=== PATIENT | female | born 1970 | race Caucasian/White ===

== ENCOUNTER → 2019-11-14 14:52 | Outpatient (BNVA) | payer MEDICARE, MEDICAID, SELFPAY | PROVIDERS: Family Provider Family Medicine; PCP Family Medicine; Visit Provider Nurse Practitioner | DX: F43.12 Post-traumatic stress disorder, chronic (principal); R41.83 Borderline intellectual functioning | CPT/HCPCS: 99213 ==

== ENCOUNTER 2019-12-07 00:59 | Emergency (ER) | payer MEDICARE, MEDICAID, SELFPAY ==
[2019-12-07] VITALS (7 sets, daily range): BP systolic 150–168; BP diastolic 97–118; PULSE 77–88; RESP 16–18; TEMP 37; O2SAT 96; BMI 28.5
--- NOTE | 2019-12-07 01:33 | ED_ITS ---
Entered by Shireen Hebert, acting as scribe for Michael Begum DO Dec 07, 2019 00:59 HPI - Neck Pain/Injury General: Chief Complaint: Neck Pain/Injury Stated Complaint: HEAD/SHOULDER PAIN Time Seen by Provider: 12/07/19 01:26 Source: patient Mode of arrival: ambulatory Limitations: no limitations History of Present Illness: HPI Narrative: 49 yo f came to the er pov for neck pain. Pt states that she has pain between her shoulder blades. Pt states that she lifted a box of meat and started to have pain a few days later. Pt states that the pain started last sunday. Pt states that she has pain on her left side due to lifting. MD complaint: neck pain Place: other Severity: mild Relieving factors: none Exacerbating factors: none Associated symptoms: Reports headache(s); Denies dizziness or nausea Review of Systems Const: Denies: fever or chills Eyes: Denies: change in vision or blurry vision ENMT: Denies: painful swallowing, swelling of lips/tongue, Change in hearing, nose bleeds or post nasal drip Card: Denies: chest pain, palpitations, irregular heart rhythm, edema, swelling of feet/ankles, shortness of breath on exertion or shortness of breath when lying down Resp: Denies: shortness of breath, productive cough, non-productive cough or wheezing GI: Denies: abdominal pain, nausea, vomiting, rectal pain, blood in stool or black tarry stool : Denies: blood in urine Musc: Reports: neck pain and back pain; Denies: redness or joint warmth Skin/Breast: Denies: rash, itching or redness Neuro: Reports: headache; Denies: dizziness, vertigo, confusion or seizure-like activity Psych: Denies: anxiety, visual hallucinations or auditory hallucinations PFSH ED PFSH: Statuses (acute, chronic, etc) shown below reflect problem list status as previously entered and may not be historically accurate Medical History Borderline intellectual functioning (Acute) Post-traumatic stress disorder, chronic (Acute) Social History Smoking and tobacco status: current every day smoker Physical Exam Const: GENERAL APPEARANCE: well developed ORIENTATION/CONSCIOUSNESS: Yes oriented to person, Yes oriented to place and Yes oriented to time HENMT: COMMON NORMALS: normocephalic, external ears normal and external nose normal HEAD & SCALP: normocephalic; no scalp tenderness FACE & SINUS: normal facial exam NOSE: external nose normal and no nasal discharge EXTERNAL EAR: Yes external ears normal MOUTH: tongue normal Eye: COMMON NORMALS: PERRL, EOMs intact bilaterally and conjunctivae normal EYELID: eyelids normal CONJUNCTIVA: Yes conjunctivae normal PUPIL: Yes PERRL Neck/C-Spine: COMMON NORMALS: full ROM GENERAL: No tracheal deviation CERVICAL SPINE: Yes normal cervical lordosis, Yes cervical spine tenderness, No step off deformity, Yes paracervical muscle tenderness, No paracervical muscle spasm and Yes trapezius muscle tenderness Chest: COMMONS NORMALS: inspection of chest normal CHEST: No tenderness Resp: COMMON NORMALS: clear to auscultation bilaterally EFFORT & INSPECTION: No tachypneic, No respiratory distress, No retractions, No uses accessory muscles and No tracheal deviation AUSCULTATION: clear to auscultation bilaterally, no rhonchi, no wheezes and lung sounds not diminished Cardio: COMMON NORMALS: regular rate and regular rhythm RATE: regular rate RHYTHM: regular rhythm HEART SOUNDS: no murmurs PERIPHERAL PULSES: radial pulses present GI: INSPECTION: No abdominal distension AUSCULTATION: No hyperactive bowel sounds and No hypoactive bowel sounds PALPATION: No guarding and No rigid PERCUSSION: no dullness to percussion and no tympanic to percussion : COMMON NORMALS: Yes no CVA tenderness BLADDER/KIDNEY EXAM: Yes no CVA tenderness Back/Pelvis: COMMON NORMALS: no CVA tenderness Neuro: SENSORIUM/ORIENTATION: Yes oriented to person, Yes oriented to place and Yes oriented to time Psych: COMMON NORMALS: mental status grossly normal Skin: COMMON NORMALS: no rashes or lesions noted GENERAL SKIN EXAM: no rashes or lesions noted Course Vital Signs: Vital signs: Vital Signs Temperature 98.6 F 12/07/19 01:23 Pulse Rate 77 12/07/19 03:22 Respiratory Rate 16 12/07/19 03:22 Blood Pressure 158/106 12/07/19 03:22 Pulse Oximetry 96 12/07/19 03:22 Discharge Plan Discharge Patient Disposition: Home, Self-Care Clinical Impression: Cervical spondylosis Condition: Stable Prescriptions: New Medrol (Kemar) 4 mg tablets,dose pack See Rx Instructions .ROUTE .COMPLEX Qty: 21 RF: 0 No Action venlafaxine [Effexor XR] 150 mg capsule,extended release 24hr 150 mg PO QAM Qty: 30 RF: 2 topiramate [Topamax] 100 mg tablet 100 mg PO DAILY Qty: 30 RF: 2 gabapentin 400 mg capsule 400 mg PO BID RF: 0 atenolol 50 mg tablet 50 mg PO DAILY RF: 0 Symbicort 160-4.5 mcg/actuation HFA aerosol inhaler 2 puff INHALATION BID RF: 0 pantoprazole 40 mg tablet,delayed release (DR/EC) 40 mg PO QAM RF: 0 metformin 500 mg tablet 500 mg PO DAILY RF: 0 cyclobenzaprine 10 mg tablet 10 mg PO TID RF: 0 cholecalciferol (vitamin D3) 50,000 unit capsule 50,000 unit PO .weekly RF: 0 Discharge Orders: Discharge Order (Routine); Ordered 12/07/19 Ordered By: Michael Begum Referrals: Eric Mandel MD [Primary Care Provider] - Discharge Diet: Usual diet Discharge Activity: Increase activity as tolerated Patient Instructions: Cervical Sprain (ED) Discharge Date/Time: 12/07/19 03:22 Coding Level of Care Code ED [employer] Supervisor for Stephen Taylor The documentation recorded by the Anup valente Stephanie Lyn, accurately reflects the service I personally performed and the decisions made by Kel guerrero Jeremy John, DO Dec 07, 2019 00:59
[2019-12-07] MEDS: oxyCODONE-APAP 5-325 mg Tablet 2 TAB PO (03:04)
== END 2019-12-07 03:22 | disposition home or self-care (01) ==
PROVIDERS: Emergency Provider Emergency Medicine; Family Provider Family Medicine; PCP Family Medicine
DX: M47.812 Spondylosis without myelopathy or radiculopathy, cervical region (principal); Z79.84 Long term (current) use of oral hypoglycemic drugs; F17.210 Nicotine dependence, cigarettes, uncomplicated
CPT/HCPCS: 99281

== ENCOUNTER 2020-01-19 15:00 | Outpatient (CLI) | payer MEDICARE, MEDICAID, SELFPAY ==
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
== END 2020-01-19 15:01 | disposition home or self-care (01) ==
LOC: RADOUTREAD 01-20 07:42
PROVIDERS: Family Provider Family Medicine; PCP Family Medicine; Visit Provider Family Medicine
DX: Z01.89 Encounter for other specified special examinations (principal)

== ENCOUNTER → 2020-02-13 07:44 | Outpatient (BNVA) | payer MEDICARE, MEDICAID, SELFPAY | PROVIDERS: Family Provider Family Medicine; PCP Family Medicine; Visit Provider Nurse Practitioner | DX: R41.83 Borderline intellectual functioning (principal); F43.12 Post-traumatic stress disorder, chronic | CPT/HCPCS: 99213 ==

== ENCOUNTER 2020-05-20 23:16 | Emergency (ER) | payer MEDICARE, MEDICAID, SELFPAY ==
[2020-05-20 23:21] VITALS: BP 161/91; PULSE 72; RESP 18; TEMP 36.6; O2SAT 99; BMI 27.3
[2020-05-21 00:18] LABS: Basophils # 0.1 10^3/uL (0.0-0.1); Basophils % 0.9 %; Eosinophils # 0.2 10^3/uL (0.0-0.8); Eosinophils % 3.2 %; Hematocrit 38.6 % (37.0-47.0); Hemoglobin 12.2 g/dL (11.5-15.3); Lymphocytes # 2.1 10^3/uL (0.8-4.8); Lymphocytes % 32.3 %; Mean Corpuscular HGB Conc 31.6 g/dL (30.0-36.0); Mean Corpuscular Hemoglobin 29.7 pg (28.0-34.0); Mean Corpuscular Volume 93.9 fL (81-99); Mean Platelet Volume 10.8 fL (7.4-10.4); Monocytes # 0.6 10^3/uL (0.2-0.9); Monocytes % 8.8 %; Neutrophils # 3.58 10^3/uL (1.8-7.7); Neutrophils % 54.6 %; Nucleated Red Blood Cells % 0 %; Platelet Count 309 10^3/cmm (130-400); Red Blood Count 4.11 10^6/uL (4.1-5.3); Red Cell Distribution Width 15.2 % (12.1-15.1); White Blood Count 6.6 10^3/uL (4.0-10.0)
[2020-05-21 00:40] LABS: Alanine Aminotransferase 12 U/L (0-33); Albumin Level 4.7 g/dL (3.5-5.2); Alkaline Phosphatase 64 IU/L (35-105); Anion Gap 12.8 (5-19); Aspartate Amino Transferase 17 U/L (0-32); Blood Urea Nitrogen 7 mg/dL (6-20); Calcium 10.6 mg/dL (8.5-10.5); Carbon Dioxide 24 mmol/L (22-29); Chloride 106 mmol/L (98-107); Globulin 2.4 g/dL (1.3-4.6); Glomerular Filtration Rate 88.9 mL/min (90-130); Glucose 90 mg/dL (65-115); Lipase 33 U/L (13-60); Osmolality Calculated 283 mOsm/kg (285-295); Potassium 3.8 mmol/L (3.5-5.1); Sodium 139 mmol/L (136-145); Total Bilirubin 0.2 mg/dL (0.15-1.2); Total Protein 7.1 g/dL (6.6-8.7)
--- NOTE | 2020-05-21 01:29 | ED_ITS ---
HPI - Abdominal Pain General: Chief Complaint: Abdominal Pain Stated Complaint: lower abd pain and back pain Time Seen by Provider: 05/21/20 01:29 History of Present Illness: HPI narrative: Patient is a 49-year-old female comes to the ED with left lower quadrant abdominal pain and some back pain. Both symptoms started approximately 4 to 5 days ago. Left lower quadrant abdominal pain is described as sharp pain. Patient states that she does have some problems with constipation and says that her last bowel movement yesterday, she had to strain and only a little bit of hard stool came out. She says that is how her bowel movements have been recently. She rates both back and abdominal pain 10 out of 10. The back pain is located in the right lower lumbar region closer to right hip. She does not have any pain radiating down the leg, numbness or tingling or weakness to lower extremities. No bladder or bowel incontinence. She denies any recent accident, injury or trauma to cause back pain. Patient denies any fever, shortness of breath, chest pain, nausea, vomiting, diarrhea, blood in the stool, hematuria or dysuria. Associated Symptoms: Reports constipation; Denies chills, diarrhea, dysuria, fever(s), hematochezia, hematuria, fecal incontinence, nausea and vomiting Review of Systems Const: Denies: fever(s), chills or fatigue Eyes: Denies: change in vision or eye discomfort ENMT: Denies: throat pain, odynophagia, nasal discharge or nasal congestion Card: Denies: chest pain, palpitations, edema, swelling of feet/ankles, dyspnea on exertion or orthopnea Resp: Denies: dyspnea, productive cough or non-productive cough GI: Reports: abdominal pain and constipation; Denies: nausea, vomiting, diarrhea, fecal incontinence or hematochezia : Denies: flank pain, dysuria, urinary incontinence or hematuria Musc: Reports: back pain; Denies: neck pain or extremity swelling Skin/Breast: Denies: rash or new lesions Neuro: Denies: headache(s), numbness in extremities or weakness in extremities PFS ED PFSH: Medical History Borderline intellectual functioning Post-traumatic stress disorder, chronic Social History Smoking and tobacco status: current every day smoker Physical Exam Const: COMMON NORMALS: no acute distress, patient oriented x3 and alert GENERAL APPEARANCE: cooperative and comfortable HENMT: COMMON NORMALS: normocephalic HEAD & SCALP: normocephalic MOUTH: Normal oral and palatal mucosa present THROAT: posterior oropharynx normal and uvula midline Eye: COMMON NORMALS: Equal, round and reactive pupils present PUPIL: Yes Equal, round and reactive pupils present Neck/C-Spine: COMMON NORMALS: supple GENERAL: Yes normal visual inspection Resp: COMMON NORMALS: normal respiratory effort, No retractions, No use of accessory muscles and clear to auscultation bilaterally AUSCULTATION: clear to auscultation bilaterally Cardio: COMMON NORMALS: regular rate, regular rhythm, S1 normal heart sound present, S2 normal heart sound present, No gallops present (Cardio), No clicks present (Cardio), No murmurs present (Cardio) and Peripheral pulses 2+ throughout RATE: regular rate RHYTHM: regular rhythm HEART SOUNDS: S1 normal heart sound present and S2 normal heart sound present PERIPHERAL PULSES: Peripheral pulses 2+ throughout GI: COMMON NORMALS: Normal to inspection, nondistended, normoactive bowel sounds present, Soft to palpation and no masses PALPATION: Yes Soft to palpation and Yes Tenderness to palpation present (GI) Details: LLQ (Mild tenderness upon deep palpation ) : COMMON NORMALS: Yes no CVA tenderness BLADDER/KIDNEY EXAM: Yes no CVA tenderness Back/Pelvis: COMMON NORMALS: no CVA tenderness Extremity: COMMON NORMALS: normal to inspection and no pedal edema Neuro: COMMON NORMALS: patient oriented x3 SENSORIUM/ORIENTATION: Yes alert GAIT: Yes Normal gait present Skin: COMMON NORMALS: no rashes or lesions noted GENERAL SKIN EXAM: no rashes or lesions noted and dry skin Course Vital Signs: Vital signs: Vital Signs Temperature 97.9 F 05/20/20 23:21 Pulse Rate 62 05/21/20 03:41 Respiratory Rate 18 05/21/20 03:41 Blood Pressure 159/93 05/21/20 03:41 Pulse Oximetry 97 05/21/20 03:41 MDM - Abdominal Pain MDM Narrative: Medical decision making narrative: Patient is a 49-year-old female who comes to the ED with constipation and abdominal pain. Patient says she has been straining a lot and getting minimal hard stool out during bowel movements. Denies any blood in the stool. Patient had some tenderness upon palpation of the left lower quadrant. CBC, CMP and UA were unremarkable. KUB was performed and showed some moderate amount of stool in the ascending and proximal transverse colon. No other acute findings seen. Patient diagnosed with constipation and discharged with a prescription for MiraLAX. Patient told to follow-up with PCP in 7 to 10 days for reevaluation. Patient understood and agreed with plan. Lab Data: Attestation: I reviewed the patient's lab results. Labs: Lab Results 05/20/20 05/20/20 05/21/20 Range/Units 23:55 23:55 02:00 WBC 6.6 (4.0-10.0) 10^3/ uL RBC 4.11 (4.1-5.3) 10^6/u L Hgb 12.2 (11.5-15.3) g/dL Hct 38.6 (37.0-47.0) % MCV 93.9 (81-99) fL MCH 29.7 (28.0-34.0) pg MCHC 31.6 (30.0-36.0) g/dL RDW 15.2 H (12.1-15.1) % Plt Count 309 (130-400) 10^3/c mm MPV 10.8 H (7.4-10.4) fL Neut % (Auto) 54.6 % Lymph % (Auto) 32.3 % [place]lette % (Auto) 8.8 % Eos % (Auto) 3.2 % Baso % (Auto) 0.9 % Neut # (Auto) 3.58 (1.8-7.7) 10^3/u L Lymph # (Auto) 2.1 (0.8-4.8) 10^3/u L [place] # (Auto) 0.6 (0.2-0.9) 10^3/u L Eos # (Auto) 0.2 (0.0-0.8) 10^3/u L Baso # (Auto) 0.1 (0.0-0.1) 10^3/u L Nucleated RBC % (a uto) 0 % Nucleated RBCs # 0.0 /100WBC Sodium 139 (136-145) mmol/L Potassium 3.8 (3.5-5.1) mmol/L Chloride 106 (98-107) mmol/L Carbon Dioxide 24 (22-29) mmol/L Anion Gap 12.8 (5-19) BUN 7 (6-20) mg/dL Creatinine 0.7 (0.5-0.9) mg/dL GFR Calculation 88.9 L (90-130) mL/min Glucose 90 (65-115) mg/dL Calculated Osmolal ity 283 L (285-295) mOsm/k g Calcium 10.6 H (8.5-10.5) mg/dL Total Bilirubin 0.2 (0.15-1.2) mg/dL AST 17 (0-32) U/L ALT 12 (0-33) U/L Alkaline Phosphata se 64 (35-105) IU/L Total Protein 7.1 (6.6-8.7) g/dL Albumin 4.7 (3.5-5.2) g/dL Globulin 2.4 (1.3-4.6) g/dL Lipase 33 (13-60) U/L Urine Color Yellow (Yellow) Urine Appearance Clear (CLEAR) Urine pH 6 (5-7) Ur Specific Gravit y 1.020 (1.005-1.030) Urine Protein Neg (Negative) Urine Glucose (UA) Norm (Normal) Urine Ketones Negative (Negative) Urine Blood Neg (Negative) Urine Nitrate Negative (Negative) Urine Bilirubin Neg (NEGATIVE) Urine Urobilinogen Norm (Negative) mg/dL Ur Leukocyte Kelsie ase Negative (Negative) Urine RBC None (0-2) /hpf Urine WBC None (0-5) /hpf Ur Squamous Epith Cells None (0-5) Urine Bacteria None (NONE) Imaging Data ^: KUB: Attestation: I personally reviewed and interpreted this imaging study as follows: My impression: Stool seen in the ascending proximal and transverse colon. No other acute findings. Radiologist's impression: [address] [place] [address] XRay Report Signed Patient: Caty Perdomo Unit #: [id number] : 1970 Age/Sex: 49 / F ADM Date: 05/20/20 Loc: ER Room/Bed: Attending Dr: Ordering Provider/Ordering MD: Sergio Birch Date of Service: 05/21/20 Procedure(s): XR KUB portable [id number] Accession Number(s): [id number] Report Number: [id number] PROCEDURE INFORMATION: Exam: XR Abdomen, 1 View Exam date and time: 05/21/2020 2:27 AM Age: 49 years old Clinical indication: Abdominal pain; Generalized; Prior surgery; Surgery type: Gb, appy, btl; Additional info: Llq pain TECHNIQUE: Imaging protocol: XR of the abdomen. Views: Frontal supine view of the abdomen. 1 View. COMPARISON: CR Abdomen Series Acute [id number] 10/12/2019 12:12 AM FINDINGS: Gastrointestinal tract: The moderate stool is seen within the ascending and proximal transverse colon. Bones/joints: Unremarkable. XR/XR KUB portable [id number] IMPRESSION: There are no acute abdominal findings. Dictated By: Jose L Gibson MD Signed By: Jose L Gibson MD Signed Date/Time: 05/21/20351 DD/ 0 Discharge Plan Discharge Patient Disposition: Home, Self-Care Clinical Impression: Constipation Qualifiers: Constipation type: slow transit constipation Qualified Code(s): K59.01 - Slow transit constipation Condition: Stable Prescriptions: New Miralax 17 gram/dose powder 17 gm PO DAILY PRN (Reason: constipation) Qty: 119 RF: 0 No Action gabapentin 400 mg capsule 400 mg PO BID RF: 0 atenolol 50 mg tablet 50 mg PO DAILY RF: 0 Symbicort 160-4.5 mcg/actuation HFA aerosol inhaler 2 puff INHALATION BID RF: 0 pantoprazole 40 mg tablet,delayed release (DR/EC) 40 mg PO QAM RF: 0 metformin 500 mg tablet 500 mg PO DAILY RF: 0 cyclobenzaprine 10 mg tablet 10 mg PO TID RF: 0 cholecalciferol (vitamin D3) 50,000 unit capsule 50,000 unit PO .weekly RF: 0 venlafaxine [Effexor XR] 150 mg capsule,extended release 24hr 150 mg PO QAM Qty: 30 RF: 2 topiramate [Topamax] 100 mg tablet 100 mg PO DAILY Qty: 30 RF: 2 Medrol (Kemar) 4 mg tablets,dose pack See Rx Instructions .ROUTE .COMPLEX Qty: 21 RF: 0 Discharge Orders: Discharge Order (Routine); Ordered 05/21/20 Ordered By: Sergio Birch Referrals: Eric Mandel MD [Primary Care Provider] - Discharge Diet: Regular Discharge Activity: Resume usual activity Patient Instructions: Constipation - Adult, High Fiber Diet (ED) Activity Restrictions/Additional Instructions: Follow-up with medical provider as directed in 7-10 days. Take MiraLAX as prescribed to help soften and normalize bowel movements, drink plenty of fluids and stay hydrated. Eat a high-fiber diet including fruits and vegetables. Return to the ER or your medical provider if condition worsens. Please read and understand discharge instructions. If any questions, please ask. Discharge Date/Time: 05/21/20 03:44 Coding Level of Care Code ED Sammying Machine Operator for Marryg Fwd Exam Comprehensive
--- NOTE | 2020-05-21 01:40 | XRR_ITS ---
PROCEDURE INFORMATION: Exam: XR Abdomen, 1 View Exam date and time: 05/21/2020 2:27 AM Age: 49 years old Clinical indication: Abdominal pain; Generalized; Prior surgery; Surgery type: Gb, appy, btl; Additional info: Llq pain TECHNIQUE: Imaging protocol: XR of the abdomen. Views: Frontal supine view of the abdomen. 1 View. COMPARISON: CR Abdomen Series Acute [id number] 10/12/2019 12:12 AM FINDINGS: Gastrointestinal tract: The moderate stool is seen within the ascending and proximal transverse colon. Bones/joints: Unremarkable. XR/XR KUB portable [id number] IMPRESSION: There are no acute abdominal findings.
[2020-05-21 01:51] VITALS: BP 143/103; PULSE 61; RESP 18; O2SAT 98
[2020-05-21 02:30] LABS: Bilirubin Urine Neg (NEGATIVE); Blood Urine Neg (Negative); Glucose Urine UA Norm (Normal); Ketones Urine Negative (Negative); Leukocyte Esterase Urine Negative (Negative); Nitrate Urine Negative (Negative); Protein Urine Neg (Negative); Urine Appearance Clear (CLEAR); Urine Color Yellow (Yellow); Urobilinogen Urine Norm (Negative); pH Urine 6 (5-7)
[2020-05-21] MEDS: acetaminophen 325 mg Tablet 650 MG PO (03:16)
[2020-05-21 03:18] VITALS: BP 158/103; PULSE 64; RESP 16; O2SAT 96
[2020-05-21 03:41] VITALS: BP 159/93; PULSE 62; RESP 18; O2SAT 97
== END 2020-05-21 03:44 | disposition home or self-care (01) ==
PROVIDERS: Emergency Provider Physician Assistant; PCP Family Medicine
DX: K59.01 Slow transit constipation (principal); F17.210 Nicotine dependence, cigarettes, uncomplicated
CPT/HCPCS: 12345; 74018; 80053; 81001; 83690; 85025; 99283

== ENCOUNTER → 2020-06-10 07:35 | Outpatient (BNVA) | payer MEDICARE, MEDICAID, SELFPAY | PROVIDERS: PCP Family Medicine; Visit Provider Nurse Practitioner | DX: R41.83 Borderline intellectual functioning (principal); F43.12 Post-traumatic stress disorder, chronic | CPT/HCPCS: 99213 ==

== ENCOUNTER 2020-10-04 13:14 | Outpatient (CLI) | payer MEDICARE, MEDICAID, SELFPAY ==
--- NOTE | 2020-10-04 13:21 | MM_ITS ---
WS: [id number] SCREENING DIGITAL MAMMOGRAM WITH CAD HISTORY: SCREENING COMPARISON: 10/01/2019 and 02/06/2017 Bilateral CC and MLO views submitted. Computer aided detection analyzed. Breast composition: There are scattered areas of fibroglandular density. No suspicious masses, microc alcifications or architectural distortion. MM/[place] [id number] IMPRESSION: BI-RADS: 1-Negative FOLLOW UP: 1 Year Follow-up
== END 2020-10-04 13:15 | disposition home or self-care (01) ==
LOC: RADSHAW 13:17
PROVIDERS: PCP Family Medicine; Visit Provider Family Medicine
DX: Z12.31 Encounter for screening mammogram for malignant neoplasm of breast (principal)
CPT/HCPCS: 77067

== ENCOUNTER 2020-11-16 00:40 | Emergency (ER) | payer MEDICARE, MEDICAID, SELFPAY ==
[2020-11-16 00:56] VITALS: BP 144/90; PULSE 68; RESP 16; TEMP 36.6; O2SAT 100; BMI 28.0
[2020-11-16 01:02] VITALS: BP 131/91; PULSE 64; RESP 18; O2SAT 97
--- NOTE | 2020-11-16 01:15 | W.ED.FEMALGU ---
HPI - Female Genitourinary General: Chief complaint: Urogenital-Female Stated complaint: uti for 5 days Time Seen by Provider: 11/16/20 01:09 Source: patient Mode of arrival: ambulatory Limitations: no limitations History of Present Illness: HPI Narrative: 50-year-old female states over the last 5 days she has had difficulty urinating along with pain with urination. She states she has a hesitancy with a slight dribble and extreme pain. She states she had multiple urinary tract infections in the past and this feels the same. She denies any worsening improving factors. Denies any vomiting or fever. Denies any pain while at rest only with urination Associated symptoms: Deny abdominal pain, headache(s) or nausea Review of Systems Const: Denies: fever(s), chills, body aches or change in appetite Eyes: Denies: blurry vision or eye discomfort ENMT: Denies: throat pain or dental pain Card: Denies: chest pain Resp: Denies: dyspnea GI: Denies: abdominal pain, nausea, vomiting or diarrhea : Reports: difficulty voiding, dysuria and urinary frequency Musc: Denies: neck pain or back pain Skin/Breast: Denies: rash Neuro: Denies: headache(s) Psych: Denies: depression Jaiden/Lymph: Denies: easy bruising All/Imm: Denies: urticaria PFS ED PFSH: Medical History (Updated 11/16/20 @ 01:48 by Le Salas MD) Borderline intellectual functioning Post-traumatic stress disorder, chronic Social History Smoking and tobacco status: current every day smoker Physical Exam Const: COMMON NORMALS: no acute distress, patient oriented x3 and healthy appearing HENMT: COMMON NORMALS: normocephalic and atraumatic HEAD & SCALP: normocephalic and atraumatic Eye: COMMON NORMALS: Equal, round and reactive pupils present and EOMs intact bilaterally PUPIL: Yes Equal, round and reactive pupils present Neck/C-Spine: COMMON NORMALS: full ROM and supple Chest: COMMONS NORMALS: normal inspection of the chest and normal palpation of entire chest wall Resp: COMMON NORMALS: normal respiratory effort, No retractions, No use of accessory muscles and clear to auscultation bilaterally AUSCULTATION: clear to auscultation bilaterally Cardio: COMMON NORMALS: regular rate, regular rhythm and No murmurs present (Cardio) RATE: regular rate RHYTHM: regular rhythm GI: COMMON NORMALS: Normal to inspection, nondistended, normoactive bowel sounds present, Soft to palpation, non-tender and no masses PALPATION: Yes Soft to palpation Extremity: COMMON NORMALS: normal to inspection and full ROM Neuro: COMMON NORMALS: patient oriented x3, moves all extremities and no focal motor deficits Psych: COMMON NORMALS: mental status grossly normal, Normal thought process present and cooperative THOUGHT PROCESS: Normal thought process present Skin: COMMON NORMALS: no rashes or lesions noted and no wounds GENERAL SKIN EXAM: no rashes or lesions noted Course Vital Signs: Vital signs: Vital Signs Temperature 97.9 F 11/16/20 00:56 Pulse Rate 64 11/16/20 01:02 Respiratory Rate 18 11/16/20 01:02 Blood Pressure 131/91 11/16/20 01:02 Pulse Oximetry 97 11/16/20 01:02 MDM - Female MDM Narrative: Medical decision making narrative: Patient presents here with dysuria and likely UTI. Her abdominal exam is benign with no signs of appendicitis. We will place her on Keflex. She is to follow-up with PCP in 2 to 4 days return to ER if any worsening. She understands and agrees to plan. Lab Data: Labs: Lab Results 11/16/20 Range/Units 01:03 Urine Color Yellow (Yellow) Urine Appearance Sl cloudy A (CLEAR) Urine pH 5.0 (5-7) Ur Specific Gravit y 1.025 (1.005-1.030) Urine Protein Neg (Negative) Urine Glucose (UA) Norm (Normal) Urine Ketones 1+ H (Negative) Urine Blood Neg (Negative) Urine Nitrate Negative (Negative) Urine Bilirubin Neg (Negative) Urine Urobilinogen 1 H (Negative) mg/dL Ur Leukocyte Kelsie ase 1+ H (Negative) Urine RBC None (0-2) /hpf Urine WBC 0-4 H (0-5) /hpf Ur Squamous Epith Cells 15-25 H (0-5) /hpf Calcium Oxalate Cr ystal 25-40 H /hpf Amorphous Sediment Not Reportable Urine Bacteria 1+ H (NONE) /hpf Urine Mucus 3+ /hpf Discharge Plan Discharge Patient Disposition: Home Clinical Impression: Cystitis Condition: Stable Prescriptions: New Keflex 500 mg capsule 500 mg PO Q6H 7 Days Qty: 28 RF: 0 No Action venlafaxine [Effexor XR] 150 mg capsule,extended release 24hr 150 mg PO QAM Qty: 30 RF: 2 topiramate [Topamax] 100 mg tablet 100 mg PO DAILY Qty: 30 RF: 2 gabapentin 400 mg capsule 400 mg PO BID RF: 0 atenolol 50 mg tablet 50 mg PO DAILY RF: 0 Symbicort 160-4.5 mcg/actuation HFA aerosol inhaler 2 puff INHALATION BID RF: 0 pantoprazole 40 mg tablet,delayed release (DR/EC) 40 mg PO QAM RF: 0 metformin 500 mg tablet 500 mg PO DAILY RF: 0 cyclobenzaprine 10 mg tablet 10 mg PO TID RF: 0 cholecalciferol (vitamin D3) 50,000 unit capsule 50,000 unit PO .weekly RF: 0 Medrol (Kemar) 4 mg tablets,dose pack See Rx Instructions .ROUTE .COMPLEX Qty: 21 RF: 0 Miralax 17 gram/dose powder 17 gm PO DAILY PRN (Reason: constipation) Qty: 119 RF: 0 Discharge Orders: Discharge ED (Routine); Ordered 11/16/20 Ordered By: Le Salas Referrals: Eric Mandel MD [Primary Care Provider] - 1-3 days Discharge Diet: Advance as tolerated Discharge Activity: Resume usual activity Patient Instructions: Urinary Tract Infection in Women (ED) Coding Level of Care Code ED Citrus Fruit Colorer for Stephen Fwd Exam Comprehensive
[2020-11-16 01:43] LABS: Specific Gravity, Urine 1.025 (1.005-1.030); Urine Color Yellow (Yellow)
[2020-11-16 01:44] LABS: Add Urine Microscopic? YES; Bacteria Urine 1+ /hpf; Bilirubin Urine Neg (Negative); Blood Urine Neg (Negative); Glucose Urine UA Norm (Normal); Ketones Urine 1+ (Negative); Leukocyte Esterase Urine 1+ (Negative); Mucus Urine 3+ /hpf; Nitrate Urine Negative (Negative); Protein Urine Neg (Negative); Squamous Epithelial Cell Urine 15-25 /hpf (0-5); Urobilinogen Urine 1 mg/dL (Negative); WBC Urine 0-4 /hpf (0-5)
[2020-11-16 01:45] LABS: Add Urine Culture? No; Calcium Oxalate Crystals Urine 25-40 /hpf
[2020-11-16] MEDS: cephALEXin 500 mg Capsule PO (02:00)
[2020-11-16 02:07] VITALS: BP 148/88; PULSE 64; RESP 16; O2SAT 100
== END 2020-11-16 02:09 | disposition home or self-care (01) ==
PROVIDERS: Emergency Provider Emergency Medicine; PCP Family Medicine
DX: N30.90 Cystitis, unspecified without hematuria (principal); F17.210 Nicotine dependence, cigarettes, uncomplicated
CPT/HCPCS: 12345; 81001; 99281; 99283

== ENCOUNTER 2020-12-18 22:17 | Emergency (ER) | payer MEDICARE, MEDICAID, SELFPAY ==
[2020-12-18 22:19] VITALS: BP 156/103; PULSE 79; RESP 18; TEMP 36.7; O2SAT 99; BMI 26.6
--- NOTE | 2020-12-18 22:25 | XRR_ITS ---
PROCEDURE INFORMATION: Exam: XR Chest, 1 View Exam date and time: 12/18/2020 10:28 PM Age: 50 years old Clinical indication: Other: Syncope TECHNIQUE: Imaging protocol: XR of the chest Views: 1 view. COMPARISON: CR XR chest 2V* [id number] 10/08/2020 9:46 AM FINDINGS: Lungs: Unremarkable. No consolidation. Pleural spaces: Unremarkable. No pleural effusion. No pneumothorax. Heart/Mediastinum: Unremarkable. No cardiomegaly. Bones/joints: Unremarkable. XR/XR chest 1V portable [id number] IMPRESSION: No acute findings.
--- NOTE | 2020-12-18 22:25 | ECG_ITS ---
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1970 Requested By: Michael Hill Order Number: [id number] Isidra MD: CHELSEY CELESTIN Measurements Intervals [place] Rate: 75 P: 34 SC: 169 QRS: -14 QRSD: 89 T: 33 QT: 375 QTc: 420 Interpretive Statements SINUS RHYTHM VOLTAGE CRITERIA FOR LVH [MEETS CRITERIA IN ONE OF: R(aVL), S(V1), R(V5), R(V5/V6)+S(V1)] POSSIBLE ANTERIOR MYOCARDIAL INFARCTION , PROBABLY OLD [30 ms Q WAVE IN V3/V4, OR R < 0.2 mV IN V4] Compared to ECG 03/26/2019 11:59:49 Myocardial infarct finding now present Electronically Signed On 12-19-2020 21:18:30 GEOGRAPHIC INFORMATION SYSTEM ANALYST by CHELSEY CELESTIN [email or web address]
[2020-12-18] MEDS: sodium chloride 0.9% 1,000 ML 999 ML IV (22:36)
--- NOTE | 2020-12-18 22:36 | CTR_ITS ---
PROCEDURE INFORMATION: Exam: CT Head Without Contrast Exam date and time: 12/18/2020 10:37 PM Age: 50 years old Clinical indication: Syncope and collapse; Patient HX: Syncope episode while seated TECHNIQUE: Imaging protocol: Computed tomography of the head without contrast. Radiation optimization: All CT scans at this facility use at least one of these dose optimization techniques: automated exposure control; mA and/or kV adjustment per patient size (includes targeted exams where dose is matched to clinical indication); or iterative reconstruction. COMPARISON: CT head wo con* [id number] 08/21/2018 11:50 PM RADIATION DOSE METRICS: Total DLP (mGy-cm): 787.51 FINDINGS: Brain: Benign globus pallidus calcifications are present. Cerebral ventricles: No ventriculomegaly. Bones/joints: Unremarkable. No acute fracture. Paranasal sinuses: Visualized sinuses are unremarkable. No fluid levels. Mastoid air cells: Visualized mastoid air cells are well aerated. Soft tissues: Unremarkable. CT/CT head wo con* [id number] IMPRESSION: No acute findings.Non acute findings as described above. Radiation Dose CTDIVOL = (mGy): DLP = 787.51 (mGy-cm)
[2020-12-18 22:55] LABS: Add Urine Microscopic? NO
[2020-12-18 22:58] LABS: Basophils % 0.4 %; Eosinophils # 0.2 10^3/uL (0.0-0.8); Eosinophils % 2.6 %; Hemoglobin 12.7 g/dL (11.5-15.3); Lymphocytes % 25.6 %; Mean Corpuscular HGB Conc 31.8 g/dL (30.0-36.0); Mean Corpuscular Hemoglobin 29.7 pg (28.0-34.0); Mean Corpuscular Volume 93.7 fL (81-99); Monocytes # 0.8 10^3/uL (0.2-0.9); Monocytes % 10.4 %; Neutrophils # 4.69 10^3/uL (1.8-7.7); Neutrophils % 60.7 %; Nucleated Red Blood Cells % 0 %; Platelet Count 305 10^3/cmm (130-400); Red Blood Count 4.27 10^6/uL (4.1-5.3); Red Cell Distribution Width 15.1 % (12.1-15.1); White Blood Count 7.7 10^3/uL (4.0-10.0)
[2020-12-18 23:04] LABS: Bilirubin Urine Neg (Negative); Blood Urine Neg (Negative); Glucose Urine UA Norm (Normal); Ketones Urine Negative (Negative); Leukocyte Esterase Urine Negative (Negative); Nitrate Urine Negative (Negative); Protein Urine Neg (Negative); Specific Gravity, Urine 1.005 (1.005-1.030); Urine Appearance Clear (CLEAR); Urine Color Straw (Yellow); Urobilinogen Urine Norm (Negative); pH Urine 7 (5-7)
--- NOTE | 2020-12-18 23:16 | ED_ITS ---
HPI - Syncope General: Chief Complaint: Syncope Stated Complaint: POSS SYNCOPE Time Seen by Provider: 12/18/20 22:19 History of Present Illness: HPI narrative: 50-year-old female with a history of diabetes and hypertension. She presents with what sounds like a syncopal episode lasting somewhere between 2 and 5 minutes. It was witnessed by her coworkers she notes that she had had a bad headache prior, and then began to feel faint. She did not fall. She sat. She was out for 2 to 5 minutes. She states that her eyes were open she believes when she came to, but she could not see, and was having trouble hearing as well. This cleared. She had some mild confusion following that did not last long. There is no evidence of seizure- like or tonic-clonic movements according to bystanders. MD complaint: felt faint and collapsed Onset (ago): hour(s) (2) Duration of episode: 5 -: minutes(s) Description of event: post-event confusion Prodromal symptoms: headache Witnessed: Yes - by Bystander Context: at rest Associated symptoms: Reports chest pain (Afterward), headache(s) and nausea; Deny abdominal pain, fever(s) or vertigo History: seizure disorder (She evidently has a history of 1 seizure a year ago) Review of Systems Const: Denies: fever(s) or chills Eyes: Denies: change in vision or blurry vision ENMT: Denies: odynophagia or sinus pain Card: Reports: chest pain (Afterward) Resp: Denies: dyspnea, productive cough, non-productive cough or wheezing GI: Reports: nausea; Denies: abdominal pain or vomiting : Denies: dysuria or hematuria Musc: Denies: neck pain or back pain Skin/Breast: Denies: rash or erythema Neuro: Reports: headache(s), dizziness and confusion; Denies: vertigo or seizure-like activity Psych: Denies: anxiety PFSH ED PFSH: Medical History (Updated 12/19/20 @ 01:39 by Michael Begum DO) Borderline intellectual functioning Post-traumatic stress disorder, chronic Social History Smoking and tobacco status: current every day smoker Physical Exam Const: GENERAL APPEARANCE: well developed ORIENTATION/CONSCIOUSNESS: Yes oriented to person, Yes oriented to place and Yes oriented to time HENMT: COMMON NORMALS: normocephalic, external ears normal and Normal external nose present HEAD & SCALP: normocephalic FACE & SINUS: normal facial exam NOSE: Normal external nose present and No nasal discharge present EXTERNAL EAR: Yes external ears normal Eye: COMMON NORMALS: Equal, round and reactive pupils present, EOMs intact bilaterally and conjunctivae normal EYELID: eyelids normal CONJUNCTIVA: Yes conjunctivae normal PUPIL: Yes Equal, round and reactive pupils present Neck/C-Spine: GENERAL: No tracheal deviation Chest: COMMONS NORMALS: normal inspection of the chest CHEST: No tenderness Resp: COMMON NORMALS: clear to auscultation bilaterally EFFORT & INSPECTION: No tachypneic, No respiratory distress, No retractions, No uses a ccessory muscles and No tracheal deviation AUSCULTATION: clear to auscultation bilaterally, no rhonchi, no wheezes and lung sounds not diminished Cardio: COMMON NORMALS: regular rate and regular rhythm RATE: regular rate RHYTHM: regular rhythm HEART SOUNDS: no murmurs PERIPHERAL PULSES: radial pulses present GI: INSPECTION: No abdominal distension AUSCULTATION: No Hyperactive bowel sounds present and No Hypoactive bowel sounds present PALPATION: No Guarding due to palpation present (GI) and No Rigid due to palpation PERCUSSION: no dullness to percussion and no tympanic to percussion Neuro: SENSORIUM/ORIENTATION: Yes oriented to person, Yes oriented to place and Yes oriented to time CRANIAL NERVES: Yes CN normal except as noted TOLL LINE INSPECTOR RDINATION/BALANCE: [id number] test normal SPEECH: speech normal GAIT: Yes Unable to assess gait MOTOR EXAM: Pronator motor function not present, Motor fasciculations not present and Tremors during motor activity present (slight) resting tremor COORDINATION: [id number] test normal Psych: COMMON NORMALS: mental status grossly normal Skin: COMMON NORMALS: no rashes or lesions noted GENERAL SKIN EXAM: no rashes or lesions noted Course Vital Signs: Vital signs: Vital Signs Temperature 98.0 F 12/18/20 22:19 Pulse Rate 78 12/18/20 23:57 Respiratory Rate 12 12/18/20 23:57 Blood Pressure 157/98 12/18/20 23:57 Pulse Oximetry 100 12/18/20 23:57 MDM - Syncope MDM Narrative: Medical decision making narrative: Head CT is negative. Chest x-ray is negative. Labs are benign. Troponin did not change at 2 hours. EKG shows a sinus rhythm with a normal axis. There is no acute ST change. This is x2. Her headache is improved. She will be allowed discharge Lab Data: Labs: Lab Results 12/18/20 12/18/20 12/18/20 Range/Units 22:26 22:26 22:26 WBC 7.7 (4.0-10.0) 10^3/ uL RBC 4.27 (4.1-5.3) 10^6/u L Hgb 12.7 (11.5-15.3) g/dL Hct 40.0 (37.0-47.0) % MCV 93.7 (81-99) fL MCH 29.7 (28.0-34.0) pg MCHC 31.8 (30.0-36.0) g/dL RDW 15.1 (12.1-15.1) % Plt Count 305 (130-400) 10^3/c mm MPV 11.0 H (7.4-10.4) fL Neut % (Auto) 60.7 % Lymph % (Auto) 25.6 % [place] % (Auto) 10.4 % Eos % (Auto) 2.6 % Baso % (Auto) 0.4 % Neut # (Auto) 4.69 (1.8-7.7) 10^3/u L Lymph # (Auto) 2.0 (0.8-4.8) 10^3/u L [place] # (Auto) 0.8 (0.2-0.9) 10^3/u L Eos # (Auto) 0.2 (0.0-0.8) 10^3/u L Baso # (Auto) 0.0 (0.0-0.1) 10^3/u L Nucleated RBC % (a uto) 0 % Nucleated RBCs # 0.0 /100WBC D-Dimer 0.33 (0-0.59) ug/mIFE U Sodium 136 (136-145) mmol/L Potassium 3.5 (3.5-5.1) mmol/L Chloride 103 (98-107) mmol/L Carbon Dioxide 22 (22-29) mmol/L Anion Gap 14.5 (5-19) BUN 5 L (6-20) mg/dL Creatinine 0.7 (0.5-0.9) mg/dL GFR Calculation 88.6 L (90-130) mL/min Glucose 95 (65-115) mg/dL Calculated Osmolal ity 279 L (285-295) mOsm/k g Calcium 10.3 (8.5-10.5) mg/dL Total Bilirubin 0.2 (0.15-1.2) mg/dL AST 18 (0-32) U/L ALT 14 (0-33) U/L Alkaline Phosphata se 72 (35-105) IU/L Creatine Kinase 133 (26-192) U/L Troponin T Baselin e (0-10) ng/L Troponin T 120 Min [place] (0-10) ng/L Delta Troponin T (0-10) ABS# NT-Pro-B Natriuret Pep 98 (0-125) pg/mL Total Protein 7.2 (6.6-8.7) g/dL Albumin 4.4 (3.5-5.2) g/dL Globulin 2.8 (1.3-4.6) g/dL Urine Color (Yellow) Urine Appearance (CLEAR) Urine pH (5-7) Ur Specific Gravit y (1.005-1.030) Urine Protein (Negative) Urine Glucose (UA) (Normal) Urine Ketones (Negative) Urine Blood (Negative) Urine Nitrate (Negative) Urine Bilirubin (Negative) Urine Urobilinogen (Negative) mg/dL Ur Leukocyte Kelsie ase (Negative) 12/18/20 12/18/20 12/19/20 Range/Units 22:26 22:26 00:25 WBC (4.0-10.0) 10^3/ uL RBC (4.1-5.3) 10^6/u L Hgb (11.5-15.3) g/dL Hct (37.0-47.0) % MCV (81-99) fL MCH (28.0-34.0) pg MCHC (30.0-36.0) g/dL RDW (12.1-15.1) % Plt Count (130-400) 10^3/c mm MPV (7.4-10.4) fL Neut % (Auto) % Lymph % (Auto) % [place] % (Auto) % Eos % (Auto) % Baso % (Auto) % Neut # (Auto) (1.8-7.7) 10^3/u L Lymph # (Auto) (0.8-4.8) 10^3/u L [place] # (Auto) (0.2-0.9) 10^3/u L Eos # (Auto) (0.0-0.8) 10^3/u L Baso # (Auto) (0.0-0.1) 10^3/u L Nucleated RBC % (a uto) % Nucleated RBCs # /100WBC D-Dimer (0-0.59) ug/mIFE U Sodium (136-145) mmol/L Potassium (3.5-5.1) mmol/L Chloride (98-107) mmol/L Carbon Dioxide (22-29) mmol/L Anion Gap (5-19) BUN (6-20) mg/dL Creatinine (0.5-0.9) mg/dL GFR Calculation (90-130) mL/min Glucose (65-115) mg/dL Calculated Osmolal ity (285-295) mOsm/k g Calcium (8.5-10.5) mg/dL Total Bilirubin (0.15-1.2) mg/dL AST (0-32) U/L ALT (0-33) U/L Alkaline Phosphata se (35-105) IU/L Creatine Kinase (26-192) U/L Troponin T Baselin e 6 (0-10) ng/L Troponin T 120 Min [place] 6.00 (0-10) ng/L Delta Troponin T 0 (0-10) ABS# NT-Pro-B Natriuret Pep (0-125) pg/mL Total Protein (6.6-8.7) g/dL Albumin (3.5-5.2) g/dL Globulin (1.3-4.6) g/dL Urine Color Straw (Yellow) Urine Appearance Clear (CLEAR) Urine pH 7 (5-7) Ur Specific Gravit y 1.005 (1.005-1.030) Urine Protein Neg (Negative) Urine Glucose (UA) Norm (Normal) Urine Ketones Negative (Negative) Urine Blood Neg (Negative) Urine Nitrate Negative (Negative) Urine Bilirubin Neg (Negative) Urine Urobilinogen Norm (Negative) mg/dL Ur Leukocyte Kelsie ase Negative (Negative) Discharge Plan Discharge Patient Disposition: Home Clinical Impression: Syncope Qualifiers: Syncope type: unspecified Qualified Code(s): R55 - Syncope and collapse Condition: Stable Prescriptions: No Action venlafaxine [Effexor XR] 150 mg capsule,extended release 24hr 150 mg PO QAM Qty: 30 RF: 2 topiramate [Topamax] 100 mg tablet 100 mg PO DAILY Qty: 30 RF: 2 gabapentin 400 mg capsule 400 mg PO BID RF: 0 atenolol 50 mg tablet 50 mg PO DAILY RF: 0 Symbicort 160-4.5 mcg/actuation HFA aerosol inhaler 2 puff INHALATION BID RF: 0 pantoprazole 40 mg tablet,delayed release (DR/EC) 40 mg PO QAM RF: 0 metformin 500 mg tablet 500 mg PO DAILY RF: 0 cyclobenzaprine 10 mg tablet 10 mg PO TID RF: 0 cholecalciferol (vitamin D3) 50,000 unit capsule 50,000 unit PO .weekly RF: 0 Medrol (Kemar) 4 mg tablets,dose pack See Rx Instructions .ROUTE .COMPLEX Qty: 21 RF: 0 Miralax 17 gram/dose powder 17 gm PO DAILY PRN (Reason: constipation) Qty: 119 RF: 0 Discharge Orders: Discharge ED (Routine); Ordered 12/19/20 Ordered By: Michael Begum Referrals: Eric Mandel MD [Primary Care Provider] - 4-7 days Discharge Diet: Advance as tolerated Discharge Activity: Increase activity as tolerated Patient Instructions: Syncope (ED) Activity Restrictions/Additional Instructions: Return for repeated episodes of syncope or passing out, mental status changes, continued or worsening chest discomfort, fever, shortness of breath, other concerning symptoms. Coding Level of Care Code ED Java Lead Architect for Chg Fwd Exam Comprehensive
[2020-12-18 23:19] LABS: D Dimer 0.33 ug/mIFEU (0-0.59); Troponin(5th) Baseline 6 ng/L (0-10)
[2020-12-18 23:29] LABS: Alanine Aminotransferase 14 U/L (0-33); Albumin Level 4.4 g/dL (3.5-5.2); Alkaline Phosphatase 72 IU/L (35-105); Anion Gap 14.5 (5-19); Aspartate Amino Transferase 18 U/L (0-32); Blood Urea Nitrogen 5 mg/dL (6-20); Calcium 10.3 mg/dL (8.5-10.5); Carbon Dioxide 22 mmol/L (22-29); Chloride 103 mmol/L (98-107); Creatine Phosphokinase 133 U/L (26-192); Globulin 2.8 g/dL (1.3-4.6); Glomerular Filtration Rate 88.6 mL/min (90-130); Glucose 95 mg/dL (65-115); NT Pro B Type Natriuretic Pept 98 pg/mL (0-125); Osmolality Calculated 279 mOsm/kg (285-295); Potassium 3.5 mmol/L (3.5-5.1); Sodium 136 mmol/L (136-145); Total Bilirubin 0.2 mg/dL (0.15-1.2); Total Protein 7.2 g/dL (6.6-8.7)
[2020-12-18 23:57] VITALS: BP 157/98; PULSE 78; RESP 12; O2SAT 100
[2020-12-18] MEDS: ondansetron 2 mg/ML SDV 2 mL 4 MG IVP (23:59)
[2020-12-18] MEDS: morphine 4 mg/mL SDV 1 mL IVP (23:59)
--- NOTE | 2020-12-19 00:20 | PC.NURSE ---
EKG done at 0015 and shown to ER doctor
--- NOTE | 2020-12-19 00:25 | ECG_ITS ---
[facility] Test Date: 2020-12-19 Pat Name: Caty Perdomo Department: Room: Gender: Female Billiard Table Assembler: : 1970 Requested By: Michael Hill Order Number: [id number] Reading MD: CHELSEY CELESTIN Measurements Intervals [place] Rate: 76 P: 52 ME: 166 QRS: -2 QRSD: 93 T: 32 QT: 399 QTc: 450 Interpretive Statements SINUS RHYTHM NONSPECIFIC T-WAVE ABNORMALITY Compared to ECG 12/18/2020 22:19:49 T-wave abnormality now present Left ventricular hypertrophy no longer present Myocardial infarct finding no longer present Electronically Signed On 12-19-2020 21:19:13 HUMAN MACHINE INTERFACE ENGINEER by CHELSEY CELESTIN [id number]
[2020-12-19 00:56] LABS: Troponin 5 2HR Delta 0 ABS# (0-10)
[2020-12-19 02:04] VITALS: BP 139/85; PULSE 82; RESP 19; O2SAT 98
== END 2020-12-19 02:04 | disposition home or self-care (01) ==
PROVIDERS: Emergency Provider Emergency Medicine; PCP Family Medicine
DX: R55 Syncope and collapse (principal); Z79.84 Long term (current) use of oral hypoglycemic drugs; F17.210 Nicotine dependence, cigarettes, uncomplicated
CPT/HCPCS: 12345; 70450; 71045; 80053; 81003; 82550; 83880; 84484; 85025; 85378; 93005; 96361; 96374; 96375; 99282; 99284; J2270; J2405; J7030

== ENCOUNTER 2021-01-11 00:01 | Emergency (ER) | payer MEDICARE, MEDICAID, SELFPAY ==
[2021-01-11] VITALS (7 sets, daily range): BP systolic 125–165; BP diastolic 74–97; PULSE 61–78; RESP 14–18; TEMP 36.3; O2SAT 95–100; BMI 26.6
--- NOTE | 2021-01-11 00:02 | ECG_ITS ---
[facility] Test Date: 2021-01-11 Pat Name: Caty Perdomo Department: Room: Gender: Female Composite Assembler: : 1970 Requested By: Le Salas Order Number: [id number] Reading MD: CHELSEY CELESTIN Measurements Intervals [place] Rate: 71 P: 42 LA: 173 QRS: -9 QRSD: 90 T: 39 QT: 392 QTc: 427 Interpretive Statements SINUS RHYTHM LOW QRS VOLTAGE IN PRECORDIAL LEADS [QRS DEFLECTION < 1.0 mV IN CHEST LEADS] MODERATE VOLTAGE CRITERIA FOR LVH, CONSIDER NORMAL VARIANT [MEETS CRITERIA IN ONE OF: R(aVL), S(V1), R(V5), R(V5/V6)+S(V1)] INTERPRETATION BASED ON A DEFAULT AGE OF 40 YEARS Compared to ECG 12/19/2020 00:17:00 Low QRS voltage now present T-wave abnormality no longer present Electronically Signed On 01-11-2021 19:59:35 SPECIAL PROCEDURES NURSE by CHELSEY CELESTIN [id number]
--- NOTE | 2021-01-11 00:02 | XRR_ITS ---
PROCEDURE INFORMATION: Exam: XR Chest Exam date and time: 01/11/2021 12:20 AM Age: 50 years old Clinical indication: Chest pain; Type not specified; Additional info: Cp TECHNIQUE: Imaging protocol: XR of the chest Views: 1 view. COMPARISON: CR (CHEST, ) 12/18/2020 10:41 PM FINDINGS: Lungs: Hyperinflation and mild interstitial prominence, without acute airspace disease. Pleural spaces: No pleural effusion. Heart/Mediastinum: No cardiomegaly. Bones/joints: Unremarkable. When correlating with the previous study, no significant interval changes are present. XR/XR chest 1V portable [id number] IMPRESSION: Hyperinflation, without acute airspace or pleural disease.
--- NOTE | 2021-01-11 00:16 | ED_ITS ---
HPI - Chest Pain General: Chief Complaint: Chest Pain Stated Complaint: cp/sob Time Seen by Provider: 01/11/21 00:02 Source: patient Mode of arrival: ambulatory Limitations: no limitations History of Present Illness: HPI narrative: 50-year-old female states she been having chest pain since 1. States been a sharp pain in the center of her chest that is worse with palpation. She denies any fever or cough. She denies any nausea. Does have a history of COPD and states she does have some dyspnea that is chronic in nature though and denies any worsening. She denies any radiation of her pain. MD complaint: chest pain Associated symptoms: Deny abdominal pain, dyspnea, fever(s), nausea or vomiting Review of Systems Const: Denies: fever(s), chills, body aches or change in appetite Eyes: Denies: blurry vision or eye discomfort ENMT: Denies: throat pain or dental pain Card: Reports: chest pain Resp: Denies: dyspnea GI: Denies: abdominal pain, nausea, vomiting or diarrhea : Denies: dysuria Musc: Denies: neck pain or back pain Skin/Breast: Denies: rash Neuro: Denies: headache(s) Psych: Denies: depression [place]/Lymph: Denies: easy bruising All/Imm: Denies: urticaria PFSH ED PFSH: Medical History (Updated 01/11/21 @ 01:50 by Le Salas MD) Borderline intellectual functioning Post-traumatic stress disorder, chronic Social History Smoking and tobacco status: current every day smoker Female Reproductive History: Date of last menstrual period: 12/27/20 Physical Exam Const: COMMON NORMALS: no acute distress, patient oriented x3 and healthy appearing HENMT: COMMON NORMALS: normocephalic and atraumatic HEAD & SCALP: normocephalic and atraumatic Eye: COMMON NORMALS: Equal, round and reactive pupils present and EOMs intact bilaterally PUPIL: Yes Equal, round and reactive pupils present Neck/C-Spine: COMMON NORMALS: full ROM and supple Chest: COMMONS NORMALS: normal inspection of the chest OTHER: Point tender in left chest reproduces pain Resp: COMMON NORMALS: normal respiratory effort, No retractions, No use of accessory muscles and clear to auscultation bilaterally AUSCULTATION: clear to auscultation bilaterally Cardio: COMMON NORMALS: regular rate, regular rhythm and No murmurs present (Cardio) RATE: regular rate RHYTHM: regular rhythm GI: COMMON NORMALS: Normal to inspection, nondistended, normoactive bowel sounds present, Soft to palpation, non-tender and no masses PALPATION: Yes Soft to palpation Extremity: COMMON NORMALS: normal to inspection and full ROM Neuro: COMMON NORMALS: patient oriented x3, moves all extremities and no focal motor deficits Psych: COMMON NORMALS: mental status grossly normal, Normal thought process present and cooperative THOUGHT PROCESS: Normal thought process present Skin: COMMON NORMALS: no rashes or lesions noted and no wounds GENERAL SKIN EXAM: no rashes or lesions noted Course Vital Signs: Vital signs: Vital Signs Temperature 97.3 F L 01/11/21 00:11 Pulse Rate 66 01/11/21 01:31 Respiratory Rate 18 01/11/21 01:31 Blood Pressure 132/85 01/11/21 01:31 Pulse Oximetry 100 01/11/21 01:31 MDM - Chest Pain MDM Narrative: Medical decision making narrative: Caty presents here with chest pain that is likely chest wall pain. She is point tender in her left chest that reproduces her pain. Her troponin and EKG here are normal. She has no signs of acute coronary syndrome. She has no signs of aortic dissection or pulmonary embolism. We will place her on Naprosyn and she is stable for discharge. She is to follow-up with PCP in 2 to 4 days return to the ER if worsening. Lab Data: Labs: Lab Results 01/11/21 01/11/21 01/11/21 Range/Units 00:18 00:18 00:18 WBC 4.6 (4.0-10.0) 10^3/ uL RBC 4.20 (4.1-5.3) 10^6/u L Hgb 12.4 (11.5-15.3) g/dL Hct 38.9 (37.0-47.0) % MCV 92.6 (81-99) fL MCH 29.5 (28.0-34.0) pg MCHC 31.9 (30.0-36.0) g/dL RDW 15.9 H (12.1-15.1) % Plt Count 286 (130-400) 10^3/c mm MPV 10.8 H (7.4-10.4) fL Neut % (Auto) 42.9 % Lymph % (Auto) 35.9 % [place] % (Auto) 10.8 % Eos % (Auto) 8.9 % Baso % (Auto) 1.3 % Neut # (Auto) 1.98 (1.8-7.7) 10^3/u L Lymph # (Auto) 1.7 (0.8-4.8) 10^3/u L [place] # (Auto) 0.5 (0.2-0.9) 10^3/u L Eos # (Auto) 0.4 (0.0-0.8) 10^3/u L Baso # (Auto) 0.1 (0.0-0.1) 10^3/u L Nucleated RBC % (a uto) 0 % Nucleated RBCs # 0.0 /100WBC PT 12.60 (12.1-14.9) SECO NDS INR 0.92 (0.8-1.2) Sodium 139 (136-145) mmol/L Potassium 3.5 (3.5-5.1) mmol/L Chloride 107 (98-107) mmol/L Carbon Dioxide 21 L (22-29) mmol/L Anion Gap 14.5 (5-19) BUN 5 L (6-20) mg/dL Creatinine 0.8 (0.5-0.9) mg/dL GFR Calculation 75.9 L (90-130) mL/min Glucose 86 (65-115) mg/dL Calculated Osmolal ity 285 (285-295) mOsm/k g Calcium 9.6 (8.5-10.5) mg/dL Total Bilirubin 0.2 (0.15-1.2) mg/dL AST 19 (0-32) U/L ALT 14 (0-33) U/L Alkaline Phosphata se 74 (35-105) IU/L Troponin T Baselin e NT-Pro-B Natriuret Pep 59 (0-125) pg/mL Total Protein 6.9 (6.6-8.7) g/dL Albumin 4.3 (3.5-5.2) g/dL Globulin 2.6 (1.3-4.6) g/dL 01/11/21 01/11/21 Range/Units 00:18 00:52 WBC (4.0-10.0) 10^3/ uL RBC (4.1-5.3) 10^6/u L Hgb (11.5-15.3) g/dL Hct (37.0-47.0) % MCV (81-99) fL MCH (28.0-34.0) pg MCHC (30.0-36.0) g/dL RDW (12.1-15.1) % Plt Count (130-400) 10^3/c mm MPV (7.4-10.4) fL Neut % (Auto) % Lymph % (Auto) % [place] % (Auto) % Eos % (Auto) % Baso % (Auto) % Neut # (Auto) (1.8-7.7) 10^3/u L Lymph # (Auto) (0.8-4.8) 10^3/u L [place] # (Auto) (0.2-0.9) 10^3/u L Eos # (Auto) (0.0-0.8) 10^3/u L Baso # (Auto) (0.0-0.1) 10^3/u L Nucleated RBC % (a uto) % Nucleated RBCs # /100WBC PT (12.1-14.9) SECO NDS INR (0.8-1.2) Sodium (136-145) mmol/L Potassium (3.5-5.1) mmol/L Chloride (98-107) mmol/L Carbon Dioxide (22-29) mmol/L Anion Gap (5-19) BUN (6-20) mg/dL Creatinine (0.5-0.9) mg/dL GFR Calculation (90-130) mL/min Glucose (65-115) mg/dL Calculated Osmolal ity (285-295) mOsm/k g Calcium (8.5-10.5) mg/dL Total Bilirubin (0.15-1.2) mg/dL AST (0-32) U/L ALT (0-33) U/L Alkaline Phosphata se (35-105) IU/L Troponin T Baselin e Cancelled 6 NT-Pro-B Natriuret Pep (0-125) pg/mL Total Protein (6.6-8.7) g/dL Albumin (3.5-5.2) g/dL Globulin (1.3-4.6) g/dL Imaging Data^: CXR: Attestation: I personally reviewed and interpreted this imaging study as follows: My impression: no acute abnormality EKG Data^: EKG 1: Attestation: I personally reviewed and interpreted this EKG as follows: EKG interpretation date: 01/11/21 EKG interpretation time: 00:11 Interpretation: nsr hr [address] or t wave abnormalities qrs 90 qtc 414 Discharge Plan Discharge Patient Disposition: Home Clinical Impression: Chest pain Qualifiers: Chest pain type: unspecified Qualified Code(s): R07.9 - Chest pain, unspecified Condition: Stable Prescriptions: New Naprosyn 500 mg tablet 500 mg PO BID PRN (Reason: pain) Qty: 20 RF: 0 No Action venlafaxine [Effexor XR] 150 mg capsule,extended release 24hr 150 mg PO QAM Qty: 30 RF: 2 topiramate [Topamax] 100 mg tablet 100 mg PO DAILY Qty: 30 RF: 2 gabapentin 400 mg capsule 400 mg PO BID RF: 0 atenolol 50 mg tablet 50 mg PO DAILY RF: 0 Symbicort 160-4.5 mcg/actuation HFA aerosol inhaler 2 puff INHALATION BID RF: 0 pantoprazole 40 mg tablet,delayed release (DR/EC) 40 mg PO QAM RF: 0 metformin 500 mg tablet 500 mg PO DAILY RF: 0 cyclobenzaprine 10 mg tablet 10 mg PO TID RF: 0 cholecalciferol (vitamin D3) 50,000 unit capsule 50,000 unit PO .weekly RF: 0 Medrol (Kemar) 4 mg tablets,dose pack See Rx Instructions .ROUTE .COMPLEX Qty: 21 RF: 0 Miralax 17 gram/dose powder 17 gm PO DAILY PRN (Reason: constipation) Qty: 119 RF: 0 Discharge Orders: Discharge ED (Routine); Ordered 01/11/21 Ordered By: Le Salas Referrals: Eric Mandel MD [Primary Care Provider] - 1-3 days Discharge Diet: Advance as tolerated Discharge Activity: Resume usual activity Patient Instructions: Chest Pain - Chest Wall Coding Level of Care Code ED Accounting Consultant for Chg Fwd Exam Comprehensive
[2021-01-11] MEDS: morphine 4 mg/mL SDV 1 mL IVP (00:25)
[2021-01-11 00:49] LABS: INR 0.92 (0.8-1.2)
[2021-01-11 00:52] LABS: Basophils # 0.1 10^3/uL (0.0-0.1); Basophils % 1.3 %; Eosinophils # 0.4 10^3/uL (0.0-0.8); Eosinophils % 8.9 %; Hematocrit 38.9 % (37.0-47.0); Hemoglobin 12.4 g/dL (11.5-15.3); Lymphocytes # 1.7 10^3/uL (0.8-4.8); Lymphocytes % 35.9 %; Mean Corpuscular HGB Conc 31.9 g/dL (30.0-36.0); Mean Corpuscular Hemoglobin 29.5 pg (28.0-34.0); Mean Corpuscular Volume 92.6 fL (81-99); Mean Platelet Volume 10.8 fL (7.4-10.4); Monocytes # 0.5 10^3/uL (0.2-0.9); Monocytes % 10.8 %; Neutrophils # 1.98 10^3/uL (1.8-7.7); Neutrophils % 42.9 %; Nucleated Red Blood Cells % 0 %; Platelet Count 286 10^3/cmm (130-400); Red Cell Distribution Width 15.9 % (12.1-15.1); White Blood Count 4.6 10^3/uL (4.0-10.0)
[2021-01-11 01:12] LABS: Alanine Aminotransferase 14 U/L (0-33); Albumin Level 4.3 g/dL (3.5-5.2); Alkaline Phosphatase 74 IU/L (35-105); Anion Gap 14.5 (5-19); Aspartate Amino Transferase 19 U/L (0-32); Blood Urea Nitrogen 5 mg/dL (6-20); Calcium 9.6 mg/dL (8.5-10.5); Carbon Dioxide 21 mmol/L (22-29); Chloride 107 mmol/L (98-107); Globulin 2.6 g/dL (1.3-4.6); Glomerular Filtration Rate 75.9 mL/min (90-130); Glucose 86 mg/dL (65-115); NT Pro B Type Natriuretic Pept 59 pg/mL (0-125); Osmolality Calculated 285 mOsm/kg (285-295); Potassium 3.5 mmol/L (3.5-5.1); Sodium 139 mmol/L (136-145); Total Bilirubin 0.2 mg/dL (0.15-1.2); Total Protein 6.9 g/dL (6.6-8.7)
[2021-01-11 01:47] LABS: Troponin(5th) Baseline 6 ng/L (0-10)
== END 2021-01-11 02:05 | disposition home or self-care (01) ==
PROVIDERS: Emergency Provider Emergency Medicine; PCP Family Medicine
DX: R07.9 Chest pain, unspecified (principal); Z79.84 Long term (current) use of oral hypoglycemic drugs; F17.210 Nicotine dependence, cigarettes, uncomplicated
CPT/HCPCS: 36415; 71045; 80053; 83880; 84484; 85025; 85610; 93005; 96374; 99283; J2270

== ENCOUNTER 2021-02-07 10:28 | Emergency (ER) | payer MEDICARE, MEDICAID, SELFPAY ==
[2021-02-07 10:30] VITALS: BP 137/93; PULSE 70; RESP 16; TEMP 36.8; O2SAT 99; BMI 27.6
--- NOTE | 2021-02-07 10:48 | W.ED.ANIMALB ---
HPI - Animal Bite General: Chief Complaint: Animal Bite Stated Complaint: Rabies Vacination Time Seen by Provider: 02/07/21 10:32 History of Present Illness: HPI narrative: 50-year-old female comes in for a rabies vaccination. States she is starting her series for this bite. She has previously several years ago had to go through rabies series as well. She states she is on an oral antibiotic at this time. She is also states she is up-to-date on her tetanus shot. she was at health department today and directed here. She was bitten by a feral cat 7 days ago. Associated symptoms: Deny chills or fever(s) Review of Systems Const: Denies: fever(s), chills, body aches, change in appetite, fatigue or malaise Card: Denies: chest pain, edema, dyspnea on exertion or orthopnea Resp: Denies: dyspnea, productive cough or non-productive cough [facility] ED PFSH: Medical History (Updated 02/07/21 @ 11:56 by Sandro Jacobs DO) Borderline intellectual functioning Post-traumatic stress disorder, chronic Social History Smoking and tobacco status: current every day smoker Female Reproductive History: Date of last menstrual period: 12/27/20 Physical Exam Const: COMMON NORMALS: no acute distress GENERAL APPEARANCE: cooperative and comfortable ORIENTATION/CONSCIOUSNESS: Yes awake, Yes oriented to person, Yes oriented to place and Yes oriented to time HENMT: COMMON NORMALS: normocephalic, atraumatic and hearing grossly normal bilaterally HEAD & SCALP: normocephalic and atraumatic Neck/C-Spine: COMMON NORMALS: no JVD Lymph: LYMPHATIC: no lymphadenopathy noted and no lymphedema noted Resp: COMMON NORMALS: normal respiratory effort, No retractions, No use of accessory muscles and clear to auscultation bilaterally AUSCULTATION: clear to auscultation bilaterally Cardio: COMMON NORMALS: no JVD, regular rate, regular rhythm and No murmurs present (Cardio) RATE: regular rate RHYTHM: regular rhythm Extremity: NARRATIVE EXTREMITY EXAM: Bite rylee on the dorsum of the hand at the base of the second metacarpal. There is a small pustular area but no red streaking no epitrochlear or axillary lymph nodes are noted. Neuro: SENSORIUM/ORIENTATION: Yes oriented to person, Yes oriented to place and Yes oriented to time Skin: COMMON NORMALS: no rashes or lesions noted GENERAL SKIN EXAM: no rashes or lesions noted Course Vital Signs: Vital signs: Vital Signs Temperature 98.2 F 02/07/21 10:30 Pulse Rate 62 02/07/21 12:06 Respiratory Rate 20 H 02/07/21 12:06 Blood Pressure 126/87 02/07/21 12:06 Pulse Oximetry 98 02/07/21 12:06 MDM - Animal Bite MDM Narrative: Medical decision making narrative: Patient was initially prescribed doxycycline and then it was changed to to clear on clindamycin. Unfortunately clindamycin does not have very good coverage for Pasteurella multocida. Recommend that she go back to the doxycycline another prescription given. Recommend that she return for her rabies vaccine course and her discharge packet she was given the information for the return days. She is also verbally reminded. Follow-up with her primary care doctor as needed return to the ER for the complete Discharge Plan Discharge Patient Disposition: Home Clinical Impression: Cat bite Condition: Stable Prescriptions: New doxycycline hyclate 100 mg capsule 100 mg PO BID 10 Days Qty: 20 RF: 0 No Action venlafaxine [Effexor XR] 150 mg capsule,extended release 24hr 150 mg PO QAM Qty: 30 RF: 2 topiramate [Topamax] 100 mg tablet 100 mg PO DAILY Qty: 30 RF: 2 gabapentin 400 mg capsule 400 mg PO BID RF: 0 atenolol 50 mg tablet 50 mg PO DAILY RF: 0 Symbicort 160-4.5 mcg/actuation HFA aerosol inhaler 2 puff INHALATION BID RF: 0 pantoprazole 40 mg tablet,delayed release (DR/EC) 40 mg PO QAM RF: 0 metformin 500 mg tablet 500 mg PO DAILY RF: 0 cyclobenzaprine 10 mg tablet 10 mg PO TID RF: 0 cholecalciferol (vitamin D3) 50,000 unit capsule 50,000 unit PO .weekly RF: 0 Medrol (Kemar) 4 mg tablets,dose pack See Rx Instructions .ROUTE .COMPLEX Qty: 21 RF: 0 Miralax 17 gram/dose powder 17 gm PO DAILY PRN (Reason: constipation) Qty: 119 RF: 0 Naprosyn 500 mg tablet 500 mg PO BID PRN (Reason: pain) Qty: 20 RF: 0 Discharge Orders: Discharge ED (Routine); Ordered 02/07/21 Ordered By: Sandro Jacobs Referrals: Eric Mandel MD [Primary Care Provider] - Discharge Diet: Usual diet Discharge Activity: Resume usual activity Patient Instructions: Rabies Vaccine (Injection), Rabies Immune Globulin (Injection), Rabies (ED), Opioid Safety Activity Restrictions/Additional Instructions: Stop the clindamycin and instead take the doxycycline. Return for scheduled rabies vaccinations. Coding Level of Care Code ED Senior [employer] Developer for Chg Fwd Exam Detailed
[2021-02-07] MEDS: rabies vaccine 2.5 unit SDV IM (11:47)
[2021-02-07 12:06] VITALS: BP 126/87; PULSE 62; RESP 20; O2SAT 98
== END 2021-02-07 12:10 | disposition home or self-care (01) ==
PROVIDERS: Emergency Provider Family Medicine; PCP Family Medicine
DX: Z29.14 Encounter for prophylactic rabies immune globulin (principal); Z20.3 Contact with and (suspected) exposure to rabies; S61.459A Open bite of unspecified hand, initial encounter; W55.01XA Bitten by cat, initial encounter
CPT/HCPCS: 90375; 90471; 90675; 96372; 99283

== ENCOUNTER 2021-02-10 13:42 | Emergency (ER) | payer MEDICARE, MEDICAID, SELFPAY ==
[2021-02-10 14:08] VITALS: BP 135/86; PULSE 72; RESP 18; TEMP 37; O2SAT 99; BMI 27.3
[2021-02-10] MEDS: rabies vaccine 2.5 unit SDV IM (14:28)
--- NOTE | 2021-02-10 14:41 | ED_ITS ---
HPI - Recheck/Abnormal Lab/Rx General: Chief Complaint: Recheck/Abnormal Lab/Rx Stated Complaint: here for 2nd round of rabies shots Time Seen by Provider: 02/10/21 13:55 History of Present Illness: HPI narrative: 50-year-old female patient presents to the emergency department for continued rabies vaccine. She was bit by a feral cat approximately 10 days ago. She reports cat bite to the right hand, she denies redness swelling or pain of the right hand, remains on antibiotics. She reports compliance with antimicrobial therapy. Denies fever chills or adverse reaction to rabies vaccine. complaint: wound re-check Initial visit for: animal bite Symptoms since prior visit: no new symptoms Context: planned re-check Associated symptoms: none Review of Systems General: Reports: 10 or more systems reviewed and unremarkable except in HPI and below Const: Denies: fever(s), chills or diaphoresis Eyes: Denies: blurry vision or eye redness ENMT: Denies: throat pain, dental pain or disequilibrium Card: Denies: chest pain, palpitations or irregular heart rhythm Resp: Denies: dyspnea, productive cough, non-productive cough or wheezing GI: Denies: abdominal pain, nausea or vomiting : Denies: difficulty voiding or dysuria Musc: Denies: neck pain, back pain or joint pain Skin/Breast: Denies: rash or pruritus Neuro: Denies: headache(s), weakness in extremities or behavioral changes Psych: Denies: anxiety or depression Jaiden/Lymph: Denies: easy bruising PFSH ED PFSH: Medical History Borderline intellectual functioning Post-traumatic stress disorder, chronic Social History Smoking and tobacco status: current every day smoker Female Reproductive History: Date of last menstrual period: 12/27/20 Physical Exam Const: COMMON NORMALS: no acute distress, patient oriented x3, healthy appearing and alert GENERAL APPEARANCE: cooperative, comfortable and well hydrated HENMT: COMMON NORMALS: normocephalic, Normal external nose present and moist oral mucous membranes HEAD & SCALP: normocephalic NOSE: Normal external nose present Eye: COMMON NORMALS: Equal, round and reactive pupils present and EOMs intact bilaterally GENERAL EYE: appearance normal, both eyes and all related structures PUPIL: Yes Equal, round and reactive pupils present Neck/C-Spine: COMMON NORMALS: full ROM and no lymphadenopathy GENERAL: Yes normal visual inspection and Yes trachea midline CERVICAL SPINE: Yes cervical ROM normal Lymph: LYMPHATIC: no lymphadenopathy noted and no lymphedema noted Chest: COMMONS NORMALS: normal inspection of the chest and normal palpation of entire chest wall Resp: COMMON NORMALS: normal respiratory effort, No retractions, No use of accessory muscles and clear to auscultation bilaterally EFFORT & INSPECTION: Yes able to speak in complete sentences AUSCULTATION: clear to auscultation bilaterally Cardio: COMMON NORMALS: regular rhythm, S1 normal heart sound present and S2 normal heart sound present RHYTHM: regular rhythm HEART SOUNDS: S1 normal heart sound present and S2 normal heart sound present GI: COMMON NORMALS: Soft to palpation and non-tender INSPECTION: Yes normal to inspection PALPATION: Yes Soft to palpation : COMMON NORMALS: Yes no CVA tenderness BLADDER/KIDNEY EXAM: Yes no CVA tenderness Back/Pelvis: COMMON NORMALS: no CVA tenderness and thoracic and lumbar spine normal to inspection Extremity: COMMON NORMALS: normal to inspection, full ROM, capillary refill normal and no pedal edema Neuro: COMMON NORMALS: patient oriented x3 and no focal motor deficits SENSORIUM/ORIENTATION: Yes alert Psych: COMMON NORMALS: mental status grossly normal, Normal thought process present and cooperative ACTIVITY/MOTOR BEHAVIOR: Yes appropriate eye contact THOUGHT PROCESS: Normal thought process present Skin: COMMON NORMALS: no rashes or lesions noted and turgor normal GENERAL SKIN EXAM: no rashes or lesions noted and turgor normal Course Vital Signs: Vital signs: Vital Signs Temperature 98.6 F 02/10/21 14:08 Pulse Rate 72 02/10/21 14:08 Respiratory Rate 18 02/10/21 14:08 Blood Pressure 135/86 02/10/21 14:08 Pulse Oximetry 99 02/10/21 14:08 Discharge Plan Discharge Patient Disposition: Home Clinical Impression: Encounter for repeat administration of rabies vaccination Cat bite Qualifiers: Encounter type: sequela Qualified Code(s): W55.01XS - Bitten by cat, sequela Condition: Stable Prescriptions: No Action venlafaxine [Effexor XR] 150 mg capsule,extended release 24hr 150 mg PO QAM Qty: 30 RF: 2 topiramate [Topamax] 100 mg tablet 100 mg PO DAILY Qty: 30 RF: 2 gabapentin 400 mg capsule 400 mg PO BID RF: 0 atenolol 50 mg tablet 50 mg PO DAILY RF: 0 Symbicort 160-4.5 mcg/actuation HFA aerosol inhaler 2 puff INHALATION BID RF: 0 pantoprazole 40 mg tablet,delayed release (DR/EC) 40 mg PO QAM RF: 0 metformin 500 mg tablet 500 mg PO DAILY RF: 0 cyclobenzaprine 10 mg tablet 10 mg PO TID RF: 0 cholecalciferol (vitamin D3) 50,000 unit capsule 50,000 unit PO .weekly RF: 0 Medrol (Kemar) 4 mg tablets,dose pack See Rx Instructions .ROUTE .COMPLEX Qty: 21 RF: 0 Miralax 17 gram/dose powder 17 gm PO DAILY PRN (Reason: constipation) Qty: 119 RF: 0 Naprosyn 500 mg tablet 500 mg PO BID PRN (Reason: pain) Qty: 20 RF: 0 doxycycline hyclate 100 mg capsule 100 mg PO BID 10 Days Qty: 20 RF: 0 Discharge Orders: Discharge ED (Routine); Ordered 02/10/21 Ordered By: Meghan Abbott Referrals: Eric Mandel MD [Primary Care Provider] - Discharge Diet: Usual diet Discharge Activity: Resume usual activity Patient Instructions: Animal Bite (ED), Rabies (ED), Opioid Safety Activity Restrictions/Additional Instructions: Return to the emergency department on February 14, 2021 for next rabies vaccine series Continue antibiotics until all gone, even if feeling better Return to the emergency department as needed for other concerning symptoms. Coding Level of Care Code ED Registered Respiratory Technician for Stephen Taylor
== END 2021-02-10 14:45 | disposition home or self-care (01) ==
PROVIDERS: Emergency Provider Nurse Practitioner Family; PCP Family Medicine
DX: Z29.14 Encounter for prophylactic rabies immune globulin (principal); S61.451A Open bite of right hand, initial encounter; W55.01XA Bitten by cat, initial encounter; Z20.3 Contact with and (suspected) exposure to rabies; F17.210 Nicotine dependence, cigarettes, uncomplicated; Z23 Encounter for immunization
CPT/HCPCS: 90471; 90675; 99282

== ENCOUNTER 2021-02-14 12:44 | Emergency (ER) | payer MEDICARE, MEDICAID, SELFPAY ==
[2021-02-14 13:24] VITALS: BP 133/88; PULSE 72; RESP 18; TEMP 36.9; O2SAT 95; BMI 27.3
--- NOTE | 2021-02-14 13:30 | W.ED.RECABL ---
HPI - Recheck/Abnormal Lab/Rx General: Chief Complaint: Recheck/Abnormal Lab/Rx Stated Complaint: RABIES SHOT Time Seen by Provider: 02/14/21 13:30 Source: patient Mode of arrival: ambulatory Limitations: no limitations History of Present Illness: HPI narrative: Patient is a 50-year-old female who presents to ED today for repeat rabies immunization. Patient was initially seen on our facility on 02/07 and had rabies PEP initiated. She has had a subsequent visit since then for immunization. Please refer to those specific notes. The bite on her right hand looks clean and infection free. She has no physical complaints at this time. MD complaint: wound re-check and other (rabies immunization) Symptoms since prior visit: no new symptoms Associated symptoms: none Review of Systems Const: Denies: fever(s), chills, body aches, fatigue or malaise Eyes: Denies: change in vision Card: Denies: chest pain or palpitations Resp: Denies: dyspnea GI: Denies: abdominal pain Musc: Denies: neck pain, back pain, joint pain or joint stiffness Skin/Breast: Denies: rash Neuro: Denies: headache(s) PFS ED PFSH: Medical History (Updated 02/14/21 @ 13:34 by TEREZA Mercer) Borderline intellectual functioning Post-traumatic stress disorder, chronic Social History Smoking and tobacco status: current every day smoker Female Reproductive History: Date of last menstrual period: 12/27/20 Physical Exam Const: COMMON NORMALS: no acute distress, average body habitus, patient oriented x3, no limitations, healthy appearing, alert and well nourished GENERAL APPEARANCE: cooperative ORIENTATION/CONSCIOUSNESS: Yes awake, Yes oriented to person, Yes oriented to place and Yes oriented to time Extremity: COMMON NORMALS: normal to inspection GENERAL: Yes normal exam except as noted Neuro: COMMON NORMALS: patient oriented x3 SENSORIUM/ORIENTATION: Yes alert, Yes oriented to person, Yes oriented to place and Yes oriented to time Course Vital Signs: Vital signs: Vital Signs Temperature 98.4 F 02/14/21 13:24 Pulse Rate 72 02/14/21 13:24 Respiratory Rate 18 02/14/21 13:24 Blood Pressure 133/88 02/14/21 13:24 Pulse Oximetry 95 02/14/21 13:24 Discharge Plan Discharge Patient Disposition: Home Clinical Impression: Encounter for repeat administration of rabies vaccination Condition: Stable Prescriptions: No Action venlafaxine [Effexor XR] 150 mg capsule,extended release 24hr 150 mg PO QAM Qty: 30 RF: 2 topiramate [Topamax] 100 mg tablet 100 mg PO DAILY Qty: 30 RF: 2 gabapentin 400 mg capsule 400 mg PO BID RF: 0 atenolol 50 mg tablet 50 mg PO DAILY RF: 0 Symbicort 160-4.5 mcg/actuation HFA aerosol inhaler 2 puff INHALATION BID RF: 0 pantoprazole 40 mg tablet,delayed release (DR/EC) 40 mg PO QAM RF: 0 metformin 500 mg tablet 500 mg PO DAILY RF: 0 cyclobenzaprine 10 mg tablet 10 mg PO TID RF: 0 cholecalciferol (vitamin D3) 50,000 unit capsule 50,000 unit PO .weekly RF: 0 Medrol (Kemar) 4 mg tablets,dose pack See Rx Instructions .ROUTE .COMPLEX Qty: 21 RF: 0 Miralax 17 gram/dose powder 17 gm PO DAILY PRN (Reason: constipation) Qty: 119 RF: 0 Naprosyn 500 mg tablet 500 mg PO BID PRN (Reason: pain) Qty: 20 RF: 0 doxycycline hyclate 100 mg capsule 100 mg PO BID 10 Days Qty: 20 RF: 0 Discharge Orders: Discharge ED (Routine); Ordered 02/14/21 Ordered By: Pennie Garber Referrals: Eric Mandel MD [Primary Care Provider] - Patient Instructions: Rabies Vaccine (Injection) Coding Level of Care Code ED Central Supply Manager for Marryg Claudia
[2021-02-14] MEDS: rabies vaccine 2.5 unit SDV IM (13:46)
== END 2021-02-14 13:46 | disposition home or self-care (01) ==
PROVIDERS: Emergency Provider Physician Assistant; PCP Family Medicine
DX: Z29.14 Encounter for prophylactic rabies immune globulin (principal); Z23 Encounter for immunization; Z20.3 Contact with and (suspected) exposure to rabies; F17.210 Nicotine dependence, cigarettes, uncomplicated
CPT/HCPCS: 90471; 90675; 99282

== ENCOUNTER 2021-02-21 13:03 | Emergency (ER) | payer MEDICARE, MEDICAID, SELFPAY ==
[2021-02-21 13:29] VITALS: BP 148/95; PULSE 76; RESP 18; TEMP 36.6; O2SAT 99; BMI 27.3
[2021-02-21] MEDS: rabies vaccine 2.5 unit SDV IM (13:43)
--- NOTE | 2021-02-21 13:53 | W.ED.GENADLT ---
HPI - General Adult General: Chief complaint: General Medical Stated complaint: here for last round of rabies shots Time Seen by Provider: 02/21/21 13:19 Source: patient Mode of arrival: ambulatory Limitations: no limitations History of Present Illness: HPI narrative: Here for final rabies immunization. See other reports for initial injury and subsequent follow-up. She has no complaints or concerns currently. Review of Systems General: Reports: 10 or more systems reviewed and unremarkable except in HPI and below PFSH ED PFSH: Medical History (Updated 03/01/21 @ 00:00 by ) Borderline intellectual functioning Post-traumatic stress disorder, chronic Social History Smoking and tobacco status: current every day smoker Female Reproductive History: Date of last menstrual period: 12/27/20 Physical Exam Const: COMMON NORMALS: no acute distress, patient oriented x3, no limitations and alert Extremity: COMMON NORMALS: normal to inspection GENERAL: Yes normal exam except as noted Neuro: COMMON NORMALS: patient oriented x3 SENSORIUM/ORIENTATION: Yes alert Skin: NARRATIVE SKIN EXAM: normal Course Vital Signs: Vital signs: Vital Signs Temperature 97.9 F 02/21/21 13:29 Pulse Rate 76 02/21/21 13:29 Respiratory Rate 18 02/21/21 13:29 Blood Pressure 148/95 02/21/21 13:29 Pulse Oximetry 99 02/21/21 13:29 Discharge Plan Discharge Patient Disposition: Home Clinical Impression: Encounter for repeat administration of rabies vaccination Condition: Stable Prescriptions: No Action venlafaxine [Effexor XR] 150 mg capsule,extended release 24hr 150 mg PO QAM Qty: 30 RF: 2 topiramate [Topamax] 100 mg tablet 100 mg PO DAILY Qty: 30 RF: 2 gabapentin 400 mg capsule 400 mg PO BID RF: 0 atenolol 50 mg tablet 50 mg PO DAILY RF: 0 Symbicort 160-4.5 mcg/actuation HFA aerosol inhaler 2 puff INHALATION BID RF: 0 pantoprazole 40 mg tablet,delayed release (DR/EC) 40 mg PO QAM RF: 0 metformin 500 mg tablet 500 mg PO DAILY RF: 0 cyclobenzaprine 10 mg tablet 10 mg PO TID RF: 0 cholecalciferol (vitamin D3) 50,000 unit capsule 50,000 unit PO .weekly RF: 0 Medrol (Kemar) 4 mg tablets,dose pack See Rx Instructions .ROUTE .COMPLEX Qty: 21 RF: 0 Miralax 17 gram/dose powder 17 gm PO DAILY PRN (Reason: constipation) Qty: 119 RF: 0 Naprosyn 500 mg tablet 500 mg PO BID PRN (Reason: pain) Qty: 20 RF: 0 Discharge Orders: Discharge ED (Routine); Ordered 02/21/21 Ordered By: Pennie Garber Referrals: Eric Mandel MD [Primary Care Provider] - Coding Level of Care Code ED Floor Waxer for Chg Claudia
== END 2021-02-21 14:07 | disposition home or self-care (01) ==
PROVIDERS: Emergency Provider Physician Assistant; PCP Family Medicine
DX: Z29.14 Encounter for prophylactic rabies immune globulin (principal); Z20.3 Contact with and (suspected) exposure to rabies; Z23 Encounter for immunization; F17.210 Nicotine dependence, cigarettes, uncomplicated
CPT/HCPCS: 90471; 90675; 99282

== ENCOUNTER 2021-04-03 22:55 | Emergency (ER) | payer MEDICARE, MEDICAID, SELFPAY ==
[2021-04-03 22:58] VITALS: BP 144/89; PULSE 70; RESP 16; TEMP 36.4; O2SAT 99; BMI 28.0
--- NOTE | 2021-04-03 23:07 | ED_ITS ---
HPI - Female Genitourinary General: Chief complaint: Urogenital-Female Stated complaint: possible uti, ab pain Time Seen by Provider: 04/03/21 23:06 History of Present Illness: HPI Narrative: Patient is a 50-year-old female comes to the ED with abdominal pain. She describes the abdominal pain is starting in the lower pelvic region over bladder and it radiates up to the left side and flank of abdomen. She also reports having difficulty urinating, states she feels like she has to push really hard to urinate, but is able to get urine out and does not feel like she is obstructed. She did state that her urine looks cloudy today. She reports not drinking a lot of water like she should. She says she has regular daily bowel movements and had a normal bowel movement today. She denies any past history of kidney stones. Denies fever, chills, nausea/vomiting, bowel symptoms or blood in the urine. Associated symptoms: Reports abdominal pain (Left lower abdominal pain); Deny headache(s) or nausea Date of Last Menstrual Period: 12/27/20 Review of Systems Const: Denies: fever(s), chills or fatigue Eyes: Denies: change in vision or eye discomfort ENMT: Denies: throat pain, odynophagia, nasal discharge or nasal congestion Card: Denies: chest pain, palpitations, edema, swelling of feet/ankles, dyspnea on exertion or orthopnea Resp: Denies: dyspnea, productive cough or non-productive cough GI: Reports: abdominal pain (Left lower abdominal pain); Denies: nausea, vomiting, diarrhea, constipation or hematochezia : Reports: flank pain, difficulty voiding and pelvic pain (Left side); Denies: dysuria or hematuria Musc: Denies: neck pain, back pain or extremity swelling Skin/Breast: Denies: rash or new lesions Neuro: Denies: headache(s), numbness in extremities or weakness in extremities PFS ED PFSH: Medical History Borderline intellectual functioning Post-traumatic stress disorder, chronic Social History Smoking and tobacco status: current every day smoker Female Reproductive History: Date of last menstrual period: 12/27/20 Physical Exam Const: COMMON NORMALS: no acute distress, patient oriented x3 and alert GENERAL APPEARANCE: cooperative and comfortable HENMT: COMMON NORMALS: normocephalic HEAD & SCALP: normocephalic MOUTH: Normal oral and palatal mucosa present THROAT: posterior oropharynx normal and uvula midline Eye: COMMON NORMALS: Equal, round and reactive pupils present PUPIL: Yes Equal, round and reactive pupils present Neck/C-Spine: COMMON NORMALS: supple GENERAL: Yes normal visual inspection Resp: COMMON NORMALS: normal respiratory effort, No retractions, No use of accessory muscles and clear to auscultation bilaterally AUSCULTATION: clear to auscultation bilaterally Cardio: COMMON NORMALS: regular rate, regular rhythm, S1 normal heart sound present, S2 normal heart sound present, No gallops present (Cardio), No clicks present (Cardio), No murmurs present (Cardio) and Peripheral pulses 2+ throughout RATE: regular rate RHYTHM: regular rhythm HEART SOUNDS: S1 normal heart sound present and S2 normal heart sound present PERIPHERAL PULSES: Peripheral pulses 2+ throughout GI: COMMON NORMALS: Normal to inspection, nondistended, normoactive bowel sounds present, Soft to palpation and no masses PALPATION: Yes Soft to palpation and Yes Tenderness to palpation present (GI) (Mild left lower abdomen tenderness.) : COMMON NORMALS: Yes no CVA tenderness BLADDER/KIDNEY EXAM: Yes no CVA tenderness Back/Pelvis: COMMON NORMALS: no CVA tenderness Extremity: COMMON NORMALS: normal to inspection Neuro: COMMON NORMALS: patient oriented x3 and moves all extremities SENSORIUM/ORIENTATION: Yes alert Skin: GENERAL SKIN EXAM: dry skin Course Vital Signs: Vital signs: Vital Signs Temperature 98.0 F 04/04/21 02:19 Pulse Rate 70 04/04/21 02:19 Respiratory Rate 18 04/04/21 02:19 Blood Pressure 126/91 04/04/21 02:19 Pulse Oximetry 99 04/04/21 02:19 MDM - Female MDM Narrative: Medical decision making narrative: Patient is a 50-year-old female comes to the ED with left flank and left lower pelvic pain. Symptoms started 2 days ago. Exam shows a nontoxic-appearing 50-year-old female in no acute distress or pain. She has some mild left lower abdomen and pelvic tenderness upon palpation. No other remarkable exam findings. CBC, CMP and lipase were all unremarkable. UA showed no signs of any UTI. CT of abdomen pelvis showed an left adnexal cyst that has gotten larger compared to CT abdomen pelvis back in 2018. Radiologist recommended patient have nonemergent outpatient ultrasound performed. Patient was given some IV fluids, Zofran and morphine while here in the ED and nurse pain improved. Patient was diagnosed with left adnexal cyst and was told to contact her PCP to set up an appointment for reevaluation and to also get scheduled a ultrasound of the pelvis. Return to ED precautions given. Patient understood and agreed with plan. Lab Data: Attestation: I reviewed the patient's lab results. Labs: Lab Results 04/03/21 04/03/21 04/03/21 Range/Units 23:25 23:55 23:55 WBC 7.0 (4.0-10.0) 10^3/ uL RBC 4.11 (4.1-5.3) 10^6/u L Hgb 11.8 (11.5-15.3) g/dL Hct 37.3 (37.0-47.0) % MCV 90.8 (81-99) fL MCH 28.7 (28.0-34.0) pg MCHC 31.6 (30.0-36.0) g/dL RDW 14.9 (12.1-15.1) % Plt Count 313 (130-400) 10^3/c mm MPV 10.3 (7.4-10.4) fL Neut % (Auto) 58.0 % Lymph % (Auto) 30.1 % Daniels % (Auto) 7.8 % Eos % (Auto) 3.1 % Baso % (Auto) 0.9 % Neut # (Auto) 4.07 (1.8-7.7) 10^3/u L Lymph # (Auto) 2.1 (0.8-4.8) 10^3/u L Daniels # (Auto) 0.6 (0.2-0.9) 10^3/u L Eos # (Auto) 0.2 (0.0-0.8) 10^3/u L Baso # (Auto) 0.1 (0.0-0.1) 10^3/u L Nucleated RBC % (a uto) 0 % Nucleated RBCs # 0.0 /100WBC Sodium 137 (136-145) mmol/L Potassium 3.8 (3.5-5.1) mmol/L Chloride 105 (98-107) mmol/L Carbon Dioxide 22 (22-29) mmol/L Anion Gap 13.8 (5-19) BUN 7 (6-20) mg/dL Creatinine 0.7 (0.5-0.9) mg/dL GFR Calculation 88.6 L (90-130) mL/min Glucose 81 (65-115) mg/dL Calculated Osmolal ity 281 L (285-295) mOsm/k g Calcium 8.8 (8.5-10.5) mg/dL Total Bilirubin 0.2 (0.15-1.2) mg/dL AST 14 (0-32) U/L ALT 8 (0-33) U/L Alkaline Phosphata se 63 (35-105) IU/L Total Protein 7.3 (6.6-8.7) g/dL Albumin 4.1 (3.5-5.2) g/dL Globulin 3.2 (1.3-4.6) g/dL Lipase 31 (13-60) U/L Urine Color Yellow (Yellow) Urine Appearance Clear (CLEAR) Urine pH 7 (5-7) Ur Specific Gravit y 1.005 (1.005-1.030) Urine Protein Neg (Negative) Urine Glucose (UA) Norm (Normal) Urine Ketones Negative (Negative) Urine Blood Neg (Negative) Urine Nitrate Negative (Negative) Urine Bilirubin Neg (Negative) Urine Urobilinogen Norm (Negative) mg/dL Ur Leukocyte Kelsie ase Negative (Negative) Urine RBC 0-4 H (0-2) /hpf Urine WBC 0-4 H (0-5) /hpf Ur Squamous Epith Cells 0-4 H (0-5) /hpf Amorphous Sediment Not Reportable Urine Bacteria Trace (NONE) /hpf Imaging Data: CT Abd/Pel: Attestation: I personally reviewed and interpreted this imaging study as follows: Radiologist's impression: [address] [address] [address] Scan Report Signed Patient: Caty Perdomo Unit #: [id number] : 1970 A cct#:[id number] Age/Sex: 50 / F ADM Date: 04/03/21 Loc: ER Room/Bed: Attending Dr: Ordering Provider/Ordering MD: Sergio Birch Date of Service: 04/03/21 Procedure(s): CT abdomen pelvis w con* [id number] Accession Number(s): [id number] Report Number: [id number] PROCEDURE INFORMATION: Exam: CT Abdomen And Pelvis With Contrast Exam date and time: 04/03/2021 12:28 AM Age: 50 years old Clinical indication: Abdominal pain; Localized; Lower; Prior surgery; Surgery date: 6+ months; Surgery type: Gb, appy; Patient HX: C/O L flank and pelvic pain w difficulty urinating; Additional info: Bladder tenderness and left flank pain, UTI symptoms TECHNIQUE: Imaging protocol: Computed tomography of the abdomen and pelvis with contrast. Radiation optimization: All CT scans at this facility use at least one of these dose optimization techniques: automated exposure control; mA and/or kV adjustment per patient size (includes targeted exams where dose is matched to clinical indication); or iterative reconstruction. Contrast material: OMNI 300; Contrast volume: 95 ml; Contrast route: INTRAVENOUS (IV); COMPARISON: CT abdomen pelvis w con* [id number] 05/14/2018 4:19 AM RADIATION DOSE METRICS: Total DLP (mGy-cm): 1645.24 FINDINGS: Lungs: Lung bases are clear. Mediastinal space: There is a small sliding-type hiatal hernia. Liver: The liver is normal. Gallbladder and bile ducts: The gallbladder is absent. There is moderate dilation of the common bile duct and central intrahepatic ducts. Pancreas: The pancreas is unremarkable. Spleen: The spleen is unremarkable. Adrenal glands: The adrenal glands are unremarkable. Kidneys and ureters: The kidneys are unremarkable. No hydronephrosis or stones. No ureteral dilation. Stomach and bowel: The stomach is decompressed, preventing meaningful evaluation of wall thickness. The small bowel is nondilated. The colon is unremarkable. Appendix: The appendix is absent. Intraperitoneal space: There is no free air or significant intraperitoneal free fluid. Vasculature: There is mild aortic atherosclerotic disease. The portal, splenic and superior mesenteric veins are patent. Lymph nodes: There is no lymphadenopathy in the retroperitoneum, mesentery, pelvis or inguinal regions. Urinary bladder: The urinary bladder is unremarkable. Reproductive: There is a 5.1 cm myometrial fibroid. There is is an intermediate density 5.5 x 4.7 cm cyst in the left adnexa. The right adnexa is unremarkable. Bones/joints: Bones are unremarkable. Soft tissues: The abdominal wall is intact. CT/CT abdomen pelvis w con* [id number] IMPRESSION: 1. No obstructive uropathy. No stones. No sign of pyelonephritis. 2. 5.5 cm intermediate density left adnexal cyst. This is increased in size since 2018 when it measured 3.8 x 3.6 cm. Recommend correlation with ultrasound on a nonemergent basis. 3. Incidental findings above. Radiation Dose CTDIVOL = (mGy): DLP = 1645.24 (mGy-cm) Dictated By: Mil Humphreys MD Signed By: Mil Humphreys MD Signed Date/Time: 04/04/21117 DD/ 5 Discharge Plan Discharge Patient Disposition: Home Clinical Impression: Adnexal cyst Condition: Stable Prescriptions: No Action venlafaxine [Effexor XR] 150 mg capsule,extended release 24hr 150 mg PO QAM Qty: 30 RF: 2 topiramate [Topamax] 100 mg tablet 100 mg PO DAILY Qty: 30 RF: 2 gabapentin 400 mg capsule 400 mg PO BID RF: 0 atenolol 50 mg tablet 50 mg PO DAILY RF: 0 Symbicort 160-4.5 mcg/actuation HFA aerosol inhaler 2 puff INHALATION BID RF: 0 pantoprazole 40 mg tablet,delayed release (DR/EC) 40 mg PO QAM RF: 0 metformin 500 mg tablet 500 mg PO DAILY RF: 0 cyclobenzaprine 10 mg tablet 10 mg PO TID RF: 0 cholecalciferol (vitamin D3) 50,000 unit capsule 50,000 unit PO .weekly RF: 0 Medrol (Kemar) 4 mg tablets,dose pack See Rx Instructions .ROUTE .COMPLEX Qty: 21 RF: 0 Miralax 17 gram/dose powder 17 gm PO DAILY PRN (Reason: constipation) Qty: 119 RF: 0 Naprosyn 500 mg tablet 500 mg PO BID PRN (Reason: pain) Qty: 20 RF: 0 Discharge Orders: Discharge ED (Routine); Ordered 04/03/21 Ordered By: Sergio Birch Referrals: Eric Mandel MD [Primary Care Provider] - Discharge Diet: Regular Discharge Activity: Resume usual activity Activity Restrictions/Additional Instructions: Follow-up with medical provider as directed. Contact your PCP tomorrow morning and discuss ED visit and findings of an enlarged adnexal cyst. It is recommended patient gets an nonemergent outpatient ultrasound of the pelvis to further evaluate adnexal cyst. Continue taking all home meds as previously prescribed. Take [id number] Tylenol or ibuprofen as needed for pain. Return to the ER or your medical provider if condition worsens. Please read and understand discharge instructions. Thank you for choosing [facility] for your healthcare needs today. Please realize this is an emergency room and that we are providing you with a medical screening exam and this may not be complete and all inclusive of all the testing and or work up that you may need to determine your ailment or severity of your illness. It is very important that you follow up as instructed or that you return to the Emergency Department should you have concerns or if your condition changes or worsens in any way. 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
--- NOTE | 2021-04-03 23:42 | CTR_ITS ---
PROCEDURE INFORMATION: Exam: CT Abdomen And Pelvis With Contrast Exam date and time: 04/03/2021 12:28 AM Age: 50 years old Clinical indication: Abdominal pain; Localized; Lower; Prior surgery; Surgery date: 6+ months; Surgery type: Gb, appy; Patient HX: C/O L flank and pelvic pain w difficulty urinating; Additional info: Bladder tenderness and left flank pain, UTI symptoms TECHNIQUE: Imaging protocol: Computed tomography of the abdomen and pelvis with contrast. Radiation optimization: All CT scans at this facility use at least one of these dose optimization techniques: automated exposure control; mA and/or kV adjustment per patient size (includes targeted exams where dose is matched to clinical indication); or iterative reconstruction. Contrast material: OMNI 300; Contrast volume: 95 ml; Contrast route: INTRAVENOUS (IV); COMPARISON: CT abdomen pelvis w con* [id number] 05/14/2018 4:19 AM RADIATION DOSE METRICS: Total DLP (mGy-cm): 1645.24 FINDINGS: Lungs: Lung bases are clear. Mediastinal space: There is a small sliding-type hiatal hernia. Liver: The liver is normal. Gallbladder and bile ducts: The gallbladder is absent. There is moderate dilation of the common bile duct and central intrahepatic ducts. Pancreas: The pancreas is unremarkable. Spleen: The spleen is unremarkable. Adrenal glands: The adrenal glands are unremarkable. Kidneys and ureters: The kidneys are unremarkable. No hydronephrosis or stones. No ureteral dilation. Stomach and bowel: The stomach is decompressed, preventing meaningful evaluation of wall thickness. The small bowel is nondilated. The colon is unremarkable. Appendix: The appendix is absent. Intraperitoneal space: There is no free air or significant intraperitoneal free fluid. Vasculature: There is mild aortic atherosclerotic disease. The portal, splenic and superior mesenteric veins are patent. Lymph nodes: There is no lymphadenopathy in the retroperitoneum, mesentery, pelvis or inguinal regions. Urinary bladder: The urinary bladder is unremarkable. Reproductive: There is a 5.1 cm myometrial fibroid. There is is an intermediate density 5.5 x 4.7 cm cyst in the left adnexa. The right adnexa is unremarkable. Bones/joints: Bones are unremarkable. Soft tissues: The abdominal wall is intact. CT/CT abdomen pelvis w con* [id number] IMPRESSION: 1. No obstructive uropathy. No stones. No sign of pyelonephritis. 2. 5.5 cm intermediate density left adnexal cyst. This is increased in size since 2018 when it measured 3.8 x 3.6 cm. Recommend correlation with ultrasound on a nonemergent basis. 3. Incidental findings above. Radiation Dose CTDIVOL = (mGy): DLP = 1645.24 (mGy-cm)
[2021-04-04 00:06] LABS: Basophils # 0.1 10^3/uL (0.0-0.1); Basophils % 0.9 %; Eosinophils # 0.2 10^3/uL (0.0-0.8); Eosinophils % 3.1 %; Hematocrit 37.3 % (37.0-47.0); Hemoglobin 11.8 g/dL (11.5-15.3); Lymphocytes # 2.1 10^3/uL (0.8-4.8); Lymphocytes % 30.1 %; Mean Corpuscular HGB Conc 31.6 g/dL (30.0-36.0); Mean Corpuscular Hemoglobin 28.7 pg (28.0-34.0); Mean Corpuscular Volume 90.8 fL (81-99); Mean Platelet Volume 10.3 fL (7.4-10.4); Monocytes # 0.6 10^3/uL (0.2-0.9); Monocytes % 7.8 %; Neutrophils # 4.07 10^3/uL (1.8-7.7); Nucleated Red Blood Cells % 0 %; Platelet Count 313 10^3/cmm (130-400); Red Blood Count 4.11 10^6/uL (4.1-5.3); Red Cell Distribution Width 14.9 % (12.1-15.1)
[2021-04-04 00:08] LABS: Bacteria Urine TRACE /hpf; Bilirubin Urine Neg (Negative); Blood Urine Neg (Negative); Glucose Urine UA Norm (Normal); Ketones Urine Negative (Negative); Leukocyte Esterase Urine Negative (Negative); Nitrate Urine Negative (Negative); Protein Urine Neg (Negative); RBC Urine 0-4 /hpf (0-2); Specific Gravity, Urine 1.005 (1.005-1.030); Squamous Epithelial Cell Urine 0-4 /hpf (0-5); Urine Appearance Clear (CLEAR); Urine Color Yellow (Yellow); Urobilinogen Urine Norm (Negative); WBC Urine 0-4 /hpf (0-5); pH Urine 7 (5-7)
[2021-04-04 00:09] VITALS: RESP 20; O2SAT 97
[2021-04-04 00:09] LABS: Add Urine Culture? No
[2021-04-04] MEDS: morphine 4 mg/mL SDV 1 mL IVP (00:09)
[2021-04-04] MEDS: sodium chloride 0.9% 1,000 ML 999 ML IV (00:10)
[2021-04-04] MEDS: ondansetron 2 mg/ML SDV 2 mL 4 MG IVP (00:10)
[2021-04-04 00:29] LABS: Alanine Aminotransferase 8 U/L (0-33); Albumin Level 4.1 g/dL (3.5-5.2); Alkaline Phosphatase 63 IU/L (35-105); Anion Gap 13.8 (5-19); Aspartate Amino Transferase 14 U/L (0-32); Blood Urea Nitrogen 7 mg/dL (6-20); Calcium 8.8 mg/dL (8.5-10.5); Carbon Dioxide 22 mmol/L (22-29); Chloride 105 mmol/L (98-107); Globulin 3.2 g/dL (1.3-4.6); Glomerular Filtration Rate 88.6 mL/min (90-130); Glucose 81 mg/dL (65-115); Lipase 31 U/L (13-60); Osmolality Calculated 281 mOsm/kg (285-295); Potassium 3.8 mmol/L (3.5-5.1); Sodium 137 mmol/L (136-145); Total Bilirubin 0.2 mg/dL (0.15-1.2); Total Protein 7.3 g/dL (6.6-8.7)
[2021-04-04] MEDS: iohexol 300 mg/mL 100 mL Btl IV (00:39)
[2021-04-04 02:19] VITALS: BP 126/91; PULSE 70; RESP 18; TEMP 36.7; O2SAT 99
== END 2021-04-04 02:20 | disposition home or self-care (01) ==
PROVIDERS: Emergency Provider Physician Assistant; PCP Family Medicine
DX: N83.8 Other noninflammatory disorders of ovary, fallopian tube and broad ligament (principal); F17.210 Nicotine dependence, cigarettes, uncomplicated
CPT/HCPCS: 74177; 80053; 81001; 83690; 85025; 96361; 96374; 96375; 99283; J2270; J2405; J7030; Q9967

== ENCOUNTER 2021-04-12 00:14 | Emergency (ER) | payer MEDICARE, MEDICAID, SELFPAY ==
[2021-04-12 00:16] VITALS: BP 163/89; PULSE 65; RESP 16; TEMP 36.3; O2SAT 100; BMI 28.1
--- NOTE | 2021-04-12 00:28 | W.ED.ABDPA2 ---
HPI - Abdominal Pain General: Chief Complaint: Abdominal Pain Stated Complaint: lower ab pain Time Seen by Provider: 04/12/21 00:15 Source: patient Mode of arrival: ambulatory Limitations: no limitations History of Present Illness: HPI narrative: 50-year-old female seen here 1 week ago diagnosed with adnexal cyst left lower quadrant. States she was picking up an object roughly 1 hour ago states she started having severe lower abdominal pain. States pain is sharp in nature and rates an 8 out of 10. Denies any worsening improving factors. Patient is resting comfortably currently. She denies any fever. Denies any vomiting or diarrhea. Denies any dysuria. MD elicited complaint: abdominal pain Associated Symptoms: Denies chills, dysuria and fever(s) Related Data: Date of Last Menstrual Period: 12/27/20 Review of Systems Const: Denies: fever(s), chills, body aches or change in appetite Eyes: Denies: blurry vision or eye discomfort ENMT: Denies: throat pain or dental pain Card: Denies: chest pain Resp: Denies: dyspnea GI: Reports: abdominal pain : Denies: dysuria Musc: Denies: neck pain or back pain Skin/Breast: Denies: rash Neuro: Denies: headache(s) Psych: Denies: depression Jaiden/Lymph: Denies: easy bruising All/Imm: Denies: urticaria PFSH ED PFSH: Medical History (Updated 04/12/21 @ 00:59 by Le Salas MD) Borderline intellectual functioning Post-traumatic stress disorder, chronic Social History Smoking and tobacco status: current every day smoker Female Reproductive History: Date of last menstrual period: 12/27/20 Physical Exam Const: COMMON NORMALS: no acute distress, patient oriented x3 and healthy appearing HENMT: COMMON NORMALS: normocephalic and atraumatic HEAD & SCALP: normocephalic and atraumatic Eye: COMMON NORMALS: Equal, round and reactive pupils present and EOMs intact bilaterally PUPIL: Yes Equal, round and reactive pupils present Neck/C-Spine: COMMON NORMALS: full ROM and supple Chest: COMMONS NORMALS: normal inspection of the chest and normal palpation of entire chest wall Resp: COMMON NORMALS: normal respiratory effort, No retractions, No use of accessory muscles and clear to auscultation bilaterally AUSCULTATION: clear to auscultation bilaterally Cardio: COMMON NORMALS: regular rate, regular rhythm and No murmurs present (Cardio) RATE: regular rate RHYTHM: regular rhythm GI: COMMON NORMALS: Normal to inspection, nondistended, normoactive bowel sounds present, Soft to palpation, non-tender and no masses PALPATION: Yes Soft to palpation Extremity: COMMON NORMALS: normal to inspection and full ROM Neuro: COMMON NORMALS: patient oriented x3, moves all extremities and no focal motor deficits Psych: COMMON NORMALS: mental status grossly normal, Normal thought process present and cooperative THOUGHT PROCESS: Normal thought process present Skin: COMMON NORMALS: no rashes or lesions noted and no wounds GENERAL SKIN EXAM: no rashes or lesions noted Course Vital Signs: Vital signs: Vital Signs Temperature 97.4 F L 04/12/21 00:16 Pulse Rate 65 04/12/21 00:16 Respiratory Rate 18 04/12/21 00:32 Blood Pressure 163/89 04/12/21 00:16 Pulse Oximetry 100 04/12/21 00:16 MDM - Abdominal Pain MDM Narrative: Medical decision making narrative: Caty presents here with abdominal pain diffuse in nature. Her pain is much improved here and her exam at discharge is benign. Patient's blood work here is all normal and she had a CT scan done week it was normal as well. She has an ultrasound scheduled for Sunday and she is to keep that scheduled and follow-up with PCP after and return if worsening. She understands agrees to plan. Lab Data: Labs: Lab Results 04/12/21 04/12/21 04/12/21 Range/Units 00:22 00:22 00:32 WBC 5.8 (4.0-10.0) 10^3/ uL RBC 4.15 (4.1-5.3) 10^6/u L Hgb 11.7 (11.5-15.3) g/dL Hct 37.8 (37.0-47.0) % MCV 91.1 (81-99) fL MCH 28.2 (28.0-34.0) pg MCHC 31.0 (30.0-36.0) g/dL RDW 15.1 (12.1-15.1) % Plt Count 381 (130-400) 10^3/c mm MPV 10.3 (7.4-10.4) fL Neut % (Auto) 56.5 % Lymph % (Auto) 29.8 % [place] % (Auto) 9.0 % Eos % (Auto) 3.6 % Baso % (Auto) 0.9 % Neut # (Auto) 3.28 (1.8-7.7) 10^3/u L Lymph # (Auto) 1.7 (0.8-4.8) 10^3/u L [place] # (Auto) 0.5 (0.2-0.9) 10^3/u L Eos # (Auto) 0.2 (0.0-0.8) 10^3/u L Baso # (Auto) 0.1 (0.0-0.1) 10^3/u L Nucleated RBC % (a uto) 0 % Nucleated RBCs # 0.0 /100WBC Sodium 137 (136-145) mmol/L Potassium 3.8 (3.5-5.1) mmol/L Chloride 104 (98-107) mmol/L Carbon Dioxide 22 (22-29) mmol/L Anion Gap 14.8 (5-19) BUN 5 L (6-20) mg/dL Creatinine 0.7 (0.5-0.9) mg/dL GFR Calculation 88.6 L (90-130) mL/min Glucose 92 (65-115) mg/dL Calculated Osmolal ity 281 L (285-295) mOsm/k g Calcium 9.5 (8.5-10.5) mg/dL Total Bilirubin 0.2 (0.15-1.2) mg/dL AST 18 (0-32) U/L ALT 16 (0-33) U/L Alkaline Phosphata se 80 (35-105) IU/L Total Protein 7.2 (6.6-8.7) g/dL Albumin 4.6 (3.5-5.2) g/dL Globulin 2.6 (1.3-4.6) g/dL Lipase 36 (13-60) U/L Urine Color Straw (Yellow) Urine Appearance Clear (CLEAR) Urine pH 7 (5-7) Ur Specific Gravit y 1.005 (1.005-1.030) Urine Protein Neg (Negative) Urine Glucose (UA) Norm (Normal) Urine Ketones Negative (Negative) Urine Blood Neg (Negative) Urine Nitrate Negative (Negative) Urine Bilirubin Neg (Negative) Urine Urobilinogen Norm (Negative) mg/dL Ur Leukocyte Kelsie ase Negative (Negative) Discharge Plan Discharge Patient Disposition: Home Clinical Impression: Abdominal pain Qualifiers: Abdominal location: generalized Qualified Code(s): R10.84 - Generalized abdominal pain Condition: Stable Prescriptions: New ondansetron 4 mg tablet,disintegrating 4 mg PO Q6H PRN (Reason: nausea and vomiting) Qty: 14 RF: 0 Naprosyn 500 mg tablet 500 mg PO BID PRN (Reason: pain) Qty: 20 RF: 0 No Action venlafaxine [Effexor XR] 150 mg capsule,extended release 24hr 150 mg PO QAM Qty: 30 RF: 2 topiramate [Topamax] 100 mg tablet 100 mg PO DAILY Qty: 30 RF: 2 gabapentin 400 mg capsule 400 mg PO BID RF: 0 atenolol 50 mg tablet 50 mg PO DAILY RF: 0 Symbicort 160-4.5 mcg/actuation HFA aerosol inhaler 2 puff INHALATION BID RF: 0 pantoprazole 40 mg tablet,delayed release (DR/EC) 40 mg PO QAM RF: 0 metformin 500 mg tablet 500 mg PO DAILY RF: 0 cyclobenzaprine 10 mg tablet 10 mg PO TID RF: 0 cholecalciferol (vitamin D3) 50,000 unit capsule 50,000 unit PO .weekly RF: 0 Medrol (Kemar) 4 mg tablets,dose pack See Rx Instructions .ROUTE .COMPLEX Qty: 21 RF: 0 Miralax 17 gram/dose powder 17 gm PO DAILY PRN (Reason: constipation) Qty: 119 RF: 0 Naprosyn 500 mg tablet 500 mg PO BID PRN (Reason: pain) Qty: 20 RF: 0 Discharge Orders: Discharge ED (Routine); Ordered 04/12/21 Ordered By: Le Salas Referrals: Eric Mandel MD [Primary Care Provider] - 1-3 days Discharge Diet: Advance as tolerated Discharge Activity: Resume usual activity Patient Instructions: Abdominal Pain (ED) Coding Level of Care Code ED Direct Support Staff Member for [employer] Exam Comprehensive
[2021-04-12 00:29] LABS: Basophils # 0.1 10^3/uL (0.0-0.1); Basophils % 0.9 %; Eosinophils # 0.2 10^3/uL (0.0-0.8); Eosinophils % 3.6 %; Hematocrit 37.8 % (37.0-47.0); Hemoglobin 11.7 g/dL (11.5-15.3); Lymphocytes # 1.7 10^3/uL (0.8-4.8); Lymphocytes % 29.8 %; Mean Corpuscular Hemoglobin 28.2 pg (28.0-34.0); Mean Corpuscular Volume 91.1 fL (81-99); Mean Platelet Volume 10.3 fL (7.4-10.4); Monocytes # 0.5 10^3/uL (0.2-0.9); Neutrophils # 3.28 10^3/uL (1.8-7.7); Neutrophils % 56.5 %; Nucleated Red Blood Cells % 0 %; Platelet Count 381 10^3/cmm (130-400); Red Blood Count 4.15 10^6/uL (4.1-5.3); Red Cell Distribution Width 15.1 % (12.1-15.1); White Blood Count 5.8 10^3/uL (4.0-10.0)
[2021-04-12] MEDS: ondansetron 2 mg/ML SDV 2 mL 4 MG IVP (00:31)
[2021-04-12 00:32] VITALS: RESP 18
[2021-04-12] MEDS: morphine 4 mg/mL SDV 1 mL IVP (00:32)
[2021-04-12 00:35] LABS: Add Urine Microscopic? NO; Charge for UA Resulting for Rev
[2021-04-12 00:39] LABS: Bilirubin Urine Neg (Negative); Blood Urine Neg (Negative); Glucose Urine UA Norm (Normal); Ketones Urine Negative (Negative); Leukocyte Esterase Urine Negative (Negative); Nitrate Urine Negative (Negative); Protein Urine Neg (Negative); Specific Gravity, Urine 1.005 (1.005-1.030); Urine Appearance Clear (CLEAR); Urine Color Straw (Yellow); Urobilinogen Urine Norm (Negative); pH Urine 7 (5-7)
[2021-04-12 00:55] LABS: Alanine Aminotransferase 16 U/L (0-33); Albumin Level 4.6 g/dL (3.5-5.2); Alkaline Phosphatase 80 IU/L (35-105); Anion Gap 14.8 (5-19); Aspartate Amino Transferase 18 U/L (0-32); Blood Urea Nitrogen 5 mg/dL (6-20); Calcium 9.5 mg/dL (8.5-10.5); Carbon Dioxide 22 mmol/L (22-29); Chloride 104 mmol/L (98-107); Globulin 2.6 g/dL (1.3-4.6); Glomerular Filtration Rate 88.6 mL/min (90-130); Glucose 92 mg/dL (65-115); Lipase 36 U/L (13-60); Osmolality Calculated 281 mOsm/kg (285-295); Potassium 3.8 mmol/L (3.5-5.1); Sodium 137 mmol/L (136-145); Total Bilirubin 0.2 mg/dL (0.15-1.2); Total Protein 7.2 g/dL (6.6-8.7)
[2021-04-12 01:13] VITALS: PULSE 82; RESP 16; O2SAT 99
== END 2021-04-12 01:14 | disposition home or self-care (01) ==
PROVIDERS: Emergency Provider Emergency Medicine; PCP Family Medicine
DX: R10.84 Generalized abdominal pain (principal); Z79.84 Long term (current) use of oral hypoglycemic drugs; F17.210 Nicotine dependence, cigarettes, uncomplicated
CPT/HCPCS: 80053; 81003; 83690; 85025; 96374; 96375; 99283; J2270; J2405

== ENCOUNTER 2021-04-26 15:16 | Emergency (ER) | payer MEDICARE, MEDICAID, SELFPAY ==
[2021-04-26 15:36] VITALS: BP 144/97; PULSE 73; RESP 18; TEMP 36.9; O2SAT 97; BMI 28.1
--- NOTE | 2021-04-26 16:06 | ED_ITS ---
HPI - Dental/Oral General: Chief complaint: Dental/Oral Stated complaint: DENTAL/ORAL PAIN Time Seen by Provider: 04/26/21 15:52 History of Present Illness: HPI Narrative: Patient is a 50-year-old female comes to the ED with dental pain. Patient says about a week ago is when symptoms started. Dental pain is tooth #4 in the upper right jaw. She rates her dental pain a 10 out of 10. Patient currently has a dentist and says she is calling them to get set up with an appointment. She has no facial swelling. Denies any fever, chills, nausea/vomiting, trouble breathing, bladder or bowel symptoms. Associated symptoms: Denies fever(s) or odynophagia Review of Systems Const: Denies: fever(s), chills or fatigue Eyes: Denies: change in vision or eye discomfort ENMT: Reports: dental pain; Denies: throat pain, odynophagia, nasal discharge or nasal congestion Card: Denies: chest pain, palpitations, edema, swelling of feet/ankles, dyspnea on exertion or orthopnea Resp: Denies: dyspnea, productive cough or non-productive cough GI: Denies: abdominal pain, nausea, vomiting, diarrhea, constipation or hematochezia : Denies: flank pain, dysuria or hematuria Musc: Denies: neck pain, back pain or extremity swelling Skin/Breast: Denies: rash or new lesions Neuro: Denies: headache(s), numbness in extremities or weakness in extremities PFS ED PFSH: Medical History Borderline intellectual functioning Post-traumatic stress disorder, chronic Social History Smoking and tobacco status: current every day smoker Female Reproductive History: Date of last menstrual period: 04/12/21 Physical Exam Const: COMMON NORMALS: no acute distress, patient oriented x3 and alert GENERAL APPEARANCE: cooperative and comfortable HENMT: COMMON NORMALS: normocephalic HEAD & SCALP: normocephalic MOUTH: Normal oral and palatal mucosa present TEETH & GINGIVA: Yes abnormal tooth and associated gingiva upper right first bicuspid tender and with associated gingival edema and Yes caries (tooth#4) THROAT: posterior oropharynx normal and uvula midline Neck/C-Spine: COMMON NORMALS: supple GENERAL: Yes normal visual inspection Resp: COMMON NORMALS: normal respiratory effort, No retractions, No use of accessory muscles and clear to auscultation bilaterally AUSCULTATION: clear to auscultation bilaterally Cardio: COMMON NORMALS: regular rate, regular rhythm, S1 normal heart sound present, S2 normal heart sound present, No gallops present (Cardio), No clicks present (Cardio), No murmurs present (Cardio) and Peripheral pulses 2+ throughout RATE: regular rate RHYTHM: regular rhythm HEART SOUNDS: S1 normal heart sound present and S2 normal heart sound present PERIPHERAL PULSES: Peripheral pulses 2+ throughout GI: COMMON NORMALS: Normal to inspection, nondistended, normoactive bowel sounds present, Soft to palpation, non-tender and no masses PALPATION: Yes Soft to palpation : COMMON NORMALS: Yes no CVA tenderness BLADDER/KIDNEY EXAM: Yes no CVA tenderness Back/Pelvis: COMMON NORMALS: no CVA tenderness Extremity: COMMON NORMALS: normal to inspection Neuro: COMMON NORMALS: patient oriented x3 and moves all extremities SENSORIUM/ORIENTATION: Yes alert Skin: GENERAL SKIN EXAM: dry skin Course Vital Signs: Vital signs: Vital Signs Temperature 98.3 F 04/26/21 16:19 Pulse Rate 74 04/26/21 16:19 Respiratory Rate 18 04/26/21 16:19 Blood Pressure 124/94 04/26/21 16:19 Pulse Oximetry 96 04/26/21 16:19 MDM - Dental/Oral MDM Narrative: Medical decision making narrative: Patient is a 50-year-old female comes to the ED with dental pain. Exam shows some dental caries especially around tooth #4 which is the upper right first bicuspid. Patient was discharged home with clindamycin. She says she is currently in the process of calling her dentist and getting appointment scheduled. Return ED precautions given. Patient understood and agree with plan. Discharge Plan Discharge Patient Disposition: Home Clinical Impression: Pain due to dental caries Condition: Stable Prescriptions: New clindamycin HCl 150 mg capsule 300 mg PO QID 7 Days Qty: 56 RF: 0 Naprosyn 500 mg tablet 500 mg PO BID PRN (Reason: pain) Qty: 12 RF: 0 No Action venlafaxine [Effexor XR] 150 mg capsule,extended release 24hr 150 mg PO QAM Qty: 30 RF: 2 topiramate [Topamax] 100 mg tablet 100 mg PO DAILY Qty: 30 RF: 2 gabapentin 400 mg capsule 400 mg PO BID RF: 0 atenolol 50 mg tablet 50 mg PO DAILY RF: 0 Symbicort 160-4.5 mcg/actuation HFA aerosol inhaler 2 puff INHALATION BID RF: 0 pantoprazole 40 mg tablet,delayed release (DR/EC) 40 mg PO QAM RF: 0 metformin 500 mg tablet 500 mg PO DAILY RF: 0 cyclobenzaprine 10 mg tablet 10 mg PO TID RF: 0 cholecalciferol (vitamin D3) 50,000 unit capsule 50,000 unit PO .weekly RF: 0 Medrol (Kemar) 4 mg tablets,dose pack See Rx Instructions .ROUTE .COMPLEX Qty: 21 RF: 0 Miralax 17 gram/dose powder 17 gm PO DAILY PRN (Reason: constipation) Qty: 119 RF: 0 ondansetron 4 mg tablet,disintegrating 4 mg PO Q6H PRN (Reason: nausea and vomiting) Qty: 14 RF: 0 Naprosyn 500 mg tablet 500 mg PO BID PRN (Reason: pain) Qty: 20 RF: 0 Naprosyn 500 mg tablet 500 mg PO BID PRN (Reason: pain) Qty: 20 RF: 0 Discharge Orders: Discharge ED (Routine); Ordered 04/26/21 Ordered By: Sergio Birch Referrals: Eric Mandel MD [Primary Care Provider] - Discharge Diet: Regular Discharge Activity: Resume usual activity Patient Instructions: Dental Caries (ED) Activity Restrictions/Additional Instructions: Follow-up with medical provider as directed. Contact dentist and set up an appoint with them for evaluation of dental pain as soon as possible. Take medications as prescribed. Return to the ER or your medical provider if condition worsens. Please read and understand discharge instructions. Thank you for choosing [facility] for your healthcare needs today. Please realize this is an emergency room and that we are providing you with a medical screening exam and this may not be complete and all inclusive of all the testing and or work up that you may need to determine your ailment or severity of your illness. It is very important that you follow up as instructed or that you return to the Emergency Department should you have concerns or if your condition changes or worsens in any way. Coding Level of Care Code ED Manager Payment for Stephen Fwd Exam Comprehensive
[2021-04-26] MEDS: clindamycin 150 mg Capsule 300 MG PO (16:17)
[2021-04-26] MEDS: HYDROcodone-acetaminophen 7.5-325 mg Tablet 1 TAB PO (16:18)
[2021-04-26 16:19] VITALS: BP 124/94; PULSE 74; RESP 18; TEMP 36.8; O2SAT 96
== END 2021-04-26 16:23 | disposition home or self-care (01) ==
PROVIDERS: Emergency Provider Physician Assistant; PCP Family Medicine
DX: K02.9 Dental caries, unspecified (principal); Z79.84 Long term (current) use of oral hypoglycemic drugs; F17.210 Nicotine dependence, cigarettes, uncomplicated
CPT/HCPCS: 99283

== ENCOUNTER 2021-05-03 23:01 | Emergency (ER) | payer MEDICARE, MEDICAID, SELFPAY ==
[2021-05-03 23:09] VITALS: BP 153/92; PULSE 64; RESP 16; TEMP 36.4; O2SAT 98; BMI 27.3
--- NOTE | 2021-05-03 23:31 | W.ED.FALL ---
HPI - Fall General: Chief Complaint: Fall Stated Complaint: fell down, severe R side pain, burning Time Seen by Provider: 05/03/21 23:14 History of Present Illness: HPI Narrative: Patient is a 50-year-old female comes to the ED with chronic left pelvic pain. she has been having left pelvic pain for the past couple months due to a cyst on her left ovary. Today several hours prior to arrival, she was out in the [place] looking for kitten and she slipped and fell down on her left knee. Denies any head trauma or loss of consciousness. She said after a fall her left pelvic pain went from about an 8 out of 10 to a 9 out of 10. Patient also endorses having some burning pain when urinating today. She denies any other symptoms. Patient says she is scheduled for surgery in May to get her left ovary removed. Associated symptoms-after fall: Reports abdominal pain (acute on chronic left pelvic pain); Denies chest pain, headache(s), hematuria or neck pain Review of Systems Const: Denies: fever(s), chills or fatigue Eyes: Denies: change in vision or eye discomfort ENMT: Denies: throat pain, odynophagia, nasal discharge or nasal congestion Card: Denies: chest pain, palpitations, edema, swelling of feet/ankles, dyspnea on exertion or orthopnea Resp: Denies: dyspnea, productive cough or non-productive cough GI: Reports: abdominal pain (acute on chronic left pelvic pain); Denies: nausea, vomiting, diarrhea, constipation or hematochezia : Denies: flank pain, dysuria or hematuria Musc: Denies: neck pain, back pain or extremity swelling Skin/Breast: Denies: rash or new lesions Neuro: Denies: headache(s), numbness in extremities or weakness in extremities PFS ED PFSH: Medical History Borderline intellectual functioning Post-traumatic stress disorder, chronic Social History Smoking and tobacco status: current every day smoker Female Reproductive History: Date of last menstrual period: 04/12/21 Physical Exam Narrative: EXAM NARRATIVE: Patient is a nontoxic appearing 50-year-old female that is sitting comfortably on exam bed showing no signs of any acute distress or pain. She was able to stand up and ambulate around the room without any pain Const: COMMON NORMALS: no acute distress, patient oriented x3 and alert GENERAL APPEARANCE: cooperative and comfortable HENMT: COMMON NORMALS: normocephalic HEAD & SCALP: normocephalic MOUTH: Normal oral and palatal mucosa present THROAT: posterior oropharynx normal and uvula midline Eye: COMMON NORMALS: Equal, round and reactive pupils present PUPIL: Yes Equal, round and reactive pupils present Neck/C-Spine: COMMON NORMALS: supple GENERAL: Yes normal visual inspection Resp: COMMON NORMALS: normal respiratory effort, No retractions, No use of accessory muscles and clear to auscultation bilaterally AUSCULTATION: clear to auscultation bilaterally Cardio: COMMON NORMALS: regular rate, regular rhythm, S1 normal heart sound present, S2 normal heart sound present, No gallops present (Cardio), No clicks present (Cardio), No murmurs present (Cardio) and Peripheral pulses 2+ throughout RATE: regular rate RHYTHM: regular rhythm HEART SOUNDS: S1 normal heart sound present and S2 normal heart sound present PERIPHERAL PULSES: Peripheral pulses 2+ throughout GI: COMMON NORMALS: Normal to inspection, nondistended, normoactive bowel sounds present, Soft to palpation and no masses PALPATION: Yes Soft to palpation and Yes Tenderness to palpation present (GI) Details: other (Mild left lower pelvic tenderness) : COMMON NORMALS: Yes no CVA tenderness BLADDER/KIDNEY EXAM: Yes no CVA tenderness Back/Pelvis: COMMON NORMALS: no CVA tenderness Extremity: COMMON NORMALS: normal to inspection and full ROM NARRATIVE EXTREMITY EXAM: Patient can ambulate normally and does not have a limp or showing any signs of pain. Neuro: COMMON NORMALS: patient oriented x3 and moves all extremities SENSORIUM/ORIENTATION: Yes alert SPEECH: speech normal GAIT: Yes Normal gait present Skin: GENERAL SKIN EXAM: dry skin Course Vital Signs: Vital signs: Vital Signs Temperature 97.5 F L 05/03/21 23:09 Pulse Rate 68 05/04/21 00:21 Respiratory Rate 16 05/04/21 00:21 Blood Pressure 153/92 05/03/21 23:09 Pulse Oximetry 95 05/04/21 00:21 MDM - Fall MDM Narrative: Medical decision making narrative: Patient is a 50-year-old female comes to the ED with left pelvic pain. Patient's left pelvic pain is chronic and says that after had a fall where she fell down to her left knee and aggravated her left pelvic pain and made a little worse. Patient has been diagnosed with left ovarian cyst with pain recently and is scheduled to have her cyst on her left ovary removed surgically in May. Patient appears nontoxic and in no acute distress or pain. Patient is able to ambulate without any pain or discomfort. She had some mild left pelvic tenderness upon palpation. Vitals stable. UA was unremarkable and showed no signs of UTI. Patient was given Toradol while here in the ED to help with pain. Due to patient's acute on chronic left pelvic pain and her nonacute clinical appearance she was discharged home and told to follow-up with her PCP in 7 to 10 days for reevaluation. Return to ED precautions given. Patient understood and agreed with plan. Lab Data: Attestation: I reviewed the patient's lab results. Labs: Lab Results 05/03/21 Range/Units 23:40 Urine Color Straw (Yellow) Urine Appearance Clear (CLEAR) Urine pH 7 (5-7) Ur Specific Gravit y 1.000 L (1.005-1.030) Urine Protein Neg (Negative) Urine Glucose (UA) Norm (Normal) Urine Ketones Negative (Negative) Urine Blood Neg (Negative) Urine Nitrate Negative (Negative) Urine Bilirubin Neg (Negative) Urine Urobilinogen Norm (Negative) mg/dL Ur Leukocyte Kelsie ase Negative (Negative) Urine RBC None (0-2) /hpf Urine WBC None (0-5) /hpf Ur Squamous Epith Cells 0-4 H (0-5) /hpf Amorphous Sediment Not Reportable Urine Bacteria Trace (NONE) /hpf Discharge Plan Discharge Patient Disposition: Home Clinical Impression: Pelvic pain Condition: Stable Prescriptions: No Action venlafaxine [Effexor XR] 150 mg capsule,extended release 24hr 150 mg PO QAM Qty: 30 RF: 2 topiramate [Topamax] 100 mg tablet 100 mg PO DAILY Qty: 30 RF: 2 gabapentin 400 mg capsule 400 mg PO BID RF: 0 atenolol 50 mg tablet 50 mg PO DAILY RF: 0 Symbicort 160-4.5 mcg/actuation HFA aerosol inhaler 2 puff INHALATION BID RF: 0 pantoprazole 40 mg tablet,delayed release (DR/EC) 40 mg PO QAM RF: 0 metformin 500 mg tablet 500 mg PO DAILY RF: 0 cyclobenzaprine 10 mg tablet 10 mg PO TID RF: 0 cholecalciferol (vitamin D3) 50,000 unit capsule 50,000 unit PO .weekly RF: 0 Medrol (Kemar) 4 mg tablets,dose pack See Rx Instructions .ROUTE .COMPLEX Qty: 21 RF: 0 Miralax 17 gram/dose powder 17 gm PO DAILY PRN (Reason: constipation) Qty: 119 RF: 0 ondansetron 4 mg tablet,disintegrating 4 mg PO Q6H PRN (Reason: nausea and vomiting) Qty: 14 RF: 0 Naprosyn 500 mg tablet 500 mg PO BID PRN (Reason: pain) Qty: 20 RF: 0 Naprosyn 500 mg tablet 500 mg PO BID PRN (Reason: pain) Qty: 20 RF: 0 Naprosyn 500 mg tablet 500 mg PO BID PRN (Reason: pain) Qty: 12 RF: 0 Discharge Orders: Discharge ED (Routine); Ordered 05/03/21 Ordered By: Sergio Birch Referrals: Eric Mandel MD [Primary Care Provider] - Discharge Diet: Regular Discharge Activity: Increase activity as tolerated Patient Instructions: Ovarian Cyst (ED), Chronic Pelvic Pain in Women (ED) Activity Restrictions/Additional Instructions: Follow-up with medical provider as directed in 7 to 10 days for reevaluation. Take [id number] naproxen or ibuprofen for pain. Continue taking all home medications as prescribed. You can apply cold pack on shoulder areas to help with symptoms. Return to the ER or your medical provider if condition worsens. Please read and understand discharge instructions. Thank you for choosing [facility] for your healthcare needs today. Please realize this is an emergency room and that we are providing you with a medical screening exam and this may not be complete and all inclusive of all the testing and or work up that you may need to determine your ailment or severity of your illness. It is very important that you follow up as instructed or that you return to the Emergency Department should you have concerns or if your condition changes or worsens in any way. Coding Level of Care Code ED Hydraulic Dredge Operator for Stephen Fwmac Exam Comprehensive
[2021-05-03] MEDS: ketorolac 60 mg/2 mL INJ IM (23:37)
[2021-05-03 23:48] LABS: Bilirubin Urine Neg (Negative); Blood Urine Neg (Negative); Glucose Urine UA Norm (Normal); Ketones Urine Negative (Negative); Leukocyte Esterase Urine Negative (Negative); Nitrate Urine Negative (Negative); Protein Urine Neg (Negative); Urine Appearance Clear (CLEAR); Urobilinogen Urine Norm (Negative); pH Urine 7 (5-7)
[2021-05-03 23:49] LABS: Bacteria Urine TRACE /hpf; Squamous Epithelial Cell Urine 0-4 /hpf (0-5); Urine Color Straw (Yellow)
[2021-05-03 23:50] LABS: Add Urine Culture? No
[2021-05-04 00:21] VITALS: PULSE 68; RESP 16; O2SAT 95
== END 2021-05-04 00:22 | disposition home or self-care (01) ==
PROVIDERS: Emergency Provider Physician Assistant; PCP Family Medicine
DX: R10.2 Pelvic and perineal pain (principal); Z79.84 Long term (current) use of oral hypoglycemic drugs; F17.210 Nicotine dependence, cigarettes, uncomplicated
CPT/HCPCS: 81001; 96372; 99283; J1885

== ENCOUNTER → 2021-05-19 15:23 | Outpatient (BNVA) | payer MEDICARE, MEDICAID, SELFPAY | PROVIDERS: PCP Family Medicine; Visit Provider Obstetrics & Gynecology | DX: D25.1 Intramural leiomyoma of uterus (principal); N83.292 Other ovarian cyst, left side | CPT/HCPCS: 76830 ==

== ENCOUNTER 2021-05-21 00:21 | Emergency (ER) | payer MEDICARE, MEDICAID, SELFPAY ==
[2021-05-21 00:22] VITALS: BP 157/100; PULSE 67; RESP 19; TEMP 36.7; O2SAT 100; BMI 29.6
--- NOTE | 2021-05-21 00:25 | ECG_ITS ---
[facility] Test Date: 2021-05-21 Pat Name: Caty Perdomo Department: Room: Gender: Female Seismic Plotter: : 1970 Requested By: Le Salas Order Number: [id number] Isidra MD: Cy Devlin M.D. Measurements Intervals [place] Rate: 61 P: 62 OR: 185 QRS: 6 QRSD: 94 T: 62 QT: 423 QTc: 427 Interpretive Statements SINUS RHYTHM Compared to ECG 01/11/2021 00:11:31 No significant changes Electronically Signed On 05-22-2021 17:15:45 CDT by Cy Devlin M.D. [email or web address] [facility] care systemSychron Advanced Technologiesuniversity [facility].Tyba/store/NU/[id number] f
--- NOTE | 2021-05-21 00:25 | XRR_ITS ---
PROCEDURE INFORMATION: Exam: XR Chest Exam date and time: 05/21/2021 12:25 AM Age: 50 years old Clinical indication: Pain; Left-sided; Additional info: Cp TECHNIQUE: Imaging protocol: XR of the chest. Views: 1 view. COMPARISON: CR XR chest 1V portable [id number] 01/11/2021 12:23 AM FINDINGS: Lungs: Unremarkable. No consolidation. Pleural spaces: Unremarkable. No pleural effusion. No pneumothorax. Heart/Mediastinum: Unremarkable. No cardiomegaly. Bones/joints: Unremarkable. XR/XR chest 1V portable [id number] IMPRESSION: No change, unremarkable
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
[2021-05-21 00:39] VITALS: RESP 16; O2SAT 98
[2021-05-21] MEDS: morphine 4 mg/mL SDV 1 mL IVP (00:39)
[2021-05-21] MEDS: ondansetron 2 mg/ML SDV 2 mL 4 MG IVP (00:39)
[2021-05-21 00:48] LABS: Basophils # 0.1 10^3/uL (0.0-0.1); Eosinophils # 0.2 10^3/uL (0.0-0.8); Eosinophils % 3.8 %; Hematocrit 38.6 % (37.0-47.0); Hemoglobin 12.4 g/dL (11.5-15.3); Lymphocytes # 1.9 10^3/uL (0.8-4.8); Lymphocytes % 31.9 %; Mean Corpuscular HGB Conc 32.1 g/dL (30.0-36.0); Mean Corpuscular Hemoglobin 28.7 pg (28.0-34.0); Mean Corpuscular Volume 89.4 fL (81-99); Mean Platelet Volume 10.6 fL (7.4-10.4); Monocytes # 0.6 10^3/uL (0.2-0.9); Monocytes % 9.7 %; Neutrophils # 3.26 10^3/uL (1.8-7.7); Neutrophils % 53.4 %; Nucleated Red Blood Cells % 0 %; Platelet Count 354 10^3/cmm (130-400); Red Blood Count 4.32 10^6/uL (4.1-5.3); Red Cell Distribution Width 15.6 % (12.1-15.1); White Blood Count 6.1 10^3/uL (4.0-10.0)
[2021-05-21 01:03] LABS: Troponin(5th) Baseline 6 ng/L (0-10)
[2021-05-21 01:04] LABS: Alanine Aminotransferase 9 U/L (0-33); Albumin Level 4.6 g/dL (3.5-5.2); Alkaline Phosphatase 66 IU/L (35-105); Anion Gap 14.4 (5-19); Aspartate Amino Transferase 14 U/L (0-32); Blood Urea Nitrogen 7 mg/dL (6-20); Calcium 10.1 mg/dL (8.5-10.5); Carbon Dioxide 23 mmol/L (22-29); Chloride 106 mmol/L (98-107); Globulin 2.2 g/dL (1.3-4.6); Glomerular Filtration Rate 88.6 mL/min (90-130); Glucose 69 mg/dL (65-115); Osmolality Calculated 284 mOsm/kg (285-295); Potassium 4.4 mmol/L (3.5-5.1); Sodium 139 mmol/L (136-145); Total Bilirubin 0.2 mg/dL (0.15-1.2); Total Protein 6.8 g/dL (6.6-8.7)
[2021-05-21 01:36] VITALS: BP 130/81; PULSE 63; RESP 18; O2SAT 98
== END 2021-05-21 01:36 | disposition home or self-care (01) ==
PROVIDERS: Emergency Provider Emergency Medicine; PCP Family Medicine
DX: R07.9 Chest pain, unspecified (principal); Z79.84 Long term (current) use of oral hypoglycemic drugs; F17.210 Nicotine dependence, cigarettes, uncomplicated
CPT/HCPCS: 71045; 80053; 84484; 85025; 93005; 96374; 96375; 99284; J2270; J2405

== ENCOUNTER → 2021-06-13 08:12 | Outpatient (BNVA) | payer MEDICARE, MEDICAID, SELFPAY | PROVIDERS: PCP Family Medicine; Visit Provider Obstetrics & Gynecology | DX: D25.9 Leiomyoma of uterus, unspecified (principal); N83.202 Unspecified ovarian cyst, left side; N83.201 Unspecified ovarian cyst, right side | CPT/HCPCS: 76830 ==

== ENCOUNTER → 2021-07-29 13:00 | Outpatient (BNVA) | payer MEDICARE, MEDICAID, SELFPAY | PROVIDERS: PCP Family Medicine; Visit Provider Obstetrics & Gynecology | DX: D25.0 Submucous leiomyoma of uterus (principal); D25.1 Intramural leiomyoma of uterus; D25.2 Subserosal leiomyoma of uterus; N83.8 Other noninflammatory disorders of ovary, fallopian tube and broad ligament; R10.2 Pelvic and perineal pain; Z20.822 Contact with and (suspected) exposure to COVID-19 | CPT/HCPCS: 87635 ==

== ENCOUNTER 2021-08-03 10:48 | Observation (INO) | payer MEDICARE, MEDICAID, SELFPAY ==
[2021-08-01 12:32] LABS: Add Urine Microscopic? NO; Charge for UA Resulting for Rev
[2021-08-01 12:40] LABS: Bilirubin Urine Neg (Negative); Blood Urine Neg (Negative); Glucose Urine UA Norm (Normal); Ketones Urine Negative (Negative); Leukocyte Esterase Urine Negative (Negative); Nitrate Urine Negative (Negative); OR HCG Qualitative Urine Negative (Negative); Protein Urine Neg (Negative); Specific Gravity, Urine 1.015 (1.005-1.030); Urine Appearance Clear (CLEAR); Urine Color Yellow (Yellow); Urobilinogen Urine Norm (Negative); pH Urine 6.5 (5-7)
[2021-08-01 12:47] LABS: Basophils % 0.7 %; Eosinophils # 0.2 10^3/uL (0.0-0.8); Eosinophils % 3.1 %; Hematocrit 38.2 % (37.0-47.0); Hemoglobin 11.7 g/dL (11.5-15.3); Lymphocytes # 1.4 10^3/uL (0.8-4.8); Lymphocytes % 24.9 %; Mean Corpuscular HGB Conc 30.6 g/dL (30.0-36.0); Mean Corpuscular Hemoglobin 27.7 pg (28.0-34.0); Mean Corpuscular Volume 90.3 fl (81-99); Mean Platelet Volume 10.3 fL (7.4-10.4); Monocytes # 0.4 10^3/uL (0.2-0.9); Neutrophils # 3.47 10^3/uL (1.8-7.7); Neutrophils % 63.1 %; Nucleated Red Blood Cells % 0 %; Platelet Count 317 10^3/cmm (130-400); Red Blood Count 4.23 10^6/uL (4.1-5.3); Red Cell Distribution Width 16.2 % (12.1-15.1); White Blood Count 5.5 10^3/uL (4.0-10.0)
[2021-08-01 12:55] VITALS: BMI 28.3
[2021-08-01 13:09] LABS: Alanine Aminotransferase 11 U/L (0-33); Albumin Level 4.3 g/dL (3.5-5.2); Alkaline Phosphatase 64 IU/L (35-105); Anion Gap 12.2 (5-19); Aspartate Amino Transferase 16 U/L (0-32); Blood Urea Nitrogen 6 mg/dL (6-20); Calcium 9.8 mg/dL (8.5-10.5); Carbon Dioxide 22 mmol/L (22-29); Chloride 110 mmol/L (98-107); Globulin 2.8 g/dL (1.3-4.6); Glomerular Filtration Rate 88.6 mL/min (90-130); Glucose 94 mg/dL (65-115); Osmolality Calculated 287 mOsm/kg (285-295); Potassium 4.2 mmol/L (3.5-5.1); Sodium 140 mmol/L (136-145); Total Bilirubin 0.2 mg/dL (0.15-1.2); Total Protein 7.1 g/dL (6.6-8.7)
--- NOTE | 2021-08-01 13:23 | ANES.PREANE2 ---
Pre-Anesthetic Assessment Pre-Anesthetic Assessment: Height/Weight: Height 1.7 m Weight 82.1 kg Proposed Procedure: Operation Date: 08/03/21 10:55 Proposed Procedures p Total Vaginal Hysterectomy 51023 D25.9 R10.2 N83.8(Not Applicable) - Ramesh Ruiz MD s bilateral Salpingo-Oophorectomy (Vaginal)(Bilateral) - Ramesh Ruiz MD Was Beta Mikel taken within 24 hours: Yes Was Clonidine taken within 24 hours: N/A Social: Social History: Tobacco and No alcohol Exam: Pre-Anes Outpt Exam: alert, oriented x 3 and regular rate & rhythm Airway: Submandibular: WNL Cervical ROM: WNL MP: 2 Additional comments: Poor dentition, missing several Pulmonary: Pulmonary: COPD CV/HEM: CV/HEM: HTN GI: GI: GERD Metabolic: Metabolic: DM Neuropsych: Neuropsych: Anxiety and Depression Anesthetic Plan: ASA status: 3 Anesthesia: General Risk of > 500 ml blood loss (7ml/kg in children): No PFSH Anesthesia PFSH: Medical History (Updated 08/01/21 @ 08:41 by Ramesh Ruiz MD) Borderline intellectual functioning Pelvic pain Post-traumatic stress disorder, chronic Family History Mother Diabetes Hypertension Stroke Uterine cancer, Onset Age: 46 Grandmother Diabetes maternal Family/Other Hyperlipidemia paternal uncle Heart disease paternal uncle Sister Hypertension Heart disease Brother Stomach cancer Denies family history of Colon cancer Ovarian cancer Clotting disorder Breast cancer Anesthesia complication Bleeding disorder Thyroid condition Social History (Updated 05/27/21 @ 14:54 by Abbie Okeefe RN) Smoking and tobacco status: current every day smoker cigarettes Packs smoked per day: 1 Years cigarettes smoked: 29 Alcohol intake: former Former alcohol use details: 2013 Female Reproductive History: Date of last menstrual period: 07/25/21 Data Anesthesia CBC & Chem 7: 08/01/21 12:35 08/01/21 12:35 Other Labs: Laboratory Results - last 48 hr 08/01/21 08/01/21 08/01/21 12:25 12:25 12:35 WBC 5.5 RBC 4.23 Hgb 11.7 Hct 38.2 MCV 90.3 MCH 27.7 L MCHC 30.6 RDW 16.2 H Plt Count 317 MPV 10.3 Neut % (Auto) 63.1 Lymph % (Auto) 24.9 [place] % (Auto) 8.0 Eos % (Auto) 3.1 Baso % (Auto) 0.7 Neut # (Auto) 3.47 Lymph # (Auto) 1.4 [place] # (Auto) 0.4 Eos # (Auto) 0.2 Baso # (Auto) 0.0 Nucleated RBC % (auto) 0 Nucleated RBCs # 0.0 Sodium Potassium Chloride Carbon Dioxide Anion Gap BUN Creatinine GFR Calculation Glucose Calculated Osmolality Calcium Total Bilirubin AST ALT Alkaline Phosphatase Total Protein Albumin Globulin Urine Color Yellow Urine Appearance Clear Urine pH 6.5 Ur Specific [place] 1.015 Urine Protein Neg Urine Glucose (UA) Norm Urine Ketones Negative Urine Blood Neg Urine Nitrate Negative Urine Bilirubin Neg Urine Urobilinogen Norm Ur Leukocyte Esterase Negative Urine HCG, Qual Negative 08/01/21 12:35 WBC RBC Hgb Hct MCV MCH MCHC RDW Plt Count MPV Neut % (Auto) Lymph % (Auto) [place] % (Auto) Eos % (Auto) Baso % (Auto) Neut # (Auto) Lymph # (Auto) [place] # (Auto) Eos # (Auto) Baso # (Auto) Nucleated RBC % (auto) Nucleated RBCs # Sodium 140 Potassium 4.2 Chloride 110 H Carbon Dioxide 22 Anion Gap 12.2 BUN 6 Creatinine 0.7 GFR Calculation 88.6 L Glucose 94 Calculated Osmolality 287 Calcium 9.8 Total Bilirubin 0.2 AST 16 ALT 11 Alkaline Phosphatase 64 Total Protein 7.1 Albumin 4.3 Globulin 2.8 Urine Color Urine Appearance Urine pH Ur Specific [place] Urine Protein Urine Glucose (UA) Urine Ketones Urine Blood Urine Nitrate Urine Bilirubin Urine Urobilinogen Ur Leukocyte Esterase Urine HCG, Qual Cardiac Studies: No Data to Display
[2021-08-03] VITALS (19 sets, daily range): BP systolic 108–135; BP diastolic 69–102; PULSE 60–90; RESP 12–18; TEMP 36.3–36.8; O2SAT 98–100
[2021-08-03 07:38] LABS: OR HCG Qualitative Urine Negative (Negative)
--- NOTE | 2021-08-03 07:47 | ANES.PAUD2 ---
Pre-Anesthetic Update Pre-Anesthetic Assessment: Date of Surgery/Procedure: 08/03/21 Preop Diagnosis: Uterine fibroid, pelvic pain, enlarged uterus Proposed Procedure: Operation Date: 08/03/21 08:30 Proposed Procedures p Total Vaginal Hysterectomy 98956 D25.9 R10.2 N83.8(Not Applicable) - Ramesh Ruiz MD s bilateral Salpingo-Oophorectomy (Vaginal)(Bilateral) - Ramesh Ruiz MD Any changes to Pre-Anesthetic Assessment?: No Labs Last 48hrs: Laboratory Results - last 48 hr 08/01/21 08/01/21 08/01/21 12:25 12:25 12:35 WBC 5.5 RBC 4.23 Hgb 11.7 Hct 38.2 MCV 90.3 MCH 27.7 L MCHC 30.6 RDW 16.2 H Plt Count 317 MPV 10.3 Neut % (Auto) 63.1 Lymph % (Auto) 24.9 [place] % (Auto) 8.0 Eos % (Auto) 3.1 Baso % (Auto) 0.7 Neut # (Auto) 3.47 Lymph # (Auto) 1.4 [place] # (Auto) 0.4 Eos # (Auto) 0.2 Baso # (Auto) 0.0 Nucleated RBC % (a uto) 0 Nucleated RBCs # 0.0 Sodium Potassium Chloride Carbon Dioxide Anion Gap BUN Creatinine GFR Calculation Glucose Calculated Osmolal ity Calcium Total Bilirubin AST ALT Alkaline Phosphata se Total Protein Albumin Globulin Urine Color Yellow Urine Appearance Clear Urine pH 6.5 Ur Specific [place] y 1.015 Urine Protein Neg Urine Glucose (UA) Norm Urine Ketones Negative Urine Blood Neg Urine Nitrate Negative Urine Bilirubin Neg Urine Urobilinogen Norm Ur Leukocyte Kelsie ase Negative Urine HCG, Qual Negative Blood Type Rho(D) Type Antibody Screen 08/01/21 08/01/21 08/03/21 12:35 12:35 07:35 WBC RBC Hgb Hct MCV MCH MCHC RDW Plt Count MPV Neut % (Auto) Lymph % (Auto) [place] % (Auto) Eos % (Auto) Baso % (Auto) Neut # (Auto) Lymph # (Auto) [place] # (Auto) Eos # (Auto) Baso # (Auto) Nucleated RBC % (a uto) Nucleated RBCs # Sodium 140 Potassium 4.2 Chloride 110 H Carbon Dioxide 22 Anion Gap 12.2 BUN 6 Creatinine 0.7 GFR Calculation 88.6 L Glucose 94 Calculated Osmolal ity 287 Calcium 9.8 Total Bilirubin 0.2 AST 16 ALT 11 Alkaline Phosphata se 64 Total Protein 7.1 Albumin 4.3 Globulin 2.8 Urine Color Urine Appearance Urine pH Ur Specific Gravit y Urine Protein Urine Glucose (UA) Urine Ketones Urine Blood Urine Nitrate Urine Bilirubin Urine Urobilinogen Ur Leukocyte Kelsie ase Urine HCG, Qual Negative Blood Type A Positive Rho(D) Type Positive Antibody Screen Negative Exam: Pre-Anes Outpt Exam: alert, oriented x 3, clear to auscultation bilaterally and regular rate & rhythm Cardiac Studies: No Data to Display
[2021-08-03] MEDS: sodium chloride 0.9% 500 ML IV (07:55)
[2021-08-03] MEDS: scopolamine 1.5 Patch 1 PATCH TRANSDERMA (07:58)
[2021-08-03 08:00] LABS: Glucose Point of Care 102 mg/dL (70-110)
--- NOTE | 2021-08-03 08:03 | W.PM.OPSUD ---
Surgery/Procedure H&P Update DATE OF PROCEDURE: August 03, 2021 DATE H&P PERFORMED: 08/01/21 H&P UPDATE INFORMATION: I have reviewed H&P completed within last 30 days, I have examined patient prior to procedure and No changes to prior documentation PREOP DIAGNOSIS: Uterine fibroid, pelvic pain, enlarged uterus PLANNED PROCEDURE: Operation Date: 08/03/21 08:30 Proposed Procedures p Total Vaginal Hysterectomy 11860 D25.9 R10.2 N83.8(Not Applicable) - aRmesh Ruiz MD s bilateral Salpingo-Oophorectomy (Vaginal)(Bilateral) - Ramesh Ruiz MD
[2021-08-03] MEDS: vancomycin 1,000 MG in sodium chloride 0.9% 250 ML 250 MG IV (08:19)
[2021-08-03] MEDS: levofloxacin-dextrose 5 % 500 MG/100 ML PREMIX 100 MG IV (08:21)
--- NOTE | 2021-08-03 10:43 | P.OP_ITS ---
Operative Report Date of procedure: August 03, 2021 Pre-op Diagnosis: Uterine fibroid, pelvic pain, enlarged uterus Post-op diagnosis: same Post-op Findings: Enlarged irregular uterus, enlarged right ovary. Procedure Done: Total vaginal hysterectomy with bilateral salpingo-oophorectomy. Bladder laceration repair. Cystoscopy Specimens removed/disposition: Uterus left and right ovaries Pathology: Uterus left and right ovaries Surgeon: Ramesh Ruiz MD Anesthesia: General Estimated blood loss (mL): 150 IV fluids (mL): 700 Urine output (mL): 100 Complications: Bladder laceration Condition: stable Disposition: PACU Procedure: After informed consent and risks, benefits, indications and alternatives reviewed with the patient was taken to the operating room. The patient was placed in dorsal lithotomy position prepped, and draped in the usual sterile fashion. The pre-procedure timeout verifying the correct patient, procedure, site and side, could not requirements was performed and acknowledge b y the OR team. A Fuentes catheter was placed. A Bookwalter vaginal retractor was placed into the vagina in usual manner visualize the cervix. Cervix was grasped with a single tooth tenaculum and circumferentially infiltrated with 2% lidocaine with epinephrine. Then cervix was circumferentially incised with bovie and the bladder was dissected off the pubovesical cervical fascia anteriorly with a sponge stick and Metzenbaum scissors. The anterior peritoneal reflection was identified and the anterior cul-de-sac was entered sharply with Metzenbaum scissors. As the anterior bladde of bookwalter retractor was repositioned a sudden flow of fluid was noted. On examination a bladdder laceration was noted and identified. The laceration was repire using 3-O Vicryl in layers to a water tight closure. The continue with the hysterectomy as usual. The same procedure was performed posteriorly and a posterior colpotomy was made through the posterior cul-de-sac space without difficulty and the posterior blade of the Bookwalter vaginal retractor was advanced posteriorly into the cul-de-sac. At this time, the left and right uterosacral ligaments were isolated and ligated with 0 Vicryl. The Enseal device was placed over the uterosacral ligaments on either side and was then used in a serial fashion up through the cardinal ligaments bilaterally cross-clamped, cut, and sealed with the Enseal device. Finally, the uterine arteries were cross-clamped, cut, sealed and ligated with the Enseal device. Hemostasis was assured. The broad ligaments were then serially clamped, sealed and cut with the Enseal device on both sides. Excellent hemostasis was visualized. Both cornua were clamped, sealed and cut with the Enseal device. Then the pedicles were then suture ligated with excellent hemostasis. The uterus was excised and submitted for pathologic evaluation. No other abnormalities were noted in the pelvic cavity. The peritoneum was then closed in a pursestring fashion with 0 Vicryl suture. The vaginal cuff angles were closed with [id number] #0 Vicryl suture on both sides and transfixed with the ipsilateral cardinal and uterosacral ligaments. The remainder of the vaginal cuff was closed with #0 Vicryl in a running locked fashion. At this time, instruments were removed from the vagina at hemostasis assured. Then the Fuentes catheter was removed and cystoscope was inserted. The bladder was filled with sterile water. Complete evaluation of the bladder mucosa was performed noting no lacerations, dimpling, tears, bleeding of the mucosa or muscular layers. Both ureteral orifices were identified. Prompt excretion of urine from both ureteral orifices was noted. Cystoscope was withdrawn. Fuentes catheter was then placed yielding clear josette urine. The patient was taken out of dorsal lithotomy position and awakened from the general anesthesia. The patient tolerated the procedure well and was taken to the PACU recovery room in a stable condition. Sponge, lap, needle and instruments counts were correct x3.
--- NOTE | 2021-08-03 10:57 | P.PCN_ITS ---
PACU note PACU note: VSS, Good respiratory effort, report to FLUTE TEACHER Post-Anesthesia Exam: awake
--- NOTE | 2021-08-03 10:57 | PM.PACU ---
PACU note PACU note: VSS, Good respiratory effort, report to TRIP RIDER Post-Anesthesia Exam: awake
[2021-08-03] MEDS: fentaNYL 50 mcg/mL INJ 2mL IVP (11:30)
--- NOTE | 2021-08-03 12:18 | PC.NURSE ---
Call to Dr. Ruiz to clarify order. CAITLIN Mock in surgery answered phone. Reported that pt is allergic to motrin, but takes naproxen daily. Dr. Ruiz ordered motrin and toradol. Pt states she has never had toradol. Received orders from Dr. Ruiz to cancel motrin and toradol.
[2021-08-03] MEDS: dextrose 5%-lactated ringers 1,000 ML 125 ML IV (12:19)
--- NOTE | 2021-08-03 12:31 | PC.NURSE ---
500 mL of clear, light blue tinted urine emptied from pt mcclelland upon arrival to OB from PACU.
[2021-08-03] MEDS: HYDROcodone-acetaminophen 5-325 mg Tablet PO ×2 (12:33→19:47)
--- NOTE | 2021-08-03 13:58 | ANE.PACU2 ---
Inpatient post-anesthesia follow up: Airway intact: Yes Vital signs: Temperature 97.6 F Pulse Rate 65 Respiratory Rate 16 Blood Pressure 135/85 Pulse Oximetry 99 Oxygen Delivery Me thod Room Air Oxygen Flow Rate Fraction of Inspir ed Oxygen Hydration adequate: Yes Nausea and vomiting: No Pain level: 2 Mental status: Baseline
[2021-08-03] MEDS: naproxen 500 mg Tablet PO (16:20)
[2021-08-03] MEDS: gabapentin 400 mg Capsule PO (21:02)
[2021-08-03] MEDS: cyclobenzaprine 10 mg Tablet PO (23:12)
[2021-08-03] MEDS: simethicone 80 mg Chew PO (23:12)
[2021-08-04] MEDS: HYDROcodone-acetaminophen 5-325 mg Tablet PO ×2 (02:42→07:38)
[2021-08-04 04:30] VITALS: BP 144/84; PULSE 71; RESP 16
[2021-08-04 04:33] LABS: Hematocrit 31.1 % (37.0-47.0); Hemoglobin 9.6 g/dL (11.5-15.3); Mean Corpuscular HGB Conc 30.9 g/dL (30.0-36.0); Mean Corpuscular Hemoglobin 28.1 pg (28.0-34.0); Mean Corpuscular Volume 90.9 fl (81-99); Mean Platelet Volume 10.7 fL (7.4-10.4); Platelet Count 245 10^3/cmm (130-400); Red Blood Count 3.42 10^6/uL (4.1-5.3); Red Cell Distribution Width 16.2 % (12.1-15.1); White Blood Count 8.3 10^3/uL (4.0-10.0)
[2021-08-04] MEDS: venlafaxine ER (24HR) 150 mg Capsule PO (05:48)
[2021-08-04] MEDS: pantoprazole DR 40 mg Tablet PO (05:48)
[2021-08-04 10:15] VITALS: BP 107/69; PULSE 89; RESP 16; TEMP 36.7
--- NOTE | 2021-08-05 15:29 | PC.RESP ---
SMOKING CESSATION INFORMATION SENT TO PATIENT.
--- NOTE | 2021-08-18 11:06 | P.DS_ITS ---
Discharge Providers VETERINARY SCIENCE TEACHER Date of Admission: 08/03/21 10:48 Date of Discharge: 08/18/21 Attending Provider at Admission: Ramesh Ruiz MD Attending Provider at Discharge: Ramesh Ruiz MD Primary Care Provider: Eric Mandel MD Diagnoses at Discharge Discharge Diagnosis (1) Status post vaginal hysterectomy: Status: Acute Reason for Visit Reason for Visit: tvh with bilateral salpingo-oophorectomy Hospital Course Hospital Course Mrs. ePrdomo 50-year-old female with a history of chronic pelvic pain, enlarged uterus and uterine fibroids admitted for planned vaginal hysterectomy and bilateral salpingo-oophorectomy. The TVH and BSO was performed and it was complicated by a small bladder laceration which was repaired in 3 layers watertight. She is postoperative day 1, afebrile and hemodynamically stable. Tolerating diet well. Ambulating without difficulty. Pain well under control. Patient was counseled regarding being discharged home with a Mcclelland catheter for 10 days when she is supposed to return to the clinic to reassess bladder healing. She refers she understands the recommendation. She was advised against heavy lifting and and encourage pelvic rest. Physical Exam Narrative: EXAM NARRATIVE: GA: Alert and oriented ?3. HEENT: WNL. Heart: Regular rate and rhythm. Lungs: Clear to auscultation bilaterally. Abdomen: Bowel sounds present. RN UTILIZATION MANAGEMENT UM: No bleeding. Extremities: No edema, no cyanosis, no calves pain. Urinary Catheter Management^: Mcclelland: Cath Placed During This Visit: yes Urinary Catheter Date of Insertion: 08/03/21 Urinary Catheter Time of Insertion: 10:40 Discharge Data Data Completed and Pending: Completed Studies During Hospitalization Category Date Time Status Pathology: Surgic al [PTH] Routine Pth 08/03/21 10:57 Completed Pending at discharge Category Date Time Status ES surgery / GI i mages Routine Exams 08/03/21 09:10 Taken Vitals: Last Vital Signs Temp 98.1 F 08/04/21 10:15 Pulse 89 08/04/21 10:15 Resp 16 08/04/21 10:15 BP 107/69 08/04/21 10:15 Pulse Ox 98 08/03/21 21:06 Discharge Plan Discharge Patient Disposition: Home Condition: Stable Prescriptions: New ibuprofen 800 mg tablet 800 mg PO TID PRN (Reason: pain) Qty: 60 RF: 0 Colace 100 mg capsule 100 mg PO BID Qty: 30 RF: 0 acetaminophen 325 mg capsule 325 mg PO Q4H PRN (Reason: fever or pain) Qty: 60 RF: 0 Continued venlafaxine [Effexor XR] 150 mg capsule,extended release 24hr 150 mg PO QAM Qty: 30 RF: 2 topiramate [Topamax] 100 mg tablet 100 mg PO DAILY Qty: 30 RF: 2 gabapentin 400 mg capsule 400 mg PO BID RF: 0 atenolol 50 mg tablet 50 mg PO DAILY RF: 0 Symbicort 160-4.5 mcg/actuation HFA aerosol inhaler 2 puff INHALATION BID RF: 0 pantoprazole 40 mg tablet,delayed release (DR/EC) 40 mg PO QAM RF: 0 metformin 500 mg tablet 500 mg PO DAILY RF: 0 cyclobenzaprine 10 mg tablet 10 mg PO TID PRN (Reason: Pain) RF: 0 cholecalciferol (vitamin D3) 1,250 mcg (50,000 unit) capsule 50,000 unit PO .monthly RF: 0 mecobalamin (vitamin B12) 10,000 mcg recon soln IM .monthly RF: 0 polyethylene glycol 3350 [Miralax] 17 gram/dose powder 17 gm PO DAILY PRN (Reason: constipation) Qty: 119 RF: 0 ondansetron 4 mg tablet,disintegrating 4 mg PO Q6H PRN (Reason: nausea and vomiting) Qty: 14 RF: 0 naproxen [Naprosyn] 500 mg tablet 500 mg PO BID PRN (Reason: pain) Qty: 12 RF: 0 No Action fluconazole [Diflucan] 150 mg tablet 150 mg PO ONCE 1 Days Qty: 1 RF: 0 nitrofurantoin macrocrystal 100 mg capsule 100 mg PO BID 7 Days Qty: 14 RF: 0 Discharge Orders: Discharge Order (Routine); Ordered 08/04/21 Ordered By: Ramesh Ruiz Referrals: Ramesh Ruiz MD [Physician] - 08/16/21 2:15 pm (* Your 2 week post op appointment and your mcclelland removal will be on 08/16/2021 at 2:15pm) Discharge Diet: Usual diet Discharge Activity: Increase activity as tolerated Patient Instructions: Vaginal Hysterectomy (DC), OB Discharge Report, OB Laproscopic Surgery - [facility], OB Food/Drug Interaction Guide, Opioid Safety Activity Restrictions/Additional Instructions: 1. Please call [facility] on next working day to make your post-operative appointment in 2 week and Sunday for mcclelland removal. 2. Please stay home until you come back to the clinic on first post-operative check up. 3. Please follow instructions on your medications CAREFULLY. 4. If you have abdominal incision, do not cover it unless dressing is necessary because of drainage. OK to shower, but avoid bath. Leave steri-strips until they fall off. If they are still on one week after surgery, you may remove them. 5. If you had vaginal surgery or vaginal repair, Dr. Ruiz may instruct you to take SITZ bath. 6. Yellow, blood tinged odorous vaginal discharge is usually normal after hysterectomy or vaginal surgeries. 7. No sexual intercourse, tampons, or douches until you are completely released from the post-operative care. 8. Avoid constipation by eating right and maybe using some Metamucil or Milk of Magnesia. 9. All prescription refills are given during the working hours. Please do no wait till it runs out. Call the clinic at [phone] before your medication runs out. The clinic will get in touch with your doctor to prescribe medications if necessary. 10. Please remain within 40 mile radius from our hospital because emergencies do happen now and then during the post-operative period. 11. If you have stairs at home, take one step at a time slowly and minimize the number of trips. It helps to stay in one floor for the next few days. No lifting except what you can lift by one hand until you are released from the post-operative care. 12. Driving is discouraged until you are well healed. It may be 3-4 weeks before you feel strong enough to drive. You should be able to turn and look through the rear window without pain and you should be able to push the brake pedal very hard without pain before you drive. No fast rules, but SAFETY should be your primary concern. DO NOT drive if you are on sedating medications such as narcotics. 13. Call the clinic (during working hours) to make urgent appointment or go to the Emergency room, if any of the following occurs: i. Vaginal bleeding becomes heavy, more than a period. ii. Incision becomes red and sore, or drains pus. iii. Your temperature is over 100.4 or you have chill. iv. IV site becomes red and swollen (a little ``knot?? is usually OK) v. Persistent nausea and vomiting vi. Persistent constipation or diarrhea vii. Rash or allergic reaction to medications. Discharge Attestations VETERINARY SCIENCE TEACHER Time Spent in Discharge Care*: less than 30 min Coding Level of Care Code Acute Finance Professional for [facility] Fwd Diagnoses Status post vaginal hysterectomy Z90.710
== END 2021-08-04 10:35 | disposition home or self-care (01) ==
LOC: OBGYN 10:51
PROVIDERS: Anesthesiology; Admitting Provider Obstetrics & Gynecology; PCP Family Medicine; Visit Provider Obstetrics & Gynecology
PROC: (CPT 58262; principal; 2021-08-03 08:30)
PROC: (CPT 58720; 2021-08-03 08:30)
DX: D25.9 Leiomyoma of uterus, unspecified (principal); R10.2 Pelvic and perineal pain; Z82.49 Family history of ischemic heart disease and other diseases of the circulatory system; Z83.3 Family history of diabetes mellitus; Z82.3 Family history of stroke; F17.210 Nicotine dependence, cigarettes, uncomplicated
CPT/HCPCS: 58262; 36415; 36416; 80053; 81003; 81025; 82962; 84703; 85025; 85027; 86850; 86900; 88307; 94640; 96365; G0378; J1100; J1956; J2405; J2704; J2710; J3010; J3370; J3490; J7040; J7050; Q9968

== ENCOUNTER 2021-09-06 23:47 | Emergency (ER) | payer MEDICARE, MEDICAID, SELFPAY ==
[2021-09-06 23:50] VITALS: BP 154/89; PULSE 62; RESP 18; TEMP 36.4; O2SAT 98; BMI 28.1
--- NOTE | 2021-09-06 23:52 | ED_ITS ---
HPI - Headache General: Chief Complaint: Headache Stated Complaint: FAJARDO Time Seen by Provider: 09/06/21 23:51 History of Present Illness: HPI Narrative: 50-year-old female comes in tonight with complaints of headache. Patient reports that this headache is similar to previous headaches. Patient has a history of migraines she reports. Patient states is been several months since she has had to come to the ER for similar complaints. Patient lives with at an assisted living team facility. Patient is alert and oriented and responds appropriately to questions. Patient has a history of schizoaffective disorder and epilepsy. MD elicited complaint: migraine Review of Systems General: Reports: 10 or more systems reviewed and unremarkable except in HPI and below Neuro: Reports: headache(s) PFSH ED PFSH: Medical History (Updated 09/07/21 @ 00:54 by ALICE Pacheco) Borderline intellectual functioning Pelvic pain Post-traumatic stress disorder, chronic Surgical History (Updated 08/18/21 @ 11:08 by Ramesh Ruiz MD) H/O tubal ligation S/P appendectomy S/P cholecystectomy Family History Mother Diabetes Hypertension Stroke Uterine cancer, Onset Age: 46 Grandmother Diabetes maternal Family/Other Hyperlipidemia paternal uncle Heart disease paternal uncle Sister Hypertension Heart disease Brother Stomach cancer Denies family history of Colon cancer Ovarian cancer Clotting disorder Breast cancer Anesthesia complication Bleeding disorder Thyroid condition Social History (Updated 08/16/21 @ 08:36 by Brittney Quintero LPN) Smoking and tobacco status: current every day smoker cigarettes Packs smoked per day: 1 Years cigarettes smoked: 29 Alcohol intake: former Former alcohol use details: 2014 Additional social history: Drug use: Denies Female Reproductive History: Date of last menstrual period: 07/25/21 Physical Exam Const: COMMON NORMALS: no acute distress and patient oriented x3 GENERAL APPEARANCE: cooperative HENMT: COMMON NORMALS: normocephalic and Normal external nose present HEAD & SCALP: normal to inspection and normocephalic NOSE: Normal external nose present MOUTH: Normal oral and palatal mucosa present Eye: GENERAL EYE: appearance normal, both eyes and all related structures Neck/C-Spine: COMMON NORMALS: full ROM Chest: COMMONS NORMALS: normal inspection of the chest Resp: COMMON NORMALS: normal respiratory effort EFFORT & INSPECTION: Yes able to speak in complete sentences Cardio: COMMON NORMALS: regular rate and regular rhythm RATE: regular rate RHYTHM: regular rhythm GI: COMMON NORMALS: non-tender Back/Pelvis: COMMON NORMALS: thoracic and lumbar spine normal to inspection Extremity: COMMON NORMALS: normal to inspection Neuro: COMMON NORMALS: patient oriented x3 and moves all extremities Psych: COMMON NORMALS: mental status grossly normal and cooperative Skin: COMMON NORMALS: no rashes or lesions noted GENERAL SKIN EXAM: no rashes or lesions noted Course ED course: 11 26, patient was improved with headache. Resting well. Will be discharged back to assisted living center. Vital Signs: Vital signs: Vital Signs Temperature 97.6 F 09/06/21 23:50 Pulse Rate 67 09/07/21 00:39 Respiratory Rate 18 09/07/21 00:39 Blood Pressure 159/98 09/07/21 00:39 Pulse Oximetry 99 09/07/21 00:39 MDM - Headache MDM Narrative: Medical decision making narrative: 50-year-old female comes in today with complaints of migraine headache. Patient reports this headache is similar to her previous ones. Patient states that she was upset today due to her son get in trouble and she has also been fighting with a friend. On exam patient has no focal neural deficits. Skin is warm and dry. We do note some elevation in her blood pressure above 154 systolic. Differential diagnosis includes not limited to migraine headache, tension headache, hypertension. Patient was treated with 2 mg of Ativan IV, 15 mg of Toradol IV, and 4 mg dexamethasone to prevent rebound headache. Patient was monitored and released back to home after cessation of headache. Discharge Plan Discharge Patient Disposition: Home Clinical Impression: Migraine Qualifiers: Migraine type: unspecified Status migrainosus presence: without status migrainosus Intractability: not intractable Qualified Code(s): G43.909 - Migraine, unspecified, not intractable, without status migrainosus Condition: Stable Prescriptions: No Action venlafaxine [Effexor XR] 150 mg capsule,extended release 24hr 150 mg PO QAM Qty: 30 RF: 2 topiramate [Topamax] 100 mg tablet 100 mg PO DAILY Qty: 30 RF: 2 fluconazole [Diflucan] 150 mg tablet 150 mg PO ONCE 1 Days Qty: 1 RF: 0 nitrofurantoin macrocrystal 100 mg capsule 100 mg PO BID 7 Days Qty: 14 RF: 0 gabapentin 400 mg capsule 400 mg PO BID RF: 0 atenolol 50 mg tablet 50 mg PO DAILY RF: 0 Symbicort 160-4.5 mcg/actuation HFA aerosol inhaler 2 puff INHALATION BID RF: 0 pantoprazole 40 mg tablet,delayed release (DR/EC) 40 mg PO QAM RF: 0 metformin 500 mg tablet 500 mg PO DAILY RF: 0 cyclobenzaprine 10 mg tablet 10 mg PO TID PRN (Reason: Pain) RF: 0 cholecalciferol (vitamin D3) 1,250 mcg (50,000 unit) capsule 50,000 unit PO .monthly RF: 0 mecobalamin (vitamin B12) 10,000 mcg recon soln IM .monthly RF: 0 polyethylene glycol 3350 [Miralax] 17 gram/dose powder 17 gm PO DAILY PRN (Reason: constipation) Qty: 119 RF: 0 ondansetron 4 mg tablet,disintegrating 4 mg PO Q6H PRN (Reason: nausea and vomiting) Qty: 14 RF: 0 naproxen [Naprosyn] 500 mg tablet 500 mg PO BID PRN (Reason: pain) Qty: 12 RF: 0 ibuprofen 800 mg tablet 800 mg PO TID PRN (Reason: pain) Qty: 60 RF: 0 Colace 100 mg capsule 100 mg PO BID Qty: 30 RF: 0 acetaminophen 325 mg capsule 325 mg PO Q4H PRN (Reason: fever or pain) Qty: 60 RF: 0 Discharge Orders: Discharge ED (Routine); Ordered 09/07/21 Ordered By: Shaheen Saunders Referrals: Eric Mandel MD [Primary Care Provider] - Discharge Diet: Usual diet Discharge Activity: Increase activity as tolerated Patient Instructions: Migraine Headache (ED), Opioid Safety Activity Restrictions/Additional Instructions: Home and rest. Drink plenty of fluids. Take medications as directed. Follow- up with primary care for further instruction. Coding Level of Care Code ED Wiping Cloth Cutter for Chg Fwd Exam Comprehensive
[2021-09-07] MEDS: dexamethasone 4 mg/mL INJ IVP (00:37)
[2021-09-07] MEDS: ketorolac 30 mg/mL INJ 15 MG IVP (00:37)
[2021-09-07 00:38] VITALS: RESP 18
[2021-09-07] MEDS: LORazepam 2 mg/mL INJ 1 mL IVP (00:38)
[2021-09-07 00:39] VITALS: BP 159/98; PULSE 67; RESP 18; O2SAT 99
[2021-09-07] MEDS: metoclopramide 5 mg/mL SDV 2 mL 10 MG IVP (01:00)
[2021-09-07 01:30] VITALS: BP 113/81; PULSE 76; RESP 16; O2SAT 95
== END 2021-09-07 01:30 | disposition home or self-care (01) ==
PROVIDERS: Emergency Provider Nurse Practitioner Family; PCP Family Medicine
DX: G43.909 Migraine, unspecified, not intractable, without status migrainosus (principal); Z79.84 Long term (current) use of oral hypoglycemic drugs
CPT/HCPCS: 96374; 96375; 99283; J1100; J1885; J2060; J2765

== ENCOUNTER 2021-11-24 11:51 | Outpatient (CLI) | payer MEDICARE, MEDICAID, SELFPAY ==
--- NOTE | 2021-11-24 11:57 | MM_ITS ---
WS: [id number] BILATERAL DIGITAL SCREENING MAMMOGRAPHY WITH CAD CLINICAL INFORMATION: SCREENING HISTORY: Screening mammogram. No current complaints. COMPARISON: October 04, 2020 TECHNIQUE: Bilateral CC and MLO views. FINDINGS: Scattered fibroglandular densities bilaterally. No suspicious focal mass, asymmetry, calcifications, or architectural distortion. No evidence of malignancy. MM/[place] [id number] IMPRESSION: BI-RADS: 1-Negative FOLLOW UP: 1 Year Follow-up Recommend return to annual screening mammography.
== END 2021-11-24 11:52 | disposition home or self-care (01) ==
PROVIDERS: PCP Family Medicine; Visit Provider Family Medicine
DX: Z12.31 Encounter for screening mammogram for malignant neoplasm of breast (principal)
CPT/HCPCS: 77067

== ENCOUNTER → 2022-01-25 11:27 | Outpatient (BNVA) | payer MEDICARE, MEDICAID, SELFPAY | PROVIDERS: PCP Family Medicine; Visit Provider Nurse Practitioner | DX: F43.12 Post-traumatic stress disorder, chronic (principal); F17.210 Nicotine dependence, cigarettes, uncomplicated; R41.83 Borderline intellectual functioning | CPT/HCPCS: 90792 ==

== ENCOUNTER → 2022-02-22 10:52 | Outpatient (BNVA) | payer MEDICARE, MEDICAID, SELFPAY | PROVIDERS: PCP Family Medicine; Visit Provider Nurse Practitioner | DX: F43.12 Post-traumatic stress disorder, chronic (principal); R41.83 Borderline intellectual functioning; F17.210 Nicotine dependence, cigarettes, uncomplicated | CPT/HCPCS: 99214 ==

== ENCOUNTER 2022-04-16 23:18 | Emergency (ER) | payer MEDICARE, MEDICAID, SELFPAY ==
[2022-04-16 23:30] VITALS: BMI 27.3
[2022-04-16 23:34] VITALS: BP 149/94; PULSE 66; RESP 16; TEMP 36.8; O2SAT 98
--- NOTE | 2022-04-17 02:02 | ED_ITS ---
HPI - Neck Pain/Injury General: Chief Complaint: Neck Pain/Injury Stated Complaint: neck pain Time Seen by Provider: 04/17/22 02:01 History of Present Illness: 51-year-old female comes in today for complaints of neck discomfort. Patient reports pain for 2 days. Patient used Tylenol 2 days ago with minimal to no relief. Patient came in tonight due to the neck pain now causing a mild headache. Patient appears in mild to moderate pain. Patient appears nontoxic. Associated symptoms: Reports headache(s); Denies nausea Review of Systems General: Reports: 10 or more systems reviewed and unremarkable except in HPI and below Const: Denies: fever(s) ENMT: Reports: nasal congestion Card: Denies: chest pain Resp: Denies: dyspnea GI: Denies: nausea or vomiting : Denies: difficulty voiding Musc: Reports: neck pain Skin/Breast: Denies: rash Neuro: Reports: headache(s) PFS ED PFSH: Medical History (Updated 04/17/22 @ 02:07 by ALICE Pacheco) Borderline intellectual functioning Nicotine dependence, cigarettes, uncomplicated Pelvic pain Post-traumatic stress disorder, chronic Psychiatric care Surgical History H/O tubal ligation S/P appendectomy S/P cholecystectomy Family History Mother Diabetes Hypertension Stroke Uterine cancer, Onset Age: 46 Grandmother Diabetes maternal Family/Other Hyperlipidemia paternal uncle Heart disease paternal uncle Sister Hypertension Heart disease Brother Stomach cancer Denies family history of Colon cancer Ovarian cancer Clotting disorder Breast cancer Anesthesia complication Bleeding disorder Thyroid condition Social History Smoking and tobacco status: current every day smoker cigarettes Packs smoked per day: 1 Years cigarettes smoked: 29 Alcohol intake: former Former alcohol use details: 2014 Additional social history: Drug use: Denies Female Reproductive History: Date of last menstrual period: 07/25/21 Physical Exam Const: COMMON NORMALS: alert HENMT: COMMON NORMALS: normocephalic HEAD & SCALP: normocephalic Eye: GENERAL EYE: appearance normal, both eyes and all related structures Neck/C-Spine: CERVICAL SPINE: Yes cervical ROM normal, No Cervical spine tenderness and Yes Paracervical muscle tenderness Resp: COMMON NORMALS: normal respiratory effort Cardio: COMMON NORMALS: regular rate RATE: regular rate Extremity: COMMON NORMALS: normal to inspection Neuro: SENSORIUM/ORIENTATION: Yes alert Skin: COMMON NORMALS: no rashes or lesions noted GENERAL SKIN EXAM: no rashes or lesions noted Course Vital Signs: Vital signs: Vital Signs Temperature 98.3 F 04/16/22 23:34 Pulse Rate 66 04/16/22 23:34 Respiratory Rate 16 04/16/22 23:34 Blood Pressure 149/94 04/16/22 23:34 Pulse Oximetry 98 04/16/22 23:34 MDM - Neck Pain/Injury Medical Decision Making 51-year-old female comes in with neck pain causing her to get a headache. On exam there is some muscle tenderness in the cervical paraspinous muscles. Normal range of motion of the neck is noted. No focal neural deficits are noted. Skin is warm and dry. Abdomen soft nontender. Vital signs are normal except for some mild elevation in blood pressure. Differential diagnosis includes cervical neck strain, intervertebral disc disease, facet arthropathy, tension headache. We will treat neck pain and tension headache with Toradol 30 mg, orphenadrine 60 mg, and dexamethasone 10 mg. Patient was encouraged to continue for naproxen and Tylenol otherwise for pain. Follow-up with primary care. Return to ER for new concerns. Discharge Plan Discharge Patient Disposition: Home Clinical Impression: Cervicalgia Condition: Stable Prescriptions: No Action topiramate [Topamax] 100 mg tablet 100 mg PO DAILY Qty: 30 2RF Spiriva with HandiHaler 18 mcg capsule, w/inhalation device 1 cap inhalation DAILY 0RF Rx Instructions: puncture 1 cap using device; one dose = 2 inhalations fluticasone propionate 50 mcg/actuation spray,suspension 1 spray intranasal DAILY 0RF Rx Instructions: administer into each nostril rosuvastatin [Crestor] 20 mg tablet 20 mg PO DAILY 0RF amlodipine 5 mg tablet 5 mg PO BID 0RF cyanocobalamin (vitamin B-12) 1,000 mcg capsule 1 mcg PO DAILY 0RF bismuth subsalicylate [Pepto-Bismol] 262 mg/15 mL suspension 524 mg PO Q30M PRN0RF Rx Instructions: do not exceed 8 doses in a 24 hour period albuterol sulfate [ProAir HFA] 90 mcg/actuation HFA aerosol inhaler 2 puff inhalation Q2H PRN0RF dextromethorphan polistirex [Robitussin ER] 30 mg/5 mL suspension,extended rel 12 hr 10 ml PO Q12H 0RF magnesium hydroxide [Milk of Magnesia] 400 mg/5 mL suspension 30 ml PO Q24H PRN0RF diphenhydramine HCl [Benadryl] 25 mg capsule 25 mg PO BID PRN0RF tizanidine 4 mg capsule 4 mg PO Q8H PRN0RF metoprolol tartrate 75 mg tablet 75 mg PO BID 0RF valacyclovir 500 mg tablet 500 mg PO BID 0RF gabapentin 400 mg capsule 400 mg PO BID 0RF atenolol 50 mg tablet 50 mg PO DAILY 0RF Symbicort 160-4.5 mcg/actuation HFA aerosol inhaler 2 puff INHALATION BID 0RF pantoprazole 40 mg tablet,delayed release (DR/EC) 40 mg PO QAM 0RF metformin 500 mg tablet 500 mg PO DAILY 0RF Rx Instructions: with supper cyclobenzaprine 10 mg tablet 10 mg PO TID PRN (Reason: Pain) 0RF cholecalciferol (vitamin D3) 1,250 mcg (50,000 unit) capsule 50,000 unit PO .monthly 0RF mecobalamin (vitamin B12) 10,000 mcg recon soln IM .monthly 0RF Premarin 0.45 mg tablet 0.45 mg PO DAILY Qty: 90 3RF venlafaxine [Effexor XR] 150 mg capsule,extended release 24hr 150 mg PO QAM Qty: 30 2RF polyethylene glycol 3350 [Miralax] 17 gram/dose powder 17 gm PO DAILY PRN (Reason: constipation) Qty: 119 0RF ondansetron 4 mg tablet,disintegrating 4 mg PO Q6H PRN (Reason: nausea and vomiting) Qty: 14 0RF naproxen [Naprosyn] 500 mg tablet 500 mg PO BID PRN (Reason: pain) Qty: 12 0RF ibuprofen 800 mg tablet 800 mg PO TID PRN (Reason: pain) Qty: 60 0RF Colace 100 mg capsule 100 mg PO BID Qty: 30 0RF acetaminophen 325 mg capsule 325 mg PO Q4H PRN (Reason: fever or pain) Qty: 60 0RF Discharge Orders: Discharge ED (Routine); Ordered 04/17/22 Ordered By: Shaheen Saunders Referrals: Eric Mandel MD [Primary Care Provider] - Discharge Diet: Usual diet Discharge Activity: Increase activity as tolerated Patient Instructions: Neck Pain (ED) Activity Restrictions/Additional Instructions: Continue with acetaminophen and naproxen for your pain. Drink plenty of water with medication. Activity as tolerated. Use anti-inflammatory and muscle relaxer as needed for spasms in the neck. Follow-up with primary care in 3 days. Return to ER for worsening symptoms or new concerns. Coding Level of Care Code ED Body Technician/Painter for Stephen Taylor
[2022-04-17] MEDS: orphenadrine 30 mg/mL Inj 2 mL 60 MG IM (02:29)
[2022-04-17] MEDS: dexamethasone 10 mg/mL INJ IM (02:29)
[2022-04-17] MEDS: ketorolac 30 mg/mL INJ IM (02:30)
[2022-04-17 03:01] VITALS: BP 130/82; PULSE 65; RESP 16; O2SAT 97
== END 2022-04-17 02:35 | disposition home or self-care (01) ==
PROVIDERS: Emergency Provider Nurse Practitioner Family; PCP Family Medicine
DX: M54.2 Cervicalgia (principal)
CPT/HCPCS: 96372; 99283; J1100; J1885; J2360

== ENCOUNTER 2022-06-08 12:55 | Outpatient (CLI) | payer MEDICARE, MEDICAID, SELFPAY ==
--- NOTE | 2022-06-08 13:11 | XR_ITS ---
WS: [id number] DEXA (DUAL ENERGY X-RAY ABSORPTIOMETRY) Bone mineral density was performed using a [employer] machine. HISTORY: POST MENOPAUSAL COMPARISON: 10/30/2019 Lumbar spine BMD (L1-L4): 1.008 g/cm2 T score: -1.4 Z score: -1.4 Total hip BMD: Left: 0.890 g/cm2. T score: -0.9 Z score: -0.7 Right: 0.896 g/cm2. T score: -0.9 Z score: -0.7 10 year probability of a major osteoporotic fracture is 5.1%. Compared to the prior study from 10/30/2019. Lumbar spine bone mineral density has decreased by 4.5%. Bilateral hips bone mineral density has decreased by 10.1%. XR/XR DEXA axial skeleton* [id number] IMPRESSION: OSTEOPENIA based upon the WHO classification for females. Significant decrease in bone mineral density since the prior examination within the lumbar spine and hips.
== END 2022-06-08 12:56 | disposition home or self-care (01) ==
LOC: RAD 12:55
PROVIDERS: PCP Family Medicine; Visit Provider Nurse Practitioner Family
DX: M85.80 Other specified disorders of bone density and structure, unspecified site; Z78.0 Asymptomatic menopausal state
CPT/HCPCS: 77080

== ENCOUNTER 2022-07-18 00:59 | Emergency (ER) | payer MEDICARE, MEDICAID, SELFPAY ==
[2022-07-18 01:00] VITALS: BP 157/94; PULSE 83; RESP 18; TEMP 36.3; O2SAT 98; BMI 28.1
--- NOTE | 2022-07-18 01:05 | CTR_ITS ---
PROCEDURE INFORMATION: Exam: CT Head Without Contrast Exam date and time: 07/18/2022 1:29 AM Age: 51 years old Clinical indication: Pain; Headache; Patient HX: C/O FAJARDO. TECHNIQUE: Imaging protocol: Computed tomography of the head without contrast. Radiation optimization: All CT scans at this facility use at least one of these dose optimization techniques: automated exposure control; mA and/or kV adjustment per patient size (includes targeted exams where dose is matched to clinical indication); or iterative reconstruction. COMPARISON: CT head wo con* [id number] 12/18/2020 10:39 PM RADIATION DOSE METRICS: Total DLP (mGy-cm): 1011.88 FINDINGS: Brain: No acute intracranial hemorrhage or mass effect. No definite acute infarct by CT. Cerebral ventricles: Ventricle size is normal for age. Paranasal sinuses: Included paranasal sinuses are essentially clear. Mastoid air cells: No significant acute finding. Bones/joints: No definite acute skull fracture. Soft tissues: No significant acute finding. CT/CT head wo con* [id number] IMPRESSION: 1. No acute intracranial hemorrhage or mass effect. 2. Other findings discussed above.
--- NOTE | 2022-07-18 01:07 | W.ED.HA ---
HPI - Headache General: Chief Complaint: Headache Stated Complaint: headache, numbness Time Seen by Provider: 07/18/22 01:01 Source: patient and EMS Mode of arrival: EMS Limitations: no limitations History of Present Illness: 51-year-old female who has a long history of headache she states she had a headache tonight starting roughly 2 hours ago. States her headache is 7 out of 10 feels like her previous headaches states she had some numbness to her left arm along across her forehead and her left leg she had no weakness no slurred speech no visual deficits she denies any worsening improving factors. Associated symptoms: Deny chest pain, fever(s), nausea, rash or vomiting Review of Systems Const: Denies: fever(s), chills, body aches or change in appetite Eyes: Denies: blurry vision or eye discomfort ENMT: Denies: throat pain or dental pain Card: Denies: chest pain Resp: Denies: dyspnea GI: Denies: abdominal pain, nausea, vomiting or diarrhea : Denies: dysuria Musc: Denies: neck pain or back pain Skin/Breast: Denies: rash Neuro: Reports: headache(s) and numbness in extremities Psych: Denies: depression Jaiden/Lymph: Denies: easy bruising All/Imm: Denies: urticaria PFSH ED PFSH: Medical History (Updated 07/18/22 @ 02:09 by Le Salas MD) Borderline intellectual functioning Nicotine dependence, cigarettes, uncomplicated Pelvic pain Post-traumatic stress disorder, chronic Psychiatric care Surgical History H/O tubal ligation S/P appendectomy S/P cholecystectomy Family History Mother Diabetes Hypertension Stroke Uterine cancer, Onset Age: 46 Grandmother Diabetes maternal Family/Other Hyperlipidemia paternal uncle Heart disease paternal uncle Sister Hypertension Heart disease Brother Stomach cancer Denies family history of Colon cancer Ovarian cancer Clotting disorder Breast cancer Anesthesia complication Bleeding disorder Thyroid condition Social History Smoking and tobacco status: current every day smoker cigarettes Packs smoked per day: 1 Years cigarettes smoked: 29 Alcohol intake: former Former alcohol use details: 2014 Additional social history: Drug use: Denies Female Reproductive History: Date of last menstrual period: 07/25/21 Physical Exam Const: COMMON NORMALS: no acute distress, patient oriented x3 and healthy appearing HENMT: COMMON NORMALS: normocephalic and atraumatic HEAD & SCALP: normocephalic and atraumatic Eye: COMMON NORMALS: Equal, round and reactive pupils present and EOMs intact bilaterally PUPIL: Yes Equal, round and reactive pupils present Neck/C-Spine: COMMON NORMALS: full ROM and supple Chest: COMMONS NORMALS: normal inspection of the chest and normal palpation of entire chest wall Resp: COMMON NORMALS: normal respiratory effort, No retractions, No use of accessory muscles and clear to auscultation bilaterally AUSCULTATION: clear to auscultation bilaterally Cardio: COMMON NORMALS: regular rate, regular rhythm and No murmurs present (Cardio) RATE: regular rate RHYTHM: regular rhythm GI: COMMON NORMALS: Normal to inspection, nondistended, normoactive bowel sounds present, Soft to palpation, non-tender and no masses PALPATION: Yes Soft to palpation Extremity: COMMON NORMALS: normal to inspection and full ROM Neuro: COMMON NORMALS: patient oriented x3, moves all extremities and no focal motor deficits Psych: COMMON NORMALS: mental status grossly normal, Normal thought process present and cooperative THOUGHT PROCESS: Normal thought process present Skin: COMMON NORMALS: no rashes or lesions noted and no wounds GENERAL SKIN EXAM: no rashes or lesions noted Course Vital Signs: Vital signs: Vital Signs Temperature 97.4 F L 07/18/22 01:00 Pulse Rate 90 07/18/22 01:44 Respiratory Rate 18 07/18/22 01:44 Blood Pressure 168/106 07/18/22 01:44 Pulse Oximetry 100 07/18/22 01:44 Oxygen Delivery Me thod 07/18/22 01:44 MDM - Headache Medical Decision Making Patient presents with a headache with some paresthesias. The paresthesias likely due to her headache she has no signs of a stroke her NIH was 0 her symptoms of resolved here after Reglan Benadryl head CT are normal she is stable for discharge she is to follow-up with her PCP and return if worsening she understands and agrees to plan. Lab Data : 07/18/22 01:00 07/18/22 01:[address] 07/18/22 01:05 IMPRESSION: 1. No acute intracranial hemorrhage or mass effect. 2. Other findings discussed above. Laboratory Results WBC 5.8 10^3/uL (4.0-10.0) 07/18/22 01:00 RBC 4.15 10^6/uL (4.1-5.3) 07/18/22 01:00 Hgb 12.0 g/dL (11.5-15.3) 07/18/22 01:00 Hct 38.6 % (37.0-47.0) 07/18/22 01:00 MCV 93.0 fl (81-99) 07/18/22 01:00 MCH 28.9 pg (28.0-34.0) 07/18/22 01:00 MCHC 31.1 g/dL (30.0-36.0) 07/18/22 01:00 RDW 16.9 % (12.1-15.1) H 07/18/22 01:00 Plt Count 272 10^3/cmm (130-400) 07/18/22 01:00 MPV 10.9 fL (7.4-10.4) H 07/18/22 01:00 Neut % (Auto) 56.8 % 07/18/22 01:00 Lymph % (Auto) 31.9 % 07/18/22 01:00 [place] % (Auto) 7.1 % 07/18/22 01:00 Eos % (Auto) 3.3 % 07/18/22 01:00 Baso % (Auto) 0.7 % 07/18/22 01:00 Neut # (Auto) 3.27 10^3/uL (1.8-7.7) 07/18/22 01:00 Lymph # (Auto) 1.8 10^3/uL (0.8-4.8) 07/18/22 01:00 [place] # (Auto) 0.4 10^3/uL (0.2-0.9) 07/18/22 01:00 Eos # (Auto) 0.2 10^3/uL (0.0-0.8) 07/18/22 01:00 Baso # (Auto) 0.0 10^3/uL (0.0-0.1) 07/18/22 01:00 Nucleated RBC % (auto) 0 % 07/18/22 01:00 Nucleated RBCs # 0.0 /100WBC 07/18/22 01:00 Sodium 143 mmol/L (136-145) 07/18/22 01:00 Potassium 3.4 mmol/L (3.5-5.1) L 07/18/22 01:00 Chloride 108 mmol/L (98-107) H 07/18/22 01:00 Carbon Dioxide 23 mmol/L (22-29) 07/18/22 01:00 Anion Gap 15.4 (5-19) 07/18/22 01:00 BUN 9 mg/dL (6-20) 07/18/22 01:00 Creatinine 0.7 mg/dL (0.5-0.9) 07/18/22 01:00 GFR Calculation 88.2 mL/min (90-130) L 07/18/22 01:00 Glucose 141 mg/dL (65-115) H 07/18/22 01:00 Calculated Osmolality 297 mOsm/kg (285-295) H 07/18/22 01:00 Calcium 9.7 mg/dL (8.5-10.5) 07/18/22 01:00 Total Bilirubin 0.2 mg/dL (0.15-1.2) 07/18/22 01:00 AST 18 U/L (0-32) 07/18/22 01:00 ALT 11 U/L (0-33) 07/18/22 01:00 Alkaline Phosphatase 92 U/L (35-105) 07/18/22 01:00 Total Protein 6.8 g/dL (6.6-8.7) 07/18/22 01:00 Albumin 4.3 g/dL (3.5-5.2) 07/18/22 01:00 Globulin 2.5 g/dL (1.3-4.6) 07/18/22 01:00 EKG Data EKG 1: I personally reviewed and interpreted this EKG as follows: EKG interpretation date: 07/18/22 EKG interpretation time: 01:49 Interpretation: nsr hr [address] or t wave abnormalities qrs 92 qtc 435 Discharge Plan Discharge Patient Disposition: Home Clinical Impression: Headache Condition: Stable Prescriptions: No Action topiramate [Topamax] 100 mg tablet 100 mg PO DAILY Qty: 30 2RF Spiriva with HandiHaler 18 mcg capsule, w/inhalation device 1 cap inhalation DAILY Rx Instructions: puncture 1 cap using device; one dose = 2 inhalations fluticasone propionate 50 mcg/actuation spray,suspension 1 spray intranasal DAILY Rx Instructions: administer into each nostril rosuvastatin [Crestor] 20 mg tablet 20 mg PO DAILY amlodipine 5 mg tablet 5 mg PO BID cyanocobalamin (vitamin B-12) 1,000 mcg capsule 1 mcg PO DAILY bismuth subsalicylate [Pepto-Bismol] 262 mg/15 mL suspension 524 mg PO Q30M PRN Rx Instructions: do not exceed 8 doses in a 24 hour period albuterol sulfate [ProAir HFA] 90 mcg/actuation HFA aerosol inhaler 2 puff inhalation Q2H PRN dextromethorphan polistirex [Robitussin ER] 30 mg/5 mL suspension,extended rel 12 hr 10 ml PO Q12H magnesium hydroxide [Milk of Magnesia] 400 mg/5 mL suspension 30 ml PO Q24H PRN diphenhydramine HCl [Benadryl] 25 mg capsule 25 mg PO BID PRN tizanidine 4 mg capsule 4 mg PO Q8H PRN metoprolol tartrate 75 mg tablet 75 mg PO BID valacyclovir 500 mg tablet 500 mg PO BID gabapentin 400 mg capsule 400 mg PO BID atenolol 50 mg tablet 50 mg PO DAILY Symbicort 160-4.5 mcg/actuation HFA aerosol inhaler 2 puff INHALATION BID pantoprazole 40 mg tablet,delayed release (DR/EC) 40 mg PO QAM metformin 500 mg tablet 500 mg PO DAILY Rx Instructions: with supper cyclobenzaprine 10 mg tablet 10 mg PO TID PRN (Reason: Pain) cholecalciferol (vitamin D3) 1,250 mcg (50,000 unit) capsule 50,000 unit PO .monthly mecobalamin (vitamin B12) 10,000 mcg recon soln IM .monthly Premarin 0.45 mg tablet 0.45 mg PO DAILY Qty: 90 3RF venlafaxine [Effexor XR] 150 mg capsule,extended release 24hr 150 mg PO QAM Qty: 30 2RF polyethylene glycol 3350 [Miralax] 17 gram/dose powder 17 gm PO DAILY PRN (Reason: constipation) Qty: 119 0RF ondansetron 4 mg tablet,disintegrating 4 mg PO Q6H PRN (Reason: nausea and vomiting) Qty: 14 0RF naproxen [Naprosyn] 500 mg tablet 500 mg PO BID PRN (Reason: pain) Qty: 12 0RF ibuprofen 800 mg tablet 800 mg PO TID PRN (Reason: pain) Qty: 60 0RF Colace 100 mg capsule 100 mg PO BID Qty: 30 0RF acetaminophen 325 mg capsule 325 mg PO Q4H PRN (Reason: fever or pain) Qty: 60 0RF Discharge Orders: Discharge ED (Routine); Ordered 07/18/22 Ordered By: Le Salas Referrals: Eric Mandel MD [Primary Care Provider] - 1-3 days Discharge Diet: Advance as tolerated Discharge Activity: Resume usual activity Patient Instructions: General Headache (ED) Coding Level of Care Code ED Medical Legal Investigator for Chg Fwd Exam Comprehensive NIH stroke score NIHSS Level Of Consciousness - 1a: 0 Level Of Consciousness Questions - 1b: Both Correct Level Of Consciousness Commands - 1c: Both Correct Best Gaze - 2: Normal Visual Gasca - 3: No Visual Loss Facial Palsy - 4: Normal Motor Arm Right - 5: No Drift Motor Arm Left - 5: No Drift Motor Leg Right - 6: No Drift Motor Leg Left - 6: No Drift Limb Ataxia - 7: Absent Sensory - 8: Normal Best Language - 9: No Aphasia Dysarthia - 10: Normal Extinction And Inattention - 11: 0 Score Total Score: 0
[2022-07-18 01:16] LABS: Basophils % 0.7 %; Eosinophils # 0.2 10^3/uL (0.0-0.8); Eosinophils % 3.3 %; Hematocrit 38.6 % (37.0-47.0); Lymphocytes # 1.8 10^3/uL (0.8-4.8); Lymphocytes % 31.9 %; Mean Corpuscular HGB Conc 31.1 g/dL (30.0-36.0); Mean Corpuscular Hemoglobin 28.9 pg (28.0-34.0); Mean Platelet Volume 10.9 fL (7.4-10.4); Monocytes # 0.4 10^3/uL (0.2-0.9); Monocytes % 7.1 %; Neutrophils # 3.27 10^3/uL (1.8-7.7); Neutrophils % 56.8 %; Nucleated Red Blood Cells % 0 %; Platelet Count 272 10^3/cmm (130-400); Red Blood Count 4.15 10^6/uL (4.1-5.3); Red Cell Distribution Width 16.9 % (12.1-15.1); White Blood Count 5.8 10^3/uL (4.0-10.0)
[2022-07-18 01:38] LABS: Alanine Aminotransferase 11 U/L (0-33); Albumin Level 4.3 g/dL (3.5-5.2); Alkaline Phosphatase 92 U/L (35-105); Anion Gap 15.4 (5-19); Aspartate Amino Transferase 18 U/L (0-32); Blood Urea Nitrogen 9 mg/dL (6-20); Calcium 9.7 mg/dL (8.5-10.5); Carbon Dioxide 23 mmol/L (22-29); Chloride 108 mmol/L (98-107); Globulin 2.5 g/dL (1.3-4.6); Glomerular Filtration Rate 88.2 mL/min (90-130); Glucose 141 mg/dL (65-115); Osmolality Calculated 297 mOsm/kg (285-295); Potassium 3.4 mmol/L (3.5-5.1); Sodium 143 mmol/L (136-145); Total Bilirubin 0.2 mg/dL (0.15-1.2); Total Protein 6.8 g/dL (6.6-8.7)
[2022-07-18] MEDS: diphenhydrAMINE 50 mg/mL SDV 1mL IVP (01:42)
[2022-07-18] MEDS: metoclopramide 5 mg/mL SDV 2 mL 10 MG IVP (01:42)
[2022-07-18 01:44] VITALS: BP 168/106; PULSE 90; RESP 18; O2SAT 100
--- NOTE | 2022-07-18 01:49 | ECG_ITS ---
[facility] Test Date: 2022-07-18 Pat Name: Caty Perdomo Department: Room: Gender: Female Psych Assistant: : 1970 Requested By: Le Salas Order Number: [id number] Isidra MD: Jyoti Esquivel M.D. Measurements Intervals [place] Rate: 87 P: 41 UT: 184 QRS: -11 QRSD: 92 T: 50 QT: 390 QTc: 472 Interpretive Statements SINUS RHYTHM MODERATE VOLTAGE CRITERIA FOR LVH, CONSIDER NORMAL VARIANT [MEETS CRITERIA IN ONE OF: R(aVL), S(V1), R(V5), R(V5/V6)+S(V1)] POSSIBLE ANTERIOR MYOCARDIAL INFARCTION , PROBABLY OLD [30 ms Q WAVE IN V3/V4, OR R < 0.2 mV IN V4] Compared to ECG 05/21/2021 00:31:09 Myocardial infarct finding now present Electronically Signed On 07-18-2022 16:35:19 CDT by Jyoti Esquivel M.D. [id number]
[2022-07-18 02:15] VITALS: BP 136/91; PULSE 96; RESP 16; O2SAT 98
--- NOTE | 2022-07-18 02:15 | PC.NURSE ---
[facility]. They said they would send someone.
== END 2022-07-18 02:41 | disposition home or self-care (01) ==
PROVIDERS: Emergency Provider Emergency Medicine; PCP Family Medicine
DX: R51.9 Headache, unspecified (principal); R20.2 Paresthesia of skin; F17.210 Nicotine dependence, cigarettes, uncomplicated
CPT/HCPCS: 70450; 80053; 85025; 93005; 96374; 96375; 99285; J1200; J2765

== ENCOUNTER → 2022-08-17 09:19 | Outpatient (BNVA) | payer MEDICARE, MEDICAID, OTHER, SELFPAY | PROVIDERS: PCP Family Medicine; Referring Provider Family Medicine; Visit Provider Internal Medicine | DX: E21.3 Hyperparathyroidism, unspecified (principal); E55.9 Vitamin D deficiency, unspecified; E04.9 Nontoxic goiter, unspecified; M85.80 Other specified disorders of bone density and structure, unspecified site; F17.210 Nicotine dependence, cigarettes, uncomplicated | CPT/HCPCS: 36415; 80048; 82306; 82310; 83970; 99204 ==

== ENCOUNTER 2022-11-10 15:08 | Outpatient (CLI) | payer MEDICARE, MEDICAID, SELFPAY ==
--- NOTE | 2022-11-10 14:30 | US_ITS ---
WS: [id number] THYROID ULTRASOUND HISTORY: goiter COMPARISON: None available. Right lobe: 1.6 cm x 1.5 cm x 3.7 cm (w x ap x l). Volume: 4.5 cm3. Normal size and echotexture. No significant are dominant nodules are present. Left lobe: 1.6 cm x 1.4 cm x 4.3 cm (w x ap x l). Volume: 4.9 cm3. Normal size and echotexture. No significant or dominant nodules are present. Isthmus: 0.3 cm. US/US thyroid [id number] IMPRESSION: Normal thyroid ultrasound.
== END 2022-11-10 15:09 | disposition home or self-care (01) ==
LOC: RAD 15:09
PROVIDERS: PCP Family Medicine; Visit Provider Internal Medicine
DX: E04.9 Nontoxic goiter, unspecified (principal)
CPT/HCPCS: 76536

== ENCOUNTER → 2022-11-20 11:19 | Outpatient (BNVA) | payer MEDICARE, MEDICAID, SELFPAY | PROVIDERS: PCP Family Medicine; Visit Provider Internal Medicine | DX: E21.0 Primary hyperparathyroidism (principal); M85.80 Other specified disorders of bone density and structure, unspecified site; E55.9 Vitamin D deficiency, unspecified | CPT/HCPCS: 80053; 99214 ==

== ENCOUNTER 2022-12-24 00:40 | Emergency (ER) | payer MEDICARE, MEDICAID, SELFPAY ==
[2022-12-24 00:45] VITALS: BP 149/97; PULSE 67; RESP 17; TEMP 36.4; O2SAT 97; BMI 28.6
--- NOTE | 2022-12-24 00:48 | ECG_ITS ---
[facility] Test Date: 2022-12-24 Pat Name: Caty Perdomo Department: Room: Gender: Female Web Developer: : 1970 Requested By: Annalise Gandhi Order Number: [id number] Isidra MD: Richi Paulson M.D. Measurements Intervals [place] Rate: 67 P: 53 IA: 191 QRS: -6 QRSD: 97 T: 58 QT: 409 QTc: 434 Interpretive Statements SINUS RHYTHM POSSIBLE LEFT VENTRICULAR HYPERTROPHY [VOLTAGE CRITERIA PLUS LAE OR QRS WIDENING] NONSPECIFIC T-WAVE ABNORMALITY Compared to ECG 07/18/2022 01:49:10 T-wave abnormality now present Myocardial infarct finding no longer present Electronically Signed On 12-24-2022 8:41:46 PROPERTY CLERK by Richi Paulson M.D. [id number]
--- NOTE | 2022-12-24 01:48 | XRR_ITS ---
PROCEDURE INFORMATION: Exam: XR Chest Exam date and time: 12/24/2022 1:55 AM Age: 52 years old Clinical indication: Pain; Cough and shortness of breath; Chest pressure; Additional info: Cough, chest pain, shortness of breath TECHNIQUE: Imaging protocol: Radiologic exam of the chest. Views: 1 view. COMPARISON: CR XR chest 1V portable [id number] 05/21/2021 12:25 AM FINDINGS: Lungs: Unremarkable. No consolidation. Pleural spaces: Unremarkable. No pleural effusion. No pneumothorax. Heart/Mediastinum: Unremarkable. No cardiomegaly. Bones/joints: Unremarkable. XR/XR chest 1V portable [id number] IMPRESSION: No acute findings.
--- NOTE | 2022-12-24 01:50 | W.ED.CHESTPA ---
Documented by User: ALKA Clinton 12/24/22 03:00 HPI - Chest Pain General: Chief Complaint: Chest Pain Stated Complaint: chest and rib pain Time Seen by Provider: 12/24/22 01:34 History of Present Illness: Patient is a 52-year-old female that presents to the emergency department with complaints of left-sided chest pain, cough, wheezing, abdominal pain, nausea. Onset of symptoms 48 hours ago. Today has become significantly worse. Patient has a medical history that includes the risk factors hypertension, diabetes, high cholesterol. She is also a heavy tobacco user. She has other medical history that includes depression, anxiety, seizures, asthma, migraine She denies radicular symptoms or radiation of pain She reports nausea but no vomiting. Denies fevers or chills. She does report productive cough. The sputum is clear to white in nature. Associated symptoms: Reports abdominal pain, dyspnea and nausea; Deny fever(s), palpitations or vomiting Review of Systems General: Reports: 10 or more systems reviewed and unremarkable except in HPI and below Const: Denies: fever(s), chills, change in appetite, change in weight, fatigue or malaise Eyes: Denies: change in vision, eye discomfort, eye discharge or eye redness ENMT: Denies: throat pain, enlarged tonsils, odynophagia, hoarseness, ear or mastoid pain, ear discharge, change in hearing, tinnitus, nasal discharge, nasal congestion, post nasal drip or sinus pain Card: Reports: chest pain, dyspnea on exertion and orthopnea; Denies: palpitations, irregular heart rhythm, edema or leg pain with exertion Resp: Reports: dyspnea and productive cough; Denies: non-productive cough, wheezing, stridor or chest congestion GI: Reports: abdominal pain and nausea; Denies: vomiting, dysphagia, diarrhea, constipation, bloating, GI cramping or hematochezia : Denies: flank pain, difficulty voiding, dysuria, urinary frequency, urinary urgency, urinary hesitancy, oliguria or hematuria Musc: Denies: neck pain, back pain, extremity pain, joint pain, joint swelling, joint redness, joint warmth or muscle weakness Skin/Breast: Denies: rash, pruritus, erythema, photosensitivity or new lesions Neuro: Denies: headache(s), numbness in extremities, weakness in extremities, sensory changes, lack of coordination, difficulty walking, frequent falls, dizziness, confusion, Slurred speech present, difficulty communicating thoughts, seizure-like activity or involuntary movements Endo: Denies: polyuria, polydipsia or tired all the time Jaiden/Lymph: Denies: easy bruising or easy bleeding [facility] ED PFSH: Medical History Borderline intellectual functioning Nicotine dependence, cigarettes, uncomplicated Pelvic pain Post-traumatic stress disorder, chronic Psychiatric care Surgical History H/O tubal ligation S/P appendectomy S/P cholecystectomy Family History Mother Diabetes Hypertension Stroke Uterine cancer, Onset Age: 46 Grandmother Diabetes maternal Family/Other Hyperlipidemia paternal uncle Heart disease paternal uncle Sister Hypertension Heart disease Brother Stomach cancer Denies family history of Colon cancer Ovarian cancer Clotting disorder Breast cancer Anesthesia complication Bleeding disorder Thyroid condition Social History Smoking and tobacco status: current every day smoker (1PPD) cigarettes Packs smoked per day: 1 Years cigarettes smoked: 29 Alcohol intake: former Former alcohol use details: 2013 Additional social history: Drug use: Denies Female Reproductive History: Date of last menstrual period: 07/25/21 Physical Exam Const: COMMON NORMALS: no acute distress, patient oriented x3 and alert GENERAL APPEARANCE: cooperative ORIENTATION/CONSCIOUSNESS: Yes awake, Yes oriented to person, Yes oriented to place and Yes oriented to time HENMT: COMMON NORMALS: normocephalic and atraumatic HEAD & SCALP: normocephalic and atraumatic FACE & SINUS: normal facial exam MOUTH: Normal oral and palatal mucosa present THROAT: posterior oropharynx normal Eye: COMMON NORMALS: Equal, round and reactive pupils present, EOMs intact bilaterally, conjunctivae normal and no scleral icterus GENERAL EYE: appearance normal, both eyes and all related structures ALIGNMENT: Yes alignment normal PERIORBITAL: periorbital findings normal CONJUNCTIVA: Yes conjunctivae normal PUPIL: Yes Equal, round and reactive pupils present Neck/C-Spine: COMMON NORMALS: full ROM GENERAL: Yes normal visual inspection Lymph: LYMPHATIC: no lymphadenopathy noted Chest: COMMONS NORMALS: normal inspection of the chest Breast/axilla inspection: Yes no chest deformity, asymmetry, normal contours, no nodules, masses, tenderness Resp: COMMON NORMALS: normal respiratory effort, No retractions, No use of accessory muscles and clear to auscultation bilaterally EFFORT & INSPECTION: Yes able to speak in complete sentences and Yes symmetric chest movement AUSCULTATION: clear to auscultation bilaterally Cardio: COMMON NORMALS: regular rate, regular rhythm and Peripheral pulses 2+ throughout RATE: regular rate RHYTHM: regular rhythm PERIPHERAL PULSES: Peripheral pulses 2+ throughout GI: COMMON NORMALS: Normal to inspection, nondistended, normoactive bowel sounds present, Soft to palpation, non-tender and No hepatosplenomegaly present INSPECTION: Yes normal to inspection AUSCULTATION: Yes normoactive bowel sounds PALPATION: Yes Soft to palpation and Yes No hepatosplenomegaly present RECTAL EXAM: deferred Extremity: COMMON NORMALS: normal to inspection GENERAL: Yes normal exam except as noted Neuro: COMMON NORMALS: patient oriented x3 SENSORIUM/ORIENTATION: Yes alert, Yes oriented to person, Yes oriented to place and Yes oriented to time CRANIAL NERVES: Yes CN normal except as noted Psych: COMMON NORMALS: mental status grossly normal, Normal thought process present, cooperative, activity/motor behavior normal, denies homicidal ideation and denies suicidal ideation THOUGHT PROCESS: Normal thought process present Skin: COMMON NORMALS: no rashes or lesions noted, no wounds and turgor normal GENERAL SKIN EXAM: no rashes or lesions noted and turgor normal Course Vital Signs: Vital signs: Vital Signs Temperature 97.6 F 12/24/22 00:45 Pulse Rate 77 12/24/22 04:32 Respiratory Rate 18 12/24/22 04:32 Blood Pressure 155/86 12/24/22 04:32 Pulse Oximetry 97 12/24/22 04:32 Oxygen Delivery Me thod 12/24/22 03:30 MDM - Chest Pain Medical Decision Making Patient is evaluated in the emergency department for complaints of left-sided chest pain. She also reports some posterior chest wall pain. There is pain with inspiration and movement. Pain with cough. The time of my evaluation she is already undergone EKG. This was done at 0048. She has a possible left ventricular hypertrophy. Nonspecific T wave abnormality although no ectopy, ST elevation. She has a ventricular rate of 67 beats a minute and a QTc of 425. Her complaints and exam really point towards respiratory. She is a heavy tobacco user, has pretty significant wheezing, has productive cough. Her cough aggravates her pain as it is reproducible. With this being said she does have multiple risk factors for cardiac event. Her risk factors include hypercholesterolemia, hypertension, diabetes, cigarette smoking, positive family history. Her BMI is 28.7. Patient responded well to DuoNeb treatments. Wheezing has subsided and patient's chest heaviness has improved. She still has pain with cough and movement. Going to give her Toradol milligrams IV. Heart score is: 3 but this is largely due to her risk factors. We will still need to recheck her 2-hour troponin. If that is within normal limits she will likely be able to discharge home. At this time I will transition care to Dr. Kel Loya. Lab Data 12/24/22 02:16 12/24/22 02:16 Radiology Impressions Chest X-Ray 12/24/22 01:48 IMPRESSION: No acute findings. Laboratory Results WBC 6.6 10^3/uL (4.0-10.0) 12/24/22 02:16 RBC 4.12 10^6/uL (4.1-5.3) 12/24/22 02:16 Hgb 12.0 g/dL (11.5-15.3) 12/24/22 02:16 Hct 38.0 % (37.0-47.0) 12/24/22 02:16 MCV 92.2 fl (81-99) 12/24/22 02:16 MCH 29.1 pg (28.0-34.0) 12/24/22 02:16 MCHC 31.6 g/dL (30.0-36.0) 12/24/22 02:16 RDW 15.5 % (12.1-15.1) H 12/24/22 02:16 Plt Count 256 10^3/cmm (130-400) 12/24/22 02:16 MPV 11.1 fL (7.4-10.4) H 12/24/22 02:16 Neut % (Auto) 61.4 % 12/24/22 02:16 Lymph % (Auto) 27.0 % 12/24/22 02:16 [place] % (Auto) 7.8 % 12/24/22 02:16 Eos % (Auto) 2.7 % 12/24/22 02:16 Baso % (Auto) 0.9 % 12/24/22 02:16 Neut # (Auto) 4.03 10^3/uL (1.8-7.7) 12/24/22 02:16 Lymph # (Auto) 1.8 10^3/uL (0.8-4.8) 12/24/22 02:16 [place] # (Auto) 0.5 10^3/uL (0.2-0.9) 12/24/22 02:16 Eos # (Auto) 0.2 10^3/uL (0.0-0.8) 12/24/22 02:16 Baso # (Auto) 0.1 10^3/uL (0.0-0.1) 12/24/22 02:16 Nucleated RBC % (auto) 0 % 12/24/22 02:16 Nucleated RBCs # 0.0 /100WBC 12/24/22 02:16 Sodium 139 mmol/L (136-145) 12/24/22 02:16 Potassium 3.4 mmol/L (3.5-5.1) L 12/24/22 02:16 Chloride 105 mmol/L (98-107) 12/24/22 02:16 Carbon Dioxide 22 mmol/L (22-29) 12/24/22 02:16 Anion Gap 15.4 (5-19) 12/24/22 02:16 BUN 8 mg/dL (6-20) 12/24/22 02:16 Creatinine 0.8 mg/dL (0.5-0.9) 12/24/22 02:16 GFR Calculation 75.3 mL/min (90-130) L 12/24/22 02:16 Glucose 135 mg/dL (65-115) H 12/24/22 02:16 Calculated Osmolality 288 mOsm/kg (285-295) 12/24/22 02:16 Calcium 10.0 mg/dL (8.5-10.5) 12/24/22 02:16 Troponin T Baseline 6 ng/L (0-10) 12/24/22 02:16 NT-Pro-B Natriuret Pep 64 pg/mL (0-125) 12/24/22 02:16 Lipase 31 U/L (13-60) 12/24/22 02:16 Discharge Plan Discharge Patient Disposition: Home Clinical Impression: Bronchitis, Atypical chest pain Condition: Stable Prescriptions: New Medrol (Kemar) 4 mg tablets,dose pack See Rx Instructions .ROUTE .COMPLEX Qty: 21 0RF Rx Instructions: orally per package directions Continued Robitussin ER 30 mg/5 mL suspension,extended rel 12 hr 10 ml PO Q12H Qty: 120 0RF ProAir HFA 90 mcg/actuation HFA aerosol inhaler 2 puff inhalation Q2H PRN (Reason: shortness of breath or wheezing) Qty: 8.5 1RF No Action topiramate [Topamax] 100 mg tablet 100 mg PO DAILY Qty: 30 2RF cholecalciferol (vitamin D3) 50 mcg (2,000 unit) capsule 50 mcg PO DAILY Spiriva with HandiHaler 18 mcg capsule, w/inhalation device 1 cap inhalation DAILY Rx Instructions: puncture 1 cap using device; one dose = 2 inhalations fluticasone propionate 50 mcg/actuation spray,suspension 1 spray intranasal DAILY Rx Instructions: administer into each nostril rosuvastatin [Crestor] 20 mg tablet 20 mg PO DAILY amlodipine 5 mg tablet 5 mg PO BID cyanocobalamin (vitamin B-12) 1,000 mcg capsule 1 mcg PO DAILY bismuth subsalicylate [Pepto-Bismol] 262 mg/15 mL suspension 524 mg PO Q30M PRN Rx Instructions: do not exceed 8 doses in a 24 hour period magnesium hydroxide [Milk of Magnesia] 400 mg/5 mL suspension 30 ml PO Q24H PRN diphenhydramine HCl [Benadryl] 25 mg capsule 25 mg PO BID PRN tizanidine 4 mg capsule 4 mg PO Q8H PRN metoprolol tartrate 75 mg tablet 75 mg PO BID valacyclovir 500 mg tablet 500 mg PO BID gabapentin 400 mg capsule 400 mg PO BID atenolol 50 mg tablet 50 mg PO DAILY Symbicort 160-4.5 mcg/actuation HFA aerosol inhaler 2 puff INHALATION BID pantoprazole 40 mg tablet,delayed release (DR/EC) 40 mg PO QAM metformin 500 mg tablet 500 mg PO DAILY Rx Instructions: with supper cyclobenzaprine 10 mg tablet 10 mg PO TID PRN (Reason: Pain) mecobalamin (vitamin B12) 10,000 mcg recon soln IM .monthly venlafaxine [Effexor XR] 150 mg capsule,extended release 24hr 150 mg PO QAM Qty: 30 2RF Premarin 0.45 mg tablet 0.45 mg PO DAILY Qty: 90 3RF cholecalciferol (vitamin D3) 50 mcg (2,000 unit) capsule 50 mcg PO DAILY Qty: 90 2RF Rx Instructions: Take 1 capsule (2000 units) daily polyethylene glycol 3350 [Miralax] 17 gram/dose powder 17 gm PO DAILY PRN (Reason: constipation) Qty: 119 0RF ondansetron 4 mg tablet,disintegrating 4 mg PO Q6H PRN (Reason: nausea and vomiting) Qty: 14 0RF naproxen [Naprosyn] 500 mg tablet 500 mg PO BID PRN (Reason: pain) Qty: 12 0RF ibuprofen 800 mg tablet 800 mg PO TID PRN (Reason: pain) Qty: 60 0RF Colace 100 mg capsule 100 mg PO BID Qty: 30 0RF acetaminophen 325 mg capsule 325 mg PO Q4H PRN (Reason: fever or pain) Qty: 60 0RF Discharge Orders: Discharge ED (Routine); Ordered 12/24/22 Ordered By: Michael Begum Referrals: Eric Mandel MD [Primary Care Provider] - 1-3 days Patient Instructions: Acute Bronchitis (ED), Chest Wall Pain (ED) Coding Level of Care Code ED Lay Up Operator for Chg Fwd Documented by User: Michael Begum DO 12/24/22 17:47 HPI - Chest Pain General: Chief Complaint: Chest Pain Stated Complaint: chest and rib pain Time Seen by Provider: 12/24/22 01:34 PFSH ED PFSH: Medical History Borderline intellectual functioning Nicotine dependence, cigarettes, uncomplicated Pelvic pain Post-traumatic stress disorder, chronic Psychiatric care Surgical History H/O tubal ligation S/P appendectomy S/P cholecystectomy Family History Mother Diabetes Hypertension Stroke Uterine cancer, Onset Age: 46 Grandmother Diabetes maternal Family/Other Hyperlipidemia paternal uncle Heart disease paternal uncle Sister Hypertension Heart disease Brother Stomach cancer Denies family history of Colon cancer Ovarian cancer Clotting disorder Breast cancer Anesthesia complication Bleeding disorder Thyroid condition Social History Smoking and tobacco status: current every day smoker (1PPD) cigarettes Packs smoked per day: 1 Years cigarettes smoked: 29 Alcohol intake: former Former alcohol use details: 2013 Additional social history: Drug use: Denies Course Vital Signs: Vital signs: Vital Signs Temperature 97.6 F 12/24/22 00:45 Pulse Rate 77 12/24/22 04:32 Respiratory Rate 18 12/24/22 04:32 Blood Pressure 155/86 12/24/22 04:32 Pulse Oximetry 97 12/24/22 04:32 Oxygen Delivery Me thod 12/24/22 03:30 MDM - Chest Pain Medical Decision Making Patient is evaluated in the emergency department for complaints of left-sided chest pain. She also reports some posterior chest wall pain. There is pain with inspiration and movement. Pain with cough. The time of my evaluation she is already undergone EKG. This was done at 0048. She has a possible left ventricular hypertrophy. Nonspecific T wave abnormality although no ectopy, ST elevation. She has a ventricular rate of 67 beats a minute and a QTc of 425. Her complaints and exam really point towards respiratory. She is a heavy tobacco user, has pretty significant wheezing, has productive cough. Her cough aggravates her pain as it is reproducible. With this being said she does have multiple risk factors for cardiac event. Her risk factors include hypercholesterolemia, hypertension, diabetes, cigarette smoking, positive family history. Her BMI is 28.7. Patient responded well to DuoNeb treatments. Wheezing has subsided and patient's chest heaviness has improved. She still has pain with cough and movement. Going to give her Toradol milligrams IV. Heart score is: 3 but this is largely due to her risk factors. At this time I will transition care to Dr. Begum 0300. Patient with reproducible chest discomfort relieved by Toradol in the emergency department. She has respiratory symptoms. EKG shows no acute ST changes, and her troponin baseline is 6 despite 8 hours of symptoms. Given duration of symptoms, second troponin not necessary. We will allow discharge home. To return if worsening despite treatment. Lab Data 12/24/22 02:16 12/24/22 02:16 Radiology Impressions Chest X-Ray 12/24/22 01:48 IMPRESSION: No acute findings. Laboratory Results WBC 6.6 10^3/uL (4.0-10.0) 12/24/22 02:16 RBC 4.12 10^6/uL (4.1-5.3) 12/24/22 02:16 Hgb 12.0 g/dL (11.5-15.3) 12/24/22 02:16 Hct 38.0 % (37.0-47.0) 12/24/22 02:16 MCV 92.2 fl (81-99) 12/24/22 02:16 MCH 29.1 pg (28.0-34.0) 12/24/22 02:16 MCHC 31.6 g/dL (30.0-36.0) 12/24/22 02:16 RDW 15.5 % (12.1-15.1) H 12/24/22 02:16 Plt Count 256 10^3/cmm (130-400) 12/24/22 02:16 MPV 11.1 fL (7.4-10.4) H 12/24/22 02:16 Neut % (Auto) 61.4 % 12/24/22 02:16 Lymph % (Auto) 27.0 % 12/24/22 02:16 [place] % (Auto) 7.8 % 12/24/22 02:16 Eos % (Auto) 2.7 % 12/24/22 02:16 Baso % (Auto) 0.9 % 12/24/22 02:16 Neut # (Auto) 4.03 10^3/uL (1.8-7.7) 12/24/22 02:16 Lymph # (Auto) 1.8 10^3/uL (0.8-4.8) 12/24/22 02:16 [place] # (Auto) 0.5 10^3/uL (0.2-0.9) 12/24/22 02:16 Eos # (Auto) 0.2 10^3/uL (0.0-0.8) 12/24/22 02:16 Baso # (Auto) 0.1 10^3/uL (0.0-0.1) 12/24/22 02:16 Nucleated RBC % (auto) 0 % 12/24/22 02:16 Nucleated RBCs # 0.0 /100WBC 12/24/22 02:16 Sodium 139 mmol/L (136-145) 12/24/22 02:16 Potassium 3.4 mmol/L (3.5-5.1) L 12/24/22 02:16 Chloride 105 mmol/L (98-107) 12/24/22 02:16 Carbon Dioxide 22 mmol/L (22-29) 12/24/22 02:16 Anion Gap 15.4 (5-19) 12/24/22 02:16 BUN 8 mg/dL (6-20) 12/24/22 02:16 Creatinine 0.8 mg/dL (0.5-0.9) 12/24/22 02:16 GFR Calculation 75.3 mL/min (90-130) L 12/24/22 02:16 Glucose 135 mg/dL (65-115) H 12/24/22 02:16 Calculated Osmolality 288 mOsm/kg (285-295) 12/24/22 02:16 Calcium 10.0 mg/dL (8.5-10.5) 12/24/22 02:16 Troponin T Baseline 6 ng/L (0-10) 12/24/22 02:16 NT-Pro-B Natriuret Pep 64 pg/mL (0-125) 12/24/22 02:16 Lipase 31 U/L (13-60) 12/24/22 02:16 Discharge Plan Discharge Patient Disposition: Home Clinical Impression: Bronchitis, Atypical chest pain Condition: Stable Prescriptions: New Medrol (Kemar) 4 mg tablets,dose pack See Rx Instructions .ROUTE .COMPLEX Qty: 21 0RF Rx Instructions: orally per package directions Continued Robitussin ER 30 mg/5 mL suspension,extended rel 12 hr 10 ml PO Q12H Qty: 120 0RF ProAir HFA 90 mcg/actuation HFA aerosol inhaler 2 puff inhalation Q2H PRN (Reason: shortness of breath or wheezing) Qty: 8.5 1RF No Action topiramate [Topamax] 100 mg tablet 100 mg PO DAILY Qty: 30 2RF cholecalciferol (vitamin D3) 50 mcg (2,000 unit) capsule 50 mcg PO DAILY Spiriva with HandiHaler 18 mcg capsule, w/inhalation device 1 cap inhalation DAILY Rx Instructions: puncture 1 cap using device; one dose = 2 inhalations fluticasone propionate 50 mcg/actuation spray,suspension 1 spray intranasal DAILY Rx Instructions: administer into each nostril rosuvastatin [Crestor] 20 mg tablet 20 mg PO DAILY amlodipine 5 mg tablet 5 mg PO BID cyanocobalamin (vitamin B-12) 1,000 mcg capsule 1 mcg PO DAILY bismuth subsalicylate [Pepto-Bismol] 262 mg/15 mL suspension 524 mg PO Q30M PRN Rx Instructions: do not exceed 8 doses in a 24 hour period magnesium hydroxide [Milk of Magnesia] 400 mg/5 mL suspension 30 ml PO Q24H PRN diphenhydramine HCl [Benadryl] 25 mg capsule 25 mg PO BID PRN tizanidine 4 mg capsule 4 mg PO Q8H PRN metoprolol tartrate 75 mg tablet 75 mg PO BID valacyclovir 500 mg tablet 500 mg PO BID gabapentin 400 mg capsule 400 mg PO BID atenolol 50 mg tablet 50 mg PO DAILY Symbicort 160-4.5 mcg/actuation HFA aerosol inhaler 2 puff INHALATION BID pantoprazole 40 mg tablet,delayed release (DR/EC) 40 mg PO QAM metformin 500 mg tablet 500 mg PO DAILY Rx Instructions: with supper cyclobenzaprine 10 mg tablet 10 mg PO TID PRN (Reason: Pain) mecobalamin (vitamin B12) 10,000 mcg recon soln IM .monthly venlafaxine [Effexor XR] 150 mg capsule,extended release 24hr 150 mg PO QAM Qty: 30 2RF Premarin 0.45 mg tablet 0.45 mg PO DAILY Qty: 90 3RF cholecalciferol (vitamin D3) 50 mcg (2,000 unit) capsule 50 mcg PO DAILY Qty: 90 2RF Rx Instructions: Take 1 capsule (2000 units) daily polyethylene glycol 3350 [Miralax] 17 gram/dose powder 17 gm PO DAILY PRN (Reason: constipation) Qty: 119 0RF ondansetron 4 mg tablet,disintegrating 4 mg PO Q6H PRN (Reason: nausea and vomiting) Qty: 14 0RF naproxen [Naprosyn] 500 mg tablet 500 mg PO BID PRN (Reason: pain) Qty: 12 0RF ibuprofen 800 mg tablet 800 mg PO TID PRN (Reason: pain) Qty: 60 0RF Colace 100 mg capsule 100 mg PO BID Qty: 30 0RF acetaminophen 325 mg capsule 325 mg PO Q4H PRN (Reason: fever or pain) Qty: 60 0RF Discharge Orders: Discharge ED (Routine); Ordered 12/24/22 Ordered By: Michael Begum Referrals: Eric Mandel MD [Primary Care Provider] - 1-3 days Patient Instructions: Acute Bronchitis (ED), Chest Wall Pain (ED) Coding Level of Care Code ED Lay Up Operator for Stephen Taylor
[2022-12-24] MEDS: aspirin 81 mg Chew Tablet 324 MG PO (02:12)
[2022-12-24] MEDS: sodium chloride 0.9% 500 ML 999 ML IV (02:13)
[2022-12-24] MEDS: ondansetron 2 mg/ML SDV 2 mL 4 MG IVP (02:15)
[2022-12-24] MEDS: ipratropium-albuterol 3 mL Neb INHALATION ×3 (02:20→02:57)
[2022-12-24 02:22] VITALS: PULSE 58; RESP 16; O2SAT 98
[2022-12-24 02:25] LABS: Basophils # 0.1 10^3/uL (0.0-0.1); Basophils % 0.9 %; Eosinophils # 0.2 10^3/uL (0.0-0.8); Eosinophils % 2.7 %; Lymphocytes # 1.8 10^3/uL (0.8-4.8); Mean Corpuscular HGB Conc 31.6 g/dL (30.0-36.0); Mean Corpuscular Hemoglobin 29.1 pg (28.0-34.0); Mean Corpuscular Volume 92.2 fl (81-99); Mean Platelet Volume 11.1 fL (7.4-10.4); Monocytes # 0.5 10^3/uL (0.2-0.9); Monocytes % 7.8 %; Neutrophils # 4.03 10^3/uL (1.8-7.7); Neutrophils % 61.4 %; Nucleated Red Blood Cells % 0 %; Platelet Count 256 10^3/cmm (130-400); Red Blood Count 4.12 10^6/uL (4.1-5.3); Red Cell Distribution Width 15.5 % (12.1-15.1); White Blood Count 6.6 10^3/uL (4.0-10.0)
[2022-12-24 02:44] LABS: Troponin(5th) Baseline 6 ng/L (0-10)
[2022-12-24 02:53] LABS: Anion Gap 15.4 (5-19); Blood Urea Nitrogen 8 mg/dL (6-20); Carbon Dioxide 22 mmol/L (22-29); Chloride 105 mmol/L (98-107); Glomerular Filtration Rate 75.3 mL/min (90-130); Glucose 135 mg/dL (65-115); Lipase 31 U/L (13-60); NT Pro B Type Natriuretic Pept 64 pg/mL (0-125); Osmolality Calculated 288 mOsm/kg (285-295); Potassium 3.4 mmol/L (3.5-5.1); Sodium 139 mmol/L (136-145)
[2022-12-24 02:57] VITALS: PULSE 62; RESP 16; O2SAT 98
[2022-12-24] MEDS: ketorolac 30 mg/mL INJ IVP (03:15)
[2022-12-24 03:30] VITALS: BP 157/98; PULSE 71; RESP 18; O2SAT 99
[2022-12-24 04:32] VITALS: BP 155/86; PULSE 77; RESP 18; O2SAT 97
== END 2022-12-24 04:28 | disposition home or self-care (01) ==
PROVIDERS: Nurse Practitioner; Emergency Provider Emergency Medicine; PCP Family Medicine
DX: J40 Bronchitis, not specified as acute or chronic (principal); R07.89 Other chest pain; Z79.84 Long term (current) use of oral hypoglycemic drugs; F17.210 Nicotine dependence, cigarettes, uncomplicated
CPT/HCPCS: 71045; 80048; 83690; 83880; 84484; 85025; 93005; 94640; 96361; 96374; 96375; 99285; J1885; J2405; J7040

== ENCOUNTER 2023-01-05 09:15 | Outpatient (CLI) | payer MEDICARE, MEDICAID, SELFPAY ==
--- NOTE | 2023-01-05 09:22 | MM_ITS ---
WS: [id number] BILATERAL SCREENING DIGITAL TOMOSYNTHESIS MAMMOGRAM WITH CAD HISTORY: SCREENING COMPARISON: 11/24/2021, 10/04/2020 Bilateral CC and MLO views with tomosynthesis and synthetic mammography submitted. Computer aided det ection analyzed. Breast composition: There are scattered areas of fibroglandular density. Focal asymmetry in the centr al RIGHT breast posterior to the nipple. Otherwise no abnormalities. No suspicious calcification. MM/[place] [id number] IMPRESSION: BI-RADS: 0-Incomplete: Need additional imaging evaluation FOLLOW UP: Need Additional Imaging RIGHT breast: Spot compression views (CC and MLO). True ML. Ultrasound to follo w if abnormality persists.
== END 2023-01-05 09:16 | disposition home or self-care (01) ==
LOC: RAD 09:18
PROVIDERS: PCP Family Medicine; Visit Provider Family Medicine
DX: Z12.31 Encounter for screening mammogram for malignant neoplasm of breast (principal)
CPT/HCPCS: 77063; 77067

== ENCOUNTER 2023-02-01 14:22 | Outpatient (CLI) | payer MEDICARE, MEDICAID, SELFPAY ==
--- NOTE | 2023-02-01 14:54 | MM_ITS ---
WS: [id number] BILATERAL 3D TOMOSYNTHESIS DIGITAL DIAGNOSTIC MAMMOGRAPHY WITH CAD CLINICAL INFORMATION: INCONCLUSIVE MAMMO HISTORY: Additional views COMPARISON: January 05, 2023 TECHNIQUE: Bilateral CC, MLO, and ML views. FINDINGS: The breasts are composed of scattered fibroglandular densities. Previously described ductal ectasia w ith asymmetry in the central RIGHT breast posterior to the nipple is persistent on spot compression v iews. Ultrasound described below. ULTRASOUND BREAST LEFT TECHNIQUE: Ultrasound left breast focused area of concern. CLINICAL INFORMATION: INCONCLUSIVE MAMMO FINDINGS: Ultrasound RIGHT breast in the area of asymmetric density posterior to the areola. 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 No evidence of intraluminal ductal mass or lesion . Findings are probably benign. Recommend six-month follow-up with ultrasound to confirm stability. MM/[place] [id number] IMPRESSION: BI-RADS: 3-Probably Benign FOLLOW UP: 6 Month Follow-up Recommend 6 month follow-up RIGHT breast ultrasound to confirm stability.
== END 2023-02-01 14:23 | disposition home or self-care (01) ==
PROVIDERS: PCP Family Medicine; Visit Provider Family Medicine
DX: R92.2 Inconclusive mammogram (principal)
CPT/HCPCS: 76642; 77061; G0279

== ENCOUNTER → 2023-02-20 13:33 | Outpatient (BNVA) | payer MEDICARE, MEDICAID, OTHER, SELFPAY | PROVIDERS: PCP Family Medicine; Visit Provider Internal Medicine | DX: E21.3 Hyperparathyroidism, unspecified (principal); E55.9 Vitamin D deficiency, unspecified; M85.80 Other specified disorders of bone density and structure, unspecified site; K21.9 Gastro-esophageal reflux disease without esophagitis | CPT/HCPCS: 99214 ==

== ENCOUNTER 2023-04-12 02:32 | Emergency (ER) | payer MEDICARE, MEDICAID, SELFPAY ==
--- NOTE | 2023-04-12 02:35 | ED_ITS ---
HPI - Abdominal Pain General: Chief Complaint: Abdominal Pain Stated Complaint: ABD PAIN Time Seen by Provider: 04/12/23 02:35 History of Present Illness: Ms. Perdomo is a 52-year-old lady with history of abdominal surgeries presenting emergency department for abdominal pain with constipation. Notes 4 days since her last normal bowel movement. She has had constipation before however over the past 2 days has developed lower abdominal pain which is sharp in nature and worse than she has ever had with just constipation. She denies nausea or vomiting. She has had poor p.o. intake. She does note no urinary symptoms. Denies fevers or other infectious symptoms. She has tried home medications without significant relief. Intensity symptoms moderate to severe. Course has worsened. No other specific changes in health, exacerbating, or alleviating factors identified. Onset (ago): day(s) Pain Consistency: constant Location: RLQ, LLQ and Suprapubic Severity: moderate Quality: sharp Migration to: no migration Exacerbating factors: nothing Relieving factors: nothing Associated Symptoms: Reports constipation Review of Systems General: Reports: 10 or more systems reviewed and unremarkable except in HPI and below GI: Reports: constipation PFSH ED PFSH: Medical History Borderline intellectual functioning Nicotine dependence, cigarettes, uncomplicated Pelvic pain Post-traumatic stress disorder, chronic Psychiatric care Surgical History H/O tubal ligation S/P appendectomy S/P cholecystectomy Family History Mother Diabetes Hypertension Stroke Uterine cancer, Onset Age: 46 Grandmother Diabetes maternal Family/Other Hyperlipidemia paternal uncle Heart disease paternal uncle Sister Hypertension Heart disease Brother Stomach cancer Denies family history of Colon cancer Ovarian cancer Clotting disorder Breast cancer Anesthesia complication Bleeding disorder Thyroid condition Social History Smoking and tobacco status: current every day smoker (1PPD) cigarettes Packs smoked per day: 1 Years cigarettes smoked: 29 Alcohol intake: former Former alcohol use details: 2013 Substance/Drug Use: never Additional social history: Drug use: Denies Physical Exam Const: COMMON NORMALS: alert GENERAL APPEARANCE: cooperative and well developed HENMT: COMMON NORMALS: normocephalic and atraumatic HEAD & SCALP: normocephalic and atraumatic Eye: COMMON NORMALS: conjunctivae normal CONJUNCTIVA: Yes conjunctivae normal SCLERA: sclerae normal Neck/C-Spine: COMMON NORMALS: supple GENERAL: Yes trachea midline Resp: COMMON NORMALS: normal respiratory effort EFFORT & INSPECTION: Yes able to speak in complete sentences Cardio: COMMON NORMALS: regular rhythm RATE: bradycardic RHYTHM: regular rhythm GI: COMMON NORMALS: Soft to palpation PALPATION: Yes Soft to palpation, Yes Tenderness to palpation present (GI), Yes Guarding due to palpation present (GI) and No Rigid due to palpation Extremity: GENERAL: Yes normal exam except as noted and No edema Neuro: COMMON NORMALS: moves all extremities SENSORIUM/ORIENTATION: Yes alert and No Orientation impaired Psych: COMMON NORMALS: mental status grossly normal and Normal thought process present THOUGHT PROCESS: Normal thought process present Course Vital Signs: Vital signs: Vital Signs Temperature 97.8 F 04/12/23 02:36 Pulse Rate 63 04/12/23 05:32 Respiratory Rate 18 04/12/23 05:32 Blood Pressure 147/94 04/12/23 05:32 Pulse Oximetry 97 04/12/23 05:32 Oxygen Delivery Me thod Room Air 04/12/23 02:36 MDM - Abdominal Pain Medical Decision Making 52-year-old lady presenting with constipation and abdominal pain. Abdominal tenderness to palpation without evidence of acute surgical abdomen. Patient is nontoxic. No significant hematologic or metabolic abnormalities. Normal urinalysis. Given tenderness degree on abdominal exam CT imaging is appropriate. CT negative for acute finding. Patient treated with antiemetic, analgesia, medications to induce bowel movement and she did have small bowel movement. Plan continue treatment for constipation in the outpatient setting. The results of ED evaluation were discussed with the patient including prescriptions and/or symptomatic cares (if applicable) including appropriate and responsible use, followup plan, and return precautions. The patient verbalized understanding and felt safe for discharge. Medical Records I reviewed the patient's medical records. Lab Data I reviewed the patient's lab results. 04/12/23 02:45 04/12/23 02:45 Labs/Radiology: Radiology Impressions Abdomen/Pelvis CT 04/12/23 02:42 IMPRESSION: No acute findings. Laboratory Results WBC 6.5 10^3/uL (4.0-10.0) 04/12/23 02:45 RBC 4.38 10^6/uL (4.1-5.3) 04/12/23 02:45 Hgb 12.8 g/dL (11.5-15.3) 04/12/23 02:45 Hct 40.9 % (37.0-47.0) 04/12/23 02:45 MCV 93.4 fl (81-99) 04/12/23 02:45 MCH 29.2 pg (28.0-34.0) 04/12/23 02:45 MCHC 31.3 g/dL (30.0-36.0) 04/12/23 02:45 RDW 14.7 % (12.1-15.1) 04/12/23 02:45 Plt Count 290 10^3/cmm (130-400) 04/12/23 02:45 MPV 10.9 fL (7.4-10.4) H 04/12/23 02:45 Neut % (Auto) 54.1 % 04/12/23 02:45 Lymph % (Auto) 32.0 % 04/12/23 02:45 Slope % (Auto) 8.9 % 04/12/23 02:45 Eos % (Auto) 4.0 % 04/12/23 02:45 Baso % (Auto) 0.8 % 04/12/23 02:45 Neut # (Auto) 3.55 10^3/uL (1.8-7.7) 04/12/23 02:45 Lymph # (Auto) 2.1 10^3/uL (0.8-4.8) 04/12/23 02:45 Slope # (Auto) 0.6 10^3/uL (0.2-0.9) 04/12/23 02:45 Eos # (Auto) 0.3 10^3/uL (0.0-0.8) 04/12/23 02:45 Baso # (Auto) 0.1 10^3/uL (0.0-0.1) 04/12/23 02:45 Nucleated RBC % (auto) 0 % 04/12/23 02:45 Nucleated RBCs # 0.0 /100WBC 04/12/23 02:45 Sodium 141 mmol/L (136-145) 04/12/23 02:45 Potassium 3.5 mmol/L (3.5-5.1) 04/12/23 02:45 Chloride 107 mmol/L (98-107) 04/12/23 02:45 Carbon Dioxide 24 mmol/L (22-29) 04/12/23 02:45 Anion Gap 13.5 (5-19) 04/12/23 02:45 BUN 6 mg/dL (6-20) 04/12/23 02:45 Creatinine 0.8 mg/dL (0.5-0.9) 04/12/23 02:45 GFR Calculation 75.3 mL/min (90-130) L 04/12/23 02:45 Glucose 87 mg/dL (65-115) 04/12/23 02:45 Calculated Osmolality 289 mOsm/kg (285-295) 04/12/23 02:45 Calcium 10.0 mg/dL (8.5-10.5) 04/12/23 02:45 Total Bilirubin 0.3 mg/dL (0.15-1.2) 04/12/23 02:45 AST 20 U/L (0-32) 04/12/23 02:45 ALT 10 U/L (0-33) 04/12/23 02:45 Alkaline Phosphatase 84 U/L (35-105) 04/12/23 02:45 Total Protein 7.6 g/dL (6.6-8.7) 04/12/23 02:45 Albumin 4.7 g/dL (3.5-5.2) 04/12/23 02:45 Globulin 2.9 g/dL (1.3-4.6) 04/12/23 02:45 Lipase 31 U/L (13-60) 04/12/23 02:45 TSH 0.79 uIU/mL (0.27-4.20) 04/12/23 02:45 Urine Color Straw (Yellow) 04/12/23 02:47 Urine Appearance Clear (CLEAR) 04/12/23 02:47 Urine pH 6.5 (5-7) 04/12/23 02:47 Ur Specific [place] 1.010 (1.005-1.030) 04/12/23 02:47 Urine Protein Neg (Negative) 04/12/23 02:47 Urine Glucose (UA) Norm (Normal) 04/12/23 02:47 Urine Ketones Negative (Negative) 04/12/23 02:47 Urine Blood Neg (Negative) 04/12/23 02:47 Urine Nitrate Negative (Negative) 04/12/23 02:47 Urine Bilirubin Neg (Negative) 04/12/23 02:47 Urine Urobilinogen Norm mg/dL (Negative) 04/12/23 02:47 Ur Leukocyte Esterase Negative (Negative) 04/12/23 02:47 Discharge Plan Discharge Patient Disposition: Home Clinical Impression: Abdominal pain, Constipation Condition: Stable Prescriptions: New Miralax 17 gram/dose powder 17 g PO TID PRN (Reason: constipation) Qty: 238 0RF Rx Instructions: 1 to 3 times daily for apple sauce consistency stools lactulose 20 gram/30 mL solution 30 g PO DAILY PRN (Reason: constipation) Qty: 1200 0RF Rx Instructions: for constipation not relieved by miralax Fleet Bisacodyl 10 mg/30 mL enema 10 mg ND DAILY PRN (Reason: constipation) Qty: 37 3RF No Action topiramate [Topamax] 100 mg tablet 100 mg PO DAILY Qty: 30 2RF cholecalciferol (vitamin D3) 50 mcg (2,000 unit) capsule 50 mcg PO DAILY Spiriva with HandiHaler 18 mcg capsule, w/inhalation device 1 cap inhalation DAILY Rx Instructions: puncture 1 cap using device; one dose = 2 inhalations fluticasone propionate 50 mcg/actuation spray,suspension 1 spray intranasal DAILY Rx Instructions: administer into each nostril rosuvastatin [Crestor] 20 mg tablet 20 mg PO DAILY amlodipine 5 mg tablet 5 mg PO BID cyanocobalamin (vitamin B-12) 1,000 mcg capsule 1 mcg PO DAILY bismuth subsalicylate [Pepto-Bismol] 262 mg/15 mL suspension 524 mg PO Q30M PRN Rx Instructions: do not exceed 8 doses in a 24 hour period magnesium hydroxide [Milk of Magnesia] 400 mg/5 mL suspension 30 ml PO Q24H PRN diphenhydramine HCl [Benadryl] 25 mg capsule 25 mg PO BID PRN tizanidine 4 mg capsule 4 mg PO Q8H PRN metoprolol tartrate 75 mg tablet 75 mg PO BID gabapentin 400 mg capsule 400 mg PO BID atenolol 50 mg tablet 50 mg PO DAILY Symbicort 160-4.5 mcg/actuation HFA aerosol inhaler 2 puff INHALATION BID pantoprazole 40 mg tablet,delayed release (DR/EC) 40 mg PO QAM metformin 500 mg tablet 500 mg PO DAILY Rx Instructions: with supper cyclobenzaprine 10 mg tablet 10 mg PO TID PRN (Reason: Pain) mecobalamin (vitamin B12) 10,000 mcg recon soln IM .monthly venlafaxine [Effexor XR] 150 mg capsule,extended release 24hr 150 mg PO QAM Qty: 30 2RF Premarin 0.45 mg tablet 0.45 mg PO DAILY Qty: 90 3RF cholecalciferol (vitamin D3) 50 mcg (2,000 unit) capsule 50 mcg PO DAILY Qty: 90 2RF Rx Instructions: Take 1 capsule (2000 units) daily valacyclovir 500 mg tablet 500 mg PO BID Qty: 60 3RF polyethylene glycol 3350 [Miralax] 17 gram/dose powder 17 gm PO DAILY PRN (Reason: constipation) Qty: 119 0RF ondansetron 4 mg tablet,disintegrating 4 mg PO Q6H PRN (Reason: nausea and vomiting) Qty: 14 0RF naproxen [Naprosyn] 500 mg tablet 500 mg PO BID PRN (Reason: pain) Qty: 12 0RF ibuprofen 800 mg tablet 800 mg PO TID PRN (Reason: pain) Qty: 60 0RF Colace 100 mg capsule 100 mg PO BID Qty: 30 0RF acetaminophen 325 mg capsule 325 mg PO Q4H PRN (Reason: fever or pain) Qty: 60 0RF Medrol (Kemar) 4 mg tablets,dose pack See Rx Instructions .ROUTE .COMPLEX Qty: 21 0RF Rx Instructions: orally per package directions Robitussin ER 30 mg/5 mL suspension,extended rel 12 hr 10 ml PO Q12H Qty: 120 0RF ProAir HFA 90 mcg/actuation HFA aerosol inhaler 2 puff inhalation Q2H PRN (Reason: shortness of breath or wheezing) Qty: 8.5 1RF Discharge Orders: Discharge ED (Routine); Ordered 04/12/23 Ordered By: Tomas Farley Referrals: Eric Mandel MD [Primary Care Provider] - Discharge Diet: Advance as tolerated and Clear Liquid Discharge Activity: Increase activity as tolerated Patient Instructions: Constipation (ED), Abdominal Pain (ED), Opioid Safety (ED) Activity Restrictions/Additional Instructions: Thank you for visiting the emergency department. You were seen and evaluated for abdominal pain. The most likely cause of your symptoms is related to constipation. I will prescribe MiraLAX. Take this 1-3 times daily and adjust for multiple applesauce consistency bowel movements per day. For constipation that does not improve with MiraLAX I will also prescribe lactulose. I recommend clear liquid diet and ensuring that you are staying hydrated with electrolyte solution, advance diet as tolerated. You may use [id number] medications such as acetaminophen and ibuprofen for pain however please do not exceed the daily recommended dosage as listed on the packaging and please keep in mind that many namebrand medications contain the same active ingredients. Please avoid these medications if previously instructed to do so by another physician due to other underlying medical condition. Please follow-up with your primary care provider. Return to the emergency department for anything that you are concerned about and feel needs emergency department evaluation. Coding Level of Care Code ED Baking Assistant for Stephen Taylor
[2023-04-12 02:36] VITALS: BP 198/107; PULSE 58; RESP 18; TEMP 36.6; O2SAT 95; BMI 28.6
--- NOTE | 2023-04-12 02:42 | CTR_ITS ---
PROCEDURE INFORMATION: Exam: CT Abdomen And Pelvis With Contrast Exam date and time: 04/12/2023 2:51 AM Age: 52 years old Clinical indication: Abdominal pain; Localized; Prior surgery; Surgery date: 6+ months; Surgery type: Gb. Appy. Tubal; Patient HX: C/O worsening lower abd pain x 2 days. ; Additional info: Lower abd pain, 2 days, worsening, ? obstruction vs other TECHNIQUE: Imaging protocol: Computed tomography of the abdomen and pelvis with contrast. Radiation optimization: All CT scans at this facility use at least one of these dose optimization techniques: automated exposure control; mA and/or kV adjustment per patient size (includes targeted exams where dose is matched to clinical indication); or iterative reconstruction. Contrast material: OMNI 350; Contrast volume: 100 ml; Contrast route: INTRAVENOUS (IV); REPORTING DATA: Count of CT and Cardiac NM exams in prior 12 months: This patient has received [address] and 0 known cardiac nuclear medicine studies in the 12 months prior to the current study. COMPARISON: CT abdomen pelvis w con* [id number] 04/04/2021 12:37 AM RADIATION DOSE METRICS: Total DLP (mGy-cm): 715.25 FINDINGS: Liver: Unremarkable. Gallbladder and bile ducts: Status post cholecystectomy. Pancreas: No ductal dilation. Spleen: No splenomegaly. Adrenal glands: Normal. No mass. Kidneys and ureters: Nonobstructive left renal calculi. No hydronephrosis. No calcified ureteral stones. Stomach and bowel: No obstruction. No mucosal thickening. Appendix: Status post appendectomy. Intraperitoneal space: No free air. No significant fluid collection. Vasculature: No abdominal aortic aneurysm. Lymph nodes: No enlarged lymph nodes. Urinary bladder: Unremarkable as visualized. Reproductive: Status post hysterectomy. Bones/joints: Unremarkable. No acute fracture. Soft tissues: Unremarkable. CT/CT abdomen pelvis w con* [id number] IMPRESSION: No acute findings.
--- NOTE | 2023-04-12 02:43 | ECG_ITS ---
[facility] Test Date: 2023-04-12 Pat Name: Caty Perdomo Department: Room: Gender: Female [employer] Client Executive: : 1970 Requested By: Tomas Farley Order Number: [id number] Isidra MD: Cy Devlin M.D. Measurements Intervals [place] Rate: 57 P: 67 [place]: 198 QRS: 16 QRSD: 98 T: 58 QT: 417 QTc: 408 Interpretive Statements SINUS BRADYCARDIA Compared to ECG 12/24/2022 00:48:10 Sinus rhythm no longer present T-wave abnormality no longer present Electronically Signed On 04-12-2023 17:37:20 CDT by Cy Devlin M.D. [id number]
[2023-04-12 02:51] LABS: Basophils # 0.1 10^3/uL (0.0-0.1); Basophils % 0.8 %; Eosinophils # 0.3 10^3/uL (0.0-0.8); Hematocrit 40.9 % (37.0-47.0); Hemoglobin 12.8 g/dL (11.5-15.3); Lymphocytes # 2.1 10^3/uL (0.8-4.8); Mean Corpuscular HGB Conc 31.3 g/dL (30.0-36.0); Mean Corpuscular Hemoglobin 29.2 pg (28.0-34.0); Mean Corpuscular Volume 93.4 fl (81-99); Mean Platelet Volume 10.9 fL (7.4-10.4); Monocytes # 0.6 10^3/uL (0.2-0.9); Monocytes % 8.9 %; Neutrophils # 3.55 10^3/uL (1.8-7.7); Neutrophils % 54.1 %; Nucleated Red Blood Cells % 0 %; Platelet Count 290 10^3/cmm (130-400); Red Blood Count 4.38 10^6/uL (4.1-5.3); Red Cell Distribution Width 14.7 % (12.1-15.1); White Blood Count 6.5 10^3/uL (4.0-10.0)
[2023-04-12 02:54] LABS: Add Urine Microscopic? NO; Charge for UA Resulting for Rev
[2023-04-12 02:57] LABS: Bilirubin Urine Neg (Negative); Blood Urine Neg (Negative); Glucose Urine UA Norm (Normal); Ketones Urine Negative (Negative); Leukocyte Esterase Urine Negative (Negative); Nitrate Urine Negative (Negative); Protein Urine Neg (Negative); Urine Appearance Clear (CLEAR); Urine Color Straw (Yellow); Urobilinogen Urine Norm (Negative); pH Urine 6.5 (5-7)
[2023-04-12 03:00] VITALS: RESP 16
[2023-04-12] MEDS: morphine 4 mg/mL SDV 1 mL IVP (03:00)
[2023-04-12] MEDS: ondansetron 2 mg/ML SDV 2 mL 4 MG IVP (03:01)
[2023-04-12] MEDS: iohexol 350 mg/mL 500 mL Btl (per mL) IV (03:02)
[2023-04-12 03:04] VITALS: BP 190/96; PULSE 71; RESP 16; O2SAT 96
[2023-04-12 03:22] LABS: Alanine Aminotransferase 10 U/L (0-33); Albumin Level 4.7 g/dL (3.5-5.2); Alkaline Phosphatase 84 U/L (35-105); Anion Gap 13.5 (5-19); Aspartate Amino Transferase 20 U/L (0-32); Blood Urea Nitrogen 6 mg/dL (6-20); Carbon Dioxide 24 mmol/L (22-29); Chloride 107 mmol/L (98-107); Globulin 2.9 g/dL (1.3-4.6); Glomerular Filtration Rate 75.3 mL/min (90-130); Glucose 87 mg/dL (65-115); Lipase 31 U/L (13-60); Osmolality Calculated 289 mOsm/kg (285-295); Potassium 3.5 mmol/L (3.5-5.1); Sodium 141 mmol/L (136-145); Thyroid Stimulating Hormone 0.79 uIU/mL (0.27-4.20); Total Bilirubin 0.3 mg/dL (0.15-1.2); Total Protein 7.6 g/dL (6.6-8.7)
[2023-04-12 04:00] VITALS: BP 182/99; PULSE 63; RESP 16; O2SAT 96
[2023-04-12] MEDS: magnesium hydroxide 30 mL UDC PO (04:20)
[2023-04-12] MEDS: lactulose oral liq 20 gm/30 mL UDC 30 GM PO (04:20)
[2023-04-12] MEDS: hyDRALAzine 20 mg/mL INJ 1 mL 10 MG IVP (04:36)
[2023-04-12 04:37] VITALS: BP 193/99
[2023-04-12 05:32] VITALS: BP 147/94; PULSE 63; RESP 18; O2SAT 97
== END 2023-04-12 06:07 | disposition home or self-care (01) ==
PROVIDERS: Emergency Provider Emergency Medicine; PCP Family Medicine
DX: K59.00 Constipation, unspecified (principal); Z79.84 Long term (current) use of oral hypoglycemic drugs
CPT/HCPCS: 74177; 80053; 81003; 83690; 84443; 85025; 93005; 96374; 96375; 99285; J0360; J2270; J2405; Q9967

== ENCOUNTER 2023-07-01 20:01 | Emergency (ER) | payer MEDICARE, MEDICAID, SELFPAY ==
[2023-07-01 20:11] VITALS: BP 119/86; PULSE 72; RESP 18; TEMP 36.4; O2SAT 98; BMI 28.6
[2023-07-01] MEDS: clindamycin 150 mg Capsule 300 MG PO (23:53)
[2023-07-01] MEDS: dexamethasone 4 mg Tablet 10 MG PO (23:53)
[2023-07-01] MEDS: oxyCODONE-APAP 5-325 mg Tablet 2 TAB PO (23:54)
[2023-07-01 23:59] VITALS: BP 119/86; PULSE 72; RESP 18; TEMP 36.4; O2SAT 98
--- NOTE | 2023-07-02 05:55 | ED_ITS ---
HPI - General Adult General: Chief complaint: General Medical Stated complaint: Bump In Nose and Swollen Time Seen by Provider: 07/01/23 22:54 Source: patient History of Present Illness: 52-year-old female complaining of right nasal pain, redness, and swelling. She does not know if she was bitten or stung by an insect or not. There is swelling. She does not have a fever. Pain radiates under her eye and into her face. Onset (ago): day(s) Location: face Radiation: other Associated symptoms: Reports nausea and rash; Deny chest pain, dyspnea or vomiting Review of Systems Const: Denies: fever(s) Eyes: Denies: change in vision ENMT: Denies: throat pain Card: Denies: chest pain Resp: Denies: dyspnea GI: Reports: nausea; Denies: abdominal pain or vomiting Musc: Denies: neck pain Skin/Breast: Reports: rash and skin tenderness PFSH ED PFSH: Medical History Borderline intellectual functioning Nicotine dependence, cigarettes, uncomplicated Pelvic pain Post-traumatic stress disorder, chronic Psychiatric care Surgical History H/O tubal ligation S/P appendectomy S/P cholecystectomy Family History Mother Diabetes Hypertension Stroke Uterine cancer, Onset Age: 46 Grandmother Diabetes maternal Family/Other Hyperlipidemia paternal uncle Heart disease paternal uncle Sister Hypertension Heart disease Brother Stomach cancer Denies family history of Colon cancer Ovarian cancer Clotting disorder Breast cancer Anesthesia complication Bleeding disorder Thyroid condition Social History Smoking and tobacco status: current every day smoker (1PPD) cigarettes Packs smoked per day: 1 Years cigarettes smoked: 29 Alcohol intake: former Former alcohol use details: 2013 Substance/Drug Use: never Additional social history: Drug use: Denies Physical Exam Const: COMMON NORMALS: no acute distress GENERAL APPEARANCE: cooperative; not ill appearing and not frail appearing HENMT: COMMON NORMALS: normocephalic and Normal nasal mucous membranes and turbinates present HEAD & SCALP: normocephalic NOSE: Normal nasal mucous membranes and turbinates present and Abnormal external nose present nasal erythema, nasal abrasion and nasal swelling; no nasal ecchymosis THROAT: posterior oropharynx normal Eye: COMMON NORMALS: Equal, round and reactive pupils present and EOMs intact bilaterally PUPIL: Yes Equal, round and reactive pupils present Neck/C-Spine: GENERAL: Yes trachea midline Chest: CHEST: Yes Symmetrical chest wall rise Resp: COMMON NORMALS: normal respiratory effort, No retractions, No use of accessory muscles and clear to auscultation bilaterally AUSCULTATION: clear to auscultation bilaterally Cardio: COMMON NORMALS: regular rate and regular rhythm RATE: regular rate RHYTHM: regular rhythm GI: COMMON NORMALS: Normal to inspection, nondistended, normoactive bowel sounds present Extremity: COMMON NORMALS: no pedal edema Neuro: ERIK COMA SCALE: document GCS findings [place] coma scale eye opening: Spontaneous [place] coma scale verbal response: Orientated Erik coma scale motor response: Obey commands [place] coma scale total score: 15 SENSORY EXAM: Yes extremities (intact) Psych: COMMON NORMALS: speech normal SPEECH: Yes normal speech Skin: COMMON NORMALS: no rashes or lesions noted GENERAL SKIN EXAM: no rashes or lesions noted Course Vital Signs: Vital signs: Vital Signs Temperature 97.6 F 07/01/23 23:59 Pulse Rate 72 07/01/23 23:59 Respiratory Rate 18 07/01/23 23:59 Blood Pressure 119/86 07/01/23 23:59 Pulse Oximetry 98 07/01/23 23:59 Oxygen Delivery Me thod Room Air 07/01/23 20:11 MDM - General Adult Medical Decision Making Likely puncture wound from sting or bite with surrounding cellulitis. No airway compromise. Will treat with antibiotics. She is allergic to sulfa. Discharge Plan Discharge Patient Disposition: Home Clinical Impression: Cellulitis of external nose Condition: Stable Prescriptions: New Cleocin HCl 300 mg capsule 300 mg PO QID 7 Days Qty: 28 0RF ketorolac 10 mg tablet 10 mg PO TID PRN (Reason: pain) Qty: 10 0RF No Action topiramate [Topamax] 100 mg tablet 100 mg PO DAILY Qty: 30 2RF cholecalciferol (vitamin D3) 50 mcg (2,000 unit) capsule 50 mcg PO DAILY Spiriva with HandiHaler 18 mcg capsule, w/inhalation device 1 cap inhalation DAILY Rx Instructions: puncture 1 cap using device; one dose = 2 inhalations fluticasone propionate 50 mcg/actuation spray,suspension 1 spray intranasal DAILY Rx Instructions: administer into each nostril rosuvastatin [Crestor] 20 mg tablet 20 mg PO DAILY amlodipine 5 mg tablet 5 mg PO BID cyanocobalamin (vitamin B-12) 1,000 mcg capsule 1 mcg PO DAILY bismuth subsalicylate [Pepto-Bismol] 262 mg/15 mL suspension 524 mg PO Q30M PRN Rx Instructions: do not exceed 8 doses in a 24 hour period magnesium hydroxide [Milk of Magnesia] 400 mg/5 mL suspension 30 ml PO Q24H PRN diphenhydramine HCl [Benadryl] 25 mg capsule 25 mg PO BID PRN tizanidine 4 mg capsule 4 mg PO Q8H PRN metoprolol tartrate 75 mg tablet 75 mg PO BID gabapentin 400 mg capsule 400 mg PO BID atenolol 50 mg tablet 50 mg PO DAILY Symbicort 160-4.5 mcg/actuation HFA aerosol inhaler 2 puff INHALATION BID pantoprazole 40 mg tablet,delayed release (DR/EC) 40 mg PO QAM metformin 500 mg tablet 500 mg PO DAILY Rx Instructions: with supper cyclobenzaprine 10 mg tablet 10 mg PO TID PRN (Reason: Pain) mecobalamin (vitamin B12) 10,000 mcg recon soln IM .monthly venlafaxine [Effexor XR] 150 mg capsule,extended release 24hr 150 mg PO QAM Qty: 30 2RF Premarin 0.45 mg tablet 0.45 mg PO DAILY Qty: 90 3RF cholecalciferol (vitamin D3) 50 mcg (2,000 unit) capsule 50 mcg PO DAILY Qty: 90 2RF Rx Instructions: Take 1 capsule (2000 units) daily valacyclovir 500 mg tablet 500 mg PO BID Qty: 60 3RF polyethylene glycol 3350 [Miralax] 17 gram/dose powder 17 gm PO DAILY PRN (Reason: constipation) Qty: 119 0RF ondansetron 4 mg tablet,disintegrating 4 mg PO Q6H PRN (Reason: nausea and vomiting) Qty: 14 0RF naproxen [Naprosyn] 500 mg tablet 500 mg PO BID PRN (Reason: pain) Qty: 12 0RF ibuprofen 800 mg tablet 800 mg PO TID PRN (Reason: pain) Qty: 60 0RF Colace 100 mg capsule 100 mg PO BID Qty: 30 0RF acetaminophen 325 mg capsule 325 mg PO Q4H PRN (Reason: fever or pain) Qty: 60 0RF Miralax 17 gram/dose powder 17 g PO TID PRN (Reason: constipation) Qty: 238 0RF Rx Instructions: 1 to 3 times daily for apple sauce consistency stools lactulose 20 gram/30 mL solution 30 g PO DAILY PRN (Reason: constipation) Qty: 1200 0RF Rx Instructions: for constipation not relieved by miralax Fleet Bisacodyl 10 mg/30 mL enema 10 mg [place] DAILY PRN (Reason: constipation) Qty: 37 3RF Medrol (Kemar) 4 mg tablets,dose pack See Rx Instructions .ROUTE .COMPLEX Qty: 21 0RF Rx Instructions: orally per package directions Robitussin ER 30 mg/5 mL suspension,extended rel 12 hr 10 ml PO Q12H Qty: 120 0RF ProAir HFA 90 mcg/actuation HFA aerosol inhaler 2 puff inhalation Q2H PRN (Reason: shortness of breath or wheezing) Qty: 8.5 1RF Discharge Orders: Discharge ED (Routine); Ordered 07/01/23 Ordered By: Michael Begum Referrals: Eric Mandel MD [Primary Care Provider] - Patient Instructions: Cellulitis (ED), Opioid Safety, Pain Management Coding Level of Care Code ED Mathematician Research for Stephen Taylor
== END 2023-07-02 | disposition home or self-care (01) ==
PROVIDERS: Emergency Provider Emergency Medicine; PCP Family Medicine
DX: J34.0 Abscess, furuncle and carbuncle of nose (principal); Z79.84 Long term (current) use of oral hypoglycemic drugs; F17.210 Nicotine dependence, cigarettes, uncomplicated
CPT/HCPCS: 99283; J8540

== ENCOUNTER → 2023-07-03 10:08 | Outpatient (BNVA) | payer MEDICARE, MEDICAID, SELFPAY | PROVIDERS: PCP Family Medicine; Visit Provider Internal Medicine | DX: E55.9 Vitamin D deficiency, unspecified (principal); M85.80 Other specified disorders of bone density and structure, unspecified site; E21.3 Hyperparathyroidism, unspecified | CPT/HCPCS: 99213; 99214 ==

== ENCOUNTER 2023-08-30 13:22 | Outpatient (CLI) | payer MEDICARE, MEDICAID, SELFPAY ==
--- NOTE | 2023-08-30 14:06 | US_ITS ---
WS: [id number] ULTRASOUND BREAST RIGHT TECHNIQUE: Ultrasound right breast focused area of concern. CLINICAL INFORMATION: ABNORMAL MAMMO COMPARISON: Ultrasound 02/01/2023 FINDINGS: Ultrasound RIGHT breast at the areola. Again seen are multiple dilated ducts posterior to the areola similar appearance to the prior examination. No evidence of intraluminal mass or lesion. Findings com patible with benign ductal ectasia. Recommend return to annual screening mammography. IMPRESSION: BI-RADS 2 benign Recommend return to annual screening mammography
== END 2023-08-30 13:23 | disposition home or self-care (01) ==
PROVIDERS: PCP Family Medicine; Visit Provider Family Medicine
DX: R92.8 Other abnormal and inconclusive findings on diagnostic imaging of breast (principal)
CPT/HCPCS: 76642

== ENCOUNTER → 2023-10-31 09:28 | Outpatient (BNVA) | payer MEDICARE, MEDICAID, SELFPAY | PROVIDERS: PCP Family Medicine; Visit Provider Internal Medicine | DX: M85.80 Other specified disorders of bone density and structure, unspecified site (principal); E21.3 Hyperparathyroidism, unspecified; E55.9 Vitamin D deficiency, unspecified | CPT/HCPCS: 99214 ==

== ENCOUNTER 2023-11-22 12:23 | Outpatient (CLI) | payer MEDICARE, MEDICAID, SELFPAY ==
--- NOTE | 2023-11-22 12:26 | XR_ITS ---
WS: [id number] SCREENING DEXA SCAN [employer] CLINICAL INFORMATION: Postmenopausal COMPARISON: 2021 FINDINGS: The L1-L4 bone mineral density measures 1.023 g/cm2. This corresponds to a T score score of -1.3 and Z score of -1.3. Left femoral neck bone mineral density measures 0.872 g/cm2. This corresponds to a T score of -1.1 an d Z score of -0.9. Right femoral neck bone mineral density measures 0.884 g/cm2. This corresponds to a T score -1.0of an d Z score of -0.8. Mean femoral neck bone mineral density measures 0.878 g/cm2. This corresponds to a T score of -1.0 an d Z score of -0.9. IMPRESSION: Osteopenia lumbar spine. Osteopenia femoral necks. Patient's FRAX calculated 10 year probability for major osteoporotic fracture is 11.0% and osteoporot ic hip fracture is 1.9%. Bone marrow density lumbar spine increased 1.5% Bone mineral density femoral necks decreased -1.7%
== END 2023-11-22 12:24 | disposition home or self-care (01) ==
LOC: RAD 12:23
PROVIDERS: PCP Family Medicine; Visit Provider Nurse Practitioner Family
DX: Z13.820 Encounter for screening for osteoporosis (principal); Z78.0 Asymptomatic menopausal state; M85.89 Other specified disorders of bone density and structure, multiple sites
CPT/HCPCS: 77080

== ENCOUNTER 2024-02-01 10:44 | Outpatient (CLI) | payer MEDICARE, MEDICAID, SELFPAY ==
--- NOTE | 2024-02-01 10:48 | MM_ITS ---
WS: [id number] Bilateral screening 3D tomosynthesis digital mammogram, 02/01/2024 Clinical Data: Z12.31 - Encounter for screening mammogram for malignant ... Comparison: 02/01/2023, 01/05/2023, 11/24/2021, 12/04/2019, 10/01/2019, 02/06/2017, 01/27/2016, 11/03/2014, 01/22/2013, 04/13/2011, 03/30/2011. Findings: The breast parenchymal pattern shows fibroglandular tissue. No spiculated masses or clustered calcifi cations are seen. There are no secondary signs of carcinoma. Impression: 1. Negative bilateral mammogram unchanged. 2. Recommend annual screening mammograms. MM/[place] [id number] BIRADS: 1-Negative FOLLOW UP: 1 Year Follow-up The CAD glass checker was used.
== END 2024-02-01 10:45 | disposition home or self-care (01) ==
LOC: RAD 10:44
PROVIDERS: PCP Family Medicine; Visit Provider Family Medicine
DX: Z12.31 Encounter for screening mammogram for malignant neoplasm of breast (principal)
CPT/HCPCS: 77063; 77067

== ENCOUNTER → 2024-04-04 08:47 | Outpatient (BNVA) | payer MEDICARE, MEDICAID, SELFPAY | PROVIDERS: PCP Family Medicine; Visit Provider Internal Medicine | DX: E21.3 Hyperparathyroidism, unspecified (principal); M85.80 Other specified disorders of bone density and structure, unspecified site; E55.9 Vitamin D deficiency, unspecified | CPT/HCPCS: 99214 ==

== ENCOUNTER 2024-04-19 20:39 | Emergency (ER) | payer MEDICARE, MEDICAID, SELFPAY ==
[2024-04-19 20:45] VITALS: BP 136/96; PULSE 68; RESP 20; TEMP 36.6; O2SAT 98; BMI 28.1
--- NOTE | 2024-04-19 21:02 | XRR_ITS ---
PROCEDURE INFORMATION: Exam: XR Chest Exam date and time: 04/19/2024 9:50 PM Age: 53 years old Clinical indication: Shortness of breath; Prior surgery; Surgery date: 6+ months; Surgery type: Gb; Patient HX: SOB with genera weakness; Additional info: Worsening SOB TECHNIQUE: Imaging protocol: Radiologic exam of the chest. Views: 1 view. COMPARISON: CR XR chest 1V portable [id number] 12/24/2022 1:55 AM FINDINGS: Lungs: The lungs are clear. No pulmonary consolidation. Pleural spaces: No pleural effusion or pneumothorax. Heart/Mediastinum: The cardiomediastinal silhouette is within normal limits. Bones/joints: No acute osseous abnormalities are seen. XR/XR chest 1V portable [id number] IMPRESSION: No acute cardiopulmonary disease.
--- NOTE | 2024-04-19 21:02 | CTR_ITS ---
PROCEDURE INFORMATION: Exam: CT Head Without Contrast Exam date and time: 04/19/2024 9:57 PM Age: 53 years old Clinical indication: Pain; Headache; Patient HX: C/O FAJARDO with dizziness; Additional info: Dizzy, falls, new onset headache TECHNIQUE: Imaging protocol: Computed tomography of the head without contrast. Radiation optimization: All CT scans at this facility use at least one of these dose optimization techniques: automated exposure control; mA and/or kV adjustment per patient size (includes targeted exams where dose is matched to clinical indication); or iterative reconstruction. COMPARISON: CT head wo con* [id number] 07/18/2022 1:29 AM RADIATION DOSE METRICS: Total DLP (mGy-cm): 1108.48 FINDINGS: Brain: No intracranial hemorrhage. No edema or mass effect. No significant deep white matter abnormality. Cerebral ventricles: Normal ventricles. Paranasal sinuses: The paranasal sinuses are clear. Mastoid air cells: The mastoid air cells are clear. Bones: No acute osseous abnormalities are seen. Soft tissues: The soft tissues are within normal limits. CT/CT head wo con* [id number] IMPRESSION: No acute intracranial pathology.
--- NOTE | 2024-04-19 21:03 | ED_ITS ---
HPI - Abdominal Pain 2 General: Chief Complaint: Abdominal Pain Stated Complaint: n/v/d severe weak and head hurts Time Seen by Provider: 04/19/24 20:48 Source: patient Mode of arrival: ambulatory Limitations: no limitations History of Present Illness: Patient is a 53-year-old female who presents to the emergency department complaining of nausea and vomiting onset 1 day. Patient states that around 2230 last night, she had 1 episode of vomiting that prompted an onset of multiple symptoms. She says that she has developed a severe headache that has caused her to feel dizzy and weak, commenting that it feels like she is going to fall every time she walks. She notes she is only vomited 3 times, yet she has felt nauseous the entire time since onset. She is also reporting some severe diffuse abdominal pain. She has never had any of the symptoms before in the past. Pertinent medical history includes COPD, she does not wear oxygen. She states that her shortness of breath might be a little worse than normal, but states she thinks it is from coughing. She comments that she thinks she got sick from someone at her place of residence, stating that there have been multiple sick contacts there. Patient is denying any fever, chills, changes in bowel or bladder, or any other symptoms at this time. MD elicited complaint: abdominal pain Pertinent past history: none Onset (ago): day(s) Pain Consistency: constant Location: Diffuse Severity: severe Pain scale (0-10): 10 Quality: cramping Associated Symptoms: Reports nausea and vomiting; Denies bloating, change in stool character, chills, constipation, diarrhea, dysuria, fever(s) and hematochezia Review of Systems 2 General: Reports: 10 or more systems reviewed and unremarkable except in HPI and below Const: Reports: change in appetite and malaise; Denies: fever(s), chills, change in weight or diaphoresis ENMT: Denies: throat pain or hoarseness Card: Denies: chest pain, palpitations or lightheadedness Resp: Reports: dyspnea and non-productive cough; Denies: wheezing GI: Reports: abdominal pain, nausea and vomiting; Denies: diarrhea, constipation, bloating, change in stool character or hematochezia : Denies: flank pain, difficulty voiding, dysuria, urinary frequency or urinary urgency Musc: Denies: neck pain or back pain Skin/Breast: Denies: rash or new lesions Neuro: Reports: headache(s), weakness in extremities and dizziness PFSH ED 2 PFSH: Medical History Nicotine dependence, cigarettes, uncomplicated Psychiatric care Pelvic pain Borderline intellectual functioning Post-traumatic stress disorder, chronic Surgical History S/P appendectomy S/P cholecystectomy H/O tubal ligation Family History Mother Diabetes Hypertension Stroke Uterine cancer, Onset Age: 46 Grandmother Diabetes maternal Family/Other Hyperlipidemia paternal uncle Heart disease paternal uncle Sister Hypertension Heart disease Brother Stomach cancer Denies family history of Colon cancer Ovarian cancer Clotting disorder Breast cancer Anesthesia complication Bleeding disorder Thyroid disease Social History Smoking and tobacco/nicotine status: never used tobacco/nicotine Physical Exam 2 Const: COMMON NORMALS: no acute distress, average body habitus, patient oriented x3, no limitations, healthy appearing, alert and well nourished G ENERAL APPEARANCE: cooperative and comfortable ORIENTATION/CONSCIOUSNESS: Yes awake HENMT: COMMON NORMALS: normocephalic, atraumatic, hearing grossly normal bilaterally, external ears normal, Normal external nose present, Normal nasal mucous membranes and turbinates present and moist oral mucous membranes HEAD & SCALP: normocephalic and atraumatic NOSE: Normal external nose present and Normal nasal mucous membranes and turbinates present EXTERNAL EAR: Yes external ears normal Eye: COMMON NORMALS: Equal, round and reactive pupils present, EOMs intact bilaterally, conjunctivae normal and normal visual silver by confrontation C ONJUNCTIVA: Yes conjunctivae normal PUPIL: Yes Equal, round and reactive pupils present Neck/C-Spine: COMMON NORMALS: full ROM, supple, no meningeal signs and no JVD Resp: COMMON NORMALS: normal respiratory effort, No retractions and No use of accessory muscles EFFORT & INSPECTION: Yes audible wheezes AUSCULTATION: n o crackles, no rales, no rhonchi and wheezes scattered wheezes and throughout Cardio: COMMON NORMALS: no JVD, regular rate, regular rhythm, S1 normal heart sound present, S2 normal heart sound present, No gallops present (Cardio), No clicks present (Cardio), No murmurs present (Cardio), No rub (Cardio) and Peripheral pulses 2+ throughout RATE: regular rate RHYTHM: regular rhythm HEART SOUNDS: S1 normal heart sound present and S2 normal heart sound present PERIPHERAL PULSES: Peripheral pulses 2+ throughout GI: COMMON NORMALS: Normal to inspection, nondistended, normoactive bowel sounds present, Soft to palpation, No hepatosplenomegaly present and no masses AUSCULTATION: Yes normoactive bowel sounds PALPATION: Yes Soft to palpation, Yes Tenderness to palpation present (GI) (Mild to moderate diffuse tenderness to palpation), No Guarding due to palpation present (GI), No Rigid due to palpation and Yes No hepatosplenomegaly present RECTAL EXAM: deferred : COMMON NORMALS: Yes no CVA tenderness BLADDER/KIDNEY EXAM: Yes no CVA tenderness Back/Pelvis: COMMON NORMALS: no CVA tenderness Extremity: COMMON NORMALS: normal to inspection and full ROM Neuro: COMMON NORMALS: patient oriented x3, moves all extremities, no focal motor deficits and no sensory deficits noted SENSORIUM/ORIENTATION: Yes alert MENINGEAL SIGNS: Yes no meningeal signs Psych: COMMON NORMALS: mental status grossly normal, cooperative and speech normal SPEECH: Yes normal speech Skin: COMMON NORMALS: no rashes or lesions noted GENERAL SKIN EXAM: no rashes or lesions noted Course 2 Vital Signs: Vital signs: Vital Signs Temperature 97.8 F 04/19/24 20:45 Pulse Rate 86 04/19/24 22:30 Respiratory Rate 16 04/19/24 22:30 Blood Pressure 151/101 04/19/24 22:30 Pulse Oximetry 96 04/19/24 22:30 Oxygen Delivery Me thod Room Air 04/19/24 22:30 MDM - Abdominal Pain Medical Decision Making Patient came to the emergency department today for evaluation after nausea and vomiting beginning yesterday. She had arrived stating she was having severe diffuse abdominal pain as well as a severe headache that started suddenly. Also was reporting some dizziness, off balance, and severe weakness. On arrival her vitals were overall unremarkable as she was afebrile. She reports history of COPD though is satting 98% on room air and has been stable throughout the ED course. Her initial lab work overall was unremarkable, and her urinalysis did not reveal any infection. Chest x-ray ordered to evaluate status of her reactive airway disease, however this was also unremarkable. Due to her reports of the headache and associated severe nausea and vomiting, I did order a head CT that was normal. Finally an abdomen pelvis CT was obtained to evaluate for any abdominal visceral etiologies, and this did not demonstrate any acute findings. And patient's history, she had reported that there were other sick contacts around her who had similar symptoms, and at this time there is a respiratory panel pending. I do believe her symptoms are likely viral, potentially a gastroenteritis. Upon recheck prior to discharge, she states she does feel quite a bit better after receiving IV fluids and antiemetics. I instructed her to increase her fluid intake at home and will send prescription for Zofran for her to take. I told her that her respiratory panel is pending at this time and I will follow this, and she is to follow-up with her primary care for any further evaluation and return to the emergency department if she has any new or concerning symptoms. Lab Data 04/19/24 21:22 04/19/24 21:22 Labs/Radiology: Radiology Impressions Chest X-Ray 04/19/24 21:02 IMPRESSION: No acute cardiopulmonary disease. Head CT 04/19/24 21:02 IMPRESSION: No acute intracranial pathology. Abdomen/Pelvis CT 04/19/24 21:07 IMPRESSION: 1. Questionable thickened segments of small bowel in the left upper quadrant. Possibly physiologic though enteritis could have this appearance. 2. Questionable thickening of the descending colon appears to be related underdistention. 3. No definitive evidence of acute intra-abdominal or pelvic process. Laboratory Results WBC 7.52 10^3/uL (3.29-11.43) 04/19/24 21: RBC 4.69 10^6/uL (3.85-5.65) 04/19/24 21: Hgb 13.00 g/dL (11.27-16.99) 04/19/24: Hct 42.1 % (36-47) 04/19/24 21: MCV 89.8 fl (85-98) 04/19/24 21: MCH 27.7 pg (27-33) 04/19/24: MCHC 30.9 g/dL (30-55) 04/19/24 21:22 RDW 16.0 % (12.1-15.1) H 04/19/24 21:22 Plt Count 395 10^3/cmm (157-399) 04/19/24 21:22 MPV 10.8 fL (7.4-10.4) H 04/19/24 21:22 Neut % (Auto) 45.7 % 04/19/24 21:22 Lymph % (Auto) 37.0 % 04/19/24 21:22 Dundy % (Auto) 12.2 % 04/19/24 21:22 Eos % (Auto) 3.9 % 04/19/24 21:22 Baso % (Auto) 0.9 % 04/19/24 21:22 Neut # (Auto) 3.44 10^3/uL (1.8-7.7) 04/19/24 21:22 Lymph # (Auto) 2.8 10^3/uL (0.8-4.8) 04/19/24 21:22 Dundy # (Auto) 0.9 10^3/uL (0.2-0.9) 04/19/24 21:22 Eos # (Auto) 0.3 10^3/uL (0.0-0.8) 04/19/24 21:22 Baso # (Auto) 0.1 10^3/uL (0.0-0.1) 04/19/24 21:22 Nucleated RBC % (auto) 0 % 04/19/24 21:22 Nucleated RBCs # 0.0 /100WBC 04/19/24 21:22 Sodium 143 mmol/L (136-145) 04/19/24 21:22 Potassium 3.4 mmol/L (3.5-5.1) L 04/19/24 21:22 Chloride 107 mmol/L (98-107) 04/19/24 21:22 Carbon Dioxide 23 mmol/L (22-29) 04/19/24 21:22 Anion Gap 16.4 (5-19) 04/19/24 21:22 BUN 13 mg/dL (6-20) 04/19/24 21:22 Creatinine 0.8 mg/dL (0.5-0.9) 04/19/24 21:22 GFR Calculation 75.0 mL/min (90-130) L 04/19/24 21:22 Glucose 93 mg/dL (65-115) 04/19/24 21:22 Calculated Osmolality 296 mOsm/kg (285-295) H 04/19/24 21:22 Calcium 9.6 mg/dL (8.5-10.5) 04/19/24 21:22 Total Bilirubin 0.2 mg/dL (0.15-1.2) 04/19/24 21:22 AST 14 U/L (0-32) 04/19/24 21:22 ALT < 5 U/L (0-33) 04/19/24 21:22 Alkaline Phosphatase 104 U/L (35-105) 04/19/24 21:22 Total Protein 7.1 g/dL (6.6-8.7) 04/19/24 21:22 Albumin 3.8 g/dL (3.5-5.2) 04/19/24 21:22 Globulin 3.3 g/dL (1.3-4.6) 04/19/24 21:22 Lipase 32 U/L (13-60) 04/19/24 21:22 Urine Color Yellow (Yellow) 04/19/24 21:10 Urine Appearance Clear (CLEAR) 04/19/24 21:10 Urine pH 7 (5-7) 04/19/24 21:10 Ur Specific [place] 1.010 (1.005-1.030) 04/19/24 21:10 Urine Protein Trace (Negative) 04/19/24 21:10 Urine Glucose (UA) Norm (Normal) 04/19/24 21:10 Urine Ketones Negative (Negative) 04/19/24 21:10 Urine Blood Neg (Negative) 04/19/24 21:10 Urine Nitrate Negative (Negative) 04/19/24 21:10 Urine Bilirubin Neg (Negative) 04/19/24 21:10 Urine Urobilinogen 1 mg/dL (Negative) H 04/19/24 21:10 Ur Leukocyte Esterase Negative (Negative) 04/19/24 21:10 Urine RBC 0-4 /hpf (0-2) H 04/19/24 21:10 Urine WBC 0-4 /hpf (0-5) H 04/19/24 21:10 Ur Squamous Epith Cells 5-10 /hpf (0-5) H 04/19/24 21:10 Amorphous Sediment Trace /hpf 04/19/24 21:10 Urine Bacteria 1+ /hpf (NONE) H 04/19/24 21:10 Urine Mucus 2+ /hpf 04/19/24 21:10 All radiology interpretation(s) finalized by discharge Discharge Plan Discharge Patient Disposition: Home Clinical Impression: Viral gastroenteritis Condition: Stable Prescriptions: New ondansetron HCl 4 mg tablet 4 mg PO Q8H Qty: 30 0RF No Action topiramate [Topamax] 100 mg tablet 100 mg PO DAILY Qty: 30 2RF Spiriva with HandiHaler 18 mcg capsule, w/inhalation device 1 cap inhalation DAILY Rx Instructions: puncture 1 cap using device; one dose = 2 inhalations fluticasone propionate 50 mcg/actuation spray,suspension 1 spray intranasal DAILY Rx Instructions: administer into each nostril rosuvastatin [Crestor] 20 mg tablet 20 mg PO DAILY amlodipine 5 mg tablet 5 mg PO BID cyanocobalamin (vitamin B-12) 1,000 mcg capsule 1 mcg PO DAILY bismuth subsalicylate [Pepto-Bismol] 262 mg/15 mL suspension 524 mg PO Q30M PRN Rx Instructions: do not exceed 8 doses in a 24 hour period magnesium hydroxide [Milk of Magnesia] 400 mg/5 mL suspension 30 ml PO Q24H PRN diphenhydramine HCl [Benadryl] 25 mg capsule 25 mg PO BID PRN tizanidine 4 mg capsule 4 mg PO Q8H PRN metoprolol tartrate 75 mg tablet 75 mg PO BID gabapentin 400 mg capsule 400 mg PO BID atenolol 50 mg tablet 50 mg PO DAILY Symbicort 160-4.5 mcg/actuation HFA aerosol inhaler 2 puff INHALATION BID pantoprazole 40 mg tablet,delayed release (DR/EC) 40 mg PO QAM metformin 500 mg tablet 500 mg PO DAILY Rx Instructions: with supper cyclobenzaprine 10 mg tablet 10 mg PO TID PRN (Reason: Pain) mecobalamin (vitamin B12) 10,000 mcg recon soln IM .monthly cholecalciferol (vitamin D3) [Vitamin D3] 50 mcg (2,000 unit) capsule See Rx Instructions .ROUTE .COMPLEX Qty: 90 2RF Dose Instruction: TAKE ONE CAPSULE BY MOUTH EVERY DAY Rx Instructions: TAKE ONE CAPSULE BY MOUTH EVERY DAY Premarin 0.45 mg tablet See Rx Instructions .ROUTE .COMPLEX Qty: 90 2RF Dose Instruction: TAKE ONE TABLET BY MOUTH EVERY DAY FOR menopause Rx Instructions: TAKE ONE TABLET BY MOUTH EVERY DAY FOR menopause valacyclovir 500 mg tablet See Rx Instructions .ROUTE .COMPLEX Qty: 60 2RF Dose Instruction: TAKE ONE TABLET BY MOUTH TWICE DAILY Rx Instructions: TAKE ONE TABLET BY MOUTH TWICE DAILY venlafaxine 150 mg capsule,extended release 24hr See Rx Instructions .ROUTE .COMPLEX Qty: 30 2RF Dose Instruction: TAKE ONE CAPSULE BY MOUTH EVERY MORNING Rx Instructions: TAKE ONE CAPSULE BY MOUTH EVERY MORNING polyethylene glycol 3350 [Miralax] 17 gram/dose powder 17 gm PO DAILY PRN (Reason: constipation) Qty: 119 0RF ondansetron 4 mg tablet,disintegrating 4 mg PO Q6H PRN (Reason: nausea and vomiting) Qty: 14 0RF naproxen [Naprosyn] 500 mg tablet 500 mg PO BID PRN (Reason: pain) Qty: 12 0RF ibuprofen 800 mg tablet 800 mg PO TID PRN (Reason: pain) Qty: 60 0RF Colace 100 mg capsule 100 mg PO BID Qty: 30 0RF acetaminophen 325 mg capsule 325 mg PO Q4H PRN (Reason: fever or pain) Qty: 60 0RF lactulose 20 gram/30 mL solution 30 g PO DAILY PRN (Reason: constipation) Qty: 1200 0RF Rx Instructions: for constipation not relieved by miralax Fleet Bisacodyl 10 mg/30 mL enema 10 mg SC DAILY PRN (Reason: constipation) Qty: 37 3RF Robitussin ER 30 mg/5 mL suspension,extended rel 12 hr 10 ml PO Q12H Qty: 120 0RF ProAir HFA 90 mcg/actuation HFA aerosol inhaler 2 puff inhalation Q2H PRN (Reason: shortness of breath or wheezing) Qty: 8.5 1RF ketorolac 10 mg tablet 10 mg PO TID PRN (Reason: pain) Qty: 10 0RF Discharge Orders: Discharge ED (Routine); Ordered 04/19/24 Ordered By: Jase Fish Referrals: Eric Mandel MD [Primary Care Provider] - Discharge Diet: As Directed Discharge Activity: Increase activity as tolerated Patient Instructions: Gastroenteritis (ED), Acute Nausea and Vomiting (ED) Activity Restrictions/Additional Instructions: Increase your fluid intake as discussed. Take Zofran for nausea. Tylenol or ibuprofen for any pain or fevers. Respiratory panel pending at this time. Follow-up with your primary care provider as needed. Return if you develop any new or concerning symptoms. Coding Level of Care Code ED Poultry Hatchery Supervisor for Stephen Taylor
--- NOTE | 2024-04-19 21:07 | CTR_ITS ---
PROCEDURE INFORMATION: Exam: CT Abdomen And Pelvis With Contrast Exam date and time: 04/19/2024 10:01 PM Age: 53 years old Clinical indication: Nausea and vomiting; Abdominal pain; Generalized; Prior surgery; Surgery date: 6+ months; Surgery type: Gb. Appy. Tubal. Patient HX: Diffuse abd pain with n/v/d. ; Additional info: severe abd pain TECHNIQUE: Imaging protocol: Computed tomography of the abdomen and pelvis with contrast. Radiation optimization: All CT scans at this facility use at least one of these dose optimization techniques: automated exposure control; mA and/or kV adjustment per patient size (includes targeted exams where dose is matched to clinical indication); or iterative reconstruction. Contrast material: OMNI 350; Contrast volume: 100 ml; Contrast route: INTRAVENOUS (IV); COMPARISON: CT abdomen pelvis w con* [id number] 04/12/2023 2:51 AM RADIATION DOSE METRICS: Total DLP (mGy-cm): 891 FINDINGS: Lungs: The lung bases are clear. Heart: Heart size is within normal limits. There is no pericardial effusion or pericardial thickening. Diaphragm: Small hiatal hernia. Liver: The liver is normal. No hepatic masses are identified. Gallbladder and bile ducts: The gallbladder is surgically absent. There is no ductal dilatation. Pancreas: The pancreas is normal. Spleen: The spleen is normal. Adrenal glands: The adrenal glands are normal. Kidneys and ureters: There is normal enhancement of the kidneys. No renal calcifications are identified. There is no hydronephrosis. Stomach and bowel: Mild colonic diverticulosis without diverticulitis. Questionable thickened segments of small bowel in the left upper quadrant. No evidence of large or small bowel obstruction. Questionable thickening of the descending colon appears to be related underdistention. Appendix: Postoperative changes in the expected location of the appendix. Intraperitoneal space: No inflammatory changes are identified. There is no free fluid or fluid collection seen. There is no pneumoperitoneum. Vasculature: Atherosclerotic calcifications of the aorta are present. No aneurysm is identified. Lymph nodes: No enlarged lymph nodes are identified. Urinary bladder: The bladder is unremarkable. Reproductive: The uterus is absent. Bones/joints: No acute osseous abnormalities are seen. Soft tissues: The soft tissues are within normal limits. CT/CT abdomen pelvis w con* [id number] IMPRESSION: 1. Questionable thickened segments of small bowel in the left upper quadrant. Possibly physiologic though enteritis could have this appearance. 2. Questionable thickening of the descending colon appears to be related underdistention. 3. No definitive evidence of acute intra-abdominal or pelvic process.
[2024-04-19 21:20] VITALS: BP 153/93; PULSE 82; RESP 17; O2SAT 97
[2024-04-19] MEDS: sodium chloride 0.9% 1,000 ML 999 ML IV (21:20)
[2024-04-19] MEDS: metoclopramide 5 mg/mL SDV 2 mL 10 MG IVP (21:21)
[2024-04-19 21:30] VITALS: BP 144/88; PULSE 70; RESP 16; O2SAT 98
[2024-04-19 21:50] LABS: Basophils # 0.1 10^3/uL (0.0-0.1); Basophils % 0.9 %; Eosinophils # 0.3 10^3/uL (0.0-0.8); Eosinophils % 3.9 %; Hematocrit 42.1 % (36-47); Lymphocytes # 2.8 10^3/uL (0.8-4.8); Mean Corpuscular HGB Conc 30.9 g/dL (30-55); Mean Corpuscular Hemoglobin 27.7 pg (27-33); Mean Corpuscular Volume 89.8 fl (85-98); Mean Platelet Volume 10.8 fL (7.4-10.4); Monocytes # 0.9 10^3/uL (0.2-0.9); Monocytes % 12.2 %; Neutrophils # 3.44 10^3/uL (1.8-7.7); Neutrophils % 45.7 %; Nucleated Red Blood Cells % 0 %; Platelet Count 395 10^3/cmm (157-399); Red Blood Count 4.69 10^6/uL (3.85-5.65); White Blood Count 7.52 10^3/uL (3.29-11.43)
[2024-04-19] MEDS: ketorolac 30 mg/mL INJ IVP (21:53)
[2024-04-19] MEDS: iohexol 350 mg/mL 500 mL Btl (per mL) IV (22:00)
[2024-04-19 22:08] LABS: Alanine Aminotransferase < 5 U/L (0-33); Albumin Level 3.8 g/dL (3.5-5.2); Alkaline Phosphatase 104 U/L (35-105); Anion Gap 16.4 (5-19); Aspartate Amino Transferase 14 U/L (0-32); Blood Urea Nitrogen 13 mg/dL (6-20); Calcium 9.6 mg/dL (8.5-10.5); Carbon Dioxide 23 mmol/L (22-29); Chloride 107 mmol/L (98-107); Creatinine Clr Calc Pharmacy 89.3804; Globulin 3.3 g/dL (1.3-4.6); Glucose 93 mg/dL (65-115); Lipase 32 U/L (13-60); Osmolality Calculated 296 mOsm/kg (285-295); Potassium 3.4 mmol/L (3.5-5.1); Sodium 143 mmol/L (136-145); Total Bilirubin 0.2 mg/dL (0.15-1.2); Total Protein 7.1 g/dL (6.6-8.7)
[2024-04-19 22:10] LABS: Add Urine Microscopic? YES; Bacteria Urine 1+ /hpf; Bilirubin Urine Neg (Negative); Blood Urine Neg (Negative); Glucose Urine UA Norm (Normal); Ketones Urine Negative (Negative); Leukocyte Esterase Urine Negative (Negative); Mucus Urine 2+ /hpf; Nitrate Urine Negative (Negative); Protein Urine Trace (Negative); RBC Urine 0-4 /hpf (0-2); Urine Appearance Clear (CLEAR); Urine Color Yellow (Yellow); Urobilinogen Urine 1 mg/dL (Negative); WBC Urine 0-4 /hpf (0-5); pH Urine 7 (5-7)
[2024-04-19 22:11] LABS: Amorphous Sediment Urine TRACE /hpf
[2024-04-19 22:30] VITALS: BP 151/101; PULSE 86; RESP 16; O2SAT 96
[2024-04-19 23:30] VITALS: BP 137/94; PULSE 67; RESP 16; O2SAT 96
[2024-04-19 23:58] LABS: Adenovirus Not Detected (NOT DETECT); Chlamydia Pneumoniae Not Detected (NOT DETECT); Coronavirus 229E,HKU1,NL63,OC4 Not Detected (NOT DETECT); Human Metapneumovirus Not Detected (NOT DETECT); Human Rhinovirus/Enterovirus Not Detected (NOT DETECT); Influenza A Not Detected (NOT DETECT); Influenza A H1 Not Detected (NOT DETECT); Influenza A H1-2009 Not Detected (NOT DETECT); Influenza A H3 Not Detected (NOT DETECT); Influenza B Not Detected (NOT DETECT); Mycoplasma Pneumoniae Not Detected (NOT DETECT); Parainfluenza Virus Type 1 Not Detected (NOT DETECT); Parainfluenza Virus Type 2 Not Detected (NOT DETECT); Parainfluenza Virus Type 3 Not Detected (NOT DETECT); Parainfluenza Virus Type 4 Not Detected (NOT DETECT); Respiratory Syncytial Virus A Not Detected (NOT DETECT); Respiratory Syncytial Virus B Not Detected (NOT DETECT); SARS-COV-2 Not Detected (NOT DETECT)
[2024-04-20] VITALS: BP 147/82; PULSE 67; RESP 16; O2SAT 98
== END 2024-04-20 00:07 | disposition home or self-care (01) ==
PROVIDERS: Emergency Provider Physician Assistant; PCP Family Medicine
DX: A08.4 Viral intestinal infection, unspecified (principal); Z79.84 Long term (current) use of oral hypoglycemic drugs
CPT/HCPCS: 70450; 71045; 74177; 80053; 81001; 83690; 85025; 87486; 87581; 87633; 96374; 96375; 99285; J1885; J2765; J7030; Q9967

== ENCOUNTER → 2024-07-17 11:21 | Outpatient (BNVA) | payer MEDICARE, SELFPAY | PROVIDERS: PCP Family Medicine; Visit Provider Internal Medicine | DX: E21.3 Hyperparathyroidism, unspecified (principal); M85.80 Other specified disorders of bone density and structure, unspecified site; E55.9 Vitamin D deficiency, unspecified; Z79.84 Long term (current) use of oral hypoglycemic drugs | CPT/HCPCS: 99214 ==

== ENCOUNTER 2024-08-10 00:36 | Emergency (ER) | payer MEDICARE, MEDICAID, SELFPAY ==
[2024-08-10 00:48] VITALS: BP 152/76; PULSE 67; RESP 12; TEMP 36.4; O2SAT 100; BMI 29.0
[2024-08-10 01:03] VITALS: BP 100/70; PULSE 57; O2SAT 100
--- NOTE | 2024-08-10 01:21 | XRR_ITS ---
PROCEDURE INFORMATION: Exam: XR Chest Exam date and time: 08/10/2024 1:41 AM Age: 53 years old Clinical indication: Pain; Chest pressure; Additional info: Cp TECHNIQUE: Imaging protocol: Radiologic exam of the chest. Views: 1 view. COMPARISON: CR XR chest 1V portable [id number] 04/19/2024 9:50 PM FINDINGS: Lungs: Unremarkable. No consolidation. Pleural spaces: Unremarkable. No pleural effusion. No pneumothorax. Heart/Mediastinum: Unremarkable. No cardiomegaly. Bones/joints: Unremarkable. XR/XR chest 1V portable [id number] IMPRESSION: No acute findings.
--- NOTE | 2024-08-10 01:21 | ECG_ITS ---
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 Measurements Intervals [place] Rate: 56 P: 47 MS: 202 QRS: -8 QRSD: 97 T: 28 QT: 443 QTc: 431 Interpretive Statements SINUS BRADYCARDIA VOLTAGE CRITERIA FOR LVH [MEETS CRITERIA IN ONE OF: R(aVL), S(V1), R(V5), R(V5/V6)+S(V1)] Compared to ECG 04/12/2023 02:36:02 Left ventricular hypertrophy now present Electronically Signed On 08-11-2024 18:49:21 CDT by Cy Devlin M.D. [id number]
[2024-08-10 01:28] LABS: Basophils # 0.1 10^3/uL (0.0-0.1); Basophils % 0.7 %; Eosinophils # 0.2 10^3/uL (0.0-0.8); Eosinophils % 2.4 %; Hematocrit 35.6 % (36-47); Lymphocytes # 2.5 10^3/uL (0.8-4.8); Mean Corpuscular HGB Conc 31.5 g/dL (30-55); Mean Corpuscular Hemoglobin 27.7 pg (27-33); Mean Corpuscular Volume 88.1 fl (85-98); Mean Platelet Volume 11.2 fL (7.4-10.4); Monocytes # 0.9 10^3/uL (0.2-0.9); Monocytes % 9.5 %; Neutrophils # 5.49 10^3/uL (1.8-7.7); Neutrophils % 60.3 %; Nucleated Red Blood Cells % 0 %; Platelet Count 326 10^3/cmm (157-399); Red Blood Count 4.04 10^6/uL (3.85-5.65); Red Cell Distribution Width 16.5 % (12.1-15.1); White Blood Count 9.09 10^3/uL (3.29-11.43)
[2024-08-10] MEDS: LORazepam 2 mg/mL INJ 1 mL 1 MG IVP (01:38)
[2024-08-10 01:46] LABS: INR 0.99 (0.8-1.2); Partial Thromboplastin Time 24.5 SECONDS (23.9-36.7)
[2024-08-10 01:52] LABS: Troponin(5th) Baseline < 6 ng/L (0-10)
[2024-08-10 01:59] LABS: Alanine Aminotransferase 8 U/L (0-33); Alkaline Phosphatase 105 U/L (35-105); Anion Gap 13.4 (5-19); Aspartate Amino Transferase 16 U/L (0-32); Blood Urea Nitrogen 10 mg/dL (6-20); Calcium 10.1 mg/dL (8.5-10.5); Carbon Dioxide 21 mmol/L (22-29); Chloride 103 mmol/L (98-107); Creatinine Clr Calc Pharmacy 90.5451; Globulin 2.6 g/dL (1.3-4.6); Glucose 130 mg/dL (65-115); NT Pro B Type Natriuretic Pept 179 pg/mL (0-125); Osmolality Calculated 279 mOsm/kg (285-295); Potassium 3.4 mmol/L (3.5-5.1); Sodium 134 mmol/L (136-145); Total Bilirubin 0.2 mg/dL (0.15-1.2); Total Protein 6.6 g/dL (6.6-8.7)
[2024-08-10 02:10] LABS: Alcohol Level < 10 mg/dL (0-10)
[2024-08-10 03:00] LABS: Troponin 5 2HR Delta 0.00001 ABS# (0-10)
[2024-08-10 03:03] VITALS: BP 144/84; O2SAT 97
[2024-08-10 03:16] LABS: Amphetamines Screen Urine Negative (Negative); Barbiturates Screen Urine Negative (Negative); Benzodiazepines Screen Urine Negative (Negative); Cocaine Screen Urine Negative (Negative); Opiate Screen Urine Negative (Negative); PCP Screen Urine Negative (Negative); THC Screen Urine Positive (Negative)
--- NOTE | 2024-08-10 03:21 | ECG_ITS ---
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 Measurements Intervals [place] Rate: 60 P: 49 CA: 191 QRS: -7 QRSD: 89 T: 38 QT: 446 QTc: 447 Interpretive Statements SINUS RHYTHM MODERATE VOLTAGE CRITERIA FOR LVH, CONSIDER NORMAL VARIANT [MEETS CRITERIA IN ONE OF: R(aVL), S(V1), R(V5), R(V5/V6)+S(V1)] Compared to ECG 08/10/2024 01:09:51 Sinus bradycardia no longer present Electronically Signed On 08-11-2024 18:58:09 CDT by Cy Devlin M.D. [email or web address]
[2024-08-10] MEDS: ondansetron 2 mg/ML SDV 2 mL 4 MG IVP (04:02)
[2024-08-10 04:05] VITALS: RESP 14
[2024-08-10] MEDS: morphine 4 mg/mL SDV 1 mL IVP (04:05)
[2024-08-10 04:35] VITALS: BP 155/99; PULSE 61; O2SAT 95
--- NOTE | 2024-08-10 04:46 | W.ED.CHESTPA ---
HPI - Chest Pain General: Chief Complaint: Headache Stated Complaint: THC EDIBLE Time Seen by Provider: 08/10/24 01:09 History of Present Illness: 53-year-old female presenting with multiple complaints after eating a THC edible for the first time. She complains of headache, chest pain, shortness of breath, back and neck pain, and anxiety. She took the medication for recreational use she says. She has not vomited. She does not have a history of heart disease. Related Data Home Medications Medication Instructions Recorded Confirmed atenolol 50 mg tablet 50 mg PO DAILY 11/13/19 07/02/24 budesonide-formoterol HFA 160 2 puff inhalation BID 11/13/19 07/02/24 mcg-4.5 mcg/actuation aerosol inhaler (Symbicort) gabapentin 400 mg capsule 400 mg PO BID 11/13/19 07/02/24 metformin 500 mg tablet 500 mg PO DAILY 11/13/19 07/02/24 pantoprazole 40 mg tablet,delayed 40 mg PO QAM 11/13/19 07/02/24 release cyclobenzaprine 10 mg tablet 10 mg PO TID PRN Pain 05/17/21 07/02/24 mecobalamin (vitamin B12) 10,000 mcg IM .monthly 08/01/21 07/02/24 mcg solution for injection amlodipine 5 mg tablet 5 mg PO BID 01/17/22 07/02/24 bismuth subsalicylate 262 mg/15 mL 524 mg PO Q30M PRN 01/17/22 07/02/24 oral suspension (Pepto-Bismol) cyanocobalamin (vitamin B-12) 1 mcg PO DAILY 01/17/22 07/02/24 1,000 mcg capsule diphenhydramine HCl 25 mg capsule 25 mg PO BID PRN 01/17/22 07/02/24 (Benadryl) fluticasone propionate 50 1 spray intranasal DAILY 01/17/22 07/02/24 mcg/actuation nasal spray,suspension magnesium hydroxide 400 mg/5 mL 30 ml PO Q24H PRN 01/17/22 07/02/24 oral suspension (Milk of Magnesia) metoprolol tartrate 75 mg tablet 75 mg PO BID 01/17/22 07/02/24 rosuvastatin 20 mg tablet (Crestor) 20 mg PO DAILY 01/17/22 07/02/24 tiotropium bromide 18 mcg capsule 1 cap inhalation DAILY 01/17/22 07/02/24 with inhalation device (Spiriva with HandiHaler) tizanidine 4 mg capsule 4 mg PO Q8H PRN 01/17/22 07/02/24 Previous Rx's Medication Instructions Recorded polyethylene glycol 3350 17 17 gm PO DAILY PRN constipation 05/21/20 gram/dose oral powder (Miralax) #119 grams topiramate 100 mg tablet (Topamax) 100 mg PO DAILY #30 tabs 06/10/20 ondansetron 4 mg disintegrating 4 mg PO Q6H PRN nausea and 04/12/21 tablet vomiting #14 tabs naproxen 500 mg tablet (Naprosyn) 500 mg PO BID PRN pain #12 tabs 04/26/21 acetaminophen 325 mg capsule 325 mg PO Q4H PRN fever or pain 08/04/21 #60 caps docusate sodium 100 mg capsule 100 mg PO BID #30 caps 08/04/21 (Colace) ibuprofen 800 mg tablet 800 mg PO TID PRN pain #60 tabs 08/04/21 albuterol sulfate 90 mcg/actuation 2 puff inhalation Q2H PRN 12/24/22 aerosol inhaler (ProAir HFA) shortness of breath or wheezing #8.5 grams dextromethorphan polistirex 30 10 ml PO Q12H #120 mL 12/24/22 mg/5 mL oral susp ext.release 12hr (Robitussin ER) bisacodyl 10 mg/30 mL enema (Fleet 10 mg (30 mL) [place] DAILY PRN 04/12/23 Bisacodyl) constipation #37 mL lactulose 20 gram/30 mL oral 30 g (45 mL) PO DAILY PRN 04/12/23 solution constipation #1,200 mL ketorolac 10 mg tablet 10 mg PO TID PRN pain #10 tabs 07/01/23 ondansetron HCl 4 mg tablet 4 mg PO Q8H #30 tabs 04/19/24 conjugated estrogens 0.45 mg See Rx Instructions .Route 05/26/24 tablet (Premarin) .COMPLEX #90 tabs valacyclovir 500 mg tablet See Rx Instructions .Route 05/26/24 .COMPLEX #60 tabs venlafaxine 150 mg See Rx Instructions .Route 06/25/24 capsule,extended release 24 hr .COMPLEX #30 caps cholecalciferol (vitamin D3) 50 See Rx Instructions .Route 08/07/24 mcg (2,000 unit) capsule .COMPLEX #90 caps Allergies Allergy/AdvReac Type Severity Reaction Status Date / Time lisinopril Allergy Intermediate swelling, Verified 08/10/24 01:03 rash Sulfa (Sulfonamide Allergy Intermediate rash Verified 08/10/24 01:03 Antibiotics) Penicillins Allergy Unknown rash, fever Verified 08/10/24 01:03 varenicline [From Chantix] Allergy Unknown vomiting,states Verified 08/10/24 01:03 it almost killed her hepatitis A virus vaccine Allergy ALGY-Swell Verified 08/10/24 01:03 Lip/Tongue/Throat PFS ED PFSH: Medical History Nicotine dependence, cigarettes, uncomplicated Psychiatric care Pelvic pain Borderline intellectual functioning Post-traumatic stress disorder, chronic Surgical History S/P appendectomy S/P cholecystectomy H/O tubal ligation Family History Mother Diabetes Hypertension Stroke Uterine cancer, Onset Age: 46 Grandmother Diabetes maternal Family/Other Hyperlipidemia paternal uncle Heart disease paternal uncle Sister Hypertension Heart disease Brother Stomach cancer Denies family history of Colon cancer Ovarian cancer Clotting disorder Breast cancer Anesthesia complication Bleeding disorder Thyroid disease Social History Smoking and tobacco/nicotine status: never used tobacco/nicotine Physical Exam Const: COMMON NORMALS: alert GENERAL APPEARANCE: cooperative and anxious; not ill appearing and not frail appearing HENMT: COMMON NORMALS: normocephalic, atraumatic and Normal external nose present HEAD & SCALP: normocephalic and atraumatic FACE & SINUS: normal facial exam and face symmetric NOSE: Normal external nose present Eye: COMMON NORMALS: Equal, round and reactive pupils present and EOMs intact bilaterally PUPIL: Yes Equal, round and reactive pupils present Resp: COMMON NORMALS: No use of accessory muscles and clear to auscultation bilaterally EFFORT & INSPECTION: Yes tachypneic AUSCULTATION: clear to auscultation bilaterally, no rhonchi and no wheezes Cardio: COMMON NORMALS: regular rate and regular rhythm RATE: regular rate RHYTHM: regular rhythm GI: COMMON NORMALS: Normal to inspection, nondistended, normoactive bowel sounds present Neuro: ERIK COMA SCALE: document GCS findings Erik coma scale eye opening: Spontaneous [place] coma scale verbal response: Confused Erik coma scale motor response: Obey commands [place] coma scale total score: 14 SENSORIUM/ORIENTATION: Yes alert Course Vital Signs: Vital signs: Vital Signs Temperature 97.5 F L 08/10/24 00:48 Pulse Rate 61 08/10/24 04:35 Respiratory Rate 14 08/10/24 04:05 Blood Pressure 155/99 08/10/24 04:35 Pulse Oximetry 95 08/10/24 04:35 MDM - Chest Pain Medical Decision Making This patient had multiple complaints following consumption of a THC edible. These are mostly resolved at this point. She was given anxiety and pain medication here with improvement. She was also hydrated. EKG is without St. wave changes or other abnormalities. Chest X-ray is negative. Hemoglobin is 11.2. Potassium is 3.4. Laboratory is otherwise not significant. Troponin is non detectable. No other illicit substances in her system by UDS. With improvement in her symptoms, she will be allowed discharge. Lab Data 08/10/24 00:35 08/10/24 00:35 Radiology Impressions Chest X-Ray 08/10/24 01:21 IMPRESSION: No acute findings. Laboratory Results WBC 9.09 10^3/uL (3.29-11.43) 08/10/24 00:35 RBC 4.04 10^6/uL (3.85-5.65) 08/10/24 00:35 Hgb 11.20 g/dL (11.27-16.99) L 08/10/24 00:35 Hct 35.6 % (36-47) L 08/10/24 00:35 MCV 88.1 fl (85-98) 08/10/24 00:35 MCH 27.7 pg (27-33) 08/10/24 00:35 MCHC 31.5 g/dL (30-55) 08/10/24 00:35 RDW 16.5 % (12.1-15.1) H 08/10/24 00:35 Plt Count 326 10^3/cmm (157-399) 08/10/24 00:35 MPV 11.2 fL (7.4-10.4) H 08/10/24 00:35 Neut % (Auto) 60.3 % 08/10/24 00:35 Lymph % (Auto) 27.0 % 08/10/24 00:35 Frontier % (Auto) 9.5 % 08/10/24 00:35 Eos % (Auto) 2.4 % 08/10/24 00:35 Baso % (Auto) 0.7 % 08/10/24 00:35 Neut # (Auto) 5.49 10^3/uL (1.8-7.7) 08/10/24 00:35 Lymph # (Auto) 2.5 10^3/uL (0.8-4.8) 08/10/24 00:35 Frontier # (Auto) 0.9 10^3/uL (0.2-0.9) 08/10/24 00:35 Eos # (Auto) 0.2 10^3/uL (0.0-0.8) 08/10/24 00:35 Baso # (Auto) 0.1 10^3/uL (0.0-0.1) 08/10/24 00:35 Nucleated RBC % (auto) 0 % 08/10/24 00:35 Nucleated RBCs # 0.0 /100WBC 08/10/24 00:35 PT 13.30 SECONDS (12.1-14.9) 08/10/24 00:35 INR 0.99 (0.8-1.2) 08/10/24 00:35 APTT 24.5 SECONDS (23.9-36.7) 08/10/24 00:35 Sodium 134 mmol/L (136-145) L 08/10/24 00:35 Potassium 3.4 mmol/L (3.5-5.1) L 08/10/24 00:35 Chloride 103 mmol/L (98-107) 08/10/24 00:35 Carbon Dioxide 21 mmol/L (22-29) L 08/10/24 00:35 Anion Gap 13.4 (5-19) 08/10/24 00:35 BUN 10 mg/dL (6-20) 08/10/24 00:35 Creatinine 0.8 mg/dL (0.5-0.9) 08/10/24 00:35 GFR Calculation 75.0 mL/min (90-130) L 08/10/24 00:35 Glucose 130 mg/dL (65-115) H 08/10/24 00:35 Calculated Osmolality 279 mOsm/kg (285-295) L 08/10/24 00:35 Calcium 10.1 mg/dL (8.5-10.5) 08/10/24 00:35 Total Bilirubin 0.2 mg/dL (0.15-1.2) 08/10/24 00:35 AST 16 U/L (0-32) 08/10/24 00:35 ALT 8 U/L (0-33) 08/10/24 00:35 Alkaline Phosphatase 105 U/L (35-105) 08/10/24 00:35 Troponin T Baseline < 6 ng/L (0-10) 08/10/24 00:35 Troponin T 120 Minute 6.00 ng/L (0-10) 08/10/24 02:35 Delta Troponin T 0.69801 ABS# (0-10) 08/10/24 02:35 NT-Pro-B Natriuret Pep 179 pg/mL (0-125) H 08/10/24 00:35 Total Protein 6.6 g/dL (6.6-8.7) 08/10/24 00:35 Albumin 4.0 g/dL (3.5-5.2) 08/10/24 00:35 Globulin 2.6 g/dL (1.3-4.6) 08/10/24 00:35 Urine Opiates Screen Negative ng/mL (Negative) 08/10/24 02:45 Ur Barbiturates Screen Negative ng/mL (Negative) 08/10/24 02:45 Ur Phencyclidine Scrn Negative ng/mL (Negative) 08/10/24 02:45 Ur Amphetamines Screen Negative ng/mL (Negative) 08/10/24 02:45 U Benzodiazepines Scrn Negative ng/mL (Negative) 08/10/24 02:45 Urine Cocaine Screen Negative ng/mL (Negative) 08/10/24 02:45 U Marijuana (THC) Screen Positive ng/mL (Negative) H 08/10/24 02:45 Ethyl Alcohol < 10 mg/dL (0-10) 08/10/24 00:35 All radiology interpretation(s) finalized by discharge Discharge Plan Discharge Patient Disposition: Home Clinical Impression: Chest pain, Adverse drug reaction Condition: Stable Prescriptions: No Action topiramate [Topamax] 100 mg tablet 100 mg PO DAILY Qty: 30 2RF Spiriva with HandiHaler 18 mcg capsule, w/inhalation device 1 cap inhalation DAILY Rx Instructions: puncture 1 cap using device; one dose = 2 inhalations fluticasone propionate 50 mcg/actuation spray,suspension 1 spray intranasal DAILY Rx Instructions: administer into each nostril rosuvastatin [Crestor] 20 mg tablet 20 mg PO DAILY amlodipine 5 mg tablet 5 mg PO BID cyanocobalamin (vitamin B-12) 1,000 mcg capsule 1 mcg PO DAILY bismuth subsalicylate [Pepto-Bismol] 262 mg/15 mL suspension 524 mg PO Q30M PRN Rx Instructions: do not exceed 8 doses in a 24 hour period magnesium hydroxide [Milk of Magnesia] 400 mg/5 mL suspension 30 ml PO Q24H PRN diphenhydramine HCl [Benadryl] 25 mg capsule 25 mg PO BID PRN tizanidine 4 mg capsule 4 mg PO Q8H PRN metoprolol tartrate 75 mg tablet 75 mg PO BID gabapentin 400 mg capsule 400 mg PO BID atenolol 50 mg tablet 50 mg PO DAILY Symbicort 160-4.5 mcg/actuation HFA aerosol inhaler 2 puff INHALATION BID pantoprazole 40 mg tablet,delayed release (DR/EC) 40 mg PO QAM metformin 500 mg tablet 500 mg PO DAILY Rx Instructions: with supper cyclobenzaprine 10 mg tablet 10 mg PO TID PRN (Reason: Pain) mecobalamin (vitamin B12) 10,000 mcg recon soln IM .monthly Premarin 0.45 mg tablet See Rx Instructions .ROUTE .COMPLEX Qty: 90 2RF Dose Instruction: TAKE ONE TABLET BY MOUTH EVERY DAY FOR MENOPAUSE Rx Instructions: TAKE ONE TABLET BY MOUTH EVERY DAY FOR MENOPAUSE valacyclovir 500 mg tablet See Rx Instructions .ROUTE .COMPLEX Qty: 60 2RF Dose Instruction: TAKE ONE TABLET BY MOUTH TWICE DAILY Rx Instructions: TAKE ONE TABLET BY MOUTH TWICE DAILY venlafaxine 150 mg capsule,extended release 24hr See Rx Instructions .ROUTE .COMPLEX Qty: 30 2RF Dose Instruction: TAKE ONE CAPSULE BY MOUTH EVERY MORNING Rx Instructions: TAKE ONE CAPSULE BY MOUTH EVERY MORNING cholecalciferol (vitamin D3) 50 mcg (2,000 unit) capsule See Rx Instructions .ROUTE .COMPLEX Qty: 90 0RF Dose Instruction: TAKE ONE CAPSULE BY MOUTH EVERY DAY FOR VITAMIN DEFICIENCY Rx Instructions: TAKE ONE CAPSULE BY MOUTH EVERY DAY FOR VITAMIN DEFICIENCY polyethylene glycol 3350 [Miralax] 17 gram/dose powder 17 gm PO DAILY PRN (Reason: constipation) Qty: 119 0RF ondansetron 4 mg tablet,disintegrating 4 mg PO Q6H PRN (Reason: nausea and vomiting) Qty: 14 0RF naproxen [Naprosyn] 500 mg tablet 500 mg PO BID PRN (Reason: pain) Qty: 12 0RF ibuprofen 800 mg tablet 800 mg PO TID PRN (Reason: pain) Qty: 60 0RF Colace 100 mg capsule 100 mg PO BID Qty: 30 0RF acetaminophen 325 mg capsule 325 mg PO Q4H PRN (Reason: fever or pain) Qty: 60 0RF lactulose 20 gram/30 mL solution 30 g PO DAILY PRN (Reason: constipation) Qty: 1200 0RF Rx Instructions: for constipation not relieved by miralax Fleet Bisacodyl 10 mg/30 mL enema 10 mg [place] DAILY PRN (Reason: constipation) Qty: 37 3RF ondansetron HCl 4 mg tablet 4 mg PO Q8H Qty: 30 0RF Robitussin ER 30 mg/5 mL suspension,extended rel 12 hr 10 ml PO Q12H Qty: 120 0RF ProAir HFA 90 mcg/actuation HFA aerosol inhaler 2 puff inhalation Q2H PRN (Reason: shortness of breath or wheezing) Qty: 8.5 1RF ketorolac 10 mg tablet 10 mg PO TID PRN (Reason: pain) Qty: 10 0RF Discharge Orders: Discharge ED (Routine); Ordered 08/10/24 Ordered By: Michael Begum Referrals: Eric Mandel MD [Primary Care Provider] - Patient Instructions: Chest Pain (ED), Adverse Drug Reaction (ED), Opioid Safety, Pain Management Activity Restrictions/Additional Instructions: Given your adverse reaction, it is advisable not to use marijuana. See your doctor next week. Stay hydrated for the next 24 hours at least. Stay in a cool, calm environment. Return for any concerns. Coding Level of Care Code ED Signals Intelligence Analysis Manager for Stephen Taylor
== END 2024-08-10 04:25 | disposition home or self-care (01) ==
PROVIDERS: Emergency Provider Emergency Medicine; PCP Family Medicine
DX: R07.9 Chest pain, unspecified (principal); T40.715A Adverse effect of cannabis, initial encounter
CPT/HCPCS: 71045; 80053; 80306; 80307; 83880; 84484; 85025; 85610; 85730; 93005; 96374; 96375; 99285; J2060; J2270; J2405

== ENCOUNTER 2024-09-15 14:18 | Emergency (ER) | payer MEDICARE, MEDICAID, SELFPAY ==
--- NOTE | 2024-09-15 14:20 | XRR_ITS ---
PROCEDURE INFORMATION: Exam: XR Chest Exam date and time: 09/15/2024 2:39 PM Age: 53 years old Clinical indication: Angina pectoris; Patient HX: PT reports chest pain that started approx 45 min prior to arrival to ED. PT states she has had a shocking sensation in her chest x 2 weeks. PT rates chest pain 9/10 at this time. PT reports headache 9/10, PT reports a HX of migraines. PT denies cardiac HX. ; Additional info: Cp TECHNIQUE: Imaging protocol: Radiologic exam of the chest. Views: 1 view. COMPARISON: CR (CHEST, ) 08/10/2024 1:41 AM FINDINGS: Airway: Patent Lungs: Hazy consolidation in the left lung base. Pleural spaces: Unremarkable. No pleural effusion. No pneumothorax. Heart/Mediastinum: Cardiomediastinal silhouette is magnified due to technique. Bones/joints: No acute skeletal abnormality or aggressive osseous lesion. XR/XR chest 1V portable [id number] IMPRESSION: Hazy consolidation in the left lung base. In the absence of acute respiratory symptoms, this is likely related to artifact from superimposition of structures. Differential would include early pneumonia.
--- NOTE | 2024-09-15 14:20 | ECG_ITS ---
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 Measurements Intervals [place] Rate: 63 P: 223 [place]: 117 QRS: 0 QRSD: 87 T: 44 QT: 388 QTc: 399 Interpretive Statements ECTOPIC ATRIAL RHYTHM WITH SHORT [place] INTERVAL NONSPECIFIC T-WAVE ABNORMALITY ABNORMAL RHYTHM ECG Compared to ECG 08/10/2024 03:12:48 Ectopic atrial rhythm now present Short [place] interval now present T-wave abnormality now present Sinus rhythm no longer present Electronically Signed On 09-18-2024 21:20:50 HEEL TOP LIFT SPLITTER by Josue Fisher M.D. [email or web address]
[2024-09-15 14:30] VITALS: BP 144/83; PULSE 65; RESP 16; TEMP 36.7; O2SAT 98; BMI 28.1
[2024-09-15 14:53] LABS: Basophils # 0.1 10^3/uL (0.0-0.1); Basophils % 0.9 %; Eosinophils # 0.1 10^3/uL (0.0-0.8); Eosinophils % 1.4 %; Hematocrit 36.5 % (36-47); Lymphocytes # 1.1 10^3/uL (0.8-4.8); Lymphocytes % 19.7 %; Mean Corpuscular Hemoglobin 27.4 pg (27-33); Mean Corpuscular Volume 88.6 fl (85-98); Mean Platelet Volume 10.1 fL (7.4-10.4); Monocytes # 0.5 10^3/uL (0.2-0.9); Monocytes % 8.3 %; Neutrophils # 3.83 10^3/uL (1.8-7.7); Neutrophils % 69.3 %; Nucleated Red Blood Cells % 0 %; Platelet Count 303 10^3/cmm (157-399); Red Blood Count 4.12 10^6/uL (3.85-5.65); Red Cell Distribution Width 16.4 % (12.1-15.1); White Blood Count 5.53 10^3/uL (3.29-11.43)
[2024-09-15 15:05] LABS: INR 0.92 (0.8-1.2)
[2024-09-15 15:10] LABS: Alanine Aminotransferase 13 U/L (0-33); Alkaline Phosphatase 102 U/L (35-105); Anion Gap 14.9 (5-19); Aspartate Amino Transferase 24 U/L (0-32); Blood Urea Nitrogen 8 mg/dL (6-20); Calcium 9.5 mg/dL (8.5-10.5); Carbon Dioxide 20 mmol/L (22-29); Chloride 106 mmol/L (98-107); Creatinine Clr Calc Pharmacy 89.3804; Globulin 2.5 g/dL (1.3-4.6); Glucose 108 mg/dL (65-115); Lipase 27 U/L (13-60); Osmolality Calculated 283 mOsm/kg (285-295); Potassium 3.9 mmol/L (3.5-5.1); Sodium 137 mmol/L (136-145); Total Bilirubin 0.2 mg/dL (0.15-1.2); Total Protein 6.5 g/dL (6.6-8.7)
[2024-09-15 15:12] LABS: Troponin(5th) Baseline < 6 ng/L (0-10)
--- NOTE | 2024-09-15 16:20 | ECG_ITS ---
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
[2024-09-15 16:56] LABS: Troponin 5 2HR Delta 0.00001 ABS# (0-10)
--- NOTE | 2024-09-15 17:31 | ED_ITS ---
HPI - Chest Pain 2 General: Chief Complaint: Chest Pain Stated Complaint: CP and pressure Time Seen by Provider: 09/15/24 17:25 History of Present Illness: 53-[facility] [place] town. She states she was out smoking and had a sharp shocking sensation in her chest that lasted a few seconds she thinks that the most lasted about 7 seconds she had a little bit of a headache with it as well. She has no known cardiac history. Symptoms resolved spontaneously she has not noticed anything that exacerbates or relieves it more significant episodes seem to be about 45 minutes prior to coming in today. She states this has been intermittent for the last 2 weeks. Associated symptoms: Deny abdominal pain, dyspnea or fever(s) Related Data Home Medications Medication Instructions Recorded Confirmed atenolol 50 mg tablet 50 mg PO DAILY 11/13/19 07/02/24 budesonide-formoterol HFA 160 2 puff inhalation BID 11/13/19 07/02/24 mcg-4.5 mcg/actuation aerosol inhaler (Symbicort) gabapentin 400 mg capsule 400 mg PO BID 11/13/19 07/02/24 metformin 500 mg tablet 500 mg PO DAILY 11/13/19 07/02/24 pantoprazole 40 mg tablet,delayed 40 mg PO QAM 11/13/19 07/02/24 release cyclobenzaprine 10 mg tablet 10 mg PO TID PRN Pain 05/17/21 07/02/24 mecobalamin (vitamin B12) 10,000 mcg IM .monthly 08/01/21 07/02/24 mcg solution for injection amlodipine 5 mg tablet 5 mg PO BID 01/17/22 07/02/24 bismuth subsalicylate 262 mg/15 mL 524 mg PO Q30M PRN 01/17/22 07/02/24 oral suspension (Pepto-Bismol) cyanocobalamin (vitamin B-12) 1 mcg PO DAILY 01/17/22 07/02/24 1,000 mcg capsule diphenhydramine HCl 25 mg capsule 25 mg PO BID PRN 01/17/22 07/02/24 (Benadryl) fluticasone propionate 50 1 spray intranasal DAILY 01/17/22 07/02/24 mcg/actuation nasal spray,suspension magnesium hydroxide 400 mg/5 mL 30 ml PO Q24H PRN 01/17/22 07/02/24 oral suspension (Milk of Magnesia) metoprolol tartrate 75 mg tablet 75 mg PO BID 01/17/22 07/02/24 rosuvastatin 20 mg tablet (Crestor) 20 mg PO DAILY 01/17/22 07/02/24 tiotropium bromide 18 mcg capsule 1 cap inhalation DAILY 01/17/22 07/02/24 with inhalation device (Spiriva with HandiHaler) tizanidine 4 mg capsule 4 mg PO Q8H PRN 01/17/22 07/02/24 Previous Rx's Medication Instructions Recorded polyethylene glycol 3350 17 17 gm PO DAILY PRN constipation 05/21/20 gram/dose oral powder (Miralax) #119 grams topiramate 100 mg tablet (Topamax) 100 mg PO DAILY #30 tabs 06/10/20 ondansetron 4 mg disintegrating 4 mg PO Q6H PRN nausea and 04/12/21 tablet vomiting #14 tabs naproxen 500 mg tablet (Naprosyn) 500 mg PO BID PRN pain #12 tabs 04/26/21 acetaminophen 325 mg capsule 325 mg PO Q4H PRN fever or pain 08/04/21 #60 caps docusate sodium 100 mg capsule 100 mg PO BID #30 caps 08/04/21 (Colace) ibuprofen 800 mg tablet 800 mg PO TID PRN pain #60 tabs 08/04/21 albuterol sulfate 90 mcg/actuation 2 puff inhalation Q2H PRN 12/24/22 aerosol inhaler (ProAir HFA) shortness of breath or wheezing #8.5 grams dextromethorphan polistirex 30 10 ml PO Q12H #120 mL 12/24/22 mg/5 mL oral susp ext.release 12hr (Robitussin ER) bisacodyl 10 mg/30 mL enema (Fleet 10 mg (30 mL) OH DAILY PRN 04/12/23 Bisacodyl) constipation #37 mL lactulose 20 gram/30 mL oral 30 g (45 mL) PO DAILY PRN 04/12/23 solution constipation #1,200 mL ketorolac 10 mg tablet 10 mg PO TID PRN pain #10 tabs 07/01/23 ondansetron HCl 4 mg tablet 4 mg PO Q8H #30 tabs 04/19/24 conjugated estrogens 0.45 mg See Rx Instructions .Route 05/26/24 tablet (Premarin) .COMPLEX #90 tabs valacyclovir 500 mg tablet See Rx Instructions .Route 05/26/24 .COMPLEX #60 tabs venlafaxine 150 mg See Rx Instructions .Route 06/25/24 capsule,extended release 24 hr .COMPLEX #30 caps cholecalciferol (vitamin D3) 50 See Rx Instructions .Route 08/07/24 mcg (2,000 unit) capsule .COMPLEX #90 caps aspirin 81 mg tablet,delayed 81 mg PO DAILY #30 tabs 09/15/24 release Allergies Allergy/AdvReac Type Severity Reaction Status Date / Time lisinopril Allergy Intermediate swelling, Verified 09/15/24 14:38 rash Sulfa (Sulfonamide Allergy Intermediate rash Verified 09/15/24 14:38 Antibiotics) Penicillins Allergy Unknown rash, fever Verified 09/15/24 14:38 varenicline [From Chantix] Allergy Unknown vomiting,states Verified 09/15/24 14:38 it almost killed her hepatitis A virus vaccine Allergy ERICA-Swell Verified 09/15/24 14:38 Lip/Tongue/Throat Review of Systems 2 Const: Denies: fever(s) or chills Card: Reports: chest pain Resp: Denies: dyspnea GI: Denies: abdominal pain : Denies: dysuria, urinary frequency or urinary urgency Musc: Denies: neck pain or back pain Skin/Breast: Denies: rash PFSH ED 2 PFSH: Medical History Nicotine dependence, cigarettes, uncomplicated Psychiatric care Pelvic pain Borderline intellectual functioning Post-traumatic stress disorder, chronic Surgical History S/P appendectomy S/P cholecystectomy H/O tubal ligation Family History Mother Diabetes Hypertension Stroke Uterine cancer, Onset Age: 46 Grandmother Diabetes maternal Family/Other Hyperlipidemia paternal uncle Heart disease paternal uncle Sister Hypertension Heart disease Brother Stomach cancer Denies family history of Colon cancer Ovarian cancer Clotting disorder Breast cancer Anesthesia complication Bleeding disorder Thyroid disease Social History (Reviewed 09/15/24 @ 17:37 by HAN Gregory Smoking and tobacco/nicotine status: never used tobacco/nicotine Physical Exam 2 Const: COMMON NORMALS: no acute distress GENERAL APPEARANCE: cooperative and comfortable ORIENTATION/CONSCIOUSNESS: Yes awake, Yes oriented to person, Yes oriented to place and Yes oriented to time HENMT: COMMON NORMALS: normocephalic, atraumatic and hearing grossly normal bilaterally HEAD & SCALP: normocephalic and atraumatic Resp: COMMON NORMALS: normal respiratory effort, No retractions, No use of accessory muscles and clear to auscultation bilaterally AUSCULTATION: clear to auscultation bilaterally Cardio: COMMON NORMALS: regular rate, regular rhythm and No murmurs present (Cardio) RATE: regular rate RHYTHM: regular rhythm GI: COMMON NORMALS: Soft to palpation and No hepatosplenomegaly present A USCULTATION: Yes normoactive bowel sounds PALPATION: Yes Soft to palpation, No Tenderness to palpation present (GI), No Guarding due to palpation present (GI) and Yes No hepatosplenomegaly present Extremity: COMMON NORMALS: normal to inspection, capillary refill normal, no clubbing, cyanosis or edema, no calf tenderness and no pedal edema Neuro: SENSORIUM/ORIENTATION: Yes oriented to person, Yes oriented to place and Yes oriented to time Skin: COMMON NORMALS: no rashes or lesions noted GENERAL SKIN EXAM: no rashes or lesions noted Course 2 Vital Signs: Vital signs: Vital Signs Temperature 98.1 F 09/15/24 14:30 Pulse Rate 81 09/15/24 18:00 Respiratory Rate 16 09/15/24 14:30 Blood Pressure 152/83 09/15/24 18:00 Pulse Oximetry 99 09/15/24 18:00 Oxygen Delivery Me thod Room Air 09/15/24 14:30 MDM - Chest Pain Medical Decision Making Atypical chest pain normal EKG negative cardiac enzymes. Patient has a very unusual presentation does not sound cardiac at all sounds almost more like spasm may be esophageal. Will discharge patient home baby aspirin daily and have her follow-up with her primary care doctor will set her up for an outpatient Lexiscan sestamibi stress test Medical Records I reviewed the patient's medical records. Lab Data I reviewed the patient's lab results. 09/15/24 14:46 09/15/24 14:46 Radiology Impressions Chest X-Ray 09/15/24 14:20 IMPRESSION: Hazy consolidation in the left lung base. In the absence of acute respiratory symptoms, this is likely related to artifact from superimposition of structures. Differential would include early pneumonia. Laboratory Results WBC 5.53 10^3/uL (3.29-11.43) 09/15/24 14:46 RBC 4.12 10^6/uL (3.85-5.65) 09/15/24 14:46 Hgb 11.30 g/dL (11.27-16.99) 09/15/24 14:46 Hct 36.5 % (36-47) 09/15/24 14:46 MCV 88.6 fl (85-98) 09/15/24 14:46 MCH 27.4 pg (27-33) 09/15/24 14:46 MCHC 31.0 g/dL (30-55) 09/15/24 14:46 RDW 16.4 % (12.1-15.1) H 09/15/24 14:46 Plt Count 303 10^3/cmm (157-399) 09/15/24 14:46 MPV 10.1 fL (7.4-10.4) 09/15/24 14:46 Neut % (Auto) 69.3 % 09/15/24 14:46 Lymph % (Auto) 19.7 % 09/15/24 14:46 Rogers % (Auto) 8.3 % 09/15/24 14:46 Eos % (Auto) 1.4 % 09/15/24 14:46 Baso % (Auto) 0.9 % 09/15/24 14:46 Neut # (Auto) 3.83 10^3/uL (1.8-7.7) 09/15/24 14:46 Lymph # (Auto) 1.1 10^3/uL (0.8-4.8) 09/15/24 14:46 Rogers # (Auto) 0.5 10^3/uL (0.2-0.9) 09/15/24 14:46 Eos # (Auto) 0.1 10^3/uL (0.0-0.8) 09/15/24 14:46 Baso # (Auto) 0.1 10^3/uL (0.0-0.1) 09/15/24 14:46 Nucleated RBC % (auto) 0 % 09/15/24 14:46 Nucleated RBCs # 0.0 /100WBC 09/15/24 14:46 PT 12.70 SECONDS (12.1-14.9) 09/15/24 14:46 INR 0.92 (0.8-1.2) 09/15/24 14:46 Sodium 137 mmol/L (136-145) 09/15/24 14:46 Potassium 3.9 mmol/L (3.5-5.1) 09/15/24 14:46 Chloride 106 mmol/L (98-107) 09/15/24 14:46 Carbon Dioxide 20 mmol/L (22-29) L 09/15/24 14:46 Anion Gap 14.9 (5-19) 09/15/24 14:46 BUN 8 mg/dL (6-20) 09/15/24 14:46 Creatinine 0.8 mg/dL (0.5-0.9) 09/15/24 14:46 GFR Calculation 75.0 mL/min (90-130) L 09/15/24 14:46 Glucose 108 mg/dL (65-115) 09/15/24 14:46 Calculated Osmolality 283 mOsm/kg (285-295) L 09/15/24 14:46 Calcium 9.5 mg/dL (8.5-10.5) 09/15/24 14:46 Total Bilirubin 0.2 mg/dL (0.15-1.2) 09/15/24 14:46 AST 24 U/L (0-32) 09/15/24 14:46 ALT 13 U/L (0-33) 09/15/24 14:46 Alkaline Phosphatase 102 U/L (35-105) 09/15/24 14:46 Troponin T Baseline < 6 ng/L (0-10) 09/15/24 14:46 Troponin T 120 Minute 6.00 ng/L (0-10) 09/15/24 16:23 Delta Troponin T 0.80769 ABS# (0-10) 09/15/24 16:23 Total Protein 6.5 g/dL (6.6-8.7) L 09/15/24 14:46 Albumin 4.0 g/dL (3.5-5.2) 09/15/24 14:46 Globulin 2.5 g/dL (1.3-4.6) 09/15/24 14:46 Lipase 27 U/L (13-60) 09/15/24 14:46 All radiology interpretation(s) finalized by discharge Discharge Plan Discharge Patient Disposition: Home Clinical Impression: Atypical chest pain, Borderline intellectual functioning Condition: Stable Prescriptions: New aspirin 81 mg tablet,delayed release (DR/EC) 81 mg PO DAILY Qty: 30 0RF No Action topiramate [Topamax] 100 mg tablet 100 mg PO DAILY Qty: 30 2RF Spiriva with HandiHaler 18 mcg capsule, w/inhalation device 1 cap inhalation DAILY Rx Instructions: puncture 1 cap using device; one dose = 2 inhalations fluticasone propionate 50 mcg/actuation spray,suspension 1 spray intranasal DAILY Rx Instructions: administer into each nostril rosuvastatin [Crestor] 20 mg tablet 20 mg PO DAILY amlodipine 5 mg tablet 5 mg PO BID cyanocobalamin (vitamin B-12) 1,000 mcg capsule 1 mcg PO DAILY bismuth subsalicylate [Pepto-Bismol] 262 mg/15 mL suspension 524 mg PO Q30M PRN Rx Instructions: do not exceed 8 doses in a 24 hour period magnesium hydroxide [Milk of Magnesia] 400 mg/5 mL suspension 30 ml PO Q24H PRN diphenhydramine HCl [Benadryl] 25 mg capsule 25 mg PO BID PRN tizanidine 4 mg capsule 4 mg PO Q8H PRN metoprolol tartrate 75 mg tablet 75 mg PO BID gabapentin 400 mg capsule 400 mg PO BID atenolol 50 mg tablet 50 mg PO DAILY Symbicort 160-4.5 mcg/actuation HFA aerosol inhaler 2 puff INHALATION BID pantoprazole 40 mg tablet,delayed release (DR/EC) 40 mg PO QAM metformin 500 mg tablet 500 mg PO DAILY Rx Instructions: with supper cyclobenzaprine 10 mg tablet 10 mg PO TID PRN (Reason: Pain) mecobalamin (vitamin B12) 10,000 mcg recon soln IM .monthly Premarin 0.45 mg tablet See Rx Instructions .ROUTE .COMPLEX Qty: 90 2RF Dose Instruction: TAKE ONE TABLET BY MOUTH EVERY DAY FOR MENOPAUSE Rx Instructions: TAKE ONE TABLET BY MOUTH EVERY DAY FOR MENOPAUSE valacyclovir 500 mg tablet See Rx Instructions .ROUTE .COMPLEX Qty: 60 2RF Dose Instruction: TAKE ONE TABLET BY MOUTH TWICE DAILY Rx Instructions: TAKE ONE TABLET BY MOUTH TWICE DAILY venlafaxine 150 mg capsule,extended release 24hr See Rx Instructions .ROUTE .COMPLEX Qty: 30 2RF Dose Instruction: TAKE ONE CAPSULE BY MOUTH EVERY MORNING Rx Instructions: TAKE ONE CAPSULE BY MOUTH EVERY MORNING cholecalciferol (vitamin D3) 50 mcg (2,000 unit) capsule See Rx Instructions .ROUTE .COMPLEX Qty: 90 0RF Dose Instruction: TAKE ONE CAPSULE BY MOUTH EVERY DAY FOR VITAMIN DEFICIENCY Rx Instructions: TAKE ONE CAPSULE BY MOUTH EVERY DAY FOR VITAMIN DEFICIENCY polyethylene glycol 3350 [Miralax] 17 gram/dose powder 17 gm PO DAILY PRN (Reason: constipation) Qty: 119 0RF ondansetron 4 mg tablet,disintegrating 4 mg PO Q6H PRN (Reason: nausea and vomiting) Qty: 14 0RF naproxen [Naprosyn] 500 mg tablet 500 mg PO BID PRN (Reason: pain) Qty: 12 0RF ibuprofen 800 mg tablet 800 mg PO TID PRN (Reason: pain) Qty: 60 0RF Colace 100 mg capsule 100 mg PO BID Qty: 30 0RF acetaminophen 325 mg capsule 325 mg PO Q4H PRN (Reason: fever or pain) Qty: 60 0RF lactulose 20 gram/30 mL solution 30 g PO DAILY PRN (Reason: constipation) Qty: 1200 0RF Rx Instructions: for constipation not relieved by miralax Fleet Bisacodyl 10 mg/30 mL enema 10 mg OH DAILY PRN (Reason: constipation) Qty: 37 3RF ondansetron HCl 4 mg tablet 4 mg PO Q8H Qty: 30 0RF Robitussin ER 30 mg/5 mL suspension,extended rel 12 hr 10 ml PO Q12H Qty: 120 0RF ProAir HFA 90 mcg/actuation HFA aerosol inhaler 2 puff inhalation Q2H PRN (Reason: shortness of breath or wheezing) Qty: 8.5 1RF ketorolac 10 mg tablet 10 mg PO TID PRN (Reason: pain) Qty: 10 0RF Discharge Orders: Discharge ED (Routine); Ordered 09/15/24 Ordered By: Sandro Jacobs Referrals: Eric Mandel MD [Primary Care Provider] - Patient Instructions: Opioid Safety, Pain Management Activity Restrictions/Additional Instructions: Thank you for choosing [facility] for your healthcare needs today. It is very important that you follow up as instructed or that you return to the Emergency Department should you have concerns or if your condition changes or worsens in any way. You were seen in the emergency room today with complaints of chest pain. Your cardiac enzymes and EKG does not show any acute changes. Will discharge you home recommend that you take a baby aspirin daily was set up for an outpatient Lexiscan sestamibi stress test. Coding Level of Care Code ED Hvac Engineering Technician for Stephen Taylor
[2024-09-15 17:59] VITALS: BP 152/83; PULSE 88; O2SAT 97
[2024-09-15 18:00] VITALS: BP 152/83; PULSE 81; O2SAT 99
== END 2024-09-15 18:03 | disposition home or self-care (01) ==
PROVIDERS: Emergency Medicine; Emergency Provider Family Medicine; PCP Family Medicine
DX: R07.89 Other chest pain (principal); R41.83 Borderline intellectual functioning; Z79.84 Long term (current) use of oral hypoglycemic drugs
CPT/HCPCS: 36415; 71045; 80053; 83690; 84484; 85025; 85610; 93005; 99285

== ENCOUNTER 2024-09-25 07:22 | Outpatient (CLI) | payer MEDICARE, MEDICAID, SELFPAY ==
--- NOTE | 2024-09-25 | ECG_ITS ---
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 Interpretive Statements Lung unchanged pre/post procedure; Intraprocedure shortess of breath; Symptoms resoled by discharge PROCEDURE: At the baseline, the EKG revealed sinus bradycardia with poor R wave progression. No significant ST-T changes.. The baseline heart was 57 bpm with a blood pressue of 138/87 mm of Hg Lexiscan was infused over a period of 20 seconds. A total of 0.4 milligrams of Lexiscan was infused. The stress phase was continued for a total of 5 minutes. Heart rate at the end of the stress phase was 97 bpm with a blood pressure 120/75 mm of Hg. The EKG at the peak infusion revealed no significant changes. Sestamibi was injected 20 seconds after the Lexiscan infusion. Heart rate at the end of the recovery phase was 93 bpm with a blood pressure of 136/74 mm of Hg. CONCLUSION: 1. No significant EKG changes with the LexiScan infusion 2. No LexiScan induced chest pain or cardiac arrhythmia 3. Normal blood pressure and heart rate response 4. Sestamibi/sestamibi perfusion scan pending; see separate report. Electronically Signed On 09-27-2024 12:11:58 APPLICATION SECURITY SPECIALIST by Josue Fisher M.D. [email or web address]
[2024-09-25 07:43] VITALS: BMI 28.1
--- NOTE | 2024-09-25 07:48 | NMCV_ITS ---
NM peace perf SPECT r/s* [id number] Caty Perdomo Age: 53 Gender: F : 1970 Exam Date: 09/25/2024 08:25 Ordering Phys: Sandro Jacobs DO Technologist: SHYANN Bey Exam Location: [facility] Indications: cp STRESS TEST [facility] IMAGE PROTOCOL Rest/Stress 1 Lexiscan Day Radiopharmaceutical Dose (mCi) Administration Site Administered by Rest: Tc-99m 10.8 IV Eli Garza, ELECTRICAL ESTIMATOR Sestamibi Stress:Tc-99m 33 IV Eli Grewalgle, ELECTRICAL ESTIMATOR Sestamibi Rest: 25-Sep-2024 60 Discovery 630 Stress: 25-Sep-2024 60 Discovery 630 0.4mg Lexiscan. Images obtained in supine and prone position. SPECT RESULTS Technical Quality: Good Raw Data Analysis: Normal Image Corrections: No attenuation or motion correction applied Summed Stress Score: 1 Summed Rest Score: 1 Summed Difference Score: 1 PERFUSION FINDINGS A small area of slightly decreased tracer uptake was noted in the apical lateral segment. Some reversibility was noted in this region with the supine imaging. However with the prone imaging, no significant reversible defects were noted FUNCTIONAL RESULTS (calculated via Gated SPECT) Stress Image LV EF (%): 72 Stress EDV (mL):76 TID: 1.03 Stress ESV (mL):21 FUNCTIONAL FINDINGS: Segmental wall motion analysis revealing no gross wall motion abnormalities IMPRESSIONS 1. Myocardial perfusion imaging revealing a small area of slight reversible defect in apical lateral region, suggesting ischemia in the distribution of the left circumflex artery. However because of the inconsistency with the prone imaging, the reliability is very questionable. 2. Normal LV ejection fraction of 72%. 3. LV wall motion analysis revealing no gross wall motion abnormalities 4. Normal LV volume No similar previous studies are available for comparison Dr Josue Fisher MD [facility] (Electronically Signed) Final Date: 25 September 2024 12:27 S
[2024-09-25] MEDS: regadenoson 0.4 Mg/5 ml Syringe IVP (09:08)
[2024-09-25 09:20] VITALS: BP 136/74; PULSE 93
== END 2024-09-25 07:23 | disposition home or self-care (01) ==
PROVIDERS: PCP Family Medicine; Visit Provider Family Medicine
DX: R07.89 Other chest pain (principal); R94.39 Abnormal result of other cardiovascular function study
CPT/HCPCS: 36415; 78452; 93017; 96374; A9500; J2785

== ENCOUNTER → 2024-10-29 12:25 | Outpatient (BNVA) | payer MEDICARE, MEDICAID, SELFPAY | PROVIDERS: PCP Family Medicine; Visit Provider Internal Medicine | DX: M85.80 Other specified disorders of bone density and structure, unspecified site (principal); E21.0 Primary hyperparathyroidism | CPT/HCPCS: 36415; 82306 ==

== ENCOUNTER 2025-01-16 20:34 | Emergency (ER) | payer MEDICARE, MEDICAID, SELFPAY ==
[2025-01-16 20:46] VITALS: BP 129/80; PULSE 107; RESP 18; TEMP 36.8; O2SAT 97; BMI 27.1
--- NOTE | 2025-01-16 20:51 | ECG_ITS ---
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 Measurements Intervals [place] Rate: 106 P: 66 RI: 156 QRS: 14 QRSD: 88 T: 79 QT: 350 QTc: 465 Interpretive Statements SINUS TACHYCARDIA NONSPECIFIC ST & T-WAVE ABNORMALITY Compared to ECG 09/15/2024 17:19:55 T-wave abnormality now present Sinus rhythm no longer present Electronically Signed On 01-17-2025 17:59:17 STRUCTURAL STEEL ENGINEER by Cy Devlin M.D. [email or web address]
[2025-01-17 00:40] LABS: Basophils % 0.9 %; Eosinophils # 0.2 10^3/uL (0.0-0.8); Eosinophils % 3.3 %; Hematocrit 36.5 % (36-47); Lymphocytes # 1.4 10^3/uL (0.8-4.8); Lymphocytes % 30.4 %; Mean Corpuscular HGB Conc 30.7 g/dL (30-55); Mean Corpuscular Hemoglobin 27.1 pg (27-33); Mean Corpuscular Volume 88.2 fl (85-98); Mean Platelet Volume 10.9 fL (7.4-10.4); Monocytes # 0.5 10^3/uL (0.2-0.9); Monocytes % 11.2 %; Neutrophils # 2.45 10^3/uL (1.8-7.7); Nucleated Red Blood Cells % 0 %; Platelet Count 305 10^3/cmm (157-399); Red Blood Count 4.14 10^6/uL (3.85-5.65); White Blood Count 4.54 10^3/uL (3.29-11.43)
[2025-01-17 01:07] VITALS: BP 164/106; PULSE 85; RESP 16; O2SAT 98
[2025-01-17 01:08] LABS: Anion Gap 13.8 (5-19); Blood Urea Nitrogen 8 mg/dL (6-20); Calcium 10.2 mg/dL (8.5-10.5); Carbon Dioxide 24 mmol/L (22-29); Chloride 104 mmol/L (98-107); Creatinine Clr Calc Pharmacy 63.0842; Glomerular Filtration Rate 51.8 mL/min (90-130); Glucose 107 mg/dL (65-115); Lipase 28 U/L (13-60); Osmolality Calculated 285 mOsm/kg (285-295); Potassium 3.8 mmol/L (3.5-5.1); Sodium 138 mmol/L (136-145)
--- NOTE | 2025-01-17 01:17 | XRR_ITS ---
PROCEDURE INFORMATION: Exam: XR Abdomen Exam date and time: 01/17/2025 1:22 AM Age: 54 years old Clinical indication: Abdominal pain; Generalized; Prior surgery; Surgery date: 6+ months; Surgery type: Gb. Appy. Tubal. C/O diffuse abd pain with constipation x 2 days. ; Additional info: Abdominal pain, constipation TECHNIQUE: Imaging protocol: Radiologic exam of the abdomen. Views: Frontal supine view of the abdomen. 1 View. COMPARISON: CT abdomen pelvis w con* [id number] 04/19/2024 10:01 PM FINDINGS: Gastrointestinal tract: Nonspecific bowel-gas pattern without evidence of large or small bowel obstruction. Bones/joints: Unremarkable. XR/XR abdomen 1V* 50005 IMPRESSION: No plain film evidence of acute intra-abdominal or pelvic process.
--- NOTE | 2025-01-17 01:17 | W.ED.ABDPA2 ---
HPI - Abdominal Pain General: Chief Complaint: Abdominal Pain Stated Complaint: ABD Pain hasnt Gone to the bathroom in 2days Time Seen by Provider: 01/17/25 00:46 History of Present Illness: Patient presents to the ER complaining of abdominal pain times last 3 days. Patient denies any nausea vomiting but does states she has chronic constipation and has not went to the bathroom in about 3 days. She says earlier today her heart rate was in the 130s at work so her work wanted her to come in here to be checked out. Patient states she often has abdominal pain when she is under a lot of stress and anxiety. And currently she is under a lot of stress anxiety with her son. Patient denies any chest pain shortness of breath. Related Data Home Medications ?Medication ?Instructions ?Recorded ?Confirmed atenolol 50 mg tablet 50 mg PO DAILY 11/13/19 01/07/25 budesonide-formoterol HFA 160 2 puff inhalation BID 11/13/19 01/07/25 mcg-4.5 mcg/actuation aerosol inhaler (Symbicort) gabapentin 400 mg capsule 400 mg PO BID 11/13/19 01/07/25 metformin 500 mg tablet 500 mg PO DAILY 11/13/19 01/07/25 pantoprazole 40 mg tablet,delayed 40 mg PO QAM 11/13/19 01/07/25 release cyclobenzaprine 10 mg tablet 10 mg PO TID PRN Pain 05/17/21 01/07/25 mecobalamin (vitamin B12) 10,000 mcg IM .monthly 08/01/21 01/07/25 mcg solution for injection amlodipine 5 mg tablet 5 mg PO BID 01/17/22 01/07/25 bismuth subsalicylate 262 mg/15 mL 524 mg PO Q30M PRN 01/17/22 01/07/25 oral suspension (Pepto-Bismol) cyanocobalamin (vitamin B-12) 1 mcg PO DAILY 01/17/22 01/07/25 1,000 mcg capsule diphenhydramine HCl 25 mg capsule 25 mg PO BID PRN 01/17/22 01/07/25 (Benadryl) fluticasone propionate 50 1 spray intranasal DAILY 01/17/22 01/07/25 mcg/actuation nasal spray,suspension magnesium hydroxide 400 mg/5 mL 30 ml PO Q24H PRN 01/17/22 01/07/25 oral suspension (Milk of Magnesia) metoprolol tartrate 75 mg tablet 75 mg PO BID 01/17/22 01/07/25 rosuvastatin 20 mg tablet (Crestor) 20 mg PO DAILY 01/17/22 01/07/25 tiotropium bromide 18 mcg capsule 1 cap inhalation DAILY 01/17/22 01/07/25 with inhalation device (Spiriva with HandiHaler) tizanidine 4 mg capsule 4 mg PO Q8H PRN 01/17/22 01/07/25 Previous Rx's ?Medication ?Instructions ?Recorded polyethylene glycol 3350 17 17 gm PO DAILY PRN constipation 05/21/20 gram/dose oral powder (Miralax) #119 grams topiramate 100 mg tablet (Topamax) 100 mg PO DAILY #30 tabs 06/10/20 ondansetron 4 mg disintegrating 4 mg PO Q6H PRN nausea and 04/12/21 tablet vomiting #14 tabs naproxen 500 mg tablet (Naprosyn) 500 mg PO BID PRN pain #12 tabs 04/26/21 acetaminophen 325 mg capsule 325 mg PO Q4H PRN fever or pain 08/04/21 #60 caps docusate sodium 100 mg capsule 100 mg PO BID #30 caps 08/04/21 (Colace) ibuprofen 800 mg tablet 800 mg PO TID PRN pain #60 tabs 08/04/21 albuterol sulfate 90 mcg/actuation 2 puff inhalation Q2H PRN 12/24/22 aerosol inhaler (ProAir HFA) shortness of breath or wheezing #8.5 grams dextromethorphan polistirex 30 10 ml PO Q12H #120 mL 12/24/22 mg/5 mL oral susp ext.release 12hr (Robitussin ER) bisacodyl 10 mg/30 mL enema (Fleet 10 mg (30 mL) MD DAILY PRN 04/12/23 Bisacodyl) constipation #37 mL lactulose 20 gram/30 mL oral 30 g (45 mL) PO DAILY PRN 04/12/23 solution constipation #1,200 mL ketorolac 10 mg tablet 10 mg PO TID PRN pain #10 tabs 07/01/23 ondansetron HCl 4 mg tablet 4 mg PO Q8H #30 tabs 04/19/24 conjugated estrogens 0.45 mg See Rx Instructions .Route 05/26/24 tablet (Premarin) .COMPLEX #90 tabs cholecalciferol (vitamin D3) 50 See Rx Instructions .Route 08/07/24 mcg (2,000 unit) capsule .COMPLEX #90 caps aspirin 81 mg tablet,delayed 81 mg PO DAILY #30 tabs 09/15/24 release valacyclovir 500 mg tablet See Rx Instructions .Route 10/13/24 .COMPLEX #60 tabs calcium carbonate 600 mg PO TID #180 tabs 11/27/24 venlafaxine 150 mg See Rx Instructions .Route 01/07/25 capsule,extended release 24 hr .COMPLEX #30 caps alendronate 70 mg tablet See Rx Instructions .Route 01/16/25 .COMPLEX #4 tabs Allergies Allergy/AdvReac Type Severity Reaction Status Date / Time lisinopril Allergy Intermediate swelling, Verified 01/16/25 20:52 rash Sulfa (Sulfonamide Allergy Intermediate rash Verified 01/16/25 20:52 Antibiotics) Penicillins Allergy Unknown rash, fever Verified 01/16/25 20:52 varenicline (From Chantix) Allergy Unknown vomiting,states Verified 01/16/25 20:52 it almost killed her hepatitis A virus vaccine Allergy ALGY-Swell Verified 01/16/25 20:52 Lip/Tongue/Throat Review of Systems General: Reports: 10 or more systems reviewed and unremarkable except in HPI and below [facility] ED PFSH: Medical History Nicotine dependence, cigarettes, uncomplicated Psychiatric care Pelvic pain Borderline intellectual functioning Post-traumatic stress disorder, chronic Surgical History S/P appendectomy S/P cholecystectomy H/O tubal ligation Family History Mother Diabetes Hypertension Stroke Uterine cancer, Onset Age: 46 Grandmother Diabetes maternal Family/Other Hyperlipidemia paternal uncle Heart disease paternal uncle Sister Hypertension Heart disease Brother Stomach cancer Denies family history of Colon cancer Ovarian cancer Clotting disorder Breast cancer Anesthesia complication Bleeding disorder Thyroid disease Social History Smoking and tobacco/nicotine status: never used tobacco/nicotine Physical Exam Const: COMMON NORMALS: no acute distress, average body habitus, patient oriented x3, no limitations, healthy appearing, alert and well nourished HENMT: COMMON NORMALS: normocephalic, atraumatic, hearing grossly normal bilaterally, external ears normal, Normal external nose present, moist oral mucous membranes and oropharynx normal HEAD & SCALP: normocephalic and atraumatic NOSE: Normal external nose present EXTERNAL EAR: Yes external ears normal Neck/C-Spine: COMMON NORMALS: full ROM, no lymphadenopathy, supple, no meningeal signs and no JVD Chest: COMMONS NORMALS: normal inspection of the chest and normal palpation of entire chest wall Resp: COMMON NORMALS: normal respiratory effort, No retractions, No use of accessory muscles and clear to auscultation bilaterally AUSCULTATION: clear to auscultation bilaterally Cardio: COMMON NORMALS: no JVD, regular rate, regular rhythm, S1 normal heart sound present, S2 normal heart sound present, No gallops present (Cardio), No clicks present (Cardio), No murmurs present (Cardio) and No rub (Cardio) RATE: regular rate RHYTHM: regular rhythm HEART SOUNDS: S1 normal heart sound present and S2 normal heart sound present GI: COMMON NORMALS: Normal to inspection, nondistended, normoactive bowel sounds present, Soft to palpation, No hepatosplenomegaly present and no masses; negative for non-tender (Minimal diffuse tenderness) PALPATION: Yes Soft to palpation and Yes No hepatosplenomegaly present Neuro: COMMON NORMALS: patient oriented x3 SENSORIUM/ORIENTATION: Yes alert MENINGEAL SIGNS: Yes no meningeal signs Course Vital Signs: Vital signs: Vital Signs Temperature 98.2 F 01/16/25 20:46 Pulse Rate 85 01/17/25 01:07 Respiratory Rate 16 01/17/25 01:07 Blood Pressure 164/106 01/17/25 01:07 Pulse Oximetry 98 01/17/25 01:07 Oxygen Delivery Me thod Room Air 01/17/25 01:07 MDM - Abdominal Pain Medical Decision Making Lab work was obtained included CBC CMP urinalysis lipase, x-ray of the abdomen was obtained, all was essentially negative. These results were discussed with the patient. Patient be discharged home. Medical Records I reviewed the patient's medical records. Lab Data I reviewed the patient's lab results. 01/17/25 00:29 01/17/25 00:29 Labs/Radiology: Radiology Impressions Abdomen X-Ray 01/17/25 01:17 IMPRESSION: No plain film evidence of acute intra-abdominal or pelvic process. Laboratory Results WBC 4.54 10^3/uL (3.29-11.43) 01/17/25 00:29 RBC 4.14 10^6/uL (3.85-5.65) 01/17/25 00: Hgb 11.20 g/dL (11.27-16.99) L 01/17/25 00:29 Hct 36.5 % (36-47) 01/17/25 00: MCV 88.2 fl (85-98) 01/17/25 00: MCH 27.1 pg (27-33) 01/17/25 00: MCHC 30.7 g/dL (30-55) 01/17/25 00: RDW 17.0 % (12.1-15.1) H 01/17/25 00:29 Plt Count 305 10^3/cmm (157-399) 01/17/25 00:29 MPV 10.9 fL (7.4-10.4) H 01/17/25 00:29 Neut % (Auto) 54.0 % 01/17/25 00: Lymph % (Auto) 30.4 % 01/17/25 00:29 Wells % (Auto) 11.2 % 01/17/25 00: Eos % (Auto) 3.3 % 01/17/25 00: Baso % (Auto) 0.9 % 01/17/25 00: Neut # (Auto) 2.45 10^3/uL (1.8-7.7) 01/17/25 00:29 Lymph # (Auto) 1.4 10^3/uL (0.8-4.8) 01/17/25 00:29 Wells # (Auto) 0.5 10^3/uL (0.2-0.9) 01/17/25 00:29 Eos # (Auto) 0.2 10^3/uL (0.0-0.8) 01/17/25 00:29 Baso # (Auto) 0.0 10^3/uL (0.0-0.1) 01/17/25 00:29 Nucleated RBC % (auto) 0 % 01/17/25 00: Nucleated RBCs # 0.0 /100WBC 01/17/25 00: Sodium 138 mmol/L (136-145) 01/17/25 00: Potassium 3.8 mmol/L (3.5-5.1) 01/17/25 00: Chloride 104 mmol/L (98-107) 01/17/25 00: Carbon Dioxide 24 mmol/L (22-29) 01/17/25 00: Anion Gap 13.8 (5-19) 01/17/25 00: BUN 8 mg/dL (6-20) 01/17/25 00: Creatinine 1.1 mg/dL (0.5-0.9) H 01/17/25 00: GFR Calculation 51.8 mL/min (90-130) L 01/17/25 Glucose 107 mg/dL (65-115) 01/17/25 00: Calculated Osmolality 285 mOsm/kg (285-295) 01/17/25 00: Calcium 10.2 mg/dL (8.5-10.5) 01/17/25 00: Lipase 28 U/L (13-60) 01/17/25 00: Urine Color Yellow (Yellow) 01/17/25 01:02 Urine Appearance Clear (CLEAR) 01/17/25 01:02 Urine pH 5.5 (5-7) 01/17/25 01:02 Ur Specific [place] 1.019 (1.005-1.030) 01/17/25 01:02 Urine Protein Trace (Negative) A 01/17/25 01:02 Urine Glucose (UA) Negative (Normal) 01/17/25 01:02 Urine Ketones Trace (Negative) 01/17/25 01:02 Urine Blood Negative (Negative) 01/17/25 01:02 Urine Nitrate Negative (Negative) 01/17/25 01:02 Urine Bilirubin Negative (Negative) 01/17/25 01:02 Urine Urobilinogen 0.2 mg/dL (Negative) 01/17/25 01:02 Ur Leukocyte Esterase Negative (Negative) 01/17/25 01:02 Urine RBC 0-2 /hpf (0-2) 01/17/25 01:02 Urine WBC 0-5 /hpf (0-5) 01/17/25 01:02 Ur Squamous Epith Cells 6-10 /hpf (0-5) 01/17/25 01:02 Amorphous Sediment Not Reportable 01/17/25 01:02 Urine Bacteria 1+ /hpf (NONE) H 01/17/25 01:02 Hyaline Casts 5.77 /lpf 01/17/25 01:02 All radiology interpretation(s) finalized by discharge Discharge Plan Discharge Patient Disposition: Home Clinical Impression: Abdominal pain Qualifiers: Abdominal location: generalized Qualified Code(s): R10.84 - Generalized abdominal pain Condition: Stable Prescriptions: No Action topiramate [Topamax] 100 mg tablet 100 mg PO DAILY Qty: 30 2RF Spiriva with HandiHaler 18 mcg capsule, w/inhalation device 1 cap inhalation DAILY Rx Instructions: puncture 1 cap using device; one dose = 2 inhalations fluticasone propionate 50 mcg/actuation spray,suspension 1 spray intranasal DAILY Rx Instructions: administer into each nostril rosuvastatin [Crestor] 20 mg tablet 20 mg PO DAILY amlodipine 5 mg tablet 5 mg PO BID cyanocobalamin (vitamin B-12) 1,000 mcg capsule 1 mcg PO DAILY bismuth subsalicylate [Pepto-Bismol] 262 mg/15 mL suspension 524 mg PO Q30M PRN Rx Instructions: do not exceed 8 doses in a 24 hour period magnesium hydroxide [Milk of Magnesia] 400 mg/5 mL suspension 30 ml PO Q24H PRN diphenhydramine HCl [Benadryl] 25 mg capsule 25 mg PO BID PRN tizanidine 4 mg capsule 4 mg PO Q8H PRN metoprolol tartrate 75 mg tablet 75 mg PO BID gabapentin 400 mg capsule 400 mg PO BID atenolol 50 mg tablet 50 mg PO DAILY Symbicort 160-4.5 mcg/actuation HFA aerosol inhaler 2 puff INHALATION BID pantoprazole 40 mg tablet,delayed release (DR/EC) 40 mg PO QAM metformin 500 mg tablet 500 mg PO DAILY Rx Instructions: with supper cyclobenzaprine 10 mg tablet 10 mg PO TID PRN (Reason: Pain) mecobalamin (vitamin B12) 10,000 mcg recon soln IM .monthly venlafaxine 150 mg capsule,extended release 24hr See Rx Instructions .ROUTE .COMPLEX Qty: 30 2RF Dose Instruction: TAKE ONE CAPSULE BY MOUTH EVERY MORNING Rx Instructions: TAKE ONE CAPSULE BY MOUTH EVERY MORNING Premarin 0.45 mg tablet See Rx Instructions .ROUTE .COMPLEX Qty: 90 2RF Dose Instruction: TAKE ONE TABLET BY MOUTH EVERY DAY FOR MENOPAUSE Rx Instructions: TAKE ONE TABLET BY MOUTH EVERY DAY FOR MENOPAUSE cholecalciferol (vitamin D3) 50 mcg (2,000 unit) capsule See Rx Instructions .ROUTE .COMPLEX Qty: 90 0RF Dose Instruction: TAKE ONE CAPSULE BY MOUTH EVERY DAY FOR VITAMIN DEFICIENCY Rx Instructions: TAKE ONE CAPSULE BY MOUTH EVERY DAY FOR VITAMIN DEFICIENCY valacyclovir 500 mg tablet See Rx Instructions .ROUTE .COMPLEX Qty: 60 2RF Dose Instruction: TAKE ONE TABLET BY MOUTH TWICE DAILY Rx Instructions: TAKE ONE TABLET BY MOUTH TWICE DAILY calcium carbonate 600 mg calcium (1,500 mg) tablet 600 mg PO TID Qty: 180 1RF alendronate 70 mg tablet See Rx Instructions .ROUTE .COMPLEX Qty: 4 0RF Dose Instruction: TAKE ONE TABLET BY MOUTH ONCE A WEEK ON SUNDAY *starting November 12* Rx Instructions: TAKE ONE TABLET BY MOUTH ONCE A WEEK ON SUNDAY *starting November 12* polyethylene glycol 3350 [Miralax] 17 gram/dose powder 17 gm PO DAILY PRN (Reason: constipation) Qty: 119 0RF ondansetron 4 mg tablet,disintegrating 4 mg PO Q6H PRN (Reason: nausea and vomiting) Qty: 14 0RF naproxen [Naprosyn] 500 mg tablet 500 mg PO BID PRN (Reason: pain) Qty: 12 0RF ibuprofen 800 mg tablet 800 mg PO TID PRN (Reason: pain) Qty: 60 0RF Colace 100 mg capsule 100 mg PO BID Qty: 30 0RF acetaminophen 325 mg capsule 325 mg PO Q4H PRN (Reason: fever or pain) Qty: 60 0RF lactulose 20 gram/30 mL solution 30 g PO DAILY PRN (Reason: constipation) Qty: 1200 0RF Rx Instructions: for constipation not relieved by miralax Fleet Bisacodyl 10 mg/30 mL enema 10 mg MD DAILY PRN (Reason: constipation) Qty: 37 3RF ondansetron HCl 4 mg tablet 4 mg PO Q8H Qty: 30 0RF Robitussin ER 30 mg/5 mL suspension,extended rel 12 hr 10 ml PO Q12H Qty: 120 0RF ProAir HFA 90 mcg/actuation HFA aerosol inhaler 2 puff inhalation Q2H PRN (Reason: shortness of breath or wheezing) Qty: 8.5 1RF ketorolac 10 mg tablet 10 mg PO TID PRN (Reason: pain) Qty: 10 0RF aspirin 81 mg tablet,delayed release (DR/EC) 81 mg PO DAILY Qty: 30 0RF Discharge Orders: Discharge ED (Routine); Ordered 01/17/25 Ordered By: Dru Ray Referrals: Eric Mandel MD [Primary Care Provider] - 1 week Patient Instructions: Abdominal Pain (ED) Activity Restrictions/Additional Instructions: Thank you for choosing [facility] for your healthcare needs today. Please realize that you were seen in the emergency department and that we are providing you with an emergency medical screening exam and this may not be a complete and all exclusive of all testing and/or medical workup we may need to determine your element or severity of your illness. It is very important that you follow-up as instructed with your primary care provider or specialist for the additional evaluation and to discuss your medical treatment plan. You may return to the emergency department should you have concerns or if your condition changes or worsens in any way. Print Language: Kiswahili Coding Level of Care Code ED Dyed Raw Stock Blower Feeder for Stephen Taylor
[2025-01-17 01:20] LABS: Bilirubin Urine Negative (Negative); Blood Urine Negative (Negative); Glucose Urine UA Negative (Normal); Ketones Urine Trace (Negative); Leukocyte Esterase Urine Negative (Negative); Nitrate Urine Negative (Negative); Protein Urine Trace (Negative); Specific Gravity, Urine 1.019 (1.005-1.030); Urine Appearance Clear (CLEAR); Urine Color Yellow (Yellow); Urobilinogen Urine 0.2 mg/dL (Negative); pH Urine 5.5 (5-7)
[2025-01-17 01:23] LABS: Add Urine Microscopic? YES; Bacteria Urine 1+ /hpf; Hyaline Casts Urine 5.77 /lpf; RBC Urine 0-2 /hpf (0-2); WBC Urine 0-5 /hpf (0-5)
[2025-01-17 02:40] VITALS: BP 153/117; PULSE 78; O2SAT 97
== END 2025-01-17 03:00 | disposition home or self-care (01) ==
PROVIDERS: Emergency Provider Emergency Medicine; PCP Family Medicine
DX: R10.84 Generalized abdominal pain (principal); Z79.84 Long term (current) use of oral hypoglycemic drugs; Z79.82 Long term (current) use of aspirin
CPT/HCPCS: 36415; 74018; 80048; 81001; 83690; 85025; 93005; 99285

== ENCOUNTER 2025-02-02 10:06 | Outpatient (CLI) | payer MEDICARE, MEDICAID, SELFPAY ==
--- NOTE | 2025-02-02 10:07 | MM_ITS ---
WS: [id number] BILATERAL SCREENING DIGITAL TOMOSYNTHESIS MAMMOGRAM WITH CAD HISTORY: SCREENING COMPARISON: 02/01/2024, 02/01/2023 and 11/24/2021 Bilateral CC and MLO views with tomosynthesis and synthetic mammography submitted. Computer aided detection analyzed. Breast composition: There are scattered areas of fibroglandular density. No suspicious masses, microcalcifications or architectural distortion. MM/MM scr BI tomosynthesis [id number] IMPRESSION: BI-RADS: 1 - Negative. FOLLOW UP: 1 Year Follow-up
== END 2025-02-02 10:07 | disposition home or self-care (01) ==
PROVIDERS: PCP Family Medicine; Visit Provider Family Medicine
DX: Z12.31 Encounter for screening mammogram for malignant neoplasm of breast (principal); R92.323 Mammographic fibroglandular density, bilateral breasts
CPT/HCPCS: 77063; 77067

== ENCOUNTER 2025-02-03 09:47 | Outpatient (CLI) | payer MEDICARE, MEDICAID, SELFPAY ==
--- NOTE | 2025-02-03 09:57 | CT_ITS ---
WS: [id number] LDCT LUNG CANCER SCREENING TECHNIQUE: Noncontrast CT of the chest with coronal and sagittal reformatted images. CLINICAL INFORMATION: NICOTINE DEPENDENCE, CIGARETTES COMPARISON: None. DLP: 66.32 mGy.cm DIvol: Mean CTDIvol: 1.40 (mGy) All CT scans at [facility] use at least one of these dose optimization techniques: automated exposure control; mA and/or kV adjustment per patient size (includes targeted exams where dose is matched to clinical indication); or iterative reconstruction. FINDINGS: Tiny noncalcified nodule LEFT lower lobe posteromedially. Slight aortic calcification. Coronary calcification. No mediastinal or hilar lymphadenopathy. No axillary lymphadenopathy. Cholecystectomy clips. Adrenal glands are normal. Small to moderate esophageal hiatal hernia. Splenic artery calcification. Tiny LEFT calyceal tip calculus. Mild thoracic kyphosis. Mild thoracic curve. CT/CT lung screening [id number] IMPRESSION: LUNG-RADS: 2-Benign Appearance or Behavior FOLLOW UP: 12 Month: Continue annual screening with LDCT
== END 2025-02-03 09:48 | disposition home or self-care (01) ==
PROVIDERS: PCP Family Medicine; Visit Provider Family Medicine
DX: Z12.2 Encounter for screening for malignant neoplasm of respiratory organs (principal); F17.210 Nicotine dependence, cigarettes, uncomplicated; I25.10 Atherosclerotic heart disease of native coronary artery without angina pectoris; Z90.49 Acquired absence of other specified parts of digestive tract; K44.9 Diaphragmatic hernia without obstruction or gangrene; I70.8 Atherosclerosis of other arteries; M40.294 Other kyphosis, thoracic region; M43.8X4 Other specified deforming dorsopathies, thoracic region
CPT/HCPCS: 71271

== ENCOUNTER 2025-03-03 23:06 | Emergency (ER) | payer MEDICARE, MEDICAID, SELFPAY ==
[2025-03-03 23:09] VITALS: BP 176/113; PULSE 59; RESP 16; TEMP 36.6; O2SAT 100; BMI 26.6
[2025-03-03 23:21] LABS: Basophils % 0.7 %; Eosinophils # 0.1 10^3/uL (0.0-0.8); Eosinophils % 2.1 %; Hematocrit 36.1 % (36-47); Lymphocytes % 33.9 %; Mean Corpuscular HGB Conc 30.5 g/dL (30-55); Mean Corpuscular Hemoglobin 27.1 pg (27-33); Mean Corpuscular Volume 88.9 fl (85-98); Mean Platelet Volume 10.7 fL (7.4-10.4); Monocytes # 0.5 10^3/uL (0.2-0.9); Monocytes % 9.3 %; Neutrophils # 3.13 10^3/uL (1.8-7.7); Neutrophils % 53.8 %; Nucleated Red Blood Cells % 0 %; Platelet Count 342 10^3/cmm (157-399); Red Blood Count 4.06 10^6/uL (3.85-5.65); Red Cell Distribution Width 17.3 % (12.1-15.1); White Blood Count 5.81 10^3/uL (3.29-11.43)
[2025-03-03] MEDS: lidocaine 2% viscous 15 ML, aluminum-mag hydrox-simethicon 30 ML, sucralfate oral liq 1 GM PO (23:21)
--- NOTE | 2025-03-03 23:22 | W.ED.ABDPA2 ---
HPI - Abdominal Pain General: Chief Complaint: Abdominal Pain Stated Complaint: ABD Pain Time Seen by Provider: 03/03/25 23:10 Source: patient Mode of arrival: ambulatory Limitations: no limitations History of Present Illness: 54-year-old female states she has been having epigastric pain over the last 2 days is worse with eating has had a history of reflux she has had a cholecystectomy along with appendectomy she rates her pain currently a 2 out of 10 denies any fevers denies any diarrhea. Associated Symptoms: Denies chills, diarrhea, fever(s), nausea and vomiting Related Data Home Medications ?Medication ?Instructions ?Recorded ?Confirmed atenolol 50 mg tablet 50 mg PO DAILY 11/13/19 01/07/25 budesonide-formoterol HFA 160 2 puff inhalation BID 11/13/19 01/07/25 mcg-4.5 mcg/actuation aerosol inhaler (Symbicort) gabapentin 400 mg capsule 400 mg PO BID 11/13/19 01/07/25 metformin 500 mg tablet 500 mg PO DAILY 11/13/19 01/07/25 pantoprazole 40 mg tablet,delayed 40 mg PO QAM 11/13/19 01/07/25 release cyclobenzaprine 10 mg tablet 10 mg PO TID PRN Pain 05/17/21 01/07/25 mecobalamin (vitamin B12) 10,000 mcg IM .monthly 08/01/21 01/07/25 mcg solution for injection amlodipine 5 mg tablet 5 mg PO BID 01/17/22 01/07/25 bismuth subsalicylate 262 mg/15 mL 524 mg PO Q30M PRN 01/17/22 01/07/25 oral suspension (Pepto-Bismol) cyanocobalamin (vitamin B-12) 1 mcg PO DAILY 01/17/22 01/07/25 1,000 mcg capsule diphenhydramine HCl 25 mg capsule 25 mg PO BID PRN 01/17/22 01/07/25 (Benadryl) fluticasone propionate 50 1 spray intranasal DAILY 01/17/22 01/07/25 mcg/actuation nasal spray,suspension magnesium hydroxide 400 mg/5 mL 30 ml PO Q24H PRN 01/17/22 01/07/25 oral suspension (Milk of Magnesia) metoprolol tartrate 75 mg tablet 75 mg PO BID 01/17/22 01/07/25 rosuvastatin 20 mg tablet (Crestor) 20 mg PO DAILY 01/17/22 01/07/25 tiotropium bromide 18 mcg capsule 1 cap inhalation DAILY 01/17/22 01/07/25 with inhalation device (Spiriva with HandiHaler) tizanidine 4 mg capsule 4 mg PO Q8H PRN 01/17/22 01/07/25 Previous Rx's ?Medication ?Instructions ?Recorded polyethylene glycol 3350 17 17 gm PO DAILY PRN constipation 05/21/20 gram/dose oral powder (Miralax) #119 grams topiramate 100 mg tablet (Topamax) 100 mg PO DAILY #30 tabs 06/10/20 ondansetron 4 mg disintegrating 4 mg PO Q6H PRN nausea and 04/12/21 tablet vomiting #14 tabs naproxen 500 mg tablet (Naprosyn) 500 mg PO BID PRN pain #12 tabs 04/26/21 acetaminophen 325 mg capsule 325 mg PO Q4H PRN fever or pain 08/04/21 #60 caps docusate sodium 100 mg capsule 100 mg PO BID #30 caps 08/04/21 (Colace) ibuprofen 800 mg tablet 800 mg PO TID PRN pain #60 tabs 08/04/21 albuterol sulfate 90 mcg/actuation 2 puff inhalation Q2H PRN 12/24/22 aerosol inhaler (ProAir HFA) shortness of breath or wheezing #8.5 grams dextromethorphan polistirex 30 10 ml PO Q12H #120 mL 12/24/22 mg/5 mL oral susp ext.release 12hr (Robitussin ER) bisacodyl 10 mg/30 mL enema (Fleet 10 mg (30 mL) DE DAILY PRN 04/12/23 Bisacodyl) constipation #37 mL lactulose 20 gram/30 mL oral 30 g (45 mL) PO DAILY PRN 04/12/23 solution constipation #1,200 mL ketorolac 10 mg tablet 10 mg PO TID PRN pain #10 tabs 07/01/23 ondansetron HCl 4 mg tablet 4 mg PO Q8H #30 tabs 04/19/24 conjugated estrogens 0.45 mg See Rx Instructions .Route 05/26/24 tablet (Premarin) .COMPLEX #90 tabs aspirin 81 mg tablet,delayed 81 mg PO DAILY #30 tabs 09/15/24 release valacyclovir 500 mg tablet See Rx Instructions .Route 10/13/24 .COMPLEX #60 tabs calcium carbonate 600 mg PO TID #180 tabs 11/27/24 venlafaxine 150 mg See Rx Instructions .Route 01/07/25 capsule,extended release 24 hr .COMPLEX #30 caps alendronate 70 mg tablet See Rx Instructions .Route 01/16/25 .COMPLEX #4 tabs cholecalciferol (vitamin D3) 50 See Rx Instructions .Route 02/12/25 mcg (2,000 unit) capsule (Vitamin .COMPLEX #90 caps D3) ondansetron 4 mg disintegrating 4 mg PO Q6H PRN nausea and 03/04/25 tablet vomiting #14 tabs Allergies Allergy/AdvReac Type Severity Reaction Status Date / Time lisinopril Allergy Intermediate swelling, Verified 03/03/25 23:16 rash Sulfa (Sulfonamide Allergy Intermediate rash Verified 03/03/25 23:16 Antibiotics) Penicillins Allergy Unknown rash, fever Verified 03/03/25 23:16 varenicline (From Chantix) Allergy Unknown vomiting,states Verified 03/03/25 23:16 it almost killed her hepatitis A virus vaccine Allergy ALGY-Swell Verified 03/03/25 23:16 Lip/Tongue/Throat Review of Systems Const: Denies: fever(s), chills, body aches or change in appetite Eyes: Denies: eye discomfort ENMT: Denies: throat pain or dental pain Card: Denies: chest pain Resp: Denies: dyspnea GI: Reports: abdominal pain; Denies: nausea, vomiting or diarrhea Musc: Denies: neck pain or back pain Skin/Breast: Denies: rash Neuro: Denies: headache(s) PFSH ED PFSH: Medical History Nicotine dependence, cigarettes, uncomplicated Psychiatric care Pelvic pain Borderline intellectual functioning Post-traumatic stress disorder, chronic Surgical History S/P appendectomy S/P cholecystectomy H/O tubal ligation Family History Mother Diabetes Hypertension Stroke Uterine cancer, Onset Age: 46 Grandmother Diabetes maternal Family/Other Hyperlipidemia paternal uncle Heart disease paternal uncle Sister Hypertension Heart disease Brother Stomach cancer Denies family history of Colon cancer Ovarian cancer Clotting disorder Breast cancer Anesthesia complication Bleeding disorder Thyroid disease Social History Smoking and tobacco/nicotine status: never used tobacco/nicotine Physical Exam Const: COMMON NORMALS: no acute distress, patient oriented x3 and healthy appearing HENMT: COMMON NORMALS: normocephalic and atraumatic HEAD & SCALP: normocephalic and atraumatic Eye: COMMON NORMALS: conjunctivae normal CONJUNCTIVA: Yes conjunctivae normal Neck/C-Spine: COMMON NORMALS: full ROM and supple Chest: COMMONS NORMALS: normal inspection of the chest Resp: COMMON NORMALS: normal respiratory effort, No retractions, No use of accessory muscles and clear to auscultation bilaterally AUSCULTATION: clear to auscultation bilaterally Cardio: COMMON NORMALS: regular rate, regular rhythm and No murmurs present (Cardio) RATE: regular rate RHYTHM: regular rhythm GI: COMMON NORMALS: Normal to inspection, nondistended, normoactive bowel sounds present, Soft to palpation, non-tender and no masses PALPATION: Yes Soft to palpation Extremity: COMMON NORMALS: normal to inspection and full ROM Neuro: COMMON NORMALS: patient oriented x3, moves all extremities and no focal motor deficits Psych: COMMON NORMALS: mental status grossly normal, Normal thought process present and cooperative THOUGHT PROCESS: Normal thought process present Skin: COMMON NORMALS: no rashes or lesions noted and no wounds GENERAL SKIN EXAM: no rashes or lesions noted Course Vital Signs: Vital signs: Vital Signs Temperature 97.8 F 03/03/25 23:09 Pulse Rate 59 L 03/03/25 23:09 Respiratory Rate 16 03/03/25 23:09 Blood Pressure 176/113 03/03/25 23:09 Pulse Oximetry 100 03/03/25 23:09 Oxygen Delivery Me thod Room Air 03/03/25 23:09 MDM - Abdominal Pain Medical Decision Making Patient presents for abdominal pains likely gastritis she is continue Protonix we will start her on Zofran blood work CT are normal she stable for discharge Medical Records I reviewed the patient's medical records. Lab Data I reviewed the patient's lab results. 03/03/25 23:18 03/03/25 23:18 Labs/Radiology: Radiology Impressions Abdomen/Pelvis CT 03/03/25 23:48 IMPRESSION: 1. Gastric wall thickening with prominent fluid in the small bowel, please correlate for a gastroenteritis. 2. Minimal diverticulosis without diverticulitis. 3. Hepatic steatosis. 4. Cholecystectomy. 5. Left kidney lower pole punctate nonobstructing calyceal stone. Laboratory Results WBC 5.81 10^3/uL (3.29-11.43) 03/03/25 23:18 RBC 4.06 10^6/uL (3.85-5.65) 03/03/25 23:18 Hgb 11.00 g/dL (11.27-16.99) L 03/03/25 23:18 Hct 36.1 % (36-47) 03/03/25 23:18 MCV 88.9 fl (85-98) 03/03/25 23:18 MCH 27.1 pg (27-33) 03/03/25 23:18 MCHC 30.5 g/dL (30-55) 03/03/25 23:18 RDW 17.3 % (12.1-15.1) H 03/03/25 23:18 Plt Count 342 10^3/cmm (157-399) 03/03/25 23:18 MPV 10.7 fL (7.4-10.4) H 03/03/25 23:18 Neut % (Auto) 53.8 % 03/03/25 23:18 Lymph % (Auto) 33.9 % 03/03/25 23:18 [place] % (Auto) 9.3 % 03/03/25 23:18 Eos % (Auto) 2.1 % 03/03/25 23:18 Baso % (Auto) 0.7 % 03/03/25 23:18 Neut # (Auto) 3.13 10^3/uL (1.8-7.7) 03/03/25 23:18 Lymph # (Auto) 2.0 10^3/uL (0.8-4.8) 03/03/25 23:18 [place] # (Auto) 0.5 10^3/uL (0.2-0.9) 03/03/25 23:18 Eos # (Auto) 0.1 10^3/uL (0.0-0.8) 03/03/25 23:18 Baso # (Auto) 0.0 10^3/uL (0.0-0.1) 03/03/25 23:18 Nucleated RBC % (auto) 0 % 03/03/25 23:18 Nucleated RBCs # 0.0 /100WBC 03/03/25 23:18 Sodium 140 mmol/L (136-145) 03/03/25 23:18 Potassium 3.7 mmol/L (3.5-5.1) 03/03/25 23:18 Chloride 108 mmol/L (98-107) H 03/03/25 23:18 Carbon Dioxide 23 mmol/L (22-29) 03/03/25 23:18 Anion Gap 12.7 (5-19) 03/03/25 23:18 BUN 6 mg/dL (6-20) 03/03/25 23:18 Creatinine 0.8 mg/dL (0.5-0.9) 03/03/25 23:18 GFR Calculation 74.7 mL/min (90-130) L 03/03/25 23:18 Glucose 79 mg/dL (65-115) 03/03/25 23:18 Calculated Osmolality 287 mOsm/kg (285-295) 03/03/25 23:18 Calcium 9.7 mg/dL (8.5-10.5) 03/03/25 23:18 Total Bilirubin 0.2 mg/dL (0.15-1.2) 03/03/25 23:18 AST 19 U/L (0-32) 03/03/25 23:18 ALT 10 U/L (0-33) 03/03/25 23:18 Alkaline Phosphatase 81 U/L (35-105) 03/03/25 23:18 Total Protein 7.2 g/dL (6.6-8.7) 03/03/25 23:18 Albumin 4.3 g/dL (3.5-5.2) 03/03/25 23:18 Globulin 2.9 g/dL (1.3-4.6) 03/03/25 23:18 Lipase 37 U/L (13-60) 03/03/25 23:18 Urine Color Yellow (Yellow) 03/03/25 23:47 Urine Appearance Clear (CLEAR) 03/03/25 23:47 Urine pH 6.5 (5-7) 03/03/25 23:47 Ur Specific [place] 1.003 (1.005-1.030) L 03/03/25 23:47 Urine Protein Negative (Negative) 03/03/25 23:47 Urine Glucose (UA) Negative (Normal) 03/03/25 23:47 Urine Ketones Negative (Negative) 03/03/25 23:47 Urine Blood Negative (Negative) 03/03/25 23:47 Urine Nitrate Negative (Negative) 03/03/25 23:47 Urine Bilirubin Negative (Negative) 03/03/25 23:47 Urine Urobilinogen 0.2 mg/dL (Negative) 03/03/25 23:47 Ur Leukocyte Esterase Negative (Negative) 03/03/25 23:47 Urine RBC 0-2 /hpf (0-2) 03/03/25 23:47 Urine WBC 0-5 /hpf (0-5) 03/03/25 23:47 Ur Squamous Epith Cells 0-5 /hpf (0-5) 03/03/25 23:47 Amorphous Sediment Not Reportable 03/03/25 23:47 Urine Bacteria None seen /hpf (NONE) 03/03/25 23:47 Hyaline Casts 0-4 /lpf H 03/03/25 23:47 All radiology interpretation(s) finalized by discharge Discharge Plan Discharge Patient Disposition: Home Clinical Impression: Abdominal pain Condition: Stable Prescriptions: New ondansetron 4 mg tablet,disintegrating 4 mg PO Q6H PRN (Reason: nausea and vomiting) Qty: 14 0RF No Action topiramate [Topamax] 100 mg tablet 100 mg PO DAILY Qty: 30 2RF Spiriva with HandiHaler 18 mcg capsule, w/inhalation device 1 cap inhalation DAILY Rx Instructions: puncture 1 cap using device; one dose = 2 inhalations fluticasone propionate 50 mcg/actuation spray,suspension 1 spray intranasal DAILY Rx Instructions: administer into each nostril rosuvastatin [Crestor] 20 mg tablet 20 mg PO DAILY amlodipine 5 mg tablet 5 mg PO BID cyanocobalamin (vitamin B-12) 1,000 mcg capsule 1 mcg PO DAILY bismuth subsalicylate [Pepto-Bismol] 262 mg/15 mL suspension 524 mg PO Q30M PRN Rx Instructions: do not exceed 8 doses in a 24 hour period magnesium hydroxide [Milk of Magnesia] 400 mg/5 mL suspension 30 ml PO Q24H PRN diphenhydramine HCl [Benadryl] 25 mg capsule 25 mg PO BID PRN tizanidine 4 mg capsule 4 mg PO Q8H PRN metoprolol tartrate 75 mg tablet 75 mg PO BID gabapentin 400 mg capsule 400 mg PO BID atenolol 50 mg tablet 50 mg PO DAILY Symbicort 160-4.5 mcg/actuation HFA aerosol inhaler 2 puff INHALATION BID pantoprazole 40 mg tablet,delayed release (DR/EC) 40 mg PO QAM metformin 500 mg tablet 500 mg PO DAILY Rx Instructions: with supper cyclobenzaprine 10 mg tablet 10 mg PO TID PRN (Reason: Pain) mecobalamin (vitamin B12) 10,000 mcg recon soln IM .monthly venlafaxine 150 mg capsule,extended release 24hr See Rx Instructions .ROUTE .COMPLEX Qty: 30 2RF Dose Instruction: TAKE ONE CAPSULE BY MOUTH EVERY MORNING Rx Instructions: TAKE ONE CAPSULE BY MOUTH EVERY MORNING Premarin 0.45 mg tablet See Rx Instructions .ROUTE .COMPLEX Qty: 90 2RF Dose Instruction: TAKE ONE TABLET BY MOUTH EVERY DAY FOR MENOPAUSE Rx Instructions: TAKE ONE TABLET BY MOUTH EVERY DAY FOR MENOPAUSE valacyclovir 500 mg tablet See Rx Instructions .ROUTE .COMPLEX Qty: 60 2RF Dose Instruction: TAKE ONE TABLET BY MOUTH TWICE DAILY Rx Instructions: TAKE ONE TABLET BY MOUTH TWICE DAILY calcium carbonate 600 mg calcium (1,500 mg) tablet 600 mg PO TID Qty: 180 1RF alendronate 70 mg tablet See Rx Instructions .ROUTE .COMPLEX Qty: 4 0RF Dose Instruction: TAKE ONE TABLET BY MOUTH ONCE A WEEK ON SUNDAY *starting November 12* Rx Instructions: TAKE ONE TABLET BY MOUTH ONCE A WEEK ON SUNDAY *starting November 12* cholecalciferol (vitamin D3) [Vitamin D3] 50 mcg (2,000 unit) capsule See Rx Instructions .ROUTE .COMPLEX Qty: 90 0RF Dose Instruction: TAKE ONE CAPSULE BY MOUTH EVERY DAY FOR VITAMIN DEFICIENCY Rx Instructions: TAKE ONE CAPSULE BY MOUTH EVERY DAY FOR VITAMIN DEFICIENCY polyethylene glycol 3350 [Miralax] 17 gram/dose powder 17 gm PO DAILY PRN (Reason: constipation) Qty: 119 0RF ondansetron 4 mg tablet,disintegrating 4 mg PO Q6H PRN (Reason: nausea and vomiting) Qty: 14 0RF naproxen [Naprosyn] 500 mg tablet 500 mg PO BID PRN (Reason: pain) Qty: 12 0RF ibuprofen 800 mg tablet 800 mg PO TID PRN (Reason: pain) Qty: 60 0RF Colace 100 mg capsule 100 mg PO BID Qty: 30 0RF acetaminophen 325 mg capsule 325 mg PO Q4H PRN (Reason: fever or pain) Qty: 60 0RF lactulose 20 gram/30 mL solution 30 g PO DAILY PRN (Reason: constipation) Qty: 1200 0RF Rx Instructions: for constipation not relieved by miralax Fleet Bisacodyl 10 mg/30 mL enema 10 mg DE DAILY PRN (Reason: constipation) Qty: 37 3RF ondansetron HCl 4 mg tablet 4 mg PO Q8H Qty: 30 0RF Robitussin ER 30 mg/5 mL suspension,extended rel 12 hr 10 ml PO Q12H Qty: 120 0RF ProAir HFA 90 mcg/actuation HFA aerosol inhaler 2 puff inhalation Q2H PRN (Reason: shortness of breath or wheezing) Qty: 8.5 1RF ketorolac 10 mg tablet 10 mg PO TID PRN (Reason: pain) Qty: 10 0RF aspirin 81 mg tablet,delayed release (DR/EC) 81 mg PO DAILY Qty: 30 0RF Discharge Orders: Discharge ED (Routine); Ordered 03/04/25 Ordered By: Le Salas Referrals: Eric Mandel MD [Primary Care Provider] - 4-7 days Discharge Diet: Advance as tolerated Discharge Activity: Resume usual activity Patient Instructions: Abdominal Pain (ED) Print Language: Angolan Coding Level of Care Code 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
--- NOTE | 2025-03-03 23:37 | ECG_ITS ---
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 Measurements Intervals [place] Rate: 52 P: 47 NH: 173 QRS: 1 QRSD: 96 T: 40 QT: 436 QTc: 408 Interpretive Statements SINUS BRADYCARDIA MODERATE VOLTAGE CRITERIA FOR LVH, CONSIDER NORMAL VARIANT [MEETS CRITERIA IN ONE OF: R(aVL), S(V1), R(V5), R(V5/V6)+S(V1)] Compared to ECG 01/16/2025 20:55:15 Sinus tachycardia no longer present T-wave abnormality no longer present Electronically Signed On 03-04-2025 08:31:30 CDT by Josue Fisher M.D. [email or web address]
[2025-03-03 23:43] LABS: Alanine Aminotransferase 10 U/L (0-33); Albumin Level 4.3 g/dL (3.5-5.2); Alkaline Phosphatase 81 U/L (35-105); Anion Gap 12.7 (5-19); Aspartate Amino Transferase 19 U/L (0-32); Blood Urea Nitrogen 6 mg/dL (6-20); Calcium 9.7 mg/dL (8.5-10.5); Carbon Dioxide 23 mmol/L (22-29); Chloride 108 mmol/L (98-107); Creatinine Clr Calc Pharmacy 86.0504; Globulin 2.9 g/dL (1.3-4.6); Glomerular Filtration Rate 74.7 mL/min (90-130); Glucose 79 mg/dL (65-115); Lipase 37 U/L (13-60); Osmolality Calculated 287 mOsm/kg (285-295); Potassium 3.7 mmol/L (3.5-5.1); Sodium 140 mmol/L (136-145); Total Bilirubin 0.2 mg/dL (0.15-1.2); Total Protein 7.2 g/dL (6.6-8.7)
--- NOTE | 2025-03-03 23:48 | CTR_ITS ---
PROCEDURE INFORMATION: Exam: CT Abdomen And Pelvis With Contrast Exam date and time: 03/03/2025 11:59 PM Age: 54 years old Clinical indication: Abdominal tenderness; Additional info: Abd pain TECHNIQUE: Imaging protocol: Computed tomography of the abdomen and pelvis with contrast. Radiation optimization: All CT scans at this facility use at least one of these dose optimization techniques: automated exposure control; mA and/or kV adjustment per patient size (includes targeted exams where dose is matched to clinical indication); or iterative reconstruction. Contrast material: OMNI 350; Contrast volume: 100 ml; Contrast route: INTRAVENOUS (IV); COMPARISON: CT abdomen pelvis w con* [id number] 04/19/2024 10:01 PM RADIATION DOSE METRICS: Total DLP (mGy-cm): 575.85 FINDINGS: Liver: Hepatic steatosis. Gallbladder and biliary ducts: Cholecystectomy. Pancreas: Normal. No ductal dilation. Spleen: Normal. No splenomegaly. Adrenal glands: Normal. No mass. Kidneys and ureters: Left kidney lower pole punctate nonobstructing calyceal stone. Stomach and bowel: Gastric wall thickening with prominent fluid in the small bowel, please correlate for a gastroenteritis. Minimal diverticulosis without diverticulitis. Appendix: No evidence of appendicitis. Intraperitoneal space: Unremarkable. No free air. No significant fluid collection. Vasculature: Unremarkable. No abdominal aortic aneurysm. Lymph nodes: Unremarkable. No enlarged lymph nodes. Urinary bladder: Unremarkable as visualized. Reproductive: Unremarkable as visualized. Bones/joints: Unremarkable. No acute fracture. Soft tissues: Unremarkable. CT/CT abdomen pelvis w con* [id number] IMPRESSION: 1. Gastric wall thickening with prominent fluid in the small bowel, please correlate for a gastroenteritis. 2. Minimal diverticulosis without diverticulitis. 3. Hepatic steatosis. 4. Cholecystectomy. 5. Left kidney lower pole punctate nonobstructing calyceal stone.
[2025-03-03 23:55] LABS: Bilirubin Urine Negative (Negative); Blood Urine Negative (Negative); Glucose Urine UA Negative (Normal); Ketones Urine Negative (Negative); Leukocyte Esterase Urine Negative (Negative); Nitrate Urine Negative (Negative); Protein Urine Negative (Negative); Specific Gravity, Urine 1.003 (1.005-1.030); Urine Appearance Clear (CLEAR); Urine Color Yellow (Yellow); Urobilinogen Urine 0.2 mg/dL (Negative); pH Urine 6.5 (5-7)
[2025-03-04 00:02] LABS: Add Urine Microscopic? YES; Bacteria Urine None Seen /hpf; Hyaline Casts Urine 0-4 /lpf; RBC Urine 0-2 /hpf (0-2); Squamous Epithelial Cell Urine 0-5 /hpf (0-5); WBC Urine 0-5 /hpf (0-5)
[2025-03-04] MEDS: iohexol 350 mg/mL 500 mL Btl (per mL) IV (00:05)
[2025-03-04 01:15] VITALS: BP 165/100; PULSE 62; O2SAT 98
== END 2025-03-04 01:16 | disposition home or self-care (01) ==
PROVIDERS: Emergency Provider Emergency Medicine; PCP Family Medicine
DX: R10.13 Epigastric pain (principal); Z79.84 Long term (current) use of oral hypoglycemic drugs; Z79.82 Long term (current) use of aspirin
CPT/HCPCS: 36415; 36592; 74177; 80053; 81001; 83690; 85025; 93005; 99285; J9999

== ENCOUNTER → 2025-04-14 15:23 | Outpatient (BNVA) | payer MEDICARE, SELFPAY | PROVIDERS: PCP Family Medicine; Visit Provider Obstetrics & Gynecology | DX: R10.2 Pelvic and perineal pain (principal) | CPT/HCPCS: 76857 ==

== ENCOUNTER 2025-04-21 15:20 | Outpatient (CLI) | payer OTHER, SELFPAY ==
--- NOTE | 2025-04-21 15:26 | CT_ITS ---
WS: [id number] CT NECK WITH CONTRAST HISTORY: DYSPHAGIA TECHNIQUE: Contiguous 2 mm axial images are performed through the neck with intravenous contrast. Sagittal and coronal reformats are also submitted. All CT scans at [facility] [place] use at least one of these dose optimization techniques: automated exposure control; mA and/or kV adjustment per patient size (includes targeted exams where dose is matched to clinical indication); or iterative reconstruction. CONTRAST: CONTRAST: Omnipaque 350; 100 mL IV. DLP: 165.67 mGy.cm COMPARISON: None available. Nasopharynx, oropharynx, hypopharynx and larynx are unremarkable. No soft tissue masses or abnormal enhancement. Torus tubarius and fossa of Rosenmuller and parapharyngeal fat are normal. No significant lymphadenopathy is identified. Small bilateral cervical chain lymph nodes. Largest lymph node measures 8.5 mm at level 2A on the RIGHT. No pathologically enlarged nodes. Thyroid gland and salivary glands are normally enhancing with no masses. Degenerative disc disease at C5-6 and C6-7. Visualized portions of the skull base demonstrate no abnormalities. Orbits and globes are within normal limits. No soft tissue masses. Visualized paranasal sinuses and mastoid air cells are normal. Lung apices are clear. CT/CT neck w con* [id number] IMPRESSION: 1. No pathologically enlarged cervical chain lymphadenopathy. 2. Normal appearance of the larynx and hypopharynx. No mass or compromise of t he airway.
[2025-04-21] MEDS: iohexol 350 mg/mL 500 mL Btl (per mL) IV (15:51)
== END 2025-04-21 15:21 | disposition home or self-care (01) ==
LOC: RAD 15:23
PROVIDERS: PCP Family Medicine; Visit Provider Specialist
DX: R13.19 Other dysphagia (principal); R59.0 Localized enlarged lymph nodes; M50.322 Other cervical disc degeneration at C5-C6 level; M50.323 Other cervical disc degeneration at C6-C7 level
CPT/HCPCS: 70491

== ENCOUNTER 2025-04-28 12:33 | Outpatient (CLI) | payer OTHER, SELFPAY ==
[2025-04-28 13:46] LABS: 25 Hydroxy Vitamin D 42 ng/mL (30-100)
== END 2025-04-28 12:34 | disposition home or self-care (01) ==
PROVIDERS: PCP Family Medicine; Visit Provider Internal Medicine
DX: M85.80 Other specified disorders of bone density and structure, unspecified site (principal)
CPT/HCPCS: 36415; 82306

== ENCOUNTER → 2025-04-29 11:10 | Outpatient (BNVA) | payer OTHER, SELFPAY | PROVIDERS: PCP Family Medicine; Visit Provider Internal Medicine | DX: E21.3 Hyperparathyroidism, unspecified (principal); E55.9 Vitamin D deficiency, unspecified; E89.41 Symptomatic postprocedural ovarian failure; M85.80 Other specified disorders of bone density and structure, unspecified site | CPT/HCPCS: 99214 ==

== ENCOUNTER 2025-05-04 08:24 | Outpatient (CLI) | payer OTHER, SELFPAY ==
--- NOTE | 2025-05-04 08:28 | FL_ITS ---
WS: [id number] Exam: FL barium swallow [id number] Date/Time of Exam: 05/04/2025 8:50 AM Reason For Exam: DYSPHAGIA Fluoroscopy time: 2min [phone] minutes # of spot films: 7 Oropharyngeal phase of swallowing appears grossly normal however there is a questionable filling defect noted in the floor of the mouth. The esophagus was smooth in contour without stricture or obvious mass. Esophageal motility was normal. No gastroesophageal reflux. The esophagus is not displaced. Recommendations: CT scan of the neck to include the oropharynx with contrast should be considered for further work-up. FL/FL barium swallow [id number] IMPRESSION: 1. Questionable filling defect noted in the floor of the mouth. An underlying m ass is not excluded. 2. The esophagus was otherwise normal without mass or stricture. Normal motilit y.
== END 2025-05-04 08:25 | disposition home or self-care (01) ==
PROVIDERS: PCP Family Medicine; Visit Provider Specialist
DX: R13.19 Other dysphagia (principal)
CPT/HCPCS: 74220

== ENCOUNTER 2025-05-20 08:54 | Oncology outpatient (recurring) (ONCR) | payer OTHER, SELFPAY ==
[2025-05-20 09:40] VITALS: BP 117/58; PULSE 57; RESP 16; TEMP 37; O2SAT 99
[2025-05-20 10:24] VITALS: BP 132/73; PULSE 59; RESP 18; TEMP 36.6; O2SAT 95
== END 2025-06-11 23:59 | disposition home or self-care (01) ==
PROVIDERS: PCP Family Medicine; Visit Provider Internal Medicine
DX: M81.0 Age-related osteoporosis without current pathological fracture (principal); Z79.899 Other long term (current) drug therapy
CPT/HCPCS: 96365; J3489; J9999

== ENCOUNTER 2025-08-08 16:52 | Emergency (ER) | payer OTHER, SELFPAY ==
--- OUTSIDE RECORDS SUMMARY | 2012-05-24 06:56 | XMS_ITS | Continuity of Care Document ---
Author Organization [facility] Address [address] [id number] [address] Phone Care Team Providers Care Dumper [employer] Name Role Phone Care, Heel Shaper Unavailable Unavailable Allergies, Adverse Reactions, Alerts Substance Reaction Status Criticality Penicillins Active No Information WARNIN allergy(ies) could not be collected because the type is not supported. Please contact the source practice for further details. Medications Medication Instructions Dosage Effective Dates (start - stop) Status Comments tramadol 50 mg Tab take 1 tablet (50MG) by ORAL route every 6 hours as needed for prn pain 50 MG - Active ranitidine 150 mg Tab take 1 tablet (150MG) by oral route 2 times every day for heartburn - Active lisinopril 40 mg Tab take 1 tablet (40MG) by oral route every day 40 MG - Active Flexeril 10 mg Tab take 0.5 - 1 Tablet (5MG) by ORAL route 3 times every day as needed for muscle/skeletal pain 5 MG - Active atenolol-chlortha lidone 50 mg-25 mg Tab take 1 tablet by oral route every day 1.00 tablet - Active to replace current atenolol script for high blood pressure ibuprofen 600 mg Tab take 1 tablet (600MG) by oral route 3 times every day with food for prn pain 600 MG - Active Depakote ER 500 mg 24 hr Tab take 2 Tablet (1000MG) by oral route every bedtime 1000 MG - Active tramadol 50 mg Tab take 1 tablet (50MG) by ORAL route every 8 hours as needed for prn pain 50 MG - Active Invega 6 mg 24 hr Tab take 1 by Oral route every day 1 - Active Klonopin 0.5 mg Tab take 1 tablet (0.5MG) by oral route 4 times every day 0.5 MG - Active Proventil HFA 90 mcg/Actuation Aerosol Inhaler inhale 2 puff by inhalation route 4 - 6 hours as needed for prn shortness of breath - Active Seroquel 300 mg Tab take 1 tablet (300MG) by oral route every day 300 MG - Active Seroquel 50 mg Tab take 1 tablet (50MG) by oral route 2 times every day 50 MG - Active Procedures Procedure Date CA screen;pelvic/breast exam Screen c/v thin layer by OFFICE/OUTPATIENT VISIT, EST X-ray Chest- PA/AP and Left Lateral, 2 V iews OFFICE/OUTPATIENT VISIT, EST COMPREHEN METABOLIC PANEL (PP $15) ROUTINE VENIPUNCTURE COMPLETE CBC W/AUTO DIFF WBC (PP $10) De OFFICE/OUTPATIENT VISIT, EST OFFICE/OUTPATIENT VISIT, EST OFFICE/OUTPATIENT VISIT, EST OFFICE/OUTPATIENT VISIT, EST URINE TEST (PP $15) 1 BX/CURETT OF CERVIX W/SCOPE URINE TEST (PP $15) 1 PAP IG (PP $35) X-ray Lumbar Spine, Routine - AP, Latera l, Spot, 3 Views X-ray Hips, Bilateral w/ AP Pelvis - 3 F ilms/4 Views OFFICE/OUTPATIENT VISIT, NEW Advance Directives Directive Yes / No Effective Date File Name No Information Encounters Encounter Description Practice Location Reason(s) For Visit Diagnoses Date Provider Providers Copied on Encounter [facility], [id number]- 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 [address] [place], [place], [address], [place]. tel:[phone] [facility], [id number], [address], [place] tel:[phone] Family Medicine F1 Other abnormal papanicolaou smear of cervix and cervical HPVGynecological Examination 2 No Information OFFICE/OUTPA TIENT VISIT, [facility], [id number], [address], [place] tel:[phone] Family Medicine F1 WWE (chief complaint)s houlder pain (chief complaint) Pain in joint involving shoulder regionScreening for malignant neoplasms of the cervixOther abnormal papanicolaou smear of cervix and cervical HPVOther screening breast examinationHyper tension, Unspecified 2 Mauricio Perea. [address] [place], [place], [address], [place]. tel:[phone] Referring Provider: Eliazar Hernández, [address] [place], [address] . tel:[phone] OFFICE/OUTPA TIENT VISIT, [facility], [id number], [address], [place] tel:[phone] Family Medicine F1 h&p (chief complaint) Unspecified chronic bronchitisRoutin e Medical ExamRoutine Medical Exam 2 Mauricio Perea. [address] [place], [place], [address], [place]. tel:[phone] Referring Provider: Eliazar Hernández, [address] [place], [address] . tel:[phone] [facility], [id number] [id number] [place], [address], [place] tel:[phone] Family Medicine F1 No Information 2 Mauricio Eliazar. [address], [place], [address], [place]. tel:[phone] [facility], [id number], [address], [place] tel:[phone] Family Medicine F1 No Information 1 Mauricio Eliazar. [address] [place], [place], [address], [place]. tel:[phone] OFFICE/OUTPA TIENT VISIT, [facility], [id number] [address], [place], [address], [place] tel:[phone] Family Medicine F1 f/u on bp (chief complaint) Hypertension, UnspecifiedBipol ar I disorder, most recent episode (or current) mixed, severe, specified as with psychotic behaviorTobacco AbuseTherapeutic Drug Monitoring 1 Mauricio Perea. [address] [place], [place], [address], [place]. tel:[phone] Referring Provider: Eliazar Hernández, [address] [place], [address] . tel:[phone] OFFICE/OUTPA TIENT VISIT, [facility], [id number], [place], [address], [place] tel:[phone] Family Medicine F1 Hypertension, UnspecifiedOtalg ia, unspecifiedNevus , non-neoplastic 1 Mauricio Perea. [address] [place], [place], [address], [place]. tel:[phone] Referring Provider: Eliazar Hernández, [address] [place], [address] . tel:[phone] OFFICE/OUTPA TIENT VISIT, [facility], [id number] 3057941CV- [place], [place], [address], [place] tel:[phone] Family Medicine F1 heartburn (chief complaint) Hypertension, UnspecifiedGERDT OBACCO USE DISORD-UNSPNevus , non-neoplastic Sep- 1 Mauricio Perea. [address] [place], [place], [address], [place]. tel:[phone] Referring Provider: Eliazar Hernández, [address] [place], [address] . tel:[phone] OFFICE/OUTPA TIENT VISIT, [facility], [id number] [place]327[place], [place], [address], [place] tel:[phone] Family Medicine F1 pain (chief complaint) Pain in joint involving shoulder region 1 No Information [facility], [id number], [place], [address], [place] tel:[phone] Family Medicine F1 No Information 1 Mauricio Perea. [address] [place], [place], [address], [place]. tel:[phone] [facility], [id number] 5834[address]DD- [place], [address], [place] tel:[phone] Family Medicine F1 colposcopy (chief complaint)a bnormal pap (chief complaint) Absence of menstruationPapa nicolaou smear of cervix with atypical squamous cells of undetermined significance (ASC-US) Feb- 1 Mauricio Perea. [address] [place], [place], [address], [place]. tel:[phone] Referring Provider: Eliazar Hernández, [address] [place], [address] . tel:[phone] [facility], [id number] [id number]- [place], [place], [address], [place] tel:[phone] Family Medicine F1 PAP test (chief complaint)p ain (chief complaint) Gynecological ExaminationPain in [facility] of menstruationTOBA DYNAMITE PACKING MACHINE FEEDER USE DISORD-UNSP 1 Mauricio Perea. [address] [place], [place], [address], [place]. tel:[phone] Referring Provider: Eliazar Hernández, [address] [place], [address] . tel:[phone] OFFICE/OUTPA TIENT VISIT, [facility], [id number], [address], [place] tel:[phone] Family Medicine F1 cough (chief complaint) Schizoaffective disorder, unspecifiedBipol ar I disorder, most recent episode (or current) mixed, severe, specified as with psychotic behaviorUnspecif ied essential hypertensionNond ependent opioid abuse, unspecified usePersonal history of allergy to penicillinBronch itis, AcuteTobacco AbuseCHRONIC PAIN SYNDROME 1 Mauricio Perea. [address] [place], [place], [address], . tel:[phone] Referring Provider: Eliazar Hernández, [address] [place], [address] . tel:[phone] Family History Family Member Type Diagnosis Age At Onset Paternal grandmother Problem (finding) Heart disease Maternal grandmother Problem (finding) cancer Sister Problem (finding) Heart disease (Cause Of ) Sister Problem (finding) Payers Payer name Insurance type Covered alliance party ID Reggie tuttle(s) [place] [id number] Jaxson [id number] Social History Type Description Quantity Date Captured Comments Sex Female Smoking Status No Information Chief Complaint And Reason For Visit No Information Reason For Referral Reason For Referral No Information Plan Of Treatment Date Type Action Status Referral Ordered: Referral: Diagnostic Radiology. ordered Referral Ordered: X-ray Chest- PA/AP and Left Lateral, 2 Views ordered Referral Ordered: Diagnostic Radiology Appointment date/timeframe: 03/17/2011 ordered History Of Present Illness Encounter Date Complaint History Of Prese nt Illness No Information Functional Status Date Functional Assessmen t No Information Instructions Date Instruction Additional Infor jeannie Take new medication as prescribe d Assessments Type Assessment Date No Information Patient Care Teams Name Effective Dates (start - stop) Status Members No Information
[2025-08-08 16:57] VITALS: BP 127/86; PULSE 69; RESP 17; TEMP 36.5; O2SAT 98; BMI 25.7
--- OUTSIDE RECORDS SUMMARY | 2025-08-08 17:01 | XMS_ITS | Encounter Summary ---
Author Organization [facility] Address [address] [place] [address] Care Team Providers Care Piano Maker Name Role Phone Non-Staff, Physician Primary Care Provider Unava ilable Reason for Referral * Outpatient Services (Routine) - Closed Specialty Diagnoses / Procedures Referred By Contac t Referred To Contact Diagnoses Other (abnormal) findings on radiological examination of breast Procedures MAMMO BREAST US RT Eliazar Martínez MD [address] [place] [address] Phone: tel: fax: Referral ID Status Reason Start Date Expiration Date Visits Re quested Visits Authorized [id number] Closed 04/03/2011 09/30/2011 1 1 * Outpatient Services (Routine) - Closed Specialty Diagnoses / Procedures Referred By Contmercedez t Referred To Contact Diagnoses Other (abnormal) findings on radiological examination of breast Procedures MAMMO DIGITAL DIAG UNI RIGHT Eliazar Martínez MD [address] [place] [address] Phone: tel: fax: Referral ID Status Reason Start Date Expiration Date Visits Re quested Visits Authorized [id number] Closed 04/03/2011 09/30/2011 1 1 Encounter Details Date Type Department Care Team (Latest Contact Info) Description 04/03/2011 Ancillary Orders [facility] [address] [facility] [address] [place] [address] Eliazar Martínez MD [address] [place] [address] Other (abnormal) findings on radiological examination of breast Social History Tobacco Use Types Packs/Day Years Used Date Smoking Tobacco: Never Assessed Comments Unknown Sex and Gender Information Value Date Recorded Sex Assigned at Not on file Legal 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 The technologist noted today that the patient had white discharge from the right nipple with compression, and the patient has had that for four months. MAMMOGRAM: Right repeat craniocaudal and angled craniocaudal views were obtained today, and also a true lateral view. Right craniocaudal and true lateral magnification views were obtained, and a right craniocaudal spot compression view was obtained without magnification. The additional views show a nonspecific-appearing, vague, slightly asymmetric, nodular area slightly lateral to the nipple line as seen on the screening mammogram. There was some tissue asymmetry seen inferiorly on the true lateral view, but the magnified view shows that this appears to be some glandular tissue with interspersed fat. No definite mass or distortion can be confirmed on the additional views. This digital mammogram was also analyzed by the Computer Aided Detection System (CAD), [employer] ImageStackSocialcker, Version 8.3. RIGHT BREAST ULTRASOUND: Ultrasound was performed on the right from 11 o'clock to 12 o'clock and 6 o'clock to 7 o'clock. No discrete or suspicious findings are identified sonographically. No discrete solid or cystic masses are seen. Therefore, I feel that the area of tissue asymmetry is simply asymmetric glandular tissue, and since this is a baseline mammogram, I would simply recommend a short-interval follow-up in six months. Following the ultrasound, I visited with the patient and explained all the findings and my recommendation to her. She indicated her understanding and her willingness to return in six months. She was given a written report as well. CONCLUSION: I would recommend follow-up right digital diagnostic mammogram in six months' time. The patient was given a result/recommendation letter. CECE/pat Procedure Note Sujata Martin MD - 04/18/2011 RIGHT DIGITAL ADDITIONAL VIEWS AND ULTRASOUND - 04/13/2011: HISTORY: The patient had a baseline mammogram on 03/30/2011, and there wasa questionable asymmetric density seen on the right, and additionalevaluation was recommended. The technologist noted today that the patienthad white discharge from the right nipple with compression, and thepatient has had that for four months. MAMMOGRAM: Right repeat craniocaudal and angled craniocaudal views were obtainedtoday, and also a true lateral view. Right craniocaudal and true lateralmagnification views were obtained, and a right craniocaudal spotcompression view was obtained without magnification. The additional viewsshow a nonspecific-appearing, vague, slightly asymmetric, nodular areaslightly lateral to the nipple line as seen on the screening mammogram.There was some tissue asymmetry seen inferiorly on the true lateral view,but the magnified view shows that this appears to be some glandular tissuewith interspersed fat. No definite mass or distortion can be confirmed onthe additional views. This digital mammogram was also analyzed by the Computer Aided DetectionSystem (CAD), [employer]cker, Version 8.3. RIGHT BREAST ULTRASOUND: Ultrasound was performed on the right from 11 o'clock to 12 o'clock and 6o'clock to 7 o'clock. No discrete or suspicious findings are identifiedsonographically. No discrete solid or cystic masses are seen. Therefore,I feel that the area of tissue asymmetry is simply asymmetric glandulartissue, and since this is a baseline mammogram, I would simply recommend ashort-interval follow-up in six months. Following the ultrasound, I visited with the patient and explained all thefindings and my recommendation to her. She indicated her understandingand her willingness to return in six months. She was given a writtenreport as well. CONCLUSION: I would recommend follow-up right digital diagnostic mammogram in sixmonths' time. The patient was given a result/recommendation letter. Carla us Eliazar Martínez MD MAMMO ORDERABLES Final Result * MAMMO BREAST US RT (04/13/2011 2:52 PM CDT) Anatomical Region Laterality Modality Breast Right Ultrasound Narrative 04/18/2011 12:04 PM CDT For full report, please see diagnostic mammogram of 04/13/2011. Carla Procedure Note Sujata Martin MD - 04/18/2011 For full report, please see diagnostic mammogram of 04/13/2011. Carla us Eliazar Martínez MD MAMMO ORDERABLES Final Result documented in this encounter Visit Diagnoses Diagnosis Other (abnormal) findings on radiological examination of breast Other (abnormal) findings on radiological examination of breast Other (abnormal) findings on radiological examination of breast documented in this encounter Care Teams Piano Maker Relationship Specialty Start Date End Date Non-Staff, Physician NO ADDRESS ON FILE PCP - General Orthopedic Surgery 05/27/10 documented as of this encounter
--- OUTSIDE RECORDS SUMMARY | 2025-08-08 17:01 | XMS_ITS | Encounter Summary ---
Author Organization [facility] Address [address] [place] [address] Care Team Providers Care Brass Pourer Name Role Phone Non-Staff, Physician Primary Care Provider Unava ilable Reason for Referral * Outpatient Services (Routine) - Closed Specialty Diagnoses / Procedures Referred By Contac t Referred To Contact Diagnoses Abnormal mammogram, unspecified Procedures MAMMO DIGITIZED STUDY Eliazar Martínez MD [address] [place] [address] Phone: tel: fax: Referral ID Status Reason Start Date Expiration Date Visits Re quested Visits Authorized [id number] Closed 12/11/2011 12/10/2012 1 1 D CARE TEACHER Encounter Details Date Type Department Care Team (Late st Contact Info) Description 12/11/[address] 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 Exam was auto-finalized. Procedure Note Carole Savage, RT - 12/11/2011 Order information only. Exam was auto-finalized. [facility] Sanchez Mauricio RICK DIAGNOSTIC IMAGING ORDERABLES Final Result documented in this encounter Visit Diagnoses Diagnosis Abnormal mammogram, unspecified Abnormal mammogram, unspecified documented in this encounter Care Teams Brass Pourer Relationship Specialty Start Date End Date Non-Staff, Physician NO ADDRESS ON FILE PCP - General Orthopedic Surgery 05/27/10 documented as of this encounter
--- OUTSIDE RECORDS SUMMARY | 2025-08-08 17:01 | XMS_ITS | Encounter Summary ---
Author Organization [facility] Address [address] [place] [address] Care Team Providers Care Telecasting Technician Name Role Phone Non-Staff, Physician Primary Care Provider Unava ilable Reason for Referral * Outpatient Services (Routine) - Closed Specialty Diagnoses / Procedures Referred By Contac t Referred To Contact Diagnoses Abnormal mammogram, unspecified Procedures MAMMO DIGITAL DIAG UNI RIGHT Eliazar Martínez MD [address] [place] [address] Phone: tel: fax: Referral ID Status Reason Start Date Expiration Date Visits Re quested Visits Authorized [id number] Closed 11/22/2011 11/21/2012 1 1 L CAD DESIGNER Encounter Details Date Type Department Care Team (Late st Contact Info) Description 11/22/2011 Ancillary Orders [facility] [address] [address] Eliazar Martínez MD [address] [place] [address] Abnormal mammogram, unspecified Social History Tobacco Use Types Packs/Day Years Used Date Smoking Tobacco: Never Assessed Comments Unknown Sex and Gender Information Value Date Recorded Sex Assigned at Not on file Legal Sex Female 11:07 AM CIVIL CAD DESIGNER Gender Identity Not on file Sexual Orientation Not on file documented as of this encounter Plan of Treatment Not on file documented as of this encounter Results * MAMMO DIGITAL DIAG UNI RIGHT (12/12/2011 11:32 AM CIVIL CAD DESIGNER) Anatomical Region Laterality Modality Breast Right Mammography 12/12/2011 10:4 6 AM CIVIL CAD DESIGNER Impressions 12/16/2011 5:43 AM CIVIL CAD DESIGNER IMPRESSION: Patient returned for a six month followup on the right. The distribution of the tissue remains stable and unremarkable. The patient should return for bilateral diagnostic exam in six months. Patient received the result and recommendation letter. KG/jaw - uploaded from [employer] - [employer] 12/16/2011 5:43 AM CIVIL CAD DESIGNER REASON FOR EXAM: Patient is returning for a six month followup on the right to assess stability of the breast tissue. This was recommended following evaluation of 04/13/2011. IMAGING PERFORMED: Right CC, MLO and spot compression view in the CC projection COMPARISON(S): Baseline study of 03/30/2011 and additional views of 04/13/2011 TISSUE COMPOSITION: Average, scattered fibroglandular densities FAMILY HX.-BREAST Ca: Negative MAMMOGRAPHIC FINDINGS: RIGHT BREAST: Six month followup on the right demonstrates no interval change, no suspicious findings. This digital mammogram was also analyzed by the Computer Aided Detection System (CAD), [employer] Image[employer]er, Version 8.3. Procedure Note Sharron Ricardo MD - 12/16/2011 REASON FOR EXAM: Patient is returning for a six month followup on the right to assess stability of the breast tissue. This was recommended following evaluation of 04/13/2011. IMAGING PERFORMED: Right CC, MLO and spot compression view in the CC projection COMPARISON(S): Baseline study of 03/30/2011 and additional views of 04/13/2011 TISSUE COMPOSITION: Average, scattered fibroglandular densities FAMILY HX.-BREAST Ca: Negative MAMMOGRAPHIC FINDINGS: RIGHT BREAST: Six month followup on the right demonstrates no interval change, no suspicious findings. This digital mammogram was also analyzed by the Computer Aided Detection System (CAD), R[employer] ImageChecker, Version 8.3. IMPRESSION IMPRESSION: Patient returned for a six month followup on the right. The distribution of the tissue remains stable and unremarkable. The patient should return for bilateral diagnostic exam in six months. Patient received the result and recommendation letter. KG/pat - uploaded from [employer] - [facility] Mauricio RICK MAMMO ORDERABLES Final Result documented in this encounter Visit Diagnoses Diagnosis Abnormal mammogram, unspecified Abnormal mammogram, unspecified documented in this encounter Care Teams Telecasting Technician Relationship Specialty Start Date End Date Non-Staff, Physician NO ADDRESS ON FILE PCP - General Orthopedic Surgery 05/27/10 documented as of this encounter
--- OUTSIDE RECORDS SUMMARY | 2025-08-08 17:01 | XMS_ITS | Encounter Summary ---
Author Organization [facility] Address [address] [place] [address] Care Team Providers Care Swatch Cutter Name Role Phone Non-Staff, Physician Primary Care Provider Unava ilable Reason for Referral * Outpatient Services (Routine) - Closed Specialty Diagnoses / Procedures Referred By Contac t Referred To Contact Diagnoses Other screening mammogram Procedures MAMMO DIGITAL SCREEN BILAT Eliazar Martínez MD [address] [place] [address] Phone: tel: fax: Referral ID Status Reason Start Date Expiration Date Visits Re quested Visits Authorized [id number] Closed 02/17/2011 08/16/2011 1 1 Encounter Details Date Type Department Care Team (Latest Contact Info) Description 02/17/2011 Ancillary Orders [facility] Pre-Registration [place] CALL TO MAKE APPOINTMENT ONLY [address] [place] [address] Eliazar Martínez MD [address] [place] [address] Other screening mammogram Social History Tobacco Use Types Packs/Day Years Used Date Smoking Tobacco: Never Assessed Comments Unknown Sex and Gender Information Value Date Recorded Sex Assigned at Not on file Legal 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 There is a moderate amount of tissue present bilaterally. The right CC view shows slightly irregular asymmetric tissue density centrally just lateral to the nipple line. That measures approximately 1 cm in greatest dimension. That could be related to summation densities as there is no definite correlate seen on the right MLO view. No associated microcalcifications. The remainder of the right breast and entire left breast are otherwise negative for any suspicious findings. There are no suspicious calcifications. This digital mammogram was also analyzed by the Computer Aided Detection System (CAD), R2 ImageChecker, Version 8.3. SUMMARY: 1. Questionable asymmetric density on the right needing further evaluation. Initially 5-degree angled CC views and a spot CC view should be obtained to see if that persists. If it does persist, lateral view would be needed. 2. Negative left breast. BH/jaw Procedure Note Rusty Miller MD - 03/31/2011 DIGITAL BILATERAL SCREENING MAMMOGRAM WITH CAD: This is the patient's baseline study. There is a moderate amount of tissue present bilaterally. The right CCview shows slightly irregular asymmetric tissue density centrally justlateral to the nipple line. That measures approximately 1 cm in greatestdimension. That could be related to summation densities as there is nodefinite correlate seen on the right MLO view. No associatedmicrocalcifications. The remainder of the right breast and entire left breast are otherwisenegative for any suspicious findings. There are no suspiciouscalcifications. This digital mammogram was also analyzed by the Computer Aided DetectionSystem (CAD), [employer] ImageChecker, Version 8.3. SUMMARY: 1. Questionable asymmetric density on the right needing furtherevaluation. Initially 5-degree angled CC views and a spot CC view shouldbe obtained to see if that persists. If it does persist, lateral viewwould be needed. 2. Negative left breast. BH/jaw [facility] Mauricio RICK MAMMO ORDERABLES Final Result documented in this encounter Visit Diagnoses Diagnosis Other screening mammogram Other screening mammogram documented in this encounter Care Teams Swatch Cutter Relationship Specialty Start Date End Date Non-Staff, Physician NO ADDRESS ON FILE PCP - General Orthopedic Surgery 05/27/10 documented as of this encounter
--- OUTSIDE RECORDS SUMMARY | 2025-08-08 17:01 | XMS_ITS | Clinical Summary ---
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 Gender Identity Not on file Sexual Orientation Not on file Plan of Treatment Health Maintenance Due Date Last Done Comments DTAP/TDAP/TD VACCINES (1 - Tdap) 1989 HEPATITIS B VACCINES (1 of 3 - 19+ 3-dose series) 1989 HPV/Cotest (21-29) 1991 CERVICAL CANCER SCREENING 2000 HPV/Cotest (30-65) 2000 PAP SMEAR 2000 BREAST CANCER SCREENING 12/12/2012 12/12/19 12, 04/13/2011, 03/30/2011 COLORECTAL SCREENING 2015 Colorectal Cancer Screening 2015 FIT-DNA Q 3 years 2015 FIT/FOBT Q 1 year 2015 Flex Sig/CT Colonography Q 5 years 2015 ZOSTER VACCINE (1 of 2) 2020 INFLUENZA VACCINE (#1) 2025 Procedures Procedure Name Priority Date/Time Associated Diagnosis Comments MAMMO DIAGNOSTIC UNI RIGHT W OR WO CAD Routine 12/12/2011 11:32 AM TONGUE AND GROOVE MACHINE OPERATOR Abnormal mammogram, unspecified from Last 3 Months or Most Recently Relevant to Health Maintenance Results * MAMMO DIAGNOSTIC UNI RIGHT W OR WO CAD (12/12/2011 11:32 AM TONGUE AND GROOVE MACHINE OPERATOR) Anatomical Region Laterality Modality Breast Right Other Impressions 12/16/2011 5:43 AM TONGUE AND GROOVE MACHINE OPERATOR Patient returned for a six month followup on the right. The distribution of the tissue remains stable and unremarkable. The patient should return for bilateral diagnostic exam in six months. Patient received the result and recommendation letter. KG/jaw - uploaded from [employer] - [employer] 12/16/2011 5:43 AM TONGUE AND GROOVE MACHINE OPERATOR REASON FOR EXAM: Patient is returning for [...] 8.3. Procedure Note Sharron Ricardo MD - 01/11/2023 REASON FOR EXAM: Patient is returning for [...] System (CAD), R2 ImageChecker, Version 8.3. IMPRESSION Patient returned for a six month followup on the right. The distribution of the tissue remains stable and unremarkable. The patient should return for bilateral diagnostic exam in six months. Patient received the result and recommendation letter. MOISÉS/pat - uploaded from [employer] - [facility] Sanchez Mauricio RICK MAMMO ORDERABLES Final Result from Last 3 Months or Most Recently Relevant to Health Maintenance Care Teams Bucket Operator Relationship Specialty Start Date End Date Non-Staff, Physician NO ADDRESS ON FILE PCP - General Orthopedic Surgery 05/27/10
--- OUTSIDE RECORDS SUMMARY | 2025-08-08 17:02 | XMS_ITS | Continuity of Care Document ---
Author Organization REGINALDO Amrit [facility] Elan Sepulveda, [facility] ([facility]) Address [address] [place] [address] Care Team Providers Care Insulation Estimator Name Role Phone MANDELKAREN PerdueON Primary Care Provider RIKA KINSEY Referring Provider Assessment No assessment recorded. Plan of Treatment Reminders Order Date Submit Date Provider Last Modified By Organization Details Last Modified Time Details Appointments None recorded . Lab CMP, serum or plasma 025 08/05/20 [facility], [address] [facility] [address], [place], [address], 16:45:36 Referral None recorded . Procedures None recorded . Surgeries None recorded . Imaging None recorded . Medication Orders None recorded . Patient TargetsNo targets recorded. Patient InstructionsNo instructions recorded. Reason for Referral None Reported. Results Created Date Observation Date Name Description Value Unit Range Abnormal Flag Note LastModifiedBy Organization Detail LastModifiedTime 08/05/2008/05/2025 CMP (FEMA LE) glucose 113.0 mg/dL 60.0-9 9.0 high Not Available [facility] [address] [facility], [place], [address], 08/05/2025 16:45:35 08/05/20 25 08/05/2025 CMP (FEMA LE) BUN (blood urea nitrogen) 10.0 mg/dL 10.0-2 6.0 Not Available [facility] [address] [facility], [place], [address], 08/05/2025 16:45:35 08/05/20 25 08/05/2025 CMP (FEMA LE) creatinine (serum) 0.9 mg/dL 0.4-1. 5 Not Available [facility] [address], [place], [address], 08/05/2025 16:45:35 08/05/20 25 08/05/2025 CMP (FEMA LE) BUN/creatini ne ratio 11.11 ratio Not Available [facility] [address], [place], [address], 08/05/2025 16:45:35 08/05/20 25 08/05/2025 CMP (FEMA LE) eGFR calculated 69.[address] [facility] [address] [address], [place], [address], 08/05/2025 16:45:35 08/05/20 25 08/05/2025 CMP (FEMA LE) total protein 6.9 g/dL 6.0-8. 5 Not Available [facility] [address] [address], [place], [address], 08/05/2025 16:45:35 08/05/20 25 08/05/2025 CMP (FEMA LE) total bilirubin 0.4 mg/dL 0.2-1. 3 Not Available [facility] [address] [address], [place], [address], 08/05/2025 16:45:35 08/05/20 25 08/05/2025 CMP (FEMA LE) albumin 4.0 g/dL 3.5-5. 5 Not Available [facility] [address] [address], [place], [address], 08/05/2025 16:45:35 08/05/20 25 08/05/2025 CMP (FEMA LE) globulin 2.9 calc Not Available [facility] [address] [facility], [place], [address], 08/05/2025 16:45:35 08/05/20 25 08/05/2025 CMP (FEMA LE) AST (SGOT) 24.0 U/L 0.0-46 .0 Not Available [facility] [address] [facility] [address], [place], [address], 08/05/2025 16:45:35 08/05/20 25 08/05/2025 CMP (FEMA LE) altv (SGPT) 12.0 U/L 13.0-6 9.0 abnormal Not Available [facility] [address] [facility] [address], [place], [address], 08/05/2025 16:45:35 08/05/20 25 08/05/2025 CMP (FEMA LE) A/G ratio 1.4 ratio Not Available [facility] [address] [facility] [address], [place], [address], 08/05/2025 16:45:35 08/05/20 25 08/05/2025 CMP (FEMA LE) ALP phos 64.0 U/L 30.0-1 40.0 normal Not Available [facility] [address] [facility] [address], [place], [address], 08/05/2025 16:45:35 08/05/20 25 08/05/2025 CMP (FEMA LE) calcium 10.5 mg/dL 8.4-10 .5 Not Available [facility] [address] [facility] [address], [place], [address], 08/05/2025 16:45:35 08/05/20 25 08/05/2025 CMP (FEMA LE) sodium 141.0 mmol/ L 136.0- 145.0 Not Available [facility] [address], [place], [address], 08/05/2025 16:45:35 08/05/20 25 08/05/2025 CMP (FEMA LE) potassium 4.0 mmol/ L 3.5-5. 1 Not Available [facility] [address], [place], [address], 08/05/2025 16:45:35 08/05/20 25 08/05/2025 CMP (FEMA LE) chloride 110.0 mmol/ L 98.0-1 10.0 normal Not Available [facility] [address], [place], [address], 08/05/2025 16:45:35 08/05/20 25 08/05/2025 CMP (FEMA LE) C02 23.0 mmol/ L 22.0-3 1.0 Not Available [facility] [address] [address], [place], [address], 08/05/2025 16:45:35 08/05/20 25 08/05/2025 CMP (FEMA LE) anion gap 8.0 calc Not Available [facility] [address], [place], [address], 08/05/2025 16:45:35 08/05/20 25 08/05/2025 CMP (FEMA LE) osmolality 291.0 calc Not Available [facility] [address], [place], [address], 08/05/2025 16:45:35 07/27/20 25 07/23/2025 XR, knee, 3 view No observ ation record ed. SAW [facility] ([facility]) [address] [place], [address], 07/28/2025 14:53:25 09/1507/23/2025 XR, knee, 3 view No observ ation record ed. [facility] ([facility]) [address] [place], [address], 07/28/2025 14:53:32 Result Notes None recorded. Problems Name Problem SNOMED Code Status Onset Date Resolution Date Notes Provider Name and Address Organization Details Recorded Time Asthma 555919120 Completed 202007/29/2021 asthma - Status is Inactive ; 07/29/20 9:37AM by Elena Mandel PA-C, Annotati on/Adden dum; Promoted ; acuity set as *; Not Available [facility] 3 03:16:30 Hypokale edinson 11041304 Completed 202007/29/2021 hypokale edinson - Status is Resolved ; Resolved Date: 07/29/20; 07/29/20 9:34AM by Elena Mandel PA-C, Annotati on/Adden dum; Promoted ; acuity set as *; Not Available [facility] 3 03:16:31 History of epilepsy 881582998 Completed 202007/29/2021 epilepsy - Status is Inactive ; 07/29/20 9:37AM by Elena Mandel PA-C, Annotati on/Adden dum; Promoted ; acuity set as *; Not Available [facility] 3 03:16:33 Unspecif ied schizoaf fective schizoph viet Completed 202007/29/2021 schizoaf fective disorder - Status is Resolved ; Resolved Date: 07/29/20; 07/29/20 9:34AM by Elena Mandel PA-C, Annotati on/Adden dum; Promoted ; acuity set as *; Not Available [facility] 3 03:16:36 Anxiety 59489413 Completed 202007/29/2021 anxiety - Status is Resolved ; Resolved Date: 07/29/20; 07/29/20 9:34AM by Elena Mandel PA-C, Annotati on/Adden dum; Promoted ; acuity set as *; Not Available [facility] 3 03:16:39 Hyperpar athyroid ism 37764396 Active 2022 KERRI DIAZ null, [facility] 3 09:20:44 Chronic obstruct salas pulmonar y disease 73748562 Active 2022 KERRI DIAZ null, [facility] 3 09:20:13 Hyperlip idemia 19062391 Active 2022 KERRI DIAZ null, [facility] 3 09:20:25 Nicotine dependen ce 12070522 Active 2022 Yuridia Mandel MD [address] [place] [address], [address] [place] [address] , [facility] 5 12:27:30 Schizoaf fective disorder 48895739 Active 2022 Yuridia Mandel MD [address] [place] [address], [phone] , [facility] 5 12:27:11 Epilepsy 87832480 Active 2022 Yuridia Mandel MD [address] [place] [address], [phone] , [facility] 5 12:27:11 Genital herpes simplex 83232490 Active 2022 KERRI DIAZ null, [facility] 3 15:56:00 Gastro-e sophagea l reflux disease with esophagi tis 544126964 Active 2022 KERRI DIAZ null, [facility] 3 15:58:19 [facility] l hyperten aleksandar 74116863 Active 2023 KERRI DIAZ null, [facility] 4 08:46:28 Type 2 diabetes mellitus 93068274 Active 2024 Yuridia Mandel MD [address] [place] [address], [phone] , [facility] 5 12:27:11 Seizure disorder 727469794 Active 2024 Yuridia Mandel MD [address] [place] [address], [phone] , [facility] 5 12:27:11 Primary gonarthr magdaleno black l 806762011 Active 2024 Odalis thakur [facility] 5 14:41:32 Problem Notes None recorded. Procedures Surgical History Date Name Laterality Status Provider Name and Address Organization Details Recorded Time 07/23/20 25 Joint Inj Kenalog- Shoulder, Hip, Knee completed Yuridia Mandel MD [address] [place] [address], [phone], [facility] 07/23/2025 15:24:15 06/17/20 25 laryngoscopy completed Odalis Escalante [facility] 06/30/2025 12:50:30 06/17/20 25 esophagoscopy for biopsy completed Odalis Escalante [facility] 06/30/2025 12:51:14 02/03/20 25 mammography completed KERRI DIAZ [facility] 02/02/2025 11:45:30 11/20/19 25 Joint Inj Kenalog- Shoulder, Hip, Knee completed Yuridia Mandel MD [address] [place] [address], [phone], [facility] 11/20/2024 14:59:30 05/22/20 23 Joint Inj Kenalog- Shoulder, Hip, Knee completed Yuridia Mandel MD [address] [place], [address], [facility] 05/22/2023 14:28:43 03/27/20 16 endoscopy completed [facility] 07/13/2023 15:57:48 ligation of fallopian tube completed Yuridia Mandel MD [address] [place], [address], [facility] 01/16/2025 12:33:10 cholecystectomy completed [facility] 07/13/2023 15:56:49 Appendectomy completed KERRI DIAZ [facility] 07/13/2023 15:56:56 Imaging Results None recorded. Procedure Notes None recorded. Medical Equipment None Reported. 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 ; Promo oli; Signi fican ce: *; Reaso n: Drug aller gy; ; [facility] 3 15:52:26 13648 penicilli n V potassium medicatio n Not available Not available Not available 06/09/2023 5 RxNorm Comme nt: Recor ded 01/12 8:15A 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 3 13:10:42 4323 lisinopri l medicatio n Not available Not available Not available 04/25/2023 14857 RxNorm Odalischerelle [facility] 3 13:18:45 4324 ibuprofen medicatio n Not available Not available Not available 04/25/2023 5640 RxNorm Odalis Ava [facility], [facility] 3 13:18:51 4325 Product containin g penicilli n (product) medicatio n Not available Not available Not available 04/25/2023 12980 8001 SNOMED Odalis Ava [facility] 3 13:19:03 4326 Chantix medicatio n anaphylax is Not available [facility] 04/25/2023 55771 0 RxNorm KERRI DIAZ [facility] 3 15:52:17 Medications Name Sig Start Date Stop Date Status Note LastModified by Organization Details LastModified Time prednison e 10 mg tablet Take 2 daily for 4 days and 1 daily for 4 days 09/22 completed Not Available Not Available Not Available doxycycli ne hyclate 100 mg capsule Take 1 capsule twice a day by oral route with meal(s) for 10 days. 09/22 completed Not Available Not Available Not Available nicotine 14 mg/24 hr daily transderm al patch Apply 1 patch every day by transder mal route for 7 days. 02/19 completed Not Available Not Available Not Available clindamyc in HCl 300 mg capsule Take 3 capsules 3 times a day by oral route for 7 days. 01/30 completed Not Available Not Available Not Available azithromy catarina 250 mg tablet TAKE 2 TABLETS (500 MG) BY ORAL ROUTE ONCE DAILY FOR 1 DAY THEN 1 TABLET (250 MG) BY ORAL ROUTE ONCE DAILY FOR 4 DAYS 04/25 completed Not Available Not Available Not Available tizanidin e 4 mg tablet TAKE ONE TABLET BY MOUTH EVERY 8 HOURS NEEDED FOR neck SPASMS 2024 active Not Available Not Available Not Avai lable fluconazo le 150 mg tablet 1 tablet now, repeat in 1 week 09/22 completed Not Available Not Available Not Available valacyclo vir 1 gram tablet active Not Available Not Available Not Available ondansetr on HCl 4 mg tablet TAKE ONE TABLET BY MOUTH THREE TIMES DAILY NEEDED FOR NAUSEA 2024 active Not Available Not Available Not Avai lable famotidin e 40 mg tablet TAKE ONE TABLET BY MOUTH TWICE DAILY, PRIOR TO BREAKFAS T AND DINNER 2024 active Not Available Not Available Not Avai lable prednison e 20 mg tablet Take 1 tablet every day by oral route for 5 days. 04/25 completed Not Available Not Available Not Available alendrona te 70 mg tablet active Not Available Not Available Not Available gabapenti n 400 mg capsule TAKE ONE CAPSULE BY MOUTH TWICE DAILY FOR neuropat hy 2024 active Not Available Not Available Not Avai lable Milk of Magnesia 400 mg/5 mL oral suspensio n every day PRN no BM x 3 days active 0; Recorded 01/13/20 23 8:15AM by Kerri Diaz LPN, Office Visit; Not Available Not Available Not Available venlafaxi ne ER 150 mg capsule,e xtended release 24 hr 1 daily active Not Available Not Available Not Available amlodipin e 5 mg tablet TAKE ONE TABLET BY MOUTH TWICE DAILY FOR hyperten aleksandar 2024 active Not Available Not Available Not Avai lable valacyclo vir 500 mg tablet TAKE ONE TABLET BY MOUTH TWICE DAILY 2024 active Not Available Not Available Not Avai lable sulfameth oxazole 800 mg-trimet hoprim 160 mg tablet Take 1 tablet every 12 hours by oral route for 3 days. 09/22 completed Not Available Not Available Not Available aspirin 81 mg tablet,de layed release Take 1 tablet every day by oral route. active Not Available Not Available No t Available lactulose 10 gram oral packet active Not Available Not Available Not Available pantopraz ole 40 mg tablet,de layed release TAKE ONE TABLET BY MOUTH EVERY DAY FOR GERD 2024 active Not Available Not Available Not Avai lable cyanocoba toribio (vit B-12) 1,000 mcg/mL injection solution inject 1ml INTRAMUS CULARLY ONCE monthly 2023 active Not Available Not Available Not Avai lable docusate sodium 100 mg capsule TAKE TWO CAPSULES BY MOUTH AT BEDTIME *HOLD FOR LOOSE STOOLS* 2024 active Not Available Not Available Not Avai lable Tylenol 325 mg tablet Take 2 tablets every 8 hours by oral route. active Not Available Not Available No t Available epinephri ne 0.3 mg/0.3 mL injection , auto-inje ctor inject ONE pen AT ONSET of anaphyla xis NEEDED *SEND WITH RESIDENT WHEN OOP* active Not Available Not Available No t Available polyethyl guerda glycol 3350 17 gram/dose oral powder dissolve 17gm in liquid AND drink THREE TIMES DAILY NEEDED *Give 1 TO 3 times daily TO achieve apple sauce consiste ncy stools* 09/14 completed Not Available Not Available Not Available methylpre dnisolone 4 mg tablets in a dose pack 02/23 completed Not Available Not Available Not Available albuterol sulfate HFA 90 mcg/actua tion aerosol inhaler INHALE 2 PUFFS BY MOUTH EVERY 2 HOURS NEEDED FOR WHEEZING / SHORTNES S OF BREATH active Not Available Not Available No t Available topiramat e 100 mg tablet TAKE ONE TABLET BY MOUTH AT NOON FOR HEADACHE PREVENTI ON/MOOD STABLIZA TION active Not Available Not Available No t Available fluticaso ne propionat e 50 mcg/actua tion nasal spray,luis pension instill 2 SPRAYS IN EACH NOSTRIL EVERY DAY FOR ALLERGIC RHINITIS 2024 active Not Available Not Available Not Avai lable metformin ER 500 mg tablet,ex tended release 24 hr TAKE ONE TABLET BY MOUTH EVERY DAY with SUPPER FOR diabetes 2024 active Not Available Not Available Not Avai lable naproxen 500 mg tablet 01/30 completed Not Available Not Available Not Available nicotine 7 mg/24 hr daily transderm al patch Apply 1 patch every day by transder mal route for 7 days. 02/19 completed Not Available Not Available Not Available Tylenol Extra Strength 500 mg tablet as needed active and 325mg every 4 hours as needed; 0; Recorded 01/13/20 8:15AM by Kerri Diaz LPN, Office Visit; Not Available Not Available Not Available Benadryl 25 mg capsule Take 1 capsule twice a day by oral route as needed. active Not Available Not Available No t Available Pepto-Bis mol 262 mg/15 mL oral suspensio n Take 30 mL by oral route as needed. active Not Available Not Available No t Available cyanocoba toribio (vit B-12) 1,000 mcg/mL injection syringe monthly 07/13 completed 436; Recorded 11/15/19 3:12PM by Kerri Diaz LPN (Authori sindy through Yuridia Mandel MD), Refill Request; Refill Quantity : 1; Millilit er; Not Available Not Available Not Available Premarin 0.45 mg tablet TAKE ONE TABLET BY MOUTH EVERY DAY FOR MENOPAUS E 2024 active Not Available Not Available Not Avai lable rosuvasta tin 40 mg tablet TAKE ONE TABLET BY MOUTH AT BEDTIME FOR HYPERCHO LESTEREM [place] 2024 active Not Available Not Available Not Avai lable Spiriva with [employer] r 18 mcg and inhalatio n capsules 02/23 completed Not Available Not Available Not Available lactulose 10 gram/15 mL oral solution take 45ml BY MOUTH EVERY DAY NEEDED active Not Available Not Available No t Available tizanidin e 4 mg capsule Take 1 capsule every 8 hours by oral route. 09/14 completed Not Available Not Available Not Available chlorhexi dine gluconate 0.12 % mouthwash Place 15 mL twice a day by mucous membrane route for 7 days. active Not Available Not Available No t Available Mucinex D 60 mg-600 mg tablet,ex tended release Take 1 tablet twice a day by oral route for 5 days. 09/22 completed Not Available Not Available Not Available Milk of Magnesia 30 ml every 24 hrs prn 07/13 completed Not Available Not Available Not Available EpiPen at onset of anaphyla xis 07/13 completed 1 box; 436; Recorded 04/12/20 1:22PM by Kerri Diaz LPN (Authori zed through Yuridia Mandel MD), Refill Request; Refill Quantity : 0; Not Available Not Available Not Available Flonase daily 07/13 completed Recorded 07/27/20 22 10:13AM by Kerri Diaz LPN, Historic al Summary; Refill Quantity : 1; Each; Not Available Not Available Not Available Guaifenes in-DM as needed 01/30 completed 0; Recorded 01/13/20 23 8:15AM by Kerri Diaz LPN, Office Visit; Not Available Not Available Not Available metoprolo l tartrate two times daily 07/13 completed 436; Recorded 11/29/19 8:17AM by Kerri Diaz LPN (Authori lorid through Yuridia Mandel MD), Refill Request; Refill Quantity : 60; Tablet; Not Available Not Available Not Available Benadryl Allergy two times daily as needed 07/13 completed 0; Recorded 01/13/20 23 8:15AM by Kerri Diaz LPN, Office Visit; Not Available Not Available Not Available OptiChamb er 07/13 completed 0; Recorded 01/13/20 23 8:15AM by Kerri Diaz LPN, Office Visit; Not Available Not Available Not Available venlafaxi ne daily 07/13 completed 0; Recorded 01/13/20 23 8:15AM by Kerri Diaz LPN, Office Visit; Not Available Not Available Not Available naproxen every 12 hours as needed 07/13 completed Recorded 03/01/20 22 2:05PM by Kerri Diaz LPN, Historic al Summary; Refill Quantity : 0; Not Available Not Available Not Available Vitamin D daily 07/[address] Kinsey; 436; Recorded 01/05/20 1:48PM by Kerri Diaz LPN (Authori zed through Yuridia Mandel MD), Annotati on/Adden dum; Refill Quantity : 1; Capsule; Not Available Not Available Not Available Vitamin D3 2000 units daily active Not Available Not Available No t Available metformin daily 07/13 completed 436; Recorded 08/24/20 22 10:12AM by Kerri Diaz LPN (Authori sindy through Yuridia Mandel MD), Annotati on/Adden dum; Refill Quantity : 30; Tablet; Not Available Not Available Not Available gabapenti n two times daily 07/13 completed 16327; Recorded 01/23/20 23 6:11PM by Blanca Casillas (Authori zed through Octaviano Alba MD), Refill Request; Refill Quantity : 60; Capsule; Not Available Not Available Not Available Miralax daily 07/13 completed 0; Recorded 01/13/20 23 8:15AM by Kerri Diaz LPN, Office Visit; Not Available Not Available Not Available Premarin daily 07/13 completed 0; Recorded 01/13/20 23 8:15AM by Kerri Diaz LPN, Office Visit; Not Available Not Available Not Available Crestor at bedtime 07/13 completed 436; Recorded 01/30/20 23 2:36PM by Kerri Diaz LPN (Authori zed through Yuridia Mandel MD), Refill Request; Refill Quantity : 30; Tablet; Not Available Not Available Not Available Robitussi n Cough and Cold CF 1 tsp every 6 hrs prn active Not Available Not Available No t Available Symbicort 160 mcg-4.5 mcg/actua tion HFA aerosol inhaler 02/23 completed Not Available Not Available Not Available amlodipin e besylate (bulk) two times daily 07/09 completed 436; Recorded 09/04/20 22 4:19PM by Odalis Gardner RN (Authori lorid through Yuridia Mandel MD), Refill Request; Refill Quantity : 60; Tablet; Not Available Not Available Not Available naproxen sodium 220 mg capsule Take 2 capsules every 12 hours by oral route as needed. active Not Available Not Available No t Available roflumila st 500 mcg tablet TAKE ONE TABLET BY MOUTH EVERY DAY FOR copd 2024 active Not Available Not Available Not Avai lable guaifenes in ER 600 mg tablet, extended release 12 hr TAKE ONE TABLET BY MOUTH EVERY 12 HOURS NEEDED FOR 10 DAYS 2024 active Not Available Not Available Not Avai lable metoprolo l tartrate 75 mg tablet TAKE ONE TABLET BY MOUTH TWICE DAILY active Not Available Not Available No t Available polyethyl guerda glycol 1450 17 grams daily active Not Available Not Available No t Available roflumila st 250 mcg tablet Take 1 tablet every day by oral route for 28 days. 09/22 completed Not Available Not Available Not Available Breztri Aerospher e 160 mcg-9mcg- 4.8mcg/ac tuation HFA aerosol inhaler USE 2 INHALATI ONS TWICE DAILY FOR ASTHMA. RINSE MOUTH AFTER USE. 2024 active Not Available Not Available Not Avai lable Breztri Aerospher e two times daily 07/13 completed Recorded 12/28/19 23 10:19AM by Kerri Diaz LPN, Office Visit; Refill Quantity : 3; Applicat or; Not Available Not Available Not Available Vitals None Recorded Social History Question Answer Notes LastModified by Organizat ion Details LastModified Time Tobacco Smoking Status Current Every Day Smoker KERRI DIAZ [facility] 05/22/2023 14:03:54 What Was The Date Of Your Most Recent Tobacco Screening? 04/17/2025 [email or web address] Information not available 04/17/2025 What Is Your Current Pack Years? 30ormorepacky ears [email or web address] Information not available 01/16/2025 How Much Tobacco Do You Smoke? 0.5 PPD [email or web address] Information not available 01/16/2025 Sex: Unknown Functional Status Question Answer Note LastModified by Organizat ion Details LastModified Time Do you use any illicit or recreational drugs? No [email or web address] Information not available 05/22/2023 Do you or have you ever used any other forms of tobacco or nicotine? No [email or web address] Information not available 07/13/2023 What is your level of alcohol consumption? None [email or web address] Information not available 05/22/2023 Mental Status None recorded. Family History Relationship Description Onset Age of this Age Resolved Age Notes LastModified by Organization Details LastModified Time Maternal Uncle Coronary atherosclero sis [email or web address] Not available 07/13 15:56:24 Medical History Condition Response Hypertension Y Hypothyroidism Y Developmental or Behavioral Disorders Y High Cholesterol Y Gynecological HistoryNo gynecological history recorded. Obstetrics History GPAL:G 0 P 0 0 0 0 Immunizations Vaccine Type Date Status Note Provider Nam e and Address Organization Details Recorded Time Hep A, adult 9 completed MAEVE LANDAVERDE, [address], [address], [facility] 11/02/2023 12:31:38 Tdap 6 completed MAEVE LANDAVERDE, [address], [address], [facility] 11/02/2023 12:31:38 Tdap 8 js LANDAVERDE, [address], [address], [facility] 11/02/2023 12:31:38 pneumococcal polysaccharide PPV23 6 js LANDAVERDE, [address], [address], [facility] 11/02/2023 12:31:38 Influenza, split virus, trivalent, preservative 4 js LANDAVERDE, [address], [address], [facility] 11/02/2023 12:31:38 Influenza, split virus, trivalent, preservative 5 js LANDAVERDE, [address], [address], [facility] 11/02/2023 12:31:38 Influenza, split virus, trivalent, preservative 6 js LANDAVERDE, [employer] DIRECTOR[address], [address], [facility] 11/02/2023 12:31:38 Influenza, split virus, trivalent, preservative 7 completed MAEVEBetty SANTOSSAIMA, [address], [address], [facility] 11/02/2023 12:31:38 Influenza, split virus, trivalent, preservative 8 completed MAEVE LANDAVERDE, [address], [address], [facility] 11/02/2023 12:31:38 Influenza, split virus, trivalent, preservative 9 completed MAEVE LANDAVERDE, [address], [address], [facility] 11/02/2023 12:31:38 Influenza, MDCK, quadrivalent, PF 2 completed KERRI thakur, [facility] 05/22/2023 14:02:46 Rabies - IM fibroblast culture 1 completed KERRI thakur, [facility] 05/22/2023 14:02:46 Rabies - IM fibroblast culture 1 completed KERRI thakur, [facility] 05/22/2023 14:02:46 Rabies - IM fibroblast culture 1 completed KERRI thakur, [facility] 05/22/2023 14:02:46 Rabies - IM fibroblast culture 1 completed KERRI thakur, [facility] 05/22/2023 14:02:46 COVID-19, mRNA, LNP-S, PF, 100 mcg/0.5mL dose or 50 mcg/0.25mL dose 1 completed KERRI thakur, [facility] 05/22/2023 14:02:46 COVID-19, mRNA, LNP-S, PF, 100 mcg/0.5mL dose or 50 mcg/0.25mL dose 1 completed KERRI thakur [facility] 05/22/2023 14:02:46 COVID-19, mRNA, LNP-S, PF, 100 mcg/0.5mL dose or 50 mcg/0.25mL dose 2 completed KERRI thakur [facility] 05/22/2023 14:02:46 Pneumococcal conjugate PCV20, polysaccharide [id number] conjugate, adjuvant, PF 3 completed KERRI thakur [facility] 05/22/2023 14:02:46 COVID-19, mRNA, LNP-S, bivalent, PF, 50 mcg/0.5 mL or 25mcg/0.25 mL dose [facility]/22/[facility] 14:02:46 Tdap 1 completed KERRI thakur [facility] 05/22/2023 14:02:46 Hep B, adult 9 completed KERRI thakur, [facility] 05/22/2023 14:02:46 Hep A, adult 9 completed KERRI thakur, [facility] 05/22/2023 14:02:46 Influenza, split virus, quadrivalent, PF 1 completed KERRI thakur [facility] 05/22/2023 14:02:46 Influenza, MDCK, quadrivalent, preservative 3 completed KERRI thakur, [facility] 10/24/2024 09:09:05 COVID-19, mRNA, LNP-S, PF, 50 mcg/0.5 mL 4 completed KERRI thakur, [facility] 10/24/2024 09:09:05 Influenza, MDCK, trivalent, preservative 4 completed KERRI thakur, [facility] 10/24/2024 09:09:05 Past Encounters Encounter ID Performer Location Encounter Start Date Encounter Closed Date Diagnosis/Indication Diagnosis SNOMED-CT Code Diagnosis ICD10 Code Diagnosis IMO Codes Diagnosis Note [id number] Yuridia Mandel MD [facility]) [address] [place] [phone] 07/17/2025 08:16:36 07/27/2025 10:11:33 Essential hypertension 87499508 I10 Hyperlipidemia 69111412 E78.5 Type 2 po betes mellitus 07244261 E11.9 LLV ORDERS Hyperparathyroidism 6699 9008 E21.3 Chronic ob structive pulmonary disease 09199826 J44.9 [id number] Yuridia Mandel MD [facility] ([facility]) [address] [place] [phone] 07/23/2025 15:02:45 07/24/2025 13:45:35 Pain of knee region 0901979198 M25.561 M25.562 G89.29 [id number] Yuridia Mandel MD [facility] ([facility]) [address] [place] [phone] 08/04/2025 13:47:11 08/04/2025 14:24:02 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 doing well overall. will monitor. [id number] Yuridia Mandel MD [facility]) [address] [place] [phone] 08/05/2025 12:03:29 08/06/2025 13:10:14 [facility] [id number] E05.90 [id number] Health Concerns Section Related Observation LastModified by Organization Detai ls LastModified Time None Recorded Concern Status LastModified by Organization Details LastModified Time None Recorded Payers Encounter Date Sequence Insurance Name Policy Number Policy [place] Covered Member ID [place] Member ID Guarantor Name 08/05/2025 2 [place] Caty Perdomo [id number] Caty Perdomo 08/05/2025 1 [facility] (MEDICARE REPLACEMENT/A DVANTAGE - PPO) [employer] Caty Perdomo [id number] Caty Perdomo OBGyn Episode No OBEpisode recorded.
--- OUTSIDE RECORDS SUMMARY | 2025-08-08 17:02 | XMS_ITS | Continuity of Care Document ---
Author Organization REGINALDO Amrit Pablo [facility] Elan Sepulveda, [facility] ([facility]) Address [address] [place] [address] Care Team Providers Care Mail Teller Name Role Phone YURIDIA MANDEL Primary Care Provider [phone] RIKA KINSEY Referring Provider Assessment No assessment recorded. Plan of Treatment Reminders Order Date Submit Date Provider Last Modified By Organization Details Last Modified Time Details Appointments None record ed. Lab None record ed. Referral None record ed. Procedures None record ed. Surgeries None record ed. Imaging None record ed. Medication Orders None record ed. Patient TargetsNo targets recorded. Patient InstructionsNo instructions recorded. Reason for Referral None Reported. Results Created Date Observation Date Name Description Value Unit Range Abnormal Flag Note LastModifiedBy Organization Detail LastModifiedTime 07/27/2007/23/2025 XR, knee, 3 view No observ ation record ed. [facility] ([facility]) [address] [place], [address], 07/28/2025 14:53:25 07/27/20 25 07/23/2025 XR, knee, 3 view No observ ation record ed. [facility] ([facility]) [address] [place], [address], 07/28/2025 14:53:32 Result Notes None recorded. Problems Name Problem SNOMED Code Status Onset Date Resolution Date Notes Provider Name and Address Organization Details Recorded Time Asthma 924855803 Completed 202007/29/2021 asthma - Status is Inactive ; 07/29/20 21 9:37AM by Elena Mandel PA-C, Annotati on/Adden dum; Promoted ; acuity set as *; Not Available [facility] 3 03:16:30 Hypokale edinson 46428434 Completed 202007/29/2021 hypokale edinson - Status is Resolved ; Resolved Date: 07/29/20; 07/29/20 9:34AM by Elena Mandel PA-C, Annotati on/Adden dum; Promoted ; acuity set as *; Not Available [facility] 3 03:16:31 History of epilepsy 758742425 Completed 202007/29/2021 epilepsy - Status is Inactive ; 07/29/20 9:37AM by Elena Mandel PA-C, Annotati on/Adden dum; Promoted ; acuity set as *; Not Available [facility] 3 03:16:33 Unspecif ied schizoaf fective schizoph viet Completed 202007/29/2021 schizoaf fective disorder - Status is Resolved ; Resolved Date: 07/29/20; 07/29/20 9:34AM by Elena Mandel PA-C, Annotati on/Adden dum; Promoted ; acuity set as *; Not Available [facility] 3 03:16:36 Anxiety 42618855 Completed 202007/29/2021 anxiety - Status is Resolved ; Resolved Date: 07/29/20; 07/29/20 9:34AM by Elena Mandel PA-C, Annotati on/Adden dum; Promoted ; acuity set as *; Not Available [facility] 3 03:16:39 Hyperpar athyroid ism 59639436 Active 2022 KERRI thakur, [facility] 3 09:20:44 Chronic obstruct salas pulmonar y disease 65916424 Active 2022 KERRI thakur, [facility] 3 09:20:13 Hyperlip idemia 45629911 Active 2022 KERRI thakur, [facility] 3 09:20:25 Nicotine dependen ce 84108259 Active 2022 Yuridia Mandel MD [address] [place] [address], [phone] , [facility] 5 12:27:30 Schizoaf fective disorder 84745955 Active 2022 Yuridia Mandel MD [address] [place] [address], [phone] , [facility] 5 12:27:11 Epilepsy 41474304 Active 2022 Yuridia Mandel MD [address] [place] [address], [phone] , [facility] 5 12:27:11 Genital herpes simplex 75882389 Active 2022 KERRI DIAZ null, [facility] 3 15:56:00 Gastro-e sophagea l reflux disease with esophagi tis 182448386 Active 2022 KERRI DIAZ null, [facility] 3 15:58:19 Essentia l hyperten aleksandar 04669491 Active 2023 KERRI DIAZ null, [facility] 4 08:46:28 Type 2 diabetes mellitus 79779058 Active 2024 Yuridia Mandel MD [address] [place] [address], [phone] , [facility] 5 12:27:11 Seizure disorder 826138074 Active 2024 Yuridia Mandel MD [address] [place], [place] [address] , [facility] 12:27:11 Primary magdaleno berrios 962357988 Active 2024 Odalischerelle Escalante [facility] [place] 14:41:32 Problem Notes None recorded. Procedures Surgical History Date Name Laterality Status Provider Name and Address Organization Details Recorded Time 07/23/20 25 Joint Inj Kenalog- Shoulder, Hip, Knee completed Yuridia Mandel MD [address] [place] [address], [phone], [facility] 07/23/2025 15:24:15 06/17/20 25 laryngoscopy completed [facility] Ava [facility] 06/30/2025 12:50:30 06/17/20 25 esophagoscopy for biopsy completed [facility] 06/30/2025 12:51:14 02/03/20 25 mammography completed KERRI DIAZ [facility] 02/02/2025 11:45:30 11/20/19 25 Joint Inj Kenalog- Shoulder, Hip, Knee completed Yuridia Mandel MD [address] [place] [address], [phone], [facility], [facility] 11/20/2024 14:59:30 05/22/20 23 Joint Inj Kenalog- Shoulder, Hip, Knee completed Yuridia Mandel MD [address] [place] [address], [phone], [facility], [facility] 05/22/2023 14:28:43 03/27/20 16 endoscopy completed KERRI DIAZ [facility], [facility]. 07/13/2023 15:57:48 ligation of fallopian tube completed Yuridia Mandel MD [address] [place] [address], [phone], [facility], Elan 01/16/2025 12:33:10 cholecystectomy completed KERRI DIAZ [facility], [place] 07/13/2023 15:56:49 Appendectomy completed KERRI DIAZ [facility], [place] 07/13/2023 15:56:56 Imaging Results None recorded. Procedure Notes None recorded. Medical Equipment None Reported. 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, Offic e Visit ; Promo oli; Signi fican ce: *; Reaso n: Drug aller gy; ; [facility] [place] 3 15:52:26 15061 penicilli n V potassium medicatio n Not available Not available Not available 06/09/2023 5 RxNorm Comme nt: Recor ded 01/12 8:15A M by Diya Parker on, [employer]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, Offic e Visit ; Promo oli; Signi fican ce: *; Reaso n: Drug aller gy; ; KERRI DAIZ [facility] [place] 3 15:52:11 4322 hepatitis B immune globulin medicatio n Not available Not available Not available 04/25/2023 25400 RxNorm Odalis Ava blaze [facility], [facility] 3 13:10:42 4323 lisinopri l medicatio n Not available Not available Not available 04/25/2023 01471 RxNorm [facility]alis [facility] 3 13:18:45 4324 ibuprofen medicatio n Not available Not available Not available 04/25/2023 5640 RxNorm Odalis Escalante [facility] 3 13:18:51 4325 Product containin g penicilli n (product) medicatio n Not available Not available Not available 04/25/2023 20756 8001 SNOMED Odalis Njobloch [facility] 3 13:19:03 4326 Chantix medicatio n anaphylax is Not available [facility] 04/25/2023 30761 0 RxNorm KERRI EMILY [facility] 3 15:52:17 Medications Name Sig [...] 4 hours as needed; 0; Recorded 01/13/20 23 8:15AM by Kerri [...] (vit B-12) 1,000 mcg/mL injection syringe monthly 07/133 completed 436; Recorded 11/15/19 23 3:12PM by Kerri Diaz LPN (Authori sindy [...] 07/13 completed 1 box; 436; Recorded 04/12/20 22 1:22PM by Kerri Diaz LPN (Authori sindy through [...] times daily 07/13 completed 436; Recorded 11/29/19 23 8:17AM by Kerri Diaz LPN (Authori isndy through Yuridia Mandel MD), Refill Request; Refill Quantity : 60; Tablet; Not Available Not Available Not Available Benadryl Allergy two times daily as needed 07/13 completed 0; Recorded 01/13/20 8:15AM by Kerri Diaz LPN, Office Visit; Not Available Not Available Not Available OptiChamb er 07/13 completed 0; Recorded 01/13/20 8:15AM by Kerri Diaz LPN, Office Visit; Not Available Not Available Not Available venlafaxi ne daily 07/13 completed 0; Recorded 01/13/20 8:15AM by Kerri Diaz LPN, Office Visit; Not Available Not Available Not Available naproxen every 12 hours as needed 07/13 completed Recorded 03/01/20 2:05PM by Kerri Diaz LPN, Historic al Summary; Refill Quantity : 0; Not Available Not Available Not Available Vitamin D daily 07/[address] Kinsey; 436; Recorded 01/05/20 23 1:48PM by Kerri Diaz LPN (Authori sindy through [...] gabapenti n two times daily 07/13 completed 51771; Recorded 01/23/20 6:11PM by Blanca Casillas (Authori sindy through Octaviano Abla MD), Refill Request; Refill Quantity : 60; Capsule; Not Available Not Available Not Available Miralax daily 07/13 completed 0; Recorded 01/13/20 8:15AM by Kerri Diaz LPN, Office Visit; Not Available Not Available Not Available Premarin daily 07/13 completed 0; Recorded 01/13/20 8:15AM by Kerri Diaz LPN, Office Visit; Not Available Not Available Not Available Crestor at bedtime 07/13 completed 436; Recorded 01/30/20 2:36PM by Kerri Diaz LPN (Authori lorid through [...] times daily 07/09 completed 436; Recorded 09/04/20 4:19PM by Odalis Gardner RN (Authori sindy through Yuridia Mandel MD), Refill [...] two times daily 07/13 completed Recorded 12/28/19 10:19AM by Kerri Diaz LPN, Office Visit; Refill Quantity : 3; Applicat or; Not Available Not Available Not Available Vitals Date Recorded Body height Body mass index (BMI) Body weight Body temperature Heart rate Oxygen saturation Oxygen saturation in Arterial blood by Pulse oximetry Systolic And Diastolic Provider Name and Address Organization Details Last Updated DateTime 165.1 cm 28.1 kg/m2 86477.1 1 g 97 [degF] 64 /min 98 % 98 % 142/88 mm[Hg] Odalis Escalante [facility] 13:56:06 Social History Question Answer Notes LastModified by [employer] Details LastModified Time Tobacco Smoking Status Current Every Day Smoker KERRI DIAZ [facility] 05/22/2023 14:03:54 What Was The Date Of Your Most Recent Tobacco Screening? 04/17/2025 [email or web address] Information not available 04/17/2025 What Is Your Current Pack Years? [email or web address] Information not available 01/16/2025 How Much Tobacco Do You Smoke? 0.5 PPD [email or web address] Information not available 01/16/2025 Sex: Unknown Functional Status Question Answer Note LastModified by [employer] Details LastModified Time Do you use any illicit or recreational drugs? No [email or web address] Information not available 05/22/2023 Do you or have you ever used any other forms of tobacco or nicotine? No [email or web address] Information not available 07/13/2023 What is your level of alcohol consumption? None [email or web address] Information not available 05/22/2023 Mental Status None recorded. Family History Relationship Description Onset Age of this Age Resolved Age Notes LastModified by Organization Details LastModified Time Maternal Uncle Coronary atherosclero sis [email or web address] Not available 09/01 /2023 15:56:24 Medical History Condition Response Hypertension Y Hypothyroidism Y Developmental or Behavioral Disorders Y High Cholesterol Y Gynecological HistoryNo gynecological history recorded. Obstetrics History GPAL:G 0 P 0 0 0 0 Immunizations Vaccine Type Date Status Note Provider Nam e and Address Organization Details Recorded Time Hep A, adult 9 completed MAEVE LANDAVERDE, [facility] [address] [place], [address], [facility] 11/02/2023 12:31:38 Tdap 6 completed MAEVE LANDAVERDE, [facility] [address] [place], [address], [facility] 11/02/2023 12:31:38 Tdap 8 completed MAEVE LANDAVERDE, [facility] [address] [place] [address], [phone], [facility] 11/02/2023 12:31:38 pneumococcal polysaccharide PPV23 6 completed MAEVE LANDAVERDE, [facility] [address] [place] [address], [phone], [facility] 11/02/2023 12:31:38 Influenza, split virus, trivalent, preservative 4 completed MAEVE LANDAVERDE, [facility] [address] [place] [address], [phone], [facility] 11/02/2023 12:31:38 Influenza, split virus, trivalent, preservative 5 js LANDAVERDE, [facility] [address] [place] [address], [phone], [facility] 11/02/2023 12:31:38 Influenza, split virus, trivalent, preservative 6 js LANDAVERDE, [facility] [address] [place], [address], [facility] 11/02/2023 12:31:38 Influenza, split virus, trivalent, preservative 7 completed MAEVEBetty LANDAVERDE, [facility] [address] [place] [address], [phone], [facility] 11/02/2023 12:31:38 Influenza, split virus, trivalent, preservative 8 completed MAEVEBetty LANDAVERDE, [facility] [address] [place] [address], [phone], [facility] 11/02/2023 12:31:38 Influenza, split virus, trivalent, preservative 9 completed MAEVE LANDAVERDE, [address], [address], [facility] 11/02/2023 12:31:38 Influenza, MDCK, quadrivalent, PF 2 completed KERRI thakur, [facility] 05/22/2023 14:02:46 Rabies - IM fibroblast culture 1 completed KERRI thakur, [facility] 05/22/2023 14:02:46 Rabies - IM fibroblast culture 1 completed KERRI thakur, [facility] 05/22/2023 14:02:46 Rabies - IM fibroblast culture 1 completed KERRI thakur, [facility] 05/22/2023 14:02:46 Rabies - IM fibroblast culture 1 completed KERRI thakur, [facility] 05/22/2023 14:02:46 COVID-19, mRNA, LNP-S, PF, 100 mcg/0.5mL dose or 50 mcg/0.25mL dose 1 completed KERRI DIAZ null, [facility] 05/22/2023 14:02:46 COVID-19, mRNA, LNP-S, PF, 100 mcg/0.5mL dose or 50 mcg/0.25mL dose 1 completed KERRI DIAZ null, [facility] 05/22/2023 14:02:46 COVID-19, mRNA, LNP-S, PF, 100 mcg/0.5mL dose or 50 mcg/0.25mL dose 2 completed KERRI thakur, [facility] 05/22/2023 14:02:46 Pneumococcal conjugate PCV20, polysaccharide LQA460 conjugate, adjuvant, PF 3 completed KERRI thakur, [facility] 05/22/2023 14:02:46 COVID-19, mRNA, LNP-S, bivalent, PF, 50 mcg/0.5 mL or 25mcg/0.25 mL dose 3 completed KERRI thakur, [facility] 05/22/2023 14:02:46 Tdap 1 completed KERRI thakur, [facility] 05/22/2023 14:02:46 Hep B, adult 9 completed KERRI DIAZ null, [facility] 05/22/2023 14:02:46 Hep A, adult 9 completed KERRI thakur, [facility] 05/22/2023 14:02:46 Influenza, split virus, quadrivalent, PF 1 completed KERRI thakur, [facility] 05/22/2023 14:02:46 Influenza, MDCK, quadrivalent, preservative 3 completed KERRI thakur, [facility] 10/24/2024 09:09:05 COVID-19, mRNA, LNP-S, PF, 50 mcg/0.5 mL 4 completed KERRI thakur, [facility] 10/24/2024 09:09:05 Influenza, MDCK, trivalent, preservative 4 completed KERRI thakur, [facility] 10/24/2024 09:09:05 Past Encounters Encounter ID Performer Location Encounter Start Date Encounter Closed Date Diagnosis/Indication Diagnosis SNOMED-CT Code Diagnosis ICD10 Code Diagnosis IMO Codes Diagnosis Note [id number] Yuridia Mandel MD [facility] ([facility]) [address] [place] [phone] 07/17/2025 08:16:36 07/27/2025 10:11:33 Essential hypertension 85548013 I10 Hyperlipidemia 21939442 E78.5 Type 2 po betes mellitus 95993906 E11.9 LLV ORDERS Hyperparathyroidism 6699 9008 E21.3 Chronic ob structive pulmonary disease 17920145 J44.9 [id number] Yuridia Mandel MD [facility] ([facility]) [address] [place] [phone] 07/23/2025 15:02:45 07/24/2025 13:45:35 Pain of knee region 3528681643 M25.561 M25.562 G89.29 [id number] Yuridia Mandel MD [facility] ([facility]) [address] [place] [phone] 08/04/2025 13:47:11 08/04/2025 14:24:02 Secondary functional encopresis 87981453 F98.1 35480462 very infrequent . doing well overall. will monitor. Health Concerns Section Related Observation LastModified by Organization Detai ls LastModified Time None Recorded Concern Status LastModified by Organization Details LastModified Time None Recorded Payers Encounter Date Sequence Insurance Name Policy Number Policy [place] Covered Member ID [place] Member ID Guarantor Name 08/04/2025 2 [place] Caty Perdomo [id number] Caty Perdomo 08/04/2025 1 [facility] (MEDICARE REPLACEMENT/A DVANTAGE - PPO) MODSNP Caty Perdomo [id number] Caty Perdomo Notes Date Note Type Note Provider Name and Address Organization Details Recorded Time 5 text/html Bowel Complaints/Fecal IncontinenceReported by PatientHPIFor associated symptoms, patient reportsabdominal painbut reportsno nausea,no vomiting, andno blood in stool. For quality, patient reportsfecal incontinence variableandsharp pain. For duration, patient reportspresent less than 1 month (recurrent episode; has been occurring for 3-4 years per pt report).she had one accident while sleeping. she stays up most of the night. it happened one night she went to bed early for her. that was this weekend. it had not happened for quite some time. she has not had an accident for close to two years. the long-term has acute gastroenteritis going around. she has fluctuating bowel consistency quite frequently. she had a 1 time very firm stool a few months ago. she reports it has been soft and formed since then. the other accidents were also while sleeping. no blood or mucus in the stools no fever or chills.no numbness in the groin. she is sensitive to dairy. she tries to avoid dairy but it is difficult as she does not cook for herself. she says it could be my nerves couldn't it. she was extremely nervous this weekend b/c her son was coming. he causes a lot of stress for her. he is not real neice most of the time and it really puts her on edge for days prior to him visiting. this was the case this weekend. she holds her bms for several days when she gets nervous like this. she had held her bm for two days.ROS as noted in the HPI Yuridia Mandel MD [address] [place] [address], [phone], [facility], [place] 08/04/2025 14:09:02 OBGyn Episode No OBEpisode recorded.
--- OUTSIDE RECORDS SUMMARY | 2025-08-08 17:02 | XMS_ITS | Clinical Summary ---
Author Organization [facility] Address [address] [place] [address] Phone Care Team Providers Care Social Media Content Specialist Name Role Phone Non-Staff, Physician Primary Care Provider Unava ilable Medications lisinopril (PRINIVIL) 20 mg Oral tablet Take 20 mg by mouth daily. 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 Gender Identity Not on file Sexual Orientation Not on file Occupation Industry Job Start Date Job End Date Not on file Not on file Not on file Not on file Last Filed Vital Signs Vital Sign Reading Time Taken Comments Blood Pressure 142/98 05/27/2010 11:00 PM CDT Pulse 74 05/27/2010 11:00 PM CDT Temperature - - Respiratory Rate 18 05/27/2010 11:00 PM CDT Oxygen Saturation 99% 05/27/2010 11:00 PM CDT Inhaled Oxygen Concentration - - Weight 82.6 kg (182 lb) 05/27/2010 6:15 PM CDT Height 170.2 cm (5' 7 ) 05/27/2010 6:15 PM CDT Body Mass Index 28.51 05/27/2010 6:15 PM CDT Plan of Treatment Health Maintenance Due Date [...] OR WO CAD Routine 12/12/2011 11:32 AM AQUACULTURE FARM MANAGER Abnormal mammogram, unspecified from Last 3 Months or Most Recently Relevant to Health Maintenance Results * MAMMO DIGITAL DIAG UNI RIGHT (12/12/2011 11:32 AM AQUACULTURE FARM MANAGER) Anatomical Region Laterality Modality Breast Right Mammography 12/12/2011 10:4 6 AM AQUACULTURE FARM MANAGER Impressions 12/16/2011 5:43 AM AQUACULTURE FARM MANAGER IMPRESSION: Patient returned for a six month followup on the right. The distribution of the tissue remains stable and unremarkable. The patient should return for bilateral diagnostic exam in six months. Patient received the result and recommendation letter. KG/jaw - uploaded from [employer] - Narrative 12/16/2011 5:43 AM AQUACULTURE FARM MANAGER REASON FOR EXAM: Patient is returning for [...] and recommendation letter. KG/jaw - uploaded from [employer] - [facility] Mauricio RICK MAMMO ORDERABLES Final Result from Last 3 Months or Most Recently Relevant to Health Maintenance Insurance MEDICARE PART A AND B [place]ID [place] Care Teams Social Media Content Specialist Relationship Specialty Start Date End Date Non-Staff, Physician NO ADDRESS ON FILE PCP - General Orthopedic Surgery 05/27/10
--- OUTSIDE RECORDS SUMMARY | 2025-08-08 17:02 | XMS_ITS | Encounter Summary ---
Author Organization [facility] Address [address] [place] [address] Care Team Providers Care Garde Manager Name Role Phone Non-Staff, Physician Primary Care Provider Unava ilable Encounter Details Date Type Department Care Team (Late st Contact Info) Description 12/19/2011 Ancillary Orders [facility] Pre-Registration [place] CALL TO MAKE APPOINTMENT ONLY [address] [place] [phone] Eliazar Martínez MD [address] [place] [phone] Social History Tobacco Use Types Packs/Day Years Used Date Smoking Tobacco: Never Assessed Comments Unknown Sex and Gender Information Value Date Recorded Sex Assigned at Not on file Legal Sex Female 11:07 AM STADIUM MANAGER Gender Identity Not on file Sexual Orientation Not on file Occupation Industry Job Start Date Job End Date Not on file Not on file Not on file Not on file documented as of this encounter Plan of Treatment Not on file documented as of this encounter Visit Diagnoses Not on filedocumented in this encounter Care Teams Garde Manager Relationship Specialty Start Date End Date Non-Staff, Physician NO ADDRESS ON FILE PCP - General Orthopedic Surgery 05/27/10 documented as of this encounter
--- OUTSIDE RECORDS SUMMARY | 2025-08-08 17:02 | XMS_ITS | Data Portability ---
Author Organization [facility]DO [facility] Address [address] [place] [address] Care Team Providers Care Heat Treater Apprentice Name Role Phone YURIDIA MANDEL Primary Care Provider [phone] RIKA KINSEY Referring Provider Assessment No assessment recorded. Plan of Treatment Reminders Order Date Submit Date Provider Last Modified By Organization Details Last Modified Time Details Appointments None recorded. Lab CMP, serum or plasma 2024 025 [facility], [address] [place] [address], [id number], 5 16:45:36 Referral None recorded. Procedures None recorded. Surgeries None recorded. Imaging XR, knee, 3 view - weight bearing 2024 025 [email or web address] [facility] ([facility]), [address] [place] [address], [phone], 5 14:16:29 XR, knee, 3 view - weight bearing 2024 025 [email or web address] [facility] ([facility]), [address] [place] [address], [phone], 5 14:16:34 electrocard iogram 2024 025 [email or web address] [facility] ([facility]), [address] [place] [address], [phone], 14:07:12 Medication Orders None recorded. Patient TargetsNo targets recorded. Patient InstructionsNo instructions recorded. Reason for Referral None Reported. Results Created Date Observation Date Name Description Value Unit Range Abnormal Flag Note LastModifiedBy Organization Detail LastModifiedTime 08/05/2008/05/2025 CMP (FEMA LE) glucose 113.0 mg/dL 60.0-9 9.0 high Not Available [facility] [address] [facility] [address], [place], [address], 08/05/2025 16:45:35 08/05/20 25 08/05/2025 CMP (FEMA LE) BUN (blood urea nitrogen) 10.0 mg/dL 10.0-2 6.0 Not Available [facility] [address] [facility] [address], [place], [address], 08/05/2025 16:45:35 08/05/20 25 08/05/2025 CMP (FEMA LE) creatinine (serum) 0.9 mg/dL 0.4-1. 5 Not Available [facility] [address], [place], [address], 08/05/2025 16:45:35 08/05/20 25 08/05/2025 CMP (FEMA LE) BUN/creatini ne ratio 11.11 ratio Not Available [facility] [address] [facility] [address], [place], [address], 08/05/2025 16:45:35 08/05/20 25 08/05/2025 CMP (FEMA LE) eGFR calculated 69.3 Not Available [facility] [address] [facility] [address], [place], [address], 08/05/2025 16:45:35 08/05/20 25 08/05/2025 CMP (FEMA LE) total protein 6.9 g/dL 6.0-8. 5 Not Available [facility] [address] [facility] [address], [place], [address], 08/05/2025 16:45:35 08/05/20 25 08/05/2025 CMP (FEMA LE) total bilirubin 0.4 mg/dL 0.2-1. 3 Not Available [facility] [address] [facility], [place], [address], 08/05/2025 16:45:35 08/05/20 25 08/05/2025 CMP (FEMA LE) albumin 4.0 g/dL 3.5-5. 5 Not Available [facility] [address] [facility], [place], [address], 08/05/2025 16:45:35 08/05/20 25 08/05/2025 CMP (FEMA LE) globulin 2.9 calc Not Available [facility] [address], [place], [address], 08/05/2025 16:45:35 08/05/20 25 08/05/2025 CMP (FEMA LE) AST (SGOT) 24.0 U/L 0.0-46 .0 Not Available [facility] [address] [facility], [place], [address], 08/05/2025 16:45:35 08/05/20 25 08/05/2025 CMP (FEMA LE) altv (SGPT) 12.0 U/L 13.0-6 9.0 abnormal Not Available [facility] [address] Sandra [facility] 1, [place], [address], 08/05/2025 16:45:35 08/05/20 25 08/05/2025 CMP (FEMA LE) A/G ratio 1.4 ratio Not Available [facility] [address] [facility], [place], [address], 08/05/2025 16:45:35 08/05/20 25 08/05/2025 CMP (FEMA LE) ALP phos 64.0 U/L 30.0-1 40.0 normal Not Available [facility] [address] [facility] [address], [place], [address], 08/05/2025 16:45:35 08/05/20 25 08/05/2025 CMP (FEMA LE) calcium 10.5 mg/dL 8.4-10 .5 Not Available [facility] [address] [facility] [address], [place], [address], 08/05/2025 16:45:35 08/05/20 25 08/05/2025 CMP (FEMA LE) sodium 141.0 mmol/ L 136.0- 145.0 Not Available [facility] [address] [facility] [address], [place], [address], 08/05/2025 16:45:35 08/05/20 25 08/05/2025 CMP (FEMA LE) potassium 4.0 mmol/ L 3.5-5. 1 Not Available [facility] [address] [address], [place], [address], 08/05/2025 16:45:35 08/05/20 25 08/05/2025 CMP (FEMA LE) chloride 110.0 mmol/ L 98.0-1 10.0 normal Not Available [facility] [address] [facility] [address], [place], [address], 08/05/2025 16:45:35 08/05/20 25 08/05/2025 CMP (FEMA LE) C02 23.0 mmol/ L 22.0-3 1.0 Not Available [facility] [address] [facility] [address], [place], [address], 08/05/2025 16:45:35 08/05/20 25 08/05/2025 CMP (FEMA LE) anion gap 8.0 calc Not Available [facility] [address] [facility], [place], [address], 08/05/2025 16:45:35 08/05/20 25 08/05/2025 CMP (FEMA LE) osmolality 291.0 calc Not Available [facility] [address] [facility] [address], [place], [address], 08/05/2025 16:45:35 05/27/20 25 05/27/2025 elect rocar diogr am No observ ation record ed. [address] ([facility]) [address] [place], [address], 07/17/2025 13:43:51 05/27/20 25 05/27/2025 elect rocar diogr am No observ ation record ed. [address] ([facility]) [address] [place], [address], 07/17/2025 13:43:51 07/27/20 25 07/23/2025 XR, knee, 3 view No observ ation record ed. [facility] ([facility]) [address] [place], [address], 07/28/2025 14:53:25 07/27/20 25 07/23/2025 XR, knee, 3 view No observ ation record ed. [facility] ([facility]) [address] [place], [address], 07/28/2025 14:53:32 Result Notes None recorded. Problems Name Problem SNOMED Code Status Onset Date Resolution Date Notes Provider Name and Address Organization Details Recorded Time Asthma 433596340 Completed 202007/29/2021 asthma - Status is Inactive ; 07/29/20 9:37AM by Elena Mandel PA-C, Annotati on/Adden dum; Promoted ; acuity set as *; Not Available [facility] 3 03:16:30 Hypokale edinson 30269781 Completed 202007/29/2021 hypokale edinson - Status is Resolved ; Resolved Date: 07/29/20; 07/29/20 9:34AM by Elena Mandel PA-C, Annotati on/Adden dum; Promoted ; acuity set as *; Not Available [facility] 3 03:16:31 History of epilepsy 489432751 Completed 202007/29/2021 epilepsy - Status is Inactive ; 07/29/20 9:37AM by Elena Mandel PA-C, Annotati on/Adden dum; Promoted ; acuity set as *; Not Available [facility] 3 03:16:33 Unspecif ied schizoaf fective schizoph viet Completed 202007/29/2021 schizoaf fective disorder - Status is Resolved ; Resolved Date: 07/29/20; 07/29/20 9:34AM by Elena Mandel PA-C, Annotati on/Adden dum; Promoted ; acuity set as *; Not Available [facility] 3 03:16:36 Anxiety 24745905 Completed 202007/29/2021 anxiety - Status is Resolved ; Resolved Date: 07/29/20; 07/29/20 9:34AM by Elena Mandel PA-C, Annotati on/Adden dum; Promoted ; acuity set as *; Not Available [facility] 3 03:16:39 Hyperpar athyroid ism 91579291 Active 2022 KERRI thakur, [facility] 3 09:20:44 Chronic obstruct salas pulmonar y disease 06873082 Active 2022 KERRI thakur, [facility] 3 09:20:13 Hyperlip idemia 94627589 Active 2022 KERRI thakur, [facility] 3 09:20:25 Nicotine dependen ce 21641428 Active 2022 Yuridia Mandel MD [address] [place] [address], [address] , [facility] 5 12:27:30 Schizoaf fective disorder 82598979 Active 2022 Yuridia Mandel MD [address] [place] [address], [address] , [facility] 5 12:27:11 Epilepsy 52860057 Active 2022 Yuridia Mandel MD [address] [place] [address], [address] , [facility] 5 12:27:11 Genital herpes simplex 22009349 Active 2022 KERRI thakur, [facility] 3 15:56:00 Gastro-e sophagea l reflux disease with esophagi tis 082573482 Active 2022 KERRI thakur, [facility] 3 15:58:19 Essentia l hyperten aleksandar 92314133 Active [address] [facility] 4 08:46:28 Type 2 diabetes mellitus 79962665 Active 2024 Yuridia Mandel MD [address] [place] [address], [address] , [facility] 5 12:27:11 Seizure disorder 085966259 Active 2024 Yuridia Mandel MD [address] [place] [address], [address] , [facility] 5 12:27:11 Primary gonarthr osis, serinaa l 680025573 Active 2024 Odalis Ava [facility] 14:41:32 Problem Notes None recorded. Procedures Surgical History Date Name Laterality Status Provider Name and Address Organization Details Recorded Time 07/23/20 25 Joint Inj Kenalog- Shoulder, Hip, Knee completed Yuridia Mandel MD [address] [place] [address], [address], [facility] 07/23/2025 15:24:15 06/17/20 25 [facility] 06/30/2025 12:50:30 06/17/20 25 esophagoscopy for biopsy completed [facility] 06/30/2025 12:51:14 02/03/20 [address]Z [facility] 02/02/2025 11:45:30 11/20/19 25 Joint Inj Kenalog- Shoulder, Hip, Knee completed Yuridia Mandel MD [address] [place] [address], [address], [facility] 11/20/2024 14:59:30 05/22/20 23 Joint Inj Kenalog- Shoulder, Hip, Knee completed Yuridia Mandel MD [address] [place] [address], [address], [facility] 05/22/2023 14:28:43 03/27/20 16 endoscopy [address] [facility] 07/13/2023 15:57:48 ligation of fallopian tube completed Yuridia Mandel MD [address] [place] [address], [address], [facility] LG[facility]LGerald[facility]erald 01/16/2025 12:33:10 cholecystectomy completed KERRI DIAZ [facility] 07/13/2023 15:56:49 Appendectomy completed [facility]ERRI DIAZ [facility] LG[facility]LGerald[facility] 07/13/2023 15:56:56 Imaging Results None recorded. Procedure Notes None recorded. Medical Equipment None Reported. Allergies Allergen ID Allergen Name Allergen Category Reaction Reaction Severity Criticality Documentation Date Start Date Code Code System Note Provider Name and Address Organization Details Recorded Time 05275 varenicli ne tartrate medicatio n anaphylax is Not available Not available 06/09/2023 48948 4 RxNorm React ion: Anaph ylaxi s; Comme nt: Recor ded 01/12 8:15A M by Diya Parker on, CRAS, Offic e Visit ; Promo oli; Signi fican ce: *; Reaso n: Drug aller gy; ; [facility] 3 15:52:26 53347 penicilli n V potassium medicatio n Not available Not available Not available 06/09/2023 5 RxNorm Comme nt: Recor ded 01/12 8:15A M by Diya Parker on, CRAS, Offic e Visit ; Promo oli; Signi fican ce: *; Reaso n: Drug aller gy; ; [facility]RI D[facility] 3 15:52:11 4322 hepatitis B immune globulin medicatio n Not available Not available Not available 04/25/2023 09683 RxNorm Odalis Ava blaze, [facility] 3 13:10:42 4323 lisinopri l medicatio n Not available Not available Not available 04/25/2023 31138 RxNorm Odalis Ava null, [facility] 3 13:18:45 4324 ibuprofen medicatio n Not available Not available Not available 04/25/2023 5640 RxNorm Odalis Ava thakur, [facility] 3 13:18:51 4325 Product containin g penicilli n (product) medicatio n Not available Not available Not available 04/25/2023 89713 8001 SNOMED Odalis Escalante [facility], [facility] 3 13:19:03 4326 Chantix medicatio n anaphylax is Not available [facility] 04/25/2023 03116 0 RxNorm KERRI EMILY [facility], [facility] 3 15:52:17 Medications Name Sig [...] Available Not Available No t Available polyethyl geurda glycol 3350 17 gram/dose oral powder dissolve [...] syringe monthly 07/13 completed 436; Recorded 11/15/19 23 3:12PM by [...] Recorded 11/29/19 8:17AM by Kerri Diaz LPN (Authorriley callahan through Yuridia Mandel MD), Refill Request; Refill [...] 01/05/20 23 1:48PM by Kerri Diaz LPN (Authorriley callahan through Yuridia Mandel MD), Annotati on/Adden dum; Refill Quantity : 1; Capsule; Not Available Not Available Not Available Vitamin D3 2000 units daily active Not Available Not Available No t Available metformin daily 07/13 completed 436; Recorded 08/24/20 22 10:12AM by Kerri Diaz LPN (Authorriley callahan through Yuridia Mandel MD), Annotati on/Adden dum; Refill Quantity : 30; Tablet; Not Available Not Available Not Available gabapenti n two times daily 07/13 completed 22305; Recorded 01/23/20 6:11PM by Blanca Casillas (Authori sindy through Octaviano Alba MD), Refill Request; Refill [...] 22 4:19PM by Odalis Gardner RN (Authori zed through Yuridia Mandel MD), Refill [...] Not Available Not Available Not Avai lable Bretitustri Aerospher e two times daily 07/13 completed Recorded 12/28/19 10:19AM by Kerri Diaz LPN, Office Visit; Refill Quantity : 3; Applicat or; Not Available Not Available Not Available Vitals Date Recorded Body height Body mass index (BMI) Body weight Oxygen saturation Oxygen saturation in Arterial blood by Pulse oximetry Heart rate Respiratory rate Body temperature Systolic And Diastolic Provider Name and Address Organization Details Last Updated DateTime 5 165.1 cm 27.1 kg/m2 72960.5 6 g 95 % 95 % 68 /min 15 /min 97.5 [degF] 131/71 mm[Hg] KERRI DIAZ [facility] 09:06:10 Date Recorded Body height Body mass index (BMI) Body weight Body temperature Heart rate Oxygen saturation Oxygen saturation in Arterial blood by Pulse oximetry Systolic And Diastolic Provider Name and Address Organization Details Last Updated DateTime 5 165.1 cm 27.5 kg/m2 83445.7 4 g 97.1 [degF] 78 /min 98 % 98 % 128/82 mm[Hg] [facility] 15:08:56 Date Recorded Body height Body mass index (BMI) Body weight Body temperature Heart rate Oxygen saturation Oxygen saturation in Arterial blood by Pulse oximetry Systolic And Diastolic Provider Name and Address Organization Details Last Updated DateTime 5 165.1 cm 28.1 kg/m2 55624.1 1 g 97 [degF] 64 /min 98 % 98 % 142/88 mm[Hg] [facility] 5 13:56:06 Social History Question Answer Notes LastModified by Organizat ion Details LastModified Time Tobacco Smoking Status Current Every Day Smoker KERRI DIAZ [facility] 05/22/2023 14:03:54 What Was The Date Of Your Most Recent Tobacco Screening? 04/17/2025 [email or web address] Information not available 04/17/2025 What Is Your Current Pack Years? [email or web address] ears [email or web address] Information not available 01/16/2025 How Much Tobacco Do You Smoke? 0.5 PPD [email or web address] Information not available 01/16/2025 Sex: Unknown Functional Status Question Answer Note LastModified by Organizat ion Details LastModified Time Do you use any illicit or recreational drugs? No [email or web address] Information not available 05/22/2023 Do you or have you ever used any other forms of tobacco or nicotine? No [email or web address] Information not available 07/13/2023 What is your level of alcohol consumption? None [email or web address] Information not available 05/22/2023 Mental Status None recorded. Family History Relationship Description Onset Age of this Age Resolved Age Notes LastModified by Organization Details LastModified Time Maternal Uncle Coronary atherosclero sis Not available 07/13 15:56:24 Medical History Condition Response Hypertension Y Hypothyroidism Y Developmental or Behavioral Disorders Y High Cholesterol Y Gynecological HistoryNo gynecological history recorded. Obstetrics History GPAL:G 0 P 0 0 0 0 Immunizations Vaccine Type Date Status Note Provider Nam e and Address Organization Details Recorded Time Hep A, adult 9 js LANDAVERDE, [address], [address], [facility] 11/02/2023 12:31:38 Tdap 6 js LANDAVERDE [address], [address], [facility] 11/02/2023 12:31:38 Tdap 8 js LANDAVERDE [address], [address], [facility] 11/02/2023 12:31:38 pneumococcal polysaccharide PPV23 6 js [facility] [address] [place] [address], [address], [facility] 11/02/2023 12:31:38 Influenza, split virus, trivalent, preservative 4 completed MAEVE LANDAVERDE, [address], [address], [facility] 11/02/2023 12:31:38 Influenza, split virus, trivalent, preservative 5 completed MAVEE LANDAVERDE, [address], [address], [facility] 11/02/2023 12:31:38 Influenza, split virus, trivalent, preservative 6 completed MAEVE LANDAVEDRE, [address], [address], [facility] 11/02/2023 12:31:38 Influenza, split virus, trivalent, preservative 7 completed MAEVE LANDAVERDE, [address], [address], [facility] 11/02/2023 12:31:38 Influenza, split virus, trivalent, preservative 8 completed MAEVE LANDAVERDE, [address], [address], [facility] 11/02/2023 12:31:38 Influenza, split virus, trivalent, preservative 9 completed MAEVE LANDAVREDE, [address], [address], [facility] 11/02/2023 12:31:38 Influenza, MDCK, quadrivalent, PF 2 completed KERRI thakur, [facility] 05/22/2023 14:02:46 Rabies - IM fibroblast culture 1 completed KERRI thakur, [facility], Tho[facility]erald 05/22/2023 14:02:46 Rabies - IM fibroblast culture 1 completed KERRI thakur, [facility] 05/22/2023 14:02:46 Rabies - IM fibroblast culture 1 completed KERRI thakur, [facility] 05/22/2023 14:02:46 Rabies - IM fibroblast culture 1 completed KERRI thakur, [facility], Tho[facility]erald 05/22/2023 14:02:46 COVID-19, mRNA, LNP-S, PF, 100 mcg/0.5mL dose or 50 mcg/0.25mL dose 1 completed [facility] 05/22/2023 14:02:46 COVID-19, mRNA, LNP-S, PF, 100 mcg/0.5mL dose or 50 mcg/0.25mL dose [address] [facility] [place].[facility] 05/22/2023 14:02:46 COVID-19, mRNA, LNP-S, PF, 100 mcg/0.5mL dose or 50 mcg/0.25mL dose 2 completed [facility] 05/22/2023 14:02:46 Pneumococcal conjugate PCV20, polysaccharide [id number] conjugate, adjuvant, PF [address] [facility] [place].[facility] 05/22/2023 14:02:46 COVID-19, mRNA, LNP-S, bivalent, PF, 50 mcg/0.5 mL or 25mcg/0.25 mL dose [address] [facility] 05/22/2023 14:02:46 Tdap 1 completed KERRI thkaur, [facility] 05/22/2023 14:02:46 Hep B, adult 9 completed KERRI DIAZ null, [facility] 05/22/2023 14:02:46 Hep A, adult 9 completed KERRI DIAZ null, [facility] 05/22/2023 14:02:46 Influenza, split virus, quadrivalent, PF 1 completed KERRI thakur, [facility] 05/22/2023 14:02:46 Influenza, MDCK, quadrivalent, preservative 3 completed KERRI thakur, [facility] 10/24/2024 09:09:05 COVID-19, mRNA, LNP-S, PF, 50 mcg/0.5 mL 4 completed KERRI thakur, [facility] 10/24/2024 09:09:05 Influenza, MDCK, trivalent, preservative 4 completed KERRI thakur, [facility] 10/24/2024 09:09:05 Past Encounters Encounter ID Performer Location Encounter Start Date Encounter Closed Date Diagnosis/Indication Diagnosis SNOMED-CT Code Diagnosis ICD10 Code Diagnosis IMO Codes Diagnosis Note [id number] Yuridia Mandel MD [facility] ([facility]) [address] [place] [id number] 02/23/2023 09:46:35 03/01/2023 12:22:08 Acute exacerbation of chronic obstructive pulmonary disease 989044619 J44.1 [id number] Yuridia Mandel MD [facility] ([facility]) [address] [place] [id number] 04/25/2023 11:47:41 05/23/2023 11:51:20 Abdominal pain 65334117 R10.9 [id number] Yuridia Mandel MD [facility] ([facility]) [address] [place] [id number] 05/01/2023 08:31:24 05/25/2023 10:26:56 [id number] Yuridia Mandel MD [facility] ([facility]) [address] [place] [id number] 5 05/22/2023 13:35:10 05/22/2023 16:59:56 [id number] Yuridia Mandel MD [facility] ([facility]) [address] [place] [id number] 5 07/13/2023 08:42:00 07/23/2023 14:35:16 Hyperlipidemia 34015859 E78.5 Hypothyroidism 93264444 E03.9 Chronic ob structive pulmonary disease 51210721 J44.9 Hypertensive disorder 38 064737 I10 Hyperparathyroidism 6699 9008 E21.3 [id number] Yuridia Mandel MD [facility] ([facility]) [address] [place] [id number] 5 09/11/2023 09:55:33 09/12/2023 11:15:04 Hyperlipidemia 59077887 E78.5 Prediabetes 378242296 R7 3.03 [id number] Yuridia Mandel MD [facility] ([facility]) [address] [place] [id number] 5 09/14/2023 13:51:56 09/14/2023 18:34:29 Infection of tooth 315638940 K04.7 [id number] Yuridia Mandel MD [facility] ([facility]) [address] [place] [id number] 5 09/21/2023 13:24:40 09/21/2023 16:40:17 Infection of tooth 349145526 K04.7 she is getting closer to the dental apt. will monitor. [id number] Octaviano Alba MD [facility] ([facility]) [address] [place] [id number] 5 09/27/2023 11:22:20 09/27/2023 19:01:28 Injury of ankle 306117557 S99.911A Ankle x-rays were negative for fracture. Exam consistent with mild ankle sprain. Cathy rest, ice, compressio n, and elevation. NSAIDs as needed for pain. [id number] Yuridia Mandel MD [facility] ([facility]) [address] [place] [id number] 5 10/12/2023 08:23:24 10/17/2023 10:44:48 Chronic obstructive pulmonary disease 16504765 J44.9 Hyperlipidemia 73739926 E78.5 Hyperparathyroidism 6699 9008 E21.3 Hypothyroidism 89398407 E03.9 [id number] ALICE BYRNE [facility] ([facility]) [address] [place] [id number] 5 11/02/2023 10:55:39 11/02/2023 14:31:41 Adult health examination 994554243 Z00.00 Screening for osteoporosis 219254981 Z13.820 Screening mammography 24 671731 Z12.31 Scheduled in November. Prediabetes 943282222 R7 3.03 Last A1C 6.0. [id number] Yuridia Mandel MD [facility] ([facility]) [address] [place] [id number] 5 11/08/2023 13:15:49 11/08/2023 14:13:34 Vitamin D deficiency 05257640 E55.9 Hyperparathyroidism 6699 9008 E21.3 Hypothyroidism 16208249 E03.9 [id number] Yuridia Mandel MD [facility] ([facility]) [address] [place] [id number] 5 01/10/2024 12:54:44 01/11/2024 10:47:05 Hypothyroidism 39206864 E03.9 Osteopenia 741926260 M85 .80 [id number] Yuridia Mandel MD [facility] ([facility]) [address] [place] [id number] 5 01/11/2024 08:27:25 01/15/2024 09:05:05 Chronic obstructive pulmonary disease 30070729 J44.9 Hyperlipidemia 67477548 E78.5 Hyperparathyroidism 6699 9008 E21.3 Hypothyroidism 39805116 E03.9 Essential hypertension 40943230 I10 Screening for malignant neoplasm of breast 531765749 Z12.31 [id number] Yuridia Mandel MD [facility] ([facility]) [address] [place] [address] 5 01/31/2024 14:42:02 01/31/2024 17:01:50 Dysfunction of bilateral eustachian tubes [id number] 421478 H69.93 [id number] Yuridia Mandel MD [facility] ([facility]) [address] [place] [address] 5 03/11/2024 14:32:18 03/13/2024 10:14:29 Dysuria 19803820 R30.0 [id number] Yuridia Mandel MD [facility]) [address] [place] [address] 5 03/18/2024 13:04:36 03/19/2024 10:55:02 Epilepsy 09943895 G40.909 she was talking through the event so not likely a seizure. Schizoaffe ctive disorder 65282999 F25.9 Nicotine dependence 5629 4008 F17.200 Confusional state 643732 003 F44.89 Type 2 po betes mellitus 00926770 E11.9 LLV ORDERS [id number] RAVI SANDOVAL APRN [facility]) [address] [place] [address] 5 04/11/2024 13:39:43 04/11/2024 16:35:13 Upper respiratory infection 03242913 J06.9 Acute bronchitis 4783481 2 J20.9 [id number] Yuridia Mandel MD [facility] ([facility]) [address] [place], [place] [address] 04/18/2024 08:11:38 04/22/2024 13:32:07 Chronic obstructive pulmonary disease 51006062 J44.9 Essential hypertension 64959816 I10 Hyperlipidemia 73467692 E78.5 Hypothyroidism 96673808 E03.9 Candidiasis of vagina 72 048500 B37.31 [id number] Yuridia Mandel MD [facility] ([facility]) [address] [place], [place] [address] 07/17/2024 09:35:04 07/18/2024 12:51:43 Essential hypertension 77935462 I10 [id number] Yuridia Mandel MD [facility] ([facility]) [address] [place] [phone] 5 07/18/2024 08:24:13 07/22/2024 10:03:23 Chronic obstructive pulmonary disease 11360289 J44.9 Essential hypertension 52032418 I10 Gastro-eso phageal reflux disease with esophagitis 277957355 K21.00 Hyperlipidemia 06046718 E78.5 Hyperparathyroidism 6699 9008 E21.3 Hypothyroidism 64127702 E03.9 [id number] Yuridia Mandel MD [facility] ([facility]) [address] [place] [address] 5 08/21/2024 10:07:24 08/21/2024 14:04:09 Hyperlipidemia 81848788 E78.5 Hypothyroidism 06189546 E03.9 Hyperparathyroidism 6699 9008 E21.3 Prediabetes 744245740 R7 3.03 Viral screening 10057732 4 Z11.59 Essential hypertension 28305905 I10 [id number] Yuridia Mandel MD [facility] ([facility]) [address] [place] [address] 5 09/22/2024 11:33:57 09/22/2024 12:11:40 [id number] Yuridia Mandel MD [facility] ([facility]) [address] [place] [address] 5 10/24/2024 08:02:23 11/10/2024 13:29:47 Chronic obstructive pulmonary disease 68380065 J44.9 Essential hypertension 59672347 I10 Hyperlipidemia 12391686 E78.5 Hyperparathyroidism 6699 9008 E21.3 Hypothyroidism 22432519 E03.9 Cigarette smoker 7525125 7 F17.495 [id number] Yuridia Mandle MD [facility] ([facility]) [address] [place] [address] 5 11/20/2024 14:38:40 11/20/2024 15:06:01 Chronic obstructive pulmonary disease 32970019 J44.9 Essential hypertension 27517844 I10 Hyperlipidemia 86715055 E78.5 Nicotine dependence 5629 4008 F17.200 Schizoaffe ctive disorder 77576782 F25.9 Type 2 po betes mellitus 53455431 E11.9 LLV ORDERS Seizure disorder 2091620 02 G40.909 Pain of bi lateral knee joints 5287208066 67318 M25.561 M25.254 [id number] Yuridia Mandel MD [facility] ([facility]) [address] [place] [address] 5 12/10/2024 10:47:49 12/11/2024 13:43:59 Essential hypertension 01155955 I10 [id number] Yuridia Mandel MD [facility] ([facility]) [address] [place] [address] 5 12/30/2024 08:47:27 12/30/2024 11:19:44 Goiter 5328741 E04.9 [id number] Yuridia Mandel MD [facility] ([facility]) [address] [place] [address] 5 01/05/2025 13:59:21 01/12/2025 08:10:51 [id number] Yuridia Mandel MD [facility] ([facility]) [address] [place] [address] 5 01/16/2025 07:57:19 01/19/2025 14:43:44 Chronic obstructive pulmonary disease 25556315 J44.9 Hyperlipidemia 15189905 E78.5 Type 2 po betes mellitus 57664694 E11.9 LLV ORDERS Screening mammography 24 209020 Z12.31 Nicotine dependence 5629 4008 F17.200 Feeling of lump in throat 664484610 R09.89 [id number] Yuridia Mandel MD [facility] ([facility]) [address] [place] [address] 5 01/30/2025 10:18:19 02/02/2025 13:51:08 Essential hypertension 17018469 I10 [id number] Yuridia Mandel MD [facility] ([facility]) [address] [place] [address] 5 02/19/2025 11:51:55 02/20/2025 08:07:22 Gastro-esophageal reflux disease with esophagitis 642976908 K21.00 [id number] Yuridia Mandel MD [facility] ([facility]) [address] [place] [address] 5 04/03/2025 10:35:00 04/07/2025 09:47:00 Essential hypertension 96018852 I10 Type 2 po betes mellitus 91548684 E11.9 LLV ORDERS Hyperparathyroidism 6699 9008 E21.3 [id number] Yuridia Mandel MD [facility] ([facility]) [address] [place] [address]-924 5 04/17/2025 08:44:32 04/22/2025 11:19:54 Chronic obstructive pulmonary disease 59222485 J44.9 Essential hypertension 31939299 I10 Hyperlipidemia 44703523 E78.5 Type 2 po betes mellitus 43223091 E11.9 LLV ORDERS Epigastric pain 03550403 R10.13 70896 f/u with Dr. Forrest to consider EGD. hx of gastritis and esophagiti s. She is currently on pantoprazo le and famotidine . Will refer to consider EGD [id number] Yuridia Mandel MD [facility] ([facility]) [address] [place] [address] 5 05/27/2025 13:15:05 05/27/2025 14:07:11 Preoperative procedure 075199981 Z01.836 6553352 [id number] Yuridia Mandel MD [facility] ([facility]) [address] [place] [address] 5 07/17/2025 08:16:36 07/27/2025 10:11:33 Essential hypertension 47914284 I10 Hyperlipidemia 47251032 E78.5 Type 2 po betes mellitus 28621070 E11.9 LLV ORDERS Hyperparathyroidism 6699 9008 E21.3 Chronic ob structive pulmonary disease 65938959 J44.9 [id number] Yuridia Mandel MD [facility] ([facility]) [address] [place] [address] 5 07/23/2025 15:02:45 07/24/2025 13:45:35 Pain of knee region 9801505110 M25.561 M25.562 G89.29 49507866 [id number] Yuridia Mandel MD [facility] ([facility]) [address] [place] [address] 08/04/2025 13:47:11 08/04/2025 14:24:02 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 doing well overall. will monitor. [id number] Yuridia Mandel MD [facility] ([facility]) [address] [place] [address] 08/05/2025 12:03:29 08/06/2025 13:10:14 [facility] 59137045 E05.90 [id number] Health Concerns Section Related Observation LastModified by Organization Detai ls LastModified Time None Recorded Concern Status LastModified by Organization Details LastModified Time None Recorded Advance Directives Directive None Recorded Payers Insurance Date Sequence Insurance Name Policy Number Policy [place] Covered Member ID [place] Member ID Guarantor Name 07/16/2025 [place] [facility] Caty Perdomo [id number] Caty Perdomo 07/16/2025 2 [place] Caty Perdomo [id number] Caty Perdomo 04/17/2025 1 [id number] Caty Perdomo [id number] Caty Perdomo 04/17/2025 1 [place] DV[place] - [place]PO[place] [id number] Caty Perdomo [id number] Caty Perdomo 08/03/2025 1 [facility] (MEDICARE REPLACEMENT/A DVANTAGE - PPO) [id number] Caty Perdomo [id number] Caty Perdomo Notes Date Note Type Note Provider Name and Address Organization Details Recorded Time 5 text/html HyperlipidemiaReported by PatientHPIFor duration, patient reportschronic. For adherence to treatment plan, patient reportstakes medications as prescribed. For complications, patient reportsno coronary artery diseaseandno cardiovascular disease. Hypertension IM/FMReported by PatientHPIFor self care, patient reportssmoker. For associated symptoms, patient reportsheadachesbut reportsno palpitationsandno chest pain(dizziness when bending over). For severity, patient reportsnormal (<120/<80 mmhg). For duration, patient reportshtn present for ___ years. For onset/timing, patient reportsgradual onset. For alleviating factors, patient reportsmedication. HypothyroidReported by PatientHPIFor duration, patient reports>12 months. For associated symptoms, patient reportsno lightheadedness,no cold intolerance,no chest pain, andno palpitations. For treatment, patient reportstaking medication as prescribedandlast tsh level: 2.07. COPDReported by PatientHPI:For associated symptoms, patient reportscoughing up sputumandwheezingbut reportsnot coughing up sputum(declines to consider smoking cessation at this time). For duration, patient reportschronicandhas noted for years. For severity, patient reportsnot limiting. For context, patient reportscigarette smoking. For aggravating factors, (animal dander).above sx's at [facility] as noted in the [facility] Patient seen today by Dr. Madnel at [facility] Yuridia Mandel MD [address] [place] [address], [phone], [facility] 07/22/2025 20:55:15 5 text/html Musculoskeletal PainReported by PatientHPIFor location, patient reportsbilateral knee. For severity, patient reportsno change. For duration, patient reportspresent for >12 months.Pt is here for joint injections in both knees Yuridia Mandel MD [address] [place] [address], [phone], [facility] 07/23/2025 15:24:57 5 text/html Bowel Complaints/Fecal IncontinenceReported by PatientHPIFor [...] accident for close to two years. the [facility] has acute gastroenteritis going around. she has [...] noted in the HPI Yuridia Mandel MD [address] [place] [address], [phone], [facility] 08/04/2025 14:09:02 OBGyn Episode No OBEpisode recorded.
--- OUTSIDE RECORDS SUMMARY | 2025-08-08 17:02 | XMS_ITS | Encounter Summary ---
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 Role Phone Non-Staff, Physician Primary Care Provider Unava ilable Encounter Details Date Type Department Care Team (Latest Contact Info) Description 12/19/2011 Ancillary Orders [facility] Pre-Registration [place] CALL TO MAKE APPOINTMENT ONLY [address] [place] [phone] Eliazar Martínez MD [address] [place] [phone] Nipple discharge; Other sign and symptom in breast Social History Tobacco Use Types Packs/Day Years Used Date Smoking Tobacco: Never Assessed Comments Unknown Sex and Gender Information Value Date Recorded Sex Assigned at Not on file 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
--- NOTE | 2025-08-08 17:26 | W.ED.HA ---
HPI - Headache General: Chief Complaint: Headache Stated Complaint: Stoke like Symptoms Time Seen by Provider: 08/08/25 17:14 History of Present Illness: 54-year-old female with a history of hypertension, headaches, borderline intellectual functioning and PTSD who presents to the emergency room with headache. Says she has had a band of headache starting mostly at the base of her skull on the right side and radiating down her neck and radiating up around her head. No altered mental status. No focal motor deficits. Vitals are normal. No fever. No cough. Related Data Home Medications ?Medication ?Instructions ?Recorded ?Confirmed atenolol 50 mg tablet 50 mg PO DAILY 11/13/19 06/30/25 budesonide-formoterol HFA 160 2 puff inhalation BID 11/13/19 06/30/25 mcg-4.5 mcg/actuation aerosol inhaler (Symbicort) gabapentin 400 mg capsule 400 mg PO BID 11/13/19 06/30/25 metformin 500 mg tablet 500 mg PO DAILY 11/13/19 06/30/25 pantoprazole 40 mg tablet,delayed 40 mg PO QAM 11/13/19 06/30/25 release cyclobenzaprine 10 mg tablet 10 mg PO TID PRN Pain 05/17/21 06/30/25 mecobalamin (vitamin B12) 10,000 mcg IM .monthly 08/01/21 06/30/25 mcg solution for injection amlodipine 5 mg tablet 5 mg PO BID 01/17/22 06/30/25 bismuth subsalicylate 262 mg/15 mL 524 mg PO Q30M PRN 01/17/22 06/30/25 oral suspension (Pepto-Bismol) cyanocobalamin (vitamin B-12) 1 mcg PO DAILY 01/17/22 06/30/25 1,000 mcg capsule diphenhydramine HCl 25 mg capsule 25 mg PO BID PRN 01/17/22 06/30/25 (Benadryl) fluticasone propionate 50 1 spray intranasal DAILY 01/17/22 06/30/25 mcg/actuation nasal spray,suspension magnesium hydroxide 400 mg/5 mL 30 ml PO Q24H PRN 01/17/22 06/30/25 oral suspension (Milk of Magnesia) metoprolol tartrate 75 mg tablet 75 mg PO BID 01/17/22 06/30/25 rosuvastatin 20 mg tablet (Crestor) 20 mg PO DAILY 01/17/22 06/30/25 tiotropium bromide 18 mcg capsule 1 cap inhalation DAILY 01/17/22 06/30/25 with inhalation device (Spiriva with HandiHaler) tizanidine 4 mg capsule 4 mg PO Q8H PRN 01/17/22 06/30/25 Previous Rx's ?Medication ?Instructions ?Recorded polyethylene glycol 3350 17 17 gm PO DAILY PRN constipation 05/21/20 gram/dose oral powder (Miralax) #119 grams topiramate 100 mg tablet (Topamax) 100 mg PO DAILY #30 tabs 06/10/20 ondansetron 4 mg disintegrating 4 mg PO Q6H PRN nausea and 04/12/21 tablet vomiting #14 tabs naproxen 500 mg tablet (Naprosyn) 500 mg PO BID PRN pain #12 tabs 04/26/21 acetaminophen 325 mg capsule 325 mg PO Q4H PRN fever or pain 08/04/21 #60 caps docusate sodium 100 mg capsule 100 mg PO BID #30 caps 08/04/21 (Colace) albuterol sulfate 90 mcg/actuation 2 puff inhalation Q2H PRN 12/24/22 aerosol inhaler (ProAir HFA) shortness of breath or wheezing #8.5 grams dextromethorphan polistirex 30 10 ml PO Q12H #120 mL 12/24/22 mg/5 mL oral susp ext.release 12hr (Robitussin ER) bisacodyl 10 mg/30 mL enema (Fleet 10 mg (30 mL) [place] DAILY PRN 04/12/23 Bisacodyl) constipation #37 mL lactulose 20 gram/30 mL oral 30 g (45 mL) PO DAILY PRN 04/12/23 solution constipation #1,200 mL ketorolac 10 mg tablet 10 mg PO TID PRN pain #10 tabs 07/01/23 ondansetron HCl 4 mg tablet 4 mg PO Q8H #30 tabs 04/19/24 conjugated estrogens 0.45 mg See Rx Instructions .Route 05/26/24 tablet (Premarin) .COMPLEX #90 tabs aspirin 81 mg tablet,delayed 81 mg PO DAILY #30 tabs 09/15/24 release valacyclovir 500 mg tablet See Rx Instructions .Route 10/13/24 .COMPLEX #60 tabs alendronate 70 mg tablet See Rx Instructions .Route 01/16/25 .COMPLEX #4 tabs ondansetron 4 mg disintegrating 4 mg PO Q6H PRN nausea and 03/04/25 tablet vomiting #14 tabs cholecalciferol (vitamin D3) 50 See Rx Instructions .Route 05/14/25 mcg (2,000 unit) capsule (Vitamin .COMPLEX #90 caps D3) clonazepam 0.5 mg tablet (Klonopin) 0.25 mg (1/2 x 0.5 mg) PO DAILY 06/30/25 PRN anxiety/panic #15 tabs calcium carbonate See Rx Instructions .Route 07/08/25 .COMPLEX #180 tabs venlafaxine 150 mg See Rx Instructions .Route 07/17/25 capsule,extended release 24 hr .COMPLEX #30 caps cyclobenzaprine 10 mg tablet 10 mg PO Q8H PRN muscle spasm #20 08/08/25 tabs diclofenac sodium 50 mg 50 mg PO BID PRN pain #14 tabs 08/08/25 tablet,delayed release Allergies Allergy/AdvReac Type Severity Reaction Status Date / Time lisinopril Allergy Intermediate swelling, Verified 06/30/25 13:52 rash Sulfa (Sulfonamide Allergy Intermediate rash Verified 06/30/25 13:52 Antibiotics) Penicillins Allergy Unknown rash, fever Verified 06/30/25 13:52 varenicline (From Chantix) Allergy Unknown vomiting,states Verified 06/30/25 13:52 it almost killed her hepatitis A virus vaccine Allergy FRANDYJaron-Dmitriyll Verified 06/30/25 13:52 Lip/Tongue/Throat Review of Systems Narrative: Constitutional symptoms: Negative except as documented in HPI. Skin symptoms: Negative except as documented in HPI. Eye symptoms: Negative except as documented in HPI. ENMT symptoms: Negative except as documented in HPI. Respiratory symptoms: Negative except as documented in HPI. Cardiovascular symptoms: Negative except as documented in HPI. Gastrointestinal symptoms: Negative except as documented in HPI. Genitourinary symptoms: Negative except as documented in HPI. Musculoskeletal symptoms: Negative except as documented in HPI. Neurologic symptoms: Negative except as documented in HPI. Psychiatric symptoms: Negative except as documented in HPI. Endocrine symptoms: Negative except as documented in HPI. PFSH ED PFSH: Medical History (Updated 08/08/25 @ 17:28 by Camila Lucero MD) Nicotine dependence, cigarettes, uncomplicated Psychiatric care Pelvic pain Borderline intellectual functioning Post-traumatic stress disorder, chronic Surgical History S/P appendectomy S/P cholecystectomy H/O tubal ligation Family History Mother Diabetes Hypertension Stroke Uterine cancer, Onset Age: 46 Grandmother Diabetes maternal Family/Other Hyperlipidemia paternal uncle Heart disease paternal uncle Sister Hypertension Heart disease Brother Stomach cancer Denies family history of Colon cancer Ovarian cancer Clotting disorder Breast cancer Anesthesia complication Bleeding disorder Thyroid disease Social History Smoking and tobacco/nicotine status: current every day tobacco/nicotine user Physical Exam Narrative: EXAM NARRATIVE: General: Alert, no acute distress. Skin: Warm, dry. Head: Normocephalic, atraumatic. Neck: Supple, trachea midline. Eye: Extraocular movements are intact. Ears, nose, mouth and throat: mucosa moist. Cardiovascular: Regular, Normal peripheral perfusion. Respiratory: Lungs are clear to auscultation, respirations are non-labored, breath sounds are equal, Symmetrical chest wall expansion. Gastrointestinal: Soft, Nontender, Non distended Musculoskeletal: Normal ROM, no deformity. Neurological: Alert and oriented, No focal neurological deficit observed. Psychiatric: Cooperative, appropriate mood & affect. Course Vital Signs: Vital signs: Vital Signs Temperature 97.7 F 08/08/25 16:57 Pulse Rate 69 08/08/25 16:57 Respiratory Rate 17 08/08/25 16:57 Blood Pressure 127/86 08/08/25 16:57 Pulse Oximetry 98 08/08/25 16:57 Oxygen Delivery Me thod Room Air 08/08/25 16:57 MDM - Headache Medical Decision Making Medical decision making: Differential diagnosis for this patient presenting with severe headache including but not limited to and based on the above HPI, review of systems and physical exam: Intracranial hemorrhage, stroke, migraine, cluster headache, infections such as influenza, covid Orders placed to evaluate differential diagnosis based on the above differential, HPI and physical exam. No signs of stroke. Blood pressure low so likely no intracranial hemorrhage. Has a history of headaches and this seems to be more of a migraine or cluster type headache. No workup indicated. CT not indicated. Assessment and plan: Migraine headache - 50 mg IV Benadryl - 30 mg IV Toradol - 10 mg IV Reglan - 60 mg IV Norflex - Discharged home - Discussed plan with patient. Answered any questions. - Evaluation and treatment of this problem were appropriate in the emergency setting. No radiology studies performed this visit Discharge Plan Discharge Patient Disposition: Home Clinical Impression: Migraine Condition: Stable Prescriptions: New cyclobenzaprine 10 mg tablet 10 mg PO Q8H PRN (Reason: muscle spasm) Qty: 20 0RF diclofenac sodium 50 mg tablet,delayed release (DR/EC) 50 mg PO BID PRN (Reason: pain) Qty: 14 0RF No Action topiramate [Topamax] 100 mg tablet 100 mg PO DAILY Qty: 30 2RF Spiriva with HandiHaler 18 mcg capsule, w/inhalation device 1 cap inhalation DAILY Rx Instructions: puncture 1 cap using device; one dose = 2 inhalations fluticasone propionate 50 mcg/actuation spray,suspension 1 spray intranasal DAILY Rx Instructions: administer into each nostril rosuvastatin [Crestor] 20 mg tablet 20 mg PO DAILY amlodipine 5 mg tablet 5 mg PO BID cyanocobalamin (vitamin B-12) 1,000 mcg capsule 1 mcg PO DAILY bismuth subsalicylate [Pepto-Bismol] 262 mg/15 mL suspension 524 mg PO Q30M PRN Rx Instructions: do not exceed 8 doses in a 24 hour period magnesium hydroxide [Milk of Magnesia] 400 mg/5 mL suspension 30 ml PO Q24H PRN diphenhydramine HCl [Benadryl] 25 mg capsule 25 mg PO BID PRN tizanidine 4 mg capsule 4 mg PO Q8H PRN metoprolol tartrate 75 mg tablet 75 mg PO BID gabapentin 400 mg capsule 400 mg PO BID atenolol 50 mg tablet 50 mg PO DAILY Symbicort 160-4.5 mcg/actuation HFA aerosol inhaler 2 puff INHALATION BID pantoprazole 40 mg tablet,delayed release (DR/EC) 40 mg PO QAM metformin 500 mg tablet 500 mg PO DAILY Rx Instructions: with supper cyclobenzaprine 10 mg tablet 10 mg PO TID PRN (Reason: Pain) mecobalamin (vitamin B12) 10,000 mcg recon soln IM .monthly clonazepam [Klonopin] 0.5 mg tablet 0.25 mg PO DAILY PRN (Reason: anxiety/panic) Qty: 15 1RF Premarin 0.45 mg tablet See Rx Instructions .ROUTE .COMPLEX Qty: 90 2RF Dose Instruction: TAKE ONE TABLET BY MOUTH EVERY DAY FOR MENOPAUSE Rx Instructions: TAKE ONE TABLET BY MOUTH EVERY DAY FOR MENOPAUSE valacyclovir 500 mg tablet See Rx Instructions .ROUTE .COMPLEX Qty: 60 2RF Dose Instruction: TAKE ONE TABLET BY MOUTH TWICE DAILY Rx Instructions: TAKE ONE TABLET BY MOUTH TWICE DAILY alendronate 70 mg tablet See Rx Instructions .ROUTE .COMPLEX Qty: 4 0RF Dose Instruction: TAKE ONE TABLET BY MOUTH ONCE A WEEK ON SUNDAY *starting November 12* Rx Instructions: TAKE ONE TABLET BY MOUTH ONCE A WEEK ON SUNDAY *starting November 12* cholecalciferol (vitamin D3) [Vitamin D3] 50 mcg (2,000 unit) capsule See Rx Instructions .ROUTE .COMPLEX Qty: 90 0RF Dose Instruction: TAKE ONE CAPSULE BY MOUTH EVERY DAY FOR vitamin deficiency Rx Instructions: TAKE ONE CAPSULE BY MOUTH EVERY DAY FOR vitamin deficiency calcium carbonate 600 mg calcium (1,500 mg) tablet See Rx Instructions .ROUTE .COMPLEX Qty: 180 1RF Dose Instruction: TAKE 1 TABLET BY MOUTH THREE TIMES DAILY BEFORE MEALS Rx Instructions: TAKE 1 TABLET BY MOUTH THREE TIMES DAILY BEFORE MEALS venlafaxine 150 mg capsule,extended release 24hr See Rx Instructions .ROUTE .COMPLEX Qty: 30 2RF Dose Instruction: TAKE ONE CAPSULE BY MOUTH EVERY MORNING Rx Instructions: TAKE ONE CAPSULE BY MOUTH EVERY MORNING polyethylene glycol 3350 [Miralax] 17 gram/dose powder 17 gm PO DAILY PRN (Reason: constipation) Qty: 119 0RF ondansetron 4 mg tablet,disintegrating 4 mg PO Q6H PRN (Reason: nausea and vomiting) Qty: 14 0RF naproxen [Naprosyn] 500 mg tablet 500 mg PO BID PRN (Reason: pain) Qty: 12 0RF Colace 100 mg capsule 100 mg PO BID Qty: 30 0RF acetaminophen 325 mg capsule 325 mg PO Q4H PRN (Reason: fever or pain) Qty: 60 0RF lactulose 20 gram/30 mL solution 30 g PO DAILY PRN (Reason: constipation) Qty: 1200 0RF Rx Instructions: for constipation not relieved by miralax Fleet Bisacodyl 10 mg/30 mL enema 10 mg [place] DAILY PRN (Reason: constipation) Qty: 37 3RF ondansetron HCl 4 mg tablet 4 mg PO Q8H Qty: 30 0RF ondansetron 4 mg tablet,disintegrating 4 mg PO Q6H PRN (Reason: nausea and vomiting) Qty: 14 0RF Robitussin ER 30 mg/5 mL suspension,extended rel 12 hr 10 ml PO Q12H Qty: 120 0RF ProAir HFA 90 mcg/actuation HFA aerosol inhaler 2 puff inhalation Q2H PRN (Reason: shortness of breath or wheezing) Qty: 8.5 1RF ketorolac 10 mg tablet 10 mg PO TID PRN (Reason: pain) Qty: 10 0RF aspirin 81 mg tablet,delayed release (DR/EC) 81 mg PO DAILY Qty: 30 0RF Discharge Orders: Discharge ED (Routine); Ordered 08/08/25 Ordered By: Camila Lucero Referrals: Eric Mandel MD [Primary Care Provider, Family Practice] Discharge Diet: Regular Discharge Activity: Increase activity as tolerated Patient Instructions: Acute Headache (ED), Opioid Safety, Pain Management, Patient Portal & Ronni Instructions Activity Restrictions/Additional Instructions: Thank you for choosing [facility] for your healthcare needs today. You have been screened and evaluated and felt safe for discharge. Health conditions do change or evolve sometimes and as such it is important that you follow up with your Primary Doctor to be re checked, 3-5 days is a general good time frame for follow up. You are always welcome to return to the ED for re assessment if your symptoms are worsening or you have new concerns Print Language: Togolese Coding Level of Care Code ED Senior Recruitment Consultant for Stephen Taylor
[2025-08-08] MEDS: orphenadrine 30 mg/mL Inj 2 mL 60 MG IVP (17:35)
[2025-08-08] MEDS: diphenhydrAMINE 50 mg/mL SDV 1mL IVP (17:37)
[2025-08-08] MEDS: metoclopramide 5 mg/mL SDV 2 mL 10 MG IVP (17:39)
[2025-08-08 17:43] VITALS: BP 138/96; O2SAT 100
[2025-08-08 17:58] VITALS: BP 158/89; PULSE 71; O2SAT 98
== END 2025-08-08 18:01 | disposition home or self-care (01) ==
PROVIDERS: Emergency Provider Emergency Medicine; PCP Family Medicine
DX: G43.909 Migraine, unspecified, not intractable, without status migrainosus (principal); Z79.82 Long term (current) use of aspirin; Z79.84 Long term (current) use of oral hypoglycemic drugs; Z72.0 Tobacco use; I10 Essential (primary) hypertension
CPT/HCPCS: 36415; 96374; 96375; 99284; J1200; J1885; J2360; J2765

== ENCOUNTER → 2025-08-11 07:50 | Outpatient (BNVA) | payer OTHER, SELFPAY | PROVIDERS: PCP Family Medicine; Visit Provider Orthopaedic Surgery | DX: M22.2X2 Patellofemoral disorders, left knee (principal); M22.2X1 Patellofemoral disorders, right knee | CPT/HCPCS: 99204 ==

== ENCOUNTER → 2025-09-08 11:24 | Outpatient (BNVA) | payer OTHER, SELFPAY | PROVIDERS: PCP Family Medicine; Visit Provider Orthopaedic Surgery | DX: M22.8X1 Other disorders of patella, right knee (principal); M22.8X2 Other disorders of patella, left knee | CPT/HCPCS: 99213 ==

== ENCOUNTER 2025-09-24 12:29 | Outpatient (RCR) | payer OTHER, SELFPAY | END 2025-10-11 23:59 | disposition home or self-care (01) | LOC: SPT 12:29 | PROVIDERS: PCP Family Medicine; Visit Provider Orthopaedic Surgery | DX: M22.8X9 Other disorders of patella, unspecified knee (principal) | CPT/HCPCS: 97110; 97161 ==

== ENCOUNTER 2025-10-12 05:00 | Outpatient (RCR) | payer MEDICARE, MEDICAID, SELFPAY | END 2025-11-11 23:59 | disposition home or self-care (01) | LOC: SPT 05:00 | PROVIDERS: PCP Family Medicine; Visit Provider Orthopaedic Surgery | DX: M22.8X9 Other disorders of patella, unspecified knee (principal); M25.561 Pain in right knee; M25.562 Pain in left knee | CPT/HCPCS: 97110 ==